=== PATIENT | female | born 1930 | race Caucasian/White ===

== ENCOUNTER 2020-01-30 17:13 | Inpatient (IN) | payer MEDICARE, OTHER ==
[~2020-01-30] VITALS: Ht 157.5 cm; Wt 72.1 kg
[~2020-01-30 17:13] MED LIST: ACTEMRA80 MG/4 ML IV; ASPIRIN81 MG PO; FIORICET1 EA PO; FOLIC ACID1 MG PO; HYDROCODON-ACE1 EA12 PO; LIPITOR10 MG PO; LYRICA100 MG PO; METHOTREXATE2.5 MG PO; NEXIUM40 MG PO; PREDNISONE5 MG PO; PROPRANOLOL HCL80 MG PO; RESTASIS1 EACH PO; ULTRAM50 MG PO
[2020-01-30] MEDS ORDERED: ONDANSETRON HCL INJ 2MG/ML 2ML 2 MG/ML VIAL IV STA (17:23)
[2020-01-30] MEDS ORDERED: MORPHINE SULFATE 2 MG/ML SYR 1ML IV STA ×2 (17:23→17:51)
--- OUTSIDE RECORDS SUMMARY | 2020-01-30 17:31 | XMS REPORT | Continuity of Care Document ---
Author Author [email or web address] Address Unknown Phone Unavailable Care Team Providers Care Underwriting Clerk Name Role Phone [employer] Unavailable Un available Problems Problem Status Onset Date Classification Date Reported Comments Source M79.641 Active 01/07/2020 [facility] DX: K21.9=GASTRO-ESOPHAGEAL REFLUX DISEA Active 03/27/2019 [facility] Unspecified open wound, unspecified lowe r leg, initial encounter 03/14/2019 03/17/2019 [facility] LEFT LEG SWOLLEN Active 03/14/2019 [facility] RT ANKLE Active 02/20/2019 [facility] RT ANKLE. Active 02/20/2019 [facility] R09.82/J31.0 LANDMARK PROTOCOL Active 01/22/2019 [facility] Other fracture of upper and lower end of unspecified fibula, initial encounter for closed fracture 12/29/2018 12/31/2018 [facility] Unspecified fall, initial encounter 12/29/2018 12/31/2018 [facility] LEG PAIN Active 12/28/2018 [facility] Lumbago with sciatica, right side 04/23/2018 11/04/2018 [facility] RT SIDE LBP W/RT SIDE SCIATICA Active 01/01/2018 [facility] Unspecified abdominal pain 12/27/2017 07/08/2018 [facility] RIGHT SIDE LOWER BACK PAIN AND SCIATICA Active 12/25/2017 [facility] RIGHT SIDE LOWER BACK PAIN Act krishan 12/25/2017 [facility] ABD PAIN Active 12/15/2017 [facility] ABDOMINAL PAIN, PNEUMONIA Acti ve 12/15/2017 [facility] CHEST PAIN Active 12/04/2017 [facility] ACUTE CHEST PAIN Active 12/04/2017 [facility] M05.741, M05.742 Active 06/14/2016 [facility] DX: PAD /CLAUDICATION/ABNORMAL DOPPLER I Active 03/30/2016 [facility] INSECT BITE Active 01/21/2016 [facility] LUE CELLULITIS W/IMMUNE SYSTEM SUPPRESSI Active 01/21/2016 [facility] DX; K21.9=GASTRO-ESOPHAGEAL REFLUX DISEA Active 01/19/2016 [facility] Discharge Diagnosis: Left foot pain 11/11/2015 11/14/2015 [facility] Discharge Diagnosis: Musculoskeletal limb pain 11/11/2015 11/14/2015 [facility] Discharge Diagnosis: Contusion of left leg 10/20/2015 10/23/2015 [facility] LEG PAIN OR INJURY Active 10/19/2015 [facility] Discharge Diagnosis: Contusion of left k nee, initial encounter 07/28/2015 07/31/2015 [facility] HIP PAIN Active 07/28/2015 [facility] Other lack of coordination 11/04/2018 [facility] [place] Difficulty in walking, not elsewhere classified 11/04/2018 [facility] [place] Muscle weakness (generalized) 11/04/2018 [facility] [place] Unsteadiness on feet 11/04/2018 [facility] [place] Fibromyositis (disorder) Resol dami Problem [facility] [place] [place] Hyperlipidemia (disorder) Reso lved Problem [facility] [place] [place] Hypertensive disorder, systemic arterial (disorder) Resolved Problem 01/09/2020 [facility] [place] [place] Rheumatoid arthritis (disorder) Resolved Problem [facility] [place] [place] Pneumonia, unspecified organism 07/08/2018 [facility] Dehydration 07/08/2018 [facility] Fibromyalgia 07/08/2018 [facility] Unspecified osteoarthritis, unspecified site 07/08/2018 [facility] Rheumatoid arthritis, unspecified 07/08/2018 [facility] Restless legs syndrome 07/08/2018 [facility] Essential (primary) hypertension 07/08/2018 [facility] Polyp of stomach and duodenum 07/08/2018 [facility] Cholesterolosis of gallbladder 07/08/2018 [facility] Pure hypercholesterolemia, unspecified 07/08/2018 [facility] Hyperlipidemia, unspecified 07/08/2018 [facility] Chronic pain syndrome 07/08/2018 [facility] Atherosclerosis of aorta 07/08/2018 [facility] Gastro-esophageal reflux disease without esophagitis 07/08/2018 [facility] Diaphragmatic hernia without obstruction or gangrene 07/08/2018 [facility] Other constipation 07/08/2018 [facility] terminal makeup operator (current) use of opiate analgesic 07/08/2018 [facility] Diarrhea, unspecified 07/08/2018 [facility] Adverse effect of unspecified narcotics, initial encounter 07/08/2018 [facility] Restlessness and agitation 07/08/2018 [facility] Personal history of colonic polyps 07/08/2018 [facility] Migraine, unspecified, not intractable, without status migrainosus 07/08/2018 [facility] Hypokalemia 07/08/2018 [facility] Pain in right knee 01/09/2020 [facility] NECK/BACK Active [facility] [place] TRAUMATIC ECCHYMOSIS OF LT LOWER LEG Active [facility] [place] BACK PAIN Active [facility] LOW BACK PAIN Active [facility] GASTRO-ESOPHAGEAL REFLUX DISEASE WITHOUT Active [facility] DYSPHAGIA, UNSPECIFIED Active [facility] PERSONAL HISTORY OF COLONIC POLYPS Active [facility] CELLULITIS AND ABSCESS OF MOUTH Active [facility] PERIPHERAL VASCULAR DISEASE, UNSPECIFIED Active [facility] RHEU ARTHRITIS W RHEU FACTOR OF R HAND W Active [facility] RHEU ARTHRITIS W RHEU FACTOR OF LEFT SPANGLER Active [facility] UNSPECIFIED ABDOMINAL PAIN Act krishan [facility] PNEUMONIA, UNSPECIFIED ORGANISM Active [facility] LUMBAGO WITH SCIATICA, RIGHT SIDE Active [facility] [place] DIFFICULTY IN WALKING, NOT ELSEWHERE CLA Active [facility] [place] UNSTEADINESS ON FEET Active [facility] [place] OTHER LACK OF COORDINATION Act krishan [facility] [place] MUSCLE WEAKNESS (GENERALIZED) Active [facility] [place] POSTNASAL DRIP Active [facility] CHRONIC RHINITIS Active [facility] PAIN IN RIGHT HAND Active [place] PAIN IN LEFT HAND Active [place] PAIN IN LEFT KNEE Active [place] PAIN IN RIGHT KNEE Active [facility] Medications Medication Details Route Status Patient Instructions Ordering Provider Order Date Source Sulfamethoxazole 800 MG / Trimethoprim 1 60 MG Oral Tablet [Bactrim] 1 tab, PO, BID, X 10 day, # 20 tab, 0 Re fill(s) Active 03/15/2019 [facility] Sulfamethoxazole 800 MG / Trimethoprim 1 60 MG Oral Tablet [Bactrim] Notes: One DS tablet = trimethoprim 160m g + sulfamethoxazole 800 mg Dose based on trimethoprim component On empty stomach with a glass of water. (Same As: Bactrim DS, Septra DS) Inactive 03/15/2019 [facility] WheelChair 1 ea, MISC, ONCALL, # 1 ea, 0 Refill(s) Active 12/29/2018 [facility] Albuterol 0.833 MG/ML / Ipratropium Brom zhang 0.167 MG/ML Inhalant Solution [DuoNeb] Notes: (Same as: Duoneb) No Longer Active 12/29/2018 [facility] rOPINIRole 0.25 mg oral tablet 0.25 mg = 1 tab, PO, TID- Before Meals, # 90 tab, 0 Refill(s), Pharmacy: [facility] [id number] Active 12/19/2017 [facility] Lidocaine 0.05 MG/MG Topical Ointment 1 appl, TOP, TID, # 50 gm, 0 Refill(s), Pharmacy: [facility] [id number] Active 12/19/2017 [facility] DULoxetine 30 mg oral delayed release capsule 30 mg = 1 cap, PO, Daily, # 30 cap, 0 Refill(s), Pharmacy: [facility] [employer] [place] [id number] Active 12/19/2017 [facility] predniSONE 10 mg oral tablet 1 0 mg = 1 tab, PO, Daily, 0 Refill(s) Active 12/19/2017 [facility] Sodium Chloride 0.9% IV 1000 mL 1,000 mL, Rate: 25 ml/hr, Infuse over: 40 hr, Route: IV, Dosing Weight 56.903 kg, Total Volume: 1,000, Start date: 12/18/17 12:07:00 CDT, Duration: 30 day, Stop date: 01/17/18 12:06:00 CDT, 1.59, m2 Inactiv e 12/18/2017 [facility] Methotrexate Notes: (Same as:M ethotrexate Sodium) Chemotherapy agent/Handle with caution WASTE: F/P - Black; E - Yellow No Longer Active 12/18/2017 [facility] Cymbalta Notes: (Same as: Cymb adam) (Do Not Crush) No Longer Active 12/18/2017 [facility] Lyrica Notes: Same as Lyrica No Longer Active 12/18/2017 [facility] Potassium Chloride Notes: ([facility] e as: K-Dur 20) "Do Not Crush" For patients unable to swallow tablet, dissolve in one half glass of water. Allow about 2 minutes for the tablets to disintegrate. Stir before giving to prepare slurry and administer. Please exclude Patients with feeding tube less than 14 Romanian (Dobhoff, J-tube etc) and pediatric and patients. With food and full glass of water Inactive 12/17/2017 [facility] Requip Notes: (Same as: Requip) No Longer Active 12/17/2017 [facility] Lidocaine 0.05 MG/MG Topical Ointment Notes: (Same as: Xylocaine) No Longer Active 12/17/2017 [facility] Prednisone Notes: (Same as: Pr edniSONE) Take with food. No Longer Active 12/17/2017 [facility] morphine 15 mg oral tablet, extended release Notes: Do not crush (Same as:Oramorph SR, MS Contin) No Longer Active 12/17/2017 [facility] Potassium Chloride Notes: (Jeronimo e as: K-Dur 20) "Do Not Crush" For patients unable to swallow tablet, dissolve in one half glass of water. Allow about 2 minutes for the tablets to disintegrate. Stir before giving to prepare slurry and administer. Please exclude Patients with feeding tube less than 14 Romanian (Dobhoff, J-tube etc) and pediatric and patients. With food and full glass of water Inactive 12/17/2017 [facility] Morphine 30 mg, PO, Q8H, 0 Ref ill(s) Active 12/17/2017 [facility] Potassium Chloride Notes: MUST be Diluted before use (Same as: KCl) MEDICATION WASTE Product Size: 40 mEq Product Wasted: ___ mEq Inactive 12/16/2017 [facility] atorvastatin Notes: (Same As: Lipitor) No Longer Active 12/16/2017 [facility] Actemra 20 mg/mL intravenous solution 4 mg/kg, IV, q4wk, 0 Refill(s) No Longer Active 12/16/2017 [facility] Ativan Notes: (Same as: Ativan) Inactive 12/15/2017 [facility] Lyrica Notes: (Same as: Lyrica) No Longer Active 12/15/2017 [facility] RN please bring patient's own Metanx to pharmacy to label RN please bring patient's own Metanx to pharmacy to label, Reminder, Drug form: MISC, Route: BRENDACEMELYN, 12/15/17 16:00:00 CDT, Duration: 30 day, Stop date: 01/14/18 8:00:00 CDT No Longer Active 12/15/2017 [facility] Morphine Notes: (Same as:MORPh ine Sulfate) No Longer Active 12/15/2017 [facility] Rocephin + sterile water 10 mL Notes: (Same As: Rocephin). Use with 100 mL NS and infuse over 30 min MEDICATION WASTE Product Size: 1000 mg Product Wasted: ___ mg Inactive 12/15/2017 [facility] D5W 1/2NS 1,000 mL 1,000 mL, R ate: 100 ml/hr, Infuse over: 10 hr, Route: IV, Dosing Weight 56.903 kg, Total Volume: 1,000, Start date: 12/15/17 10:00:00 CDT, Duration: 30 day, Stop date: 01/14/18 9:59:00 CDT, 1.59, m2 No Longer Active 12/15/2017 [facility] Flagyl Notes: (Same as: Flagyl ) Avoid alcohol. No Longer Active 12/15/2017 [facility] Restasis Notes: (Same as: Rest asis) No Longer Active 12/15/2017 [facility] mometasone furoate 0.05 MG/ACTUAT Metere d Dose Nasal [place] 100 microgram, 2 spray, Route: NASAL, Da barbara, Drug form: SPRY, Start date: 12/15/17 9:00:00 CDT, Duration: 30 day, Stop date: 01/13/18 9:00:00 CDT No Longer Active 12/15/2017 [facility] 24 HR Metoprolol Tartrate 50 MG Extended Release Tablet [Toprol] Notes: (Same as: Toprol XL) May split t ab, but do not crush. No Longer Active 12/15/2017 [facility] Fluticasone propionate 0.05 MG/ACTUAT Me tered Dose Nasal [place] [Flonase] Notes: (Same as: Flonase) No Longer Active 12/15/2017 [facility] Hydralazine Hydrochloride 25 MG Oral Tablet Notes: (Same as: Apresoline) May interfere w/enteral feedings Take With Food. No Longer Active 12/15/2017 [facility] Restasis 0.05% ophthalmic emulsion Restasis 0.05% ophthalmic emulsion, 1 drp, Route: BOTH EYES, BID, 12/15/17 9:00:00 CDT, Duration: 30 day, Stop date: 01/13/18 17:00:00 CDT Inactive 12/15/2017 [facility] Azelastine hydrochloride 0.137 MG/ACTUAT Metered Dose Nasal [place] [Astelin] 274 microgram, 2 spray, Route: NASAL, Dr ug Form: SPRY, Dosing Weight 59.091, kg, BID, Start date: 12/15/17 9:00:00 CDT, Duration: 30 day, Stop date: 01/13/18 17:00:00 CDT No Longer Active 12/15/2017 [facility] Aspirin Notes: Do not crush or chew. (Same As: Ecotrin) Inactive 12/15/2017 [facility] naloxegol 25 MG Oral Tablet [Movantik] Notes: (Same as: Movantik) Swallow tablets whole, do not crush or chew. Avoid consumption of grapefruit or grapefruit juice during treatment. Administer naloxegol on an empty stomach at least 1 hour prior to or 2 hours after the first meal of the day. Inactive 12/15/2017 [facility] Lyrica 100 mg oral capsule Lyr ica 100 mg oral capsule, 150 mg, Drug form: CAP, Route: PO, TID, 12/15/17 9:00:00 CDT, Duration: 30 day, Stop date: 01/13/18 17:00:00 CDT Inactive 12/15/2017 [facility] Metanx oral capsule Metanx ora l capsule, 1 cap, Route: PO, Daily, 12/15/17 9:00:00 CDT, Duration: 30 day, Stop date: 01/13/18 9:00:00 CDT No Longer Active 12/15/2017 [facility] Pls update height,weight,allergies Pls update height,weight,allergies, Attn RN, Drug form: MISC, Route: MISC, Continuous, 12/15/17 8:00:00 CDT, Duration: 1 day, Stop date: 12/16/17 7:59:00 CDT Inactive 12/15/2017 [facility] Azithromycin 500 mg, Route: IV , Q24H, Dosing Weight 59.091, kg, Start date: 12/15/17 8:00:00 CDT, Duration: 30 day, Stop date: 01/13/18 8:00:00 CDT, ABX Indication: Pneumonia Inactive 12/15/2017 [facility] morphine 15 mg oral tablet, extended release Notes: Do not crush (Same as:Oramorph SR, MS Contin) No Longer Active 12/15/2017 [facility] Symbicort 80/4.5 inhalation aerosol with adapter Notes: (Same as: Symbicort) WASTE: Aerosol - Return to Pharmacy No Longer Active 12/15/2017 [facility] Ceftriaxone Notes: (Same As: Brendan mobley). MEDICATION WASTE Product Size: 1000 mg Product Wasted: ___ mg Inactive 12/15/2017 [facility] Albuterol 0.83 MG/ML Inhalant Solution Notes: SEE RT DOCUMENTATION (Same as: Proventil) No Longer Active 12/15/2017 [facility] Dextromethorphan Hydrobromide 2 MG/ML / Guaifenesin 20 MG/ML Oral Solution Notes: (dextromethorphan-guaifenesin 10- 100/5 ml LIQ) (Same as: Robitussin-DM) No Longer Active 12/15/2017 [facility] Acetaminophen Notes: Do not ex ceed 4 gm/day. (Same as: Tylenol) No Longer Active 12/15/2017 [facility] Ondansetron Notes: (Same as: Ledy collins) MEDICATION WASTE Product Size: 4 mg Product Wasted: ___ mg No Longer Active 12/15/2017 [facility] Azithromycin Notes: (Same As: Zithromax IV) Inactive 12/15/2017 [facility] Ceftriaxone Notes: (Same As: Brendan mobley). Use with 100 mL NS and infuse over 30 min MEDICATION WASTE Product Size: 1000 mg Product Wasted: ___ mg Inactive 12/15/2017 [facility] GI cocktail Notes: [place] = antacid with simethicone 22.5 mL - lidocaine viscous 7.5 mL Inactive 12/15/2017 [facility] Morphine 2 mg, Route: IVP, ONC E, Dosing Weight 59.091, kg, Priority: STAT, Start date: 12/15/17 5:14:00 CDT, Stop date: 12/15/17 5:14:00 CDT Inactive 12/15/2017 [facility] Morphine 2 mg, Route: IVP, ONC E, Dosing Weight 59.091, kg, Priority: STAT, Start date: 12/15/17 2:49:00 CDT, Stop date: 12/15/17 2:49:00 CDT Inactive 12/15/2017 [facility] Metoclopramide 10 mg, Route: I NATURAL [employer] TRADER, Drug form: INJ, ONCE, Dosing Weight 59.091, kg, Priority: STAT, Start date: 12/15/17 2:49:00 CDT, Stop date: 12/15/17 2:49:00 CDT Inactive 12/15/2017 [facility] Sodium Chloride 0.9% (Bolus) IV 1,000 mL, Infuse Over: 1 hr, Route: IV, ONCE, Priority: STAT, Dosing Weight 59.091 kg, Start date: 12/15/17 2:49:00 CDT, Stop date: 12/15/17 2:49:00 CDT Inactive 12/15/2017 [facility] Miralax Notes: Dissolve in 8 o z of water or juice. (Same as: Miralax) Inactive 12/05/2017 [facility] naloxegol 25 MG Oral Tablet [Movantik] Notes: (Same as: Movantik) Swallow tablets whole, do not crush or chew. Avoid consumption of grapefruit or grapefruit juice during treatment. Administer naloxegol on an empty stomach at least 1 hour prior to or 2 hours after the first meal of the day. Inactive 12/05/2017 [facility] multivitamin Notes: (Same as:O ne Tab Daily, Tab-A-Guerrero + Beta Carotene) Give with food. Inactive 12/05/2017 [facility] mometasone furoate 0.05 MG/ACTUAT Metere d Dose Nasal [place] 100 microgram, 2 spray, Route: NASAL, Da barbara, Drug form: SPRY, Start date: 12/05/17 9:00:00 CDT, Duration: 30 day, Stop date: 01/03/18 9:00:00 CDT Inactive 12/05/2017 [facility] 24 HR Metoprolol Tartrate 50 MG Extended Release Tablet [Toprol] Notes: (Same as: Toprol XL) May split t ab, but do not crush. Inactive 12/05/2017 [facility] Hydralazine Hydrochloride 25 MG Oral Tablet Notes: (Same as: Apresoline) May interfere w/enteral feedings Take With Food. Inactive 12/05/2017 [facility] Nexium 40 mg, Route: PO, Drug form: ECCAP, Daily, Dosing Weight 60.909, kg, Start date: 12/05/17 9:00:00 CDT, Duration: 30 day, Stop date: 01/03/18 9:00:00 CDT No Longer Active 12/05/2017 [facility] Cyclosporine 0.5 MG/ML Ophthalmic Suspension [Restasis ] Notes: (Same as: Restasis) Inactive 12/05/2017 [facility] Aspirin Notes: Do not crush or chew. (Same As: Ecotrin) Inactive 12/05/2017 [facility] Prednisone Notes: Take with fo od. Inactive 12/05/2017 [facility] Fluticasone propionate 0.05 MG/ACTUAT Me tered Dose Nasal [place] [Flonase] Notes: (Same as: Flonase) Inactive 12/05/2017 [facility] Nexium 40 mg, Route: PO, Befor e Breakfast, Dosing Weight 60.909, kg, Start date: 12/05/17 7:30:00 CDT, Duration: 30 day, Stop date: 01/03/18 7:30:00 CDT Inactive 12/05/2017 [facility] *ATTN RN please bring pt home med to [facility] to be labeled* *ATTN RN please bring pt home med to [facility] to be labeled*, ATTN RN, Drug form: MISC, Route: MISC, QSHIFT, 12/05/17 0:00:00 CDT, Duration: 30 day, Stop date: 01/03/18 16:00:00 CDT Inactive 12/05/2017 [facility] Azelastine hydrochloride 0.137 MG/ACTUAT Metered Dose Nasal [place] [Astelin] Notes: (azelastine 137 microgram/inh 30 ml nasal SPR) Non- formulary drug. Same As: Astelin) No Longer Active 12/05/2017 [facility] pregabalin Notes: (Same as: Ly jamarcus) No Longer Active 12/05/2017 [facility] cefdinir Notes: (Same As: Omni cef) No Longer Active 12/05/2017 [facility] atorvastatin Notes: (Same as: Lipitor) No Longer Active 12/05/2017 [facility] Protonix Notes: Tablet should not be chewed or crushed. (Same as: Protonix) Inactive 12/05/2017 [facility] Vantin 200 mg, Route: PO, Drug form: TAB, [id number], Dosing Weight 60.909, kg, Start date: 12/04/17 19:00:00 CDT, Duration: 10 day, Stop date: 12/14/17 7:00:00 CDT, ABX Indication: Other (specify in Comments) Inactive 12/05/2017 [facility] predniSONE 20 mg oral tablet 2 0 mg = 1 tab, PO, Daily, 0 Refill(s) Active 12/04/2017 [facility] morphine 15 mg oral tablet, extended release Notes: Do not crush (Same as:Oramorph SR, MS Contin) No Longer Active 12/04/2017 [facility] Estrogens, Conjugated ([facility]) 0.625 MG/ML Vaginal Cream [Premarin] Notes: (Same As: Premarin Vaginal) No Longer Active 12/04/2017 [facility] Symbicort 80/4.5 inhalation aerosol with adapter Notes: (Same as: Symbicort) WASTE: Aerosol - Return to Pharmacy No Longer Active 12/04/2017 [facility] Acetaminophen 325 MG / butalbital 50 MG / Caffeine 40 MG Oral Tablet Notes: (bfkcwrzireccc-xqrcxxmjzi-ywdwjmt e 325-50-40mg) Do not exceed 4 gm/day of acetaminophen. (Same as: Esgic, Fioricet) No Longer Active 12/04/2017 [facility] 200 ACTUAT Albuterol 0.09 MG/ACTUAT Mete red Dose Inhaler [ProAir HFA] Notes: Albuterol 90 microgram/inh 8gm HF A WASTE: Aerosol - Return to Pharmacy Same as: Ventolin, Proventil No Longer Active 12/04/2017 [facility] Aspirin 81 mg, PO, Daily, 0 Re fill(s) Active 12/04/2017 [facility] Fluticasone propionate 0.05 MG/ACTUAT Me tered Dose Nasal [place] [Flonase] 50 microgram =, NASAL, Daily, 0 Refill(s ) Active 12/04/2017 [facility] Azelastine hydrochloride 0.137 MG/ACTUAT Metered Dose Nasal [place] [Astelin] 2 spray, NASAL, BID, 0 Refill(s) Active 12/04/2017 [facility] metoprolol tartrate 50 mg oral tablet 50 mg = 1 tab, PO, Daily, 0 Refill(s) Active 12/04/2017 [facility] Prednisone 2 mg, PO, Daily, Qu antity sufficient, 0 Refill(s) No Longer Active 12/04/2017 [facility] Cyclosporine 0.5 MG/ML Ophthalmic Suspension [Restasis ] 1 drp, BOTH EYES, BID, # 30 mL, 0 Refill(s) Active 12/04/2017 [facility] mometasone furoate 0.05 MG/ACTUAT Metere d Dose Nasal [place] 2 spray, NASAL, Daily, 0 Refill(s) Active 12/04/2017 [facility] Metanx oral capsule 1 cap, PO, Daily, 0 Refill(s) Active 12/04/2017 [facility] Aspirin Notes: Take with food. Inactive 12/04/2017 [facility] Saline Flush 0.9% Notes: (Same as: BD Posiflush) No Longer Active 12/04/2017 [facility] calamine topical lotion 1 appl , Route: TOP, QID, Drug form: LOT, PRN Itching, Start date: 01/26/16 8:22:00 CDT, Duration: 30 day, Stop date: 02/25/16 8:21:00 CDT Inactive 01/26/2016 [facility] RN-Do NOT give Vanc until trough drawn 01/26/16 @ 08:00 RN-Do NOT give Vanc until trough drawn 01/26/16 @ 08:00, Attn:RN, Drug form: MISC, Route: MISC, ONCE, 01/26/16 7:30:00 CDT, Stop date: 01/26/16 7:30:00 CDT Inactive 01/26/2016 [facility] Milk of Magnmirtha Notes: (Same as: Milk of Fidencio, MOM) Inactive 01/25/2016 [facility] vancomycin + sodium chloride 0.9% INJ 250 mL 2001 mg: infuse over 2.5 hours MEDICATION WASTE Product Size: 1000 mg Product Wasted: ___ mg No Longer Active 01/25/2016 [facility] Methotrexate Notes: (Same as:M ethotrexate Sodium) Chemotherapy agent/Handle with caution WASTE: F/P - Black; E - Yellow No Longer Active 01/25/2016 [facility] Movantik 25mg Movantik 25mg, 1 tab, Drug form: MISC, Route: PO, QAM, 01/23/16 9:00:00 CDT, Duration: 30 day, Stop date: 02/21/16 6:00:00 CDT No Longer Active 01/23/2016 [facility] Nexium 40 mg, Route: PO, Befor e Breakfast, Dosing Weight 59.001, kg, Start date: 01/23/16 7:30:00 CDT, Duration: 30 day, Stop date: 02/21/16 7:30:00 CDT No Longer Active 01/23/2016 [facility] esomeprazole (Nexium) 40mg cap esomeprazole (Nexium) 40mg cap, 40 mg, 1 cap, Drug form: MISC, Route: PO, Daily, 01/23/16 7:00:00 CDT, Duration: 30 day, Stop date: 02/21/16 7:00:00 CDT No Longer Active 01/23/2016 [facility] cefepime Notes: (Same As: Roberth moody) MEDICATION WASTE Product Size: 1000 mg Product Wasted: ___ mg No Longer Active 01/22/2016 [facility] Metanx Metanx, 1 tab, Drug for m: MISC, Route: PO, BID, 01/22/16 17:00:00 CDT, Duration: 30 day, Stop date: 02/21/16 9:00:00 CDT No Longer Active 01/22/2016 [facility] Protonix Notes: Tablet should not be chewed or crushed. (Same as: Protonix) Inactive 01/22/2016 [facility] Hydrocortisone butyrate 0.001 MG/MG Topical Ointment Notes: (Same as: Hytone) No Longer Active 01/22/2016 [facility] Aspirin 81 MG Chewable Tablet Notes: Take with food. No Longer Active 01/22/2016 [facility] Vitamin E 400 IntlUnit, 2 cap, Route: PO, Drug form: CAP, Daily, Dosing Weight 59.091, kg, Start date: 01/22/16 9:00:00 CDT, Stop date: 02/20/16 9:00:00 CDT No Longer Active 01/22/2016 [facility] Lyrica Notes: Same as Lyrica No Longer Active 01/22/2016 [facility] Prednisone Notes: (Same as: Pr edniSONE) Take with food. No Longer Active 01/22/2016 [facility] Miralax Notes: Dissolve in 8 o z of water or juice. (Same as: Miralax) No Longer Active 01/22/2016 [facility] MS Contin Notes: Do not crush (Same as:Oramorph SR, MS Contin) No Longer Active 01/22/2016 [facility] metoprolol tartrate Notes: (Sa me as: Lopressor) No Longer Active 01/22/2016 [facility] Hydralazine Hydrochloride 25 MG Oral Tablet Notes: (Same as: Apresoline) May interfere w/enteral feedings Take With Food. No Longer Active 01/22/2016 [facility] Nexium 40 mg, Route: PO, Drug form: ECCAP, Daily, Dosing Weight 59.091, kg, Start date: 01/22/16 9:00:00 CDT, Duration: 30 day, Stop date: 02/20/16 9:00:00 CDT No Longer Active 01/22/2016 [facility] Calcium Carbonate 1250 MG / Cholecalcife rol 400 UNT Chewable Tablet Notes: (Same As: Maria Dolores-D, OsCal-D, Oyste r Calcium) No Longer Active 01/22/2016 [facility] Vancomycin 2001 mg: infuse ov er 2.5 hours MEDICATION WASTE Product Size: 1000 mg Product Wasted: ___ mg No Longer Active 01/22/2016 [facility] atorvastatin Notes: (Same as: Lipitor) No Longer Active 01/22/2016 [facility] Restasis Notes: (Same as: Rest asis) No Longer Active 01/22/2016 [facility] Benadryl 25 mg, 1 tab, Route: PO, Drug form: TAB, [id number], Dosing Weight 59.091, kg, PRN Allergic reaction, Start date: 01/21/16 20:56:00 CDT, Duration: 30 day, Stop date: 02/20/16 20:55:00 CDT No Longer Active 01/22/2016 [facility] morphine 15 mg oral tablet, extended release Notes: Do not crush (Same as:Oramorph SR, MS Contin) No Longer Active 01/22/2016 [facility] Estrogens, Conjugated (CARE HOME) 0.625 MG/ML Vaginal Cream [Premarin] Notes: (Same As: Premarin Vaginal) No Longer Active 01/22/2016 [facility] Symbicort 80/4.5 inhalation aerosol with adapter Notes: (Same as: Symbicort) WASTE: Aerosol - Return to Pharmacy No Longer Active 01/22/2016 [facility] Acetaminophen 325 MG / butalbital 50 MG / Caffeine 40 MG Oral Tablet Notes: (zcfkzslhxolyb-cbsgidkjns-jnbctne e 325-50-40mg) Do not exceed 4 gm/day of acetaminophen. (Same as: Esjackson, Fioricet) No Longer Active 01/22/2016 [facility] 200 ACTUAT Albuterol 0.09 MG/ACTUAT Mete red Dose Inhaler [ProAir HFA] Notes: Albuterol 90 microgram/inh 8gm HF A WASTE: Aerosol - Return to Pharmacy Same as: Ventolin, Proventil No Longer Active 01/22/2016 [facility] Estrogens, Conjugated (CARE HOME) 0.625 MG/ML Vaginal Cream [Premarin] 1 appl, VAG, Bedtime, PRN dryness Active 01/21/2016 [facility] POLYETHYLENE GLYCOL 3350 142 MG/ML Oral Solution [Miralax] 17 gm, PO, BID Active 01/21/2016 [facility] Calcium Citrate 1190 MG / Vitamin D 200 UNT Oral Tablet [Citracal Regular + D] 1 tab, PO, BID Active 01/21/2016 [facility] Vitamin D3 5000 intl units oral tablet 5,000 IntlUnit = 1 tab, PO, Daily Active 01/21/2016 [facility] vitamin E 400 intl units oral capsule 400 IntlUnit = 1 cap, PO, Daily Active 01/21/2016 [facility] morphine 15 mg oral tablet, extended release 15 mg = 1 tab, PO, TID, PRN Pain Score 1-5 Active 01/21/2016 [facility] Morphine Sulfate 30 MG Extended Release Tablet [MS Contin] 30 mg = 1 tab, PO, TID, at 0600, 1400, 2200 Active 01/21/2016 [facility] Hydralazine Hydrochloride 25 MG Oral Tablet 25 mg = 1 tab, PO, BID Active 01/21/2016 [facility] predniSONE 5 mg oral tablet 10 mg = 2 tab, PO, Every Other Day, with food Active 01/21/2016 [facility] Acetaminophen 325 MG / butalbital 50 MG / Caffeine 40 MG Oral Tablet 2 tab, PO, Q4H, PRN Headache, Not to exc eed more than 6 tablets in 24 hours Active 01/21/2016 [facility] atorvastatin 20 mg oral tablet 20 mg = 1 tab, PO, Bedtime Active 01/21/2016 [facility] metoprolol 50 mg oral tablet, extended release 25 mg = 0.5 tab, PO, Daily Active 01/21/2016 [facility] naloxegol 25 MG Oral Tablet [Movantik] 25 mg = 1 tab, PO, QAM Active 01/21/2016 [facility] Zofran Notes: (Same as: Zofran ) MEDICATION WASTE Product Size: 4 mg Product Wasted: ___ mg No Longer Active 01/21/2016 [facility] Morphine Notes: (Same as:MORPh ine Sulfate) No Longer Active 01/21/2016 [facility] Acetaminophen Notes: Do not ex ceed 4 gm/day. (Same as: Tylenol) No Longer Active 01/21/2016 [facility] Diphenhydramine 25 mg, Route: IVP, ONCE, Dosing Weight 59.091, kg, Priority: STAT, Start date: 01/21/16 17:32:00 CDT, Stop date: 01/21/16 17:32:00 CDT Inactive 01/21/2016 [facility] cefepime Notes: (Same As: Roberth moody) MEDICATION WASTE Product Size: 1000 mg Product Wasted: ___ mg Inactive 01/21/2016 [facility] Vancomycin 2001 mg: infuse ov er 2.5 hours Inactive 01/21/2016 [facility] Saline Flush 0.9% Notes: (Same as: BD Posiflush) No Longer Active 01/21/2016 [facility] Benadryl Notes: (Same as: Olga dryl) Inactive 01/21/2016 [facility] Dexamethasone Notes: Concentra tion: 4mg/ml Inactive 01/21/2016 [facility] Acetaminophen 325 MG / Hydrocodone Alyssa trate 10 MG Oral Tablet [[place] 10/325] 1 tab, Route: PO, Drug Form: TAB, Dosing Weight 60, kg, ONCE, STAT, Start date: 11/11/15 17:42:00 CDT, Stop date: 11/11/15 17:42:00 CDT Inactive 11/11/2015 [facility] Dilaudid-5 1 mg, Route: PO, ON CE, Dosing Weight 60, kg, Priority: STAT, Start date: 11/11/15 15:39:00 CDT, Stop date: 11/11/15 15:39:00 CDT Inactive 11/11/2015 [facility] Morphine 0 Refill(s) Active 10/21/2015 [facility] ProAir HFA 1 - 2 puffs, PO, Q4 H, PRN Wheezing / cough / shortness of breath, # 1 ea, 0 Refill(s) Active 10/21/2015 [facility] Symbicort 80/4.5 inhalation aerosol with adapter 2 puff, INHALATION, BID, # 6.9 gm, 0 Refill(s) Active 10/21/2015 [facility] Aspirin 81 MG Chewable Tablet 81 mg = 1 tab, PO, Daily, tab, 0 Refill(s) Active 10/21/2015 [facility] atorvastatin 20 MG Oral Tablet [Lipitor] 20 mg = 1 tab, PO, Bedtime, # 30 tab, 0 Refill(s) Active 10/21/2015 [facility] Restasis 1 drp, BOTH EYES, Q12 H, 0 Refill(s) Active 10/21/2015 [facility] Fioricet PO, Q4H, 0 Refill(s) Active 10/21/2015 [facility] metoprolol 25 mg oral tablet, extended release 25 mg = 1 tab, PO, Daily, # 30 tab, 0 Refill(s) Active 10/21/2015 [facility] Esomeprazole 40 MG Enteric Coated Capsule [Nexium] 40 mg = 1 cap, PO, Daily, # 30 cap, 0 Refill(s) Active 10/21/2015 [facility] pregabalin 100 MG Oral Capsule [Lyrica] 100 mg = 1 cap, PO, TID, # 90 cap, 0 Refill(s) Active 10/21/2015 [facility] methotrexate 2.5 mg oral tablet PO, 0 Refill(s) Active 10/21/2015 [facility] Tylenol Notes: Do not exceed 4 gm/day. (Same as: Tylenol) Inactive 07/28/2015 [facility] Allergies, Adverse Reactions, Alerts Substance Category Reaction Severity Reaction type Status Date Reported Comments Source Arthrotec Assertion Drug allergy Active [facility] codeine Assertion Drug allergy Active [facility] iodine Assertion Drug allergy Active [facility] niacin Assertion Drug allergy Active [facility] penicillins Assertion Drug allergy Active [facility] Protonix Assertion Drug allergy Active [facility] Talwin NX Assertion Drug allergy Active [facility] Valium Assertion Drug allergy Active [facility] contrast media (iodine-based) Assertion Drug aller gy Active [facility] Food Iodine Assertion Propensity to adverse reacti ons to substance Active [facility] [place] Immunizations Immunization Date Given Site Status Last Updated Comments Source diphtheria/pertussis, acel/tetanus adult 01/21/2016 Right deltoid completed [facility], [facility], [facility] [place] Results Order Name Results Value Reference Range Date Interpretation Comments Source CARDIAC ENZYMES Troponin-I <0.02 0.00 - 0.40 12/29/2018 [facility] CARDIAC ENZYMES BNP 221 <=100 pg/mL 12/29/2018 [facility] CHEM PANEL eGFR 67 12/29/2018 Result Comment: The eGFR is calculated using the CKD-EPI formula. In most young, healthy individuals the eGFR will be >90 mL/min/1.73m2. The eGFR declines with age. An eGFR of 60-89 may be normal in some populations, particularly the elderly, for whom the CKD-EPI formula has not been extensively validated. Use of the eGFR is not recommended in the following populations:

Individuals with unstable creatinine concentrations, including patients and those with serious co-morbid conditions.

Patients with extremes in muscle mass or diet.

The data above are obtained from the National Kidney Disease Education Program (NKDEP) which additionally recommends that when the eGFR is used in patients with extremes of body mass index for purposes of drug dosing, the eGFR should be multiplied by the estimated BMI. [facility] CHEM PANEL Glucose Lvl 135 70 - 99 12/29/2018 [facility] CHEM PANEL Calcium Lvl 9.4 8.5 - 10.5 12/29/2018 [facility] CHEM PANEL CO2 31 24 - 32 12/29/2018 [facility] CHEM PANEL Alk Phos 33 39 - 136 12/29/2018 [facility] CHEM PANEL Bili Total 0.6 0.2 - 1.3 12/29/2018 [facility] CHEM PANEL AST 23 0 - 37 12/29/2018 [facility] CHEM PANEL ALT 25 0 - 65 12/29/2018 [facility] CHEM PANEL Chloride Lvl 102 95 - 109 12/29/2018 [facility] CHEM PANEL Potassium Lvl 3.9 3.5 - 5.1 12/29/2018 [facility] CHEM PANEL Sodium Lvl 137 135 - 145 12/29/2018 [facility] CHEM PANEL BUN 10 7 - 22 12/29/2018 [facility] CHEM PANEL Creatinine Lvl 0.80 0.50 - 1.40 12/29/2018 [facility] CHEM PANEL Total Protein 8.1 6.4 - 8.4 12/29/2018 [facility] CHEM PANEL Albumin Lvl 4.0 3.5 - 5.0 12/29/2018 [facility] CHEM PANEL B/C Ratio 12 6 - 25 12/29/2018 [facility] CHEM PANEL AGAP 7.9 10.0 - 20.0 12/29/2018 [facility] CHEM PANEL A/G Ratio 1.0 0.7 - 1.6 12/29/2018 [facility] CHEM PANEL Globulin 4.1 2.7 - 4.2 12/29/2018 [facility] HEMATOLOGY Monocytes 9.4 2.0 - 12.0 12/29/2018 [facility] HEMATOLOGY Eosinophils 0.1 0.0 - 4.0 12/29/2018 [facility] HEMATOLOGY Lymphocytes 20.6 20.0 - 40.0 12/29/2018 [facility] HEMATOLOGY Basophils 0.3 0.0 - 1.0 12/29/2018 [facility] HEMATOLOGY Neutrophils # 6.1 1.5 - 8.1 12/29/2018 [facility] HEMATOLOGY Segs 69.6 45.0 - 75.0 12/29/2018 [facility] HEMATOLOGY Lymphocytes # 1.8 1.0 - 5.5 12/29/2018 [facility] HEMATOLOGY Monocytes # 0.8 0.0 - 0.8 12/29/2018 [facility] HEMATOLOGY RBC 4.30 4.20 - 5.40 12/29/2018 [facility] HEMATOLOGY MCV 87.6 80.0 - 98.0 12/29/2018 [facility] MCH 28.9 27.0 - 31.0 12/29/2018 [facility] HEMATOLOGY Platelet 222 133 - 450 12/29/2018 [facility] HEMATOLOGY MPV 8.3 7.4 - 10.4 12/29/2018 [facility] HEMATOLOGY WBC 8.8 3.7 - 10.4 12/29/2018 [facility] HEMATOLOGY Hgb 12.4 12.0 - 16.0 12/29/2018 [facility] HEMATOLOGY Hct 37.7 36.0 - 48.0 12/29/2018 [facility] HEMATOLOGY RDW 17.5 11.5 - 14.5 12/29/2018 [facility] HEMATOLOGY MCHC 33.0 32.0 - 36.0 12/29/2018 [facility] CHEM PANEL Amylase Lvl 53 25 - 115 12/17/2017 [facility] CHEM PANEL Lipase Lvl 156 73 - 393 12/17/2017 [facility] ELECTROLYTES Potassium Lvl 3.8 3.5 - 5.1 12/17/2017 [facility] CHEM PANEL Magnesium Lvl 2.2 1.8 - 2.4 12/17/2017 [facility] CHEM PANEL eGFR 84 12/17/2017 Result Comment: The eGFR is calculated using the CKD-EPI formula. In most young, healthy individuals the eGFR will be >90 mL/min/1.73m2. The eGFR declines with age. An eGFR of 60-89 may be normal in some populations, particularly the elderly, for whom the CKD-EPI formula has not been extensively validated. Use of the eGFR is not recommended in the following populations:

Individuals with unstable creatinine concentrations, including patients and those with serious co-morbid conditions.

Patients with extremes in muscle mass or diet.

The data above are obtained from the National Kidney Disease Education Program (NKDEP) which additionally recommends that when the eGFR is used in patients with extremes of body mass index for purposes of drug dosing, the eGFR should be multiplied by the estimated BMI. [facility] CHEM PANEL A/G Ratio 1.2 0.7 - 1.6 12/17/2017 [facility] CHEM PANEL ALT 23 0 - 65 12/17/2017 [facility] CHEM PANEL Alk Phos 20 39 - 136 12/17/2017 [facility] CHEM PANEL AST 27 0 - 37 12/17/2017 [facility] CHEM PANEL Bili Total 0.5 0.2 - 1.3 12/17/2017 [facility] CHEM PANEL B/C Ratio 9 6 - 25 12/17/2017 [facility] CHEM PANEL Total Protein 6.3 6.4 - 8.4 12/17/2017 [facility] CHEM PANEL Globulin 2.9 2.7 - 4.2 12/17/2017 [facility] CHEM PANEL Albumin Lvl 3.4 3.5 - 5.0 12/17/2017 [facility] CHEM PANEL AGAP 11.0 10.0 - 20.0 12/17/2017 [facility] CHEM PANEL Calcium Lvl 7.5 8.5 - 10.5 12/17/2017 [facility] CHEM PANEL Potassium Lvl 3.0 3.5 - 5.1 12/17/2017 Result Comment: Critical Result(s) ivette roberts at 12/17/2017 06:13 by hp. Read back OK. [facility] CHEM PANEL CO2 27 24 - 32 12/17/2017 [facility] CHEM PANEL Chloride Lvl 106 95 - 109 12/17/2017 [facility] CHEM PANEL Creatinine Lvl 0.57 0.50 - 1.40 12/17/2017 [facility] CHEM PANEL Sodium Lvl 141 135 - 145 12/17/2017 [facility] CHEM PANEL Glucose Lvl 131 70 - 99 12/17/2017 [facility] CHEM PANEL BUN 5 7 - 22 12/17/2017 [facility] CHEM PANEL Lipase Lvl 516 73 - 393 12/15/2017 [facility] CHEM PANEL Amylase Lvl 83 25 - 115 12/15/2017 [facility] CHEM PANEL Lactic Acid Lvl 1.5 0.5 - 2.2 12/15/2017 [facility] CHEM PANEL Lipase Lvl 511 73 - 393 12/15/2017 [facility] CHEM PANEL Amylase Lvl 81 25 - 115 12/15/2017 [facility] CHEM PANEL eGFR 81 12/15/2017 Result Comment: The eGFR is calculated using the CKD-EPI formula. In most young, healthy individuals the eGFR will be >90 mL/min/1.73m2. The eGFR declines with age. An eGFR of 60-89 may be normal in some populations, particularly the elderly, for whom the CKD-EPI formula has not been extensively validated. Use of the eGFR is not recommended in the following populations:

Individuals with unstable creatinine concentrations, including patients and those with serious co-morbid conditions.

Patients with extremes in muscle mass or diet.

The data above are obtained from the National Kidney Disease Education Program (NKDEP) which additionally recommends that when the eGFR is used in patients with extremes of body mass index for purposes of drug dosing, the eGFR should be multiplied by the estimated BMI. [facility] CHEM PANEL Bili Total 0.3 0.2 - 1.3 12/15/2017 [facility] CHEM PANEL AST 23 0 - 37 12/15/2017 [facility] CHEM PANEL Alk Phos 24 39 - 136 12/15/2017 [facility] CHEM PANEL Sodium Lvl 133 135 - 145 12/15/2017 [facility] CHEM PANEL Creatinine Lvl 0.65 0.50 - 1.40 12/15/2017 [facility] CHEM PANEL Chloride Lvl 99 95 - 109 12/15/2017 [facility] CHEM PANEL Potassium Lvl 3.1 3.5 - 5.1 12/15/2017 [facility] CHEM PANEL BUN 6 7 - 22 12/15/2017 [facility] CHEM PANEL Glucose Lvl 148 70 - 99 12/15/2017 [facility] CHEM PANEL ALT 24 0 - 65 12/15/2017 [facility] CHEM PANEL A/G Ratio 1.0 0.7 - 1.6 12/15/2017 [facility] CHEM PANEL Globulin 4.1 2.7 - 4.2 12/15/2017 [facility] CHEM PANEL Total Protein 8.0 6.4 - 8.4 12/15/2017 [facility] CHEM PANEL AGAP 13.1 10.0 - 20.0 12/15/2017 [facility] CHEM PANEL Calcium Lvl 8.2 8.5 - 10.5 12/15/2017 [facility] CHEM PANEL Albumin Lvl 3.9 3.5 - 5.0 12/15/2017 [facility] CHEM PANEL CO2 24 24 - 32 12/15/2017 [facility] CHEM PANEL B/C Ratio 9 6 - 25 12/15/2017 [facility] HEMATOLOGY RDW 16.9 11.5 - 14.5 12/15/2017 [facility] HEMATOLOGY MCV 84.7 80.0 - 98.0 12/15/2017 [facility] HEMATOLOGY MCHC 33.7 32.0 - 36.0 12/15/2017 [facility] HEMATOLOGY Hct 40.1 36.0 - 48.0 12/15/2017 [facility] HEMATOLOGY MCH 28.5 27.0 - 31.0 12/15/2017 [facility] HEMATOLOGY MPV 7.8 7.4 - 10.4 12/15/2017 [facility] HEMATOLOGY Platelet 242 133 - 450 12/15/2017 [facility] HEMATOLOGY Hgb 13.5 12.0 - 16.0 12/15/2017 [facility] HEMATOLOGY RBC 4.74 4.20 - 5.40 12/15/2017 [facility] HEMATOLOGY WBC 9.7 3.7 - 10.4 12/15/2017 [facility] HEMATOLOGY Monocytes 8.6 2.0 - 12.0 12/15/2017 [facility] HEMATOLOGY Basophils 0.4 0.0 - 1.0 12/15/2017 [facility] HEMATOLOGY Lymphocytes 12.9 20.0 - 40.0 12/15/2017 [facility] HEMATOLOGY Segs 78.1 45.0 - 75.0 12/15/2017 [facility] HEMATOLOGY Neutrophils # 7.6 1.5 - 8.1 12/15/2017 [facility] HEMATOLOGY Lymphocytes # 1.3 1.0 - 5.5 12/15/2017 [facility] HEMATOLOGY Monocytes # 0.8 0.0 - 0.8 12/15/2017 [facility] MOLECULAR DIAGNOSTIC C difficile DNA Negative (12/15/17 12:13 PM) Negative 12/15/2017 [facility] BACTERIAL - SEROLOGY Source Strep Urine *NA* (12/15/17 11:05 AM) 12/15/2017 [facility] BACTERIAL - SEROLOGY Strep pneumonia e Ag Negative (12/15/17 11:05 AM) Negative 12/15/2017 [facility] CHEM PANEL Lactic Acid Lvl 1.2 0.5 - 2.2 12/15/2017 [facility] Culture: Urine <10,000 CFU/mL Skin Izabel 12/15/2017 [facility] URINE AND STOOL UA Blood Negative (12/15/17 4:13 AM) Negative 12/15/2017 [facility] URINE AND STOOL UA Ketones 20 mg/dL Negative mg/dL 12/15/2017 [facility] URINE AND STOOL UA Leuk Est Large *ABN* (12/15/17 4:13 AM) Negative 12/15/2017 [facility] URINE AND STOOL UA Glucose Negative mg/dL Negative mg/dL 12/15/2017 [facility] URINE AND STOOL UA Bili Negative *NA* (12/15/17 4:13 AM) Negative 12/15/2017 [facility] URINE AND STOOL UA Trans Epi 1 <=0 /LPF 12/15/2017 [facility] URINE AND STOOL UA Bacteria Occasional /HPF None Seen /HPF 12/15/2017 [facility] URINE AND STOOL UA RBC 2 0 - 2 12/15/2017 [facility] URINE AND STOOL UA WBC 3 0 - 5 12/15/2017 [facility] URINE AND STOOL UA Sq Epi Occasional /LPF Few /LPF 12/15/2017 [facility] URINE AND STOOL UA Urobilinogen <=1.0 mg/dL 0.1 - 1.0 12/15/2017 [facility] URINE AND STOOL UA Color Ltyellow 12/15/2017 [facility] URINE AND STOOL UA Nitrite Negative (12/15/17 4:13 AM) Negative 12/15/2017 [facility] URINE AND STOOL UA Protein Negative mg/dL Negative mg/dL 12/15/2017 [facility] URINE AND STOOL UA pH 8.0 5.0 - 8.0 12/15/2017 [facility] URINE AND STOOL UA Spec Grav 1.010 <=1.030 12/15/2017 [facility] URINE AND STOOL UA Turbidity Clear (12/15/17 4:13 AM) Clear 12/15/2017 [facility] CARDIAC ENZYMES CK MB Index 1.8 0.0 - 2.5 12/15/2017 [facility] CARDIAC ENZYMES Total CK 73 12 - 191 12/15/2017 [facility] CARDIAC ENZYMES CK MB 1.3 0.5 - 3.6 12/15/2017 [facility] CARDIAC ENZYMES Troponin-I <0.02 0.00 - 0.40 12/15/2017 [facility] CHEM PANEL Phosphorus 2.7 2.5 - 4.5 12/15/2017 [facility] CHEM PANEL Magnesium Lvl 2.4 1.8 - 2.4 12/15/2017 [facility] CHEM PANEL eGFR 75 12/15/2017 Result Comment: The eGFR is calculated using the CKD-EPI formula. In most young, healthy individuals the eGFR will be >90 mL/min/1.73m2. The eGFR declines with age. An eGFR of 60-89 may be normal in some populations, particularly the elderly, for whom the CKD-EPI formula has not been extensively validated. Use of the eGFR is not recommended in the following populations:

Individuals with unstable creatinine concentrations, including patients and those with serious co-morbid conditions.

Patients with extremes in muscle mass or diet.

The data above are obtained from the National Kidney Disease Education Program (NKDEP) which additionally recommends that when the eGFR is used in patients with extremes of body mass index for purposes of drug dosing, the eGFR should be multiplied by the estimated BMI. [facility] CHEM PANEL B/C Ratio 10 6 - 25 12/15/2017 [facility] CHEM PANEL Globulin 3.7 2.7 - 4.2 12/15/2017 [facility] CHEM PANEL BUN 7 7 - 22 12/15/2017 [facility] CHEM PANEL Glucose Lvl 101 70 - 99 12/15/2017 [facility] CHEM PANEL Creatinine Lvl 0.72 0.50 - 1.40 12/15/2017 [facility] CHEM PANEL Sodium Lvl 135 135 - 145 12/15/2017 [facility] CHEM PANEL ALT 25 0 - 65 12/15/2017 [facility] CHEM PANEL AST 30 0 - 37 12/15/2017 [facility] CHEM PANEL Albumin Lvl 4.1 3.5 - 5.0 12/15/2017 [facility] CHEM PANEL Calcium Lvl 8.6 8.5 - 10.5 12/15/2017 [facility] CHEM PANEL Total Protein 7.8 6.4 - 8.4 12/15/2017 [facility] CHEM PANEL Bili Total 0.4 0.2 - 1.3 12/15/2017 [facility] CHEM PANEL AGAP 10.5 10.0 - 20.0 12/15/2017 [facility] CHEM PANEL Alk Phos 25 39 - 136 12/15/2017 [facility] CHEM PANEL A/G Ratio 1.1 0.7 - 1.6 12/15/2017 [facility] CHEM PANEL Chloride Lvl 96 95 - 109 12/15/2017 [facility] CHEM PANEL CO2 32 24 - 32 12/15/2017 [facility] HEMATOLOGY Segs 64.9 45.0 - 75.0 12/15/2017 [facility] HEMATOLOGY Lymphocytes 23.0 20.0 - 40.0 12/15/2017 [facility] HEMATOLOGY Monocytes # 0.7 0.0 - 0.8 12/15/2017 [facility] HEMATOLOGY Basophils 0.7 0.0 - 1.0 12/15/2017 [facility] HEMATOLOGY Eosinophils 0.4 0.0 - 4.0 12/15/2017 [facility] HEMATOLOGY Lymphocytes # 1.5 1.0 - 5.5 12/15/2017 [facility] HEMATOLOGY Neutrophils # 4.3 1.5 - 8.1 12/15/2017 [facility] [facility] Monocytes 11.0 2.0 - 12.0 12/15/2017 [facility] HEMATOLOGY MPV 7.8 7.4 - 10.4 12/15/2017 [facility] HEMATOLOGY MCHC 33.3 32.0 - 36.0 12/15/2017 [facility] HEMATOLOGY MCH 28.4 27.0 - 31.0 12/15/2017 [facility] HEMATOLOGY RDW 16.5 11.5 - 14.5 12/15/2017 [facility] HEMATOLOGY Platelet 230 133 - 450 12/15/2017 [facility] HEMATOLOGY MCV 85.4 80.0 - 98.0 12/15/2017 [facility] HEMATOLOGY WBC 6.6 3.7 - 10.4 12/15/2017 [facility] HEMATOLOGY RBC 4.68 4.20 - 5.40 12/15/2017 [facility] HEMATOLOGY Hgb 13.3 12.0 - 16.0 12/15/2017 [facility] HEMATOLOGY Hct 40.0 36.0 - 48.0 12/15/2017 [facility] HEMATOLOGY INR 1.19 0.85 - 1.17 12/15/2017 [facility] HEMATOLOGY PT 15.2 12.0 - 14.7 12/15/2017 [facility] HEMATOLOGY PTT 30.1 22.9 - 35.8 12/15/2017 [facility] CARDIAC ENZYMES CK-BB 0 0 % 12/05/2017 Result Comment: Performed At: [facility]
[address] [place], [place] [id number]
Christopher GARCIA MD Ph:[phone]
Performed At: [facility]
[address] [place], [place] [id number]
Jose Gary MD Ph:[phone] [facility] CARDIAC ENZYMES CK Macro Type 2 0 Not Observed % 12/05/2017 [facility] CARDIAC ENZYMES CK-MM 100 97 - 100 12/05/2017 [facility] CARDIAC ENZYMES CK Macro Type 1 0 Not Observed % 12/05/2017 [facility] CARDIAC ENZYMES CK-MB 0 0 - 3 12/05/2017 [facility] CARDIAC ENZYMES CK Total 45 24 - 173 12/05/2017 [facility] CARDIAC ENZYMES Troponin-I <0.02 0.00 - 0.40 12/04/2017 [facility] CARDIAC ENZYMES BNP 146 <=100 pg/mL 12/04/2017 [facility] CARDIAC ENZYMES CK MB 1.1 0.5 - 3.6 12/04/2017 [facility] CARDIAC ENZYMES Total CK 51 12 - 191 12/04/2017 [facility] CARDIAC ENZYMES CK MB Index 2.2 0.0 - 2.5 12/04/2017 [facility] CHEM PANEL eGFR 76 12/04/2017 Result Comment: The eGFR is calculated using the CKD-EPI formula. In most young, healthy individuals the eGFR will be >90 mL/min/1.73m2. The eGFR declines with age. An eGFR of 60-89 may be normal in some populations, particularly the elderly, for whom the CKD-EPI formula has not been extensively validated. Use of the eGFR is not recommended in the following populations:

Individuals with unstable creatinine concentrations, including patients and those with serious co-morbid conditions.

Patients with extremes in muscle mass or diet.

The data above are obtained from the National Kidney Disease Education Program (NKDEP) which additionally recommends that when the eGFR is used in patients with extremes of body mass index for purposes of drug dosing, the eGFR should be multiplied by the estimated BMI. [facility] CHEM PANEL B/C Ratio 18 6 - 25 12/04/2017 [facility] CHEM PANEL Globulin 3.4 2.7 - 4.2 12/04/2017 [facility] CHEM PANEL Alk Phos 34 39 - 136 12/04/2017 [facility] CHEM PANEL Bili Total 0.4 0.2 - 1.3 12/04/2017 [facility] CHEM PANEL AGAP 7.6 10.0 - 20.0 12/04/2017 [facility] CHEM PANEL Albumin Lvl 4.0 3.5 - 5.0 12/04/2017 [facility] CHEM PANEL ALT 23 0 - 65 12/04/2017 [facility] CHEM PANEL AST 22 0 - 37 12/04/2017 [facility] CHEM PANEL Chloride Lvl 101 95 - 109 12/04/2017 [facility] CHEM PANEL CO2 34 24 - 32 12/04/2017 [facility] CHEM PANEL Calcium Lvl 9.0 8.5 - 10.5 12/04/2017 [facility] CHEM PANEL Total Protein 7.4 6.4 - 8.4 12/04/2017 [facility] CHEM PANEL A/G Ratio 1.2 0.7 - 1.6 12/04/2017 [facility] CHEM PANEL Potassium Lvl 4.6 3.5 - 5.1 12/04/2017 [facility] CHEM PANEL Sodium Lvl 138 135 - 145 12/04/2017 [facility] CHEM PANEL Creatinine Lvl 0.72 0.50 - 1.40 12/04/2017 [facility] CHEM PANEL BUN 13 7 - 22 12/04/2017 [facility] CHEM PANEL Glucose Lvl 90 70 - 99 12/04/2017 [facility] HEMATOLOGY RBC 4.16 4.20 - 5.40 12/04/2017 [facility] HEMATOLOGY WBC 10.4 3.7 - 10.4 12/04/2017 [facility] HEMATOLOGY Hct 35.9 36.0 - 48.0 12/04/2017 [facility] HEMATOLOGY Hgb 12.0 12.0 - 16.0 12/04/2017 [facility] HEMATOLOGY MCH 28.7 27.0 - 31.0 12/04/2017 [facility] HEMATOLOGY RDW 17.7 11.5 - 14.5 12/04/2017 [facility] MCV 86.3 80.0 - 98.0 12/04/2017 [facility] MCHC 33.3 32.0 - 36.0 12/04/2017 [facility] MPV 8.1 7.4 - 10.4 12/04/2017 [facility] Platelet 193 133 - 450 12/04/2017 [facility] PT 14.0 12.0 - 14.7 12/04/2017 [facility] INR 1.08 0.85 - 1.17 12/04/2017 [facility] PTT 32.1 22.9 - 35.8 12/04/2017 [facility] Eosinophils 3.6 0.0 - 4.0 12/04/2017 [facility] Monocytes 10.2 2.0 - 12.0 12/04/2017 [facility] Lymphocytes 23.3 20.0 - 40.0 12/04/2017 [facility] Lymphocytes # 2.4 1.0 - 5.5 12/04/2017 [facility] Segs 62.3 45.0 - 75.0 12/04/2017 [facility] Segs-Bands # 6.5 1.5 - 8.1 12/04/2017 [facility] Basophils 0.6 0.0 - 1.0 12/04/2017 [facility] Basophils # 0.1 0.0 - 0.2 12/04/2017 [facility] HEMATOLOGY Eosinophils # 0.4 0.0 - 0.5 12/04/2017 [facility] Monocytes # 1.1 0.0 - 0.8 12/04/2017 [facility] CHEM PANEL eGFR 68 04/09/2016 Result Comment: The eGFR is calculated using the CKD-EPI formula. In most young, healthy individuals the eGFR will be >90 mL/min/1.73m2. The eGFR declines with age. An eGFR of 60-89 may be normal in some populations, particularly the elderly, for whom the CKD-EPI formula has not been extensively validated. Use of the eGFR is not recommended in the following populations:

Individuals with unstable creatinine concentrations, including patients and those with serious co-morbid conditions.

Patients with extremes in muscle mass or diet.

The data above are obtained from the National Kidney Disease Education Program (NKDEP) which additionally recommends that when the eGFR is used in patients with extremes of body mass index for purposes of drug dosing, the eGFR should be multiplied by the estimated BMI. [facility] CHEM PANEL POC Creatinine 0.8 0.5 - 1.4 04/09/2016 [facility] TOXICOLOGY Vanco Tr TND 0 01/26/2016 [facility] TOXICOLOGY Vanco Tr 11.2 01/26/2016 [facility] ELECTROLYTES AGAP 13.0 10.0 - 20.0 01/24/2016 [facility] ELECTROLYTES BUN 15 7 - 22 01/24/2016 [facility] ELECTROLYTES CO2 31 24 - 32 01/24/2016 [facility] ELECTROLYTES Chloride Lvl 107 95 - 109 01/24/2016 [facility] ELECTROLYTES Calcium Lvl 8.8 8.5 - 10.5 01/24/2016 [facility] ELECTROLYTES Potassium Lvl 5.0 3.5 - 5.1 01/24/2016 [facility] ELECTROLYTES Sodium Lvl 146 135 - 145 01/24/2016 [facility] ELECTROLYTES Glucose Lvl 88 70 - 99 01/24/2016 [facility] ELECTROLYTES Creatinine Lvl 0.9 2 0.50 - 1.40 01/24/2016 [facility] ELECTROLYTES eGFR 57 01/24/2016 Result Comment: The eGFR is calculated using the CKD-EPI formula. In most young, healthy individuals the eGFR will be >90 mL/min/1.73m2. The eGFR declines with age. An eGFR of 60-89 may be normal in some populations, particularly the elderly, for whom the CKD-EPI formula has not been extensively validated. Use of the eGFR is not recommended in the following populations:

Individuals with unstable creatinine concentrations, including patients and those with serious co-morbid conditions.

Patients with extremes in muscle mass or diet.

The data above are obtained from the National Kidney Disease Education Program (NKDEP) which additionally recommends that when the eGFR is used in patients with extremes of body mass index for purposes of drug dosing, the eGFR should be multiplied by the estimated BMI. [facility] HEMATOLOGY MCHC 32.4 32.0 - 36.0 01/24/2016 [facility] HEMATOLOGY RDW 15.9 11.5 - 14.5 01/24/2016 [facility] HEMATOLOGY MCH 26.7 27.0 - 31.0 01/24/2016 [facility] HEMATOLOGY WBC 6.5 3.7 - 10.4 01/24/2016 [facility] HEMATOLOGY MPV 8.2 7.4 - 10.4 01/24/2016 [facility] HEMATOLOGY Platelet 216 133 - 450 01/24/2016 [facility] HEMATOLOGY Hct 37.8 36.0 - 48.0 01/24/2016 [facility] HEMATOLOGY MCV 82.3 80.0 - 98.0 01/24/2016 [facility] HEMATOLOGY Hgb 12.2 12.0 - 16.0 01/24/2016 [facility] HEMATOLOGY RBC 4.59 4.20 - 5.40 01/24/2016 [facility] HEMATOLOGY Monocytes # 0.8 0.0 - 0.8 01/24/2016 [facility] HEMATOLOGY Basophils 0.7 0.0 - 1.0 01/24/2016 [facility] HEMATOLOGY Eosinophils 6.8 0.0 - 4.0 01/24/2016 [facility] HEMATOLOGY Eosinophils # 0.4 0.0 - 0.5 01/24/2016 [facility] HEMATOLOGY Lymphocytes # 2.6 1.0 - 5.5 01/24/2016 [facility] HEMATOLOGY Lymphocytes 39.4 20.0 - 40.0 01/24/2016 [facility] HEMATOLOGY Segs 40.9 45.0 - 75.0 01/24/2016 [facility] HEMATOLOGY Segs-Bands # 2.7 1.5 - 8.1 01/24/2016 [facility] HEMATOLOGY Monocytes 12.2 2.0 - 12.0 01/24/2016 [facility] CHEM PANEL Globulin 3.6 2.7 - 4.2 01/22/2016 [facility] CHEM PANEL A/G Ratio 1.1 0.7 - 1.6 01/22/2016 [facility] CHEM PANEL Albumin Lvl 3.8 3.5 - 5.0 01/22/2016 [facility] CHEM PANEL Total Protein 7.4 6.4 - 8.4 01/22/2016 [facility] CHEM PANEL Calcium Lvl 7.9 8.5 - 10.5 01/22/2016 [facility] CHEM PANEL AGAP 10.2 10.0 - 20.0 01/22/2016 [facility] CHEM PANEL B/C Ratio 14 6 - 25 01/22/2016 [facility] CHEM PANEL Chloride Lvl 106 95 - 109 01/22/2016 [facility] CHEM PANEL CO2 27 24 - 32 01/22/2016 [facility] CHEM PANEL Potassium Lvl 4.2 3.5 - 5.1 01/22/2016 [facility] CHEM PANEL Sodium Lvl 139 135 - 145 01/22/2016 [facility] CHEM PANEL Glucose Lvl 167 70 - 99 01/22/2016 [facility] CHEM PANEL Creatinine Lvl 1.23 0.50 - 1.40 01/22/2016 [facility] CHEM PANEL BUN 17 7 - 22 01/22/2016 [facility] CHEM PANEL eGFR 40 01/22/2016 Result Comment: The eGFR is calculated using the CKD-EPI formula. In most young, healthy individuals the eGFR will be >90 mL/min/1.73m2. The eGFR declines with age. An eGFR of 60-89 may be normal in some populations, particularly the elderly, for whom the CKD-EPI formula has not been extensively validated. Use of the eGFR is not recommended in the following populations:

Individuals with unstable creatinine concentrations, including patients and those with serious co-morbid conditions.

Patients with extremes in muscle mass or diet.

The data above are obtained from the National Kidney Disease Education Program (NKDEP) which additionally recommends that when the eGFR is used in patients with extremes of body mass index for purposes of drug dosing, the eGFR should be multiplied by the estimated BMI. [facility] CHEM PANEL Bili Total 0.4 0.2 - 1.3 01/22/2016 [facility] CHEM PANEL Alk Phos 31 39 - 136 01/22/2016 [facility] CHEM PANEL AST 23 0 - 37 01/22/2016 [facility] CHEM PANEL ALT 28 0 - 65 01/22/2016 [facility] HEMATOLOGY Monocytes # 0.1 0.0 - 0.8 01/22/2016 [facility] Lymphocytes # 0.6 1.0 - 5.5 01/22/2016 [facility] HEMATOLOGY Monocytes 1.0 2.0 - 12.0 01/22/2016 [facility] HEMATOLOGY Basophils 0.3 0.0 - 1.0 01/22/2016 [facility] HEMATOLOGY Segs-Bands # 7.6 1.5 - 8.1 01/22/2016 [facility] HEMATOLOGY Eosinophils 0.2 0.0 - 4.0 01/22/2016 [facility] HEMATOLOGY Segs 91.3 45.0 - 75.0 01/22/2016 [facility] HEMATOLOGY Lymphocytes 7.2 20.0 - 40.0 01/22/2016 [facility] HEMATOLOGY RBC 4.77 4.20 - 5.40 01/22/2016 [facility] HEMATOLOGY Hgb 12.7 12.0 - 16.0 01/22/2016 [facility] HEMATOLOGY Hct 39.2 36.0 - 48.0 01/22/2016 [facility] HEMATOLOGY MCV 82.1 80.0 - 98.0 01/22/2016 [facility] MPV 8.0 7.4 - 10.4 01/22/2016 [facility] MCH 26.6 27.0 - 31.0 01/22/2016 [facility] MCHC 32.5 32.0 - 36.0 01/22/2016 [facility] HEMATOLOGY RDW 15.4 11.5 - 14.5 01/22/2016 [facility] Platelet 218 133 - 450 01/22/2016 [facility] WBC 8.3 3.7 - 10.4 01/22/2016 [facility] CHEM PANEL eGFR 36 01/21/2016 Result Comment: The eGFR is calculated using the CKD-EPI formula. In most young, healthy individuals the eGFR will be >90 mL/min/1.73m2. The eGFR declines with age. An eGFR of 60-89 may be normal in some populations, particularly the elderly, for whom the CKD-EPI formula has not been extensively validated. Use of the eGFR is not recommended in the following populations:

Individuals with unstable creatinine concentrations, including patients and those with serious co-morbid conditions.

Patients with extremes in muscle mass or diet.

The data above are obtained from the National Kidney Disease Education Program (NKDEP) which additionally recommends that when the eGFR is used in patients with extremes of body mass index for purposes of drug dosing, the eGFR should be multiplied by the estimated BMI. [facility] CHEM PANEL A/G Ratio 1.1 0.7 - 1.6 01/21/2016 [facility] CHEM PANEL Alk Phos 26 39 - 136 01/21/2016 [facility] CHEM PANEL AGAP 9.9 10.0 - 20.0 01/21/2016 [facility] CHEM PANEL Bili Total 0.2 0.2 - 1.3 01/21/2016 [facility] CHEM PANEL Globulin 3.5 2.7 - 4.2 01/21/2016 [facility] CHEM PANEL B/C Ratio 11 6 - 25 01/21/2016 [facility] CHEM PANEL Calcium Lvl 7.8 8.5 - 10.5 01/21/2016 [facility] CHEM PANEL Albumin Lvl 3.8 3.5 - 5.0 01/21/2016 [facility] CHEM PANEL Total Protein 7.3 6.4 - 8.4 01/21/2016 [facility] CHEM PANEL AST 30 0 - 37 01/21/2016 [facility] CHEM PANEL ALT 28 0 - 65 01/21/2016 [facility] CHEM PANEL Sodium Lvl 139 135 - 145 01/21/2016 [facility] CHEM PANEL Chloride Lvl 104 95 - 109 01/21/2016 [facility] CHEM PANEL Potassium Lvl 3.9 3.5 - 5.1 01/21/2016 [facility] CHEM PANEL CO2 29 24 - 32 01/21/2016 [facility] CHEM PANEL Glucose Lvl 105 70 - 99 01/21/2016 [facility] CHEM PANEL Creatinine Lvl 1.34 0.50 - 1.40 01/21/2016 [facility] CHEM PANEL BUN 15 7 - 22 01/21/2016 [facility] CHEM PANEL Procalcitonin Lvl <0.05 0.00 - 0.10 01/21/2016 [facility] CHEM PANEL Lactic Acid Lvl 1.3 0.5 - 2.2 01/21/2016 [facility] HEMATOLOGY MPV 8.2 7.4 - 10.4 01/21/2016 [facility] HEMATOLOGY WBC 5.7 3.7 - 10.4 01/21/2016 [facility] HEMATOLOGY Hct 38.8 36.0 - 48.0 01/21/2016 [facility] HEMATOLOGY Hgb 12.7 12.0 - 16.0 01/21/2016 [facility] HEMATOLOGY RBC 4.75 4.20 - 5.40 01/21/2016 [facility] HEMATOLOGY MCHC 32.7 32.0 - 36.0 01/21/2016 [facility] HEMATOLOGY Platelet 227 133 - 450 01/21/2016 [facility] HEMATOLOGY RDW 15.4 11.5 - 14.5 01/21/2016 [facility] HEMATOLOGY MCV 81.7 80.0 - 98.0 01/21/2016 [facility] HEMATOLOGY MCH 26.7 27.0 - 31.0 01/21/2016 [facility] HEMATOLOGY Basophils 0.7 0.0 - 1.0 01/21/2016 [facility] HEMATOLOGY Lymphocytes 37.4 20.0 - 40.0 01/21/2016 [facility] HEMATOLOGY Eosinophils 7.5 0.0 - 4.0 01/21/2016 [facility] HEMATOLOGY Segs 40.9 45.0 - 75.0 01/21/2016 [facility] HEMATOLOGY Monocytes 13.5 2.0 - 12.0 01/21/2016 [facility] HEMATOLOGY Lymphocytes # 2.1 1.0 - 5.5 01/21/2016 [facility] HEMATOLOGY Segs-Bands # 2.3 1.5 - 8.1 01/21/2016 [facility] HEMATOLOGY Eosinophils # 0.4 0.0 - 0.5 01/21/2016 [facility] HEMATOLOGY Monocytes # 0.8 0.0 - 0.8 01/21/2016 [facility] IMMUNOLOGY C-REACTIVE PROTEIN <2.9 <=2.9 mg/L 01/21/2016 [facility] Pathology Reports No Data Provided for This Section Diagnostic Reports Report Value Date Source Hand 2 views Bilateral DX PROC EDURE INFORMATION: Exam: XR Right Hand Exam date and time: 01/07/2020 4:11 PM Age: 89 years old Clinical indication: Pain in right hand; Pain in left hand; Additional info: /m79.641 / m79.642 TECHNIQUE: Imaging protocol: XR Right hand. Views: 1 or 2 views. Frontal Lateral COMPARISON: CR HAND 2 VIEWS BILATERAL DX 06/14/2016 4:15 PM FINDINGS: PA and lateral images, two views. Anatomic alignment of total joint arthroplasty components index and long finger metacarpophalangeal joints. Lucency about the index finger metacarpal component suggesting loosening. Cerclage wire fuses the thumb metacarpophalangeal joint. Moderate hyper trophic and erosive degenerative changes thumb interphalangeal joint. Moderate degenerative changes thumb carpal metacarpal. Extensive erosive and hypertrophic degenerative changes all distal interphalangeal joints. Degenerative changes triscaphe articulation. Chronic deformity distal ulna, likely old healed fracture. Osteopenia. IMPRESSION: Postoperative and extensive degenerative changes as described. PROCEDURE INFORMATION: Exam: XR Left Hand Exam date and time: 01/07/2020 4:11 PM Age: 89 years old Clinical indication: Pain in right hand; Pain in left hand; Additional info: /m79.641 / m79.642 TECHNIQUE: Imaging protocol: XR Left hand. Views: 1 or 2 views. Frontal Lateral COMPARISON: CR HAND 2 VIEWS BILATERAL DX 06/14/2016 4:15 PM FINDINGS: PA and lateral images. Severe erosive degenerative changes radiocarpal intercarpal articulations. Severe degenerative changes thumb carpal metacarpal articulation with large soft tissue calcification, unchanged. Moderate hypertrophic degenerative changes thumb and index finger metacarpophalangeal joints with possible subluxation at the index finger metacarpophalangeal joint. Severe erosive degenerative changes distal interphalangeal joints of the index, long, ring and little fingers and narrowing of proximal interphalangeal joints. Hypertrophic degenerative changes thumb interphalangeal joint. No acute osseous abnormality. IMPRESSION: Severe degenerative changes as described. Elliot Bauman MD On 01/08/2020 12:51:06; [id number] 01/07/2020 [facility] Knee 3 Views Bilateral DX PROC EDURE INFORMATION: Exam: XR Right Knee Exam date and time: 01/07/2020 3:59 PM Age: 89 years old Clinical indication: Pain in right knee; Pain in left knee; Additional info: /m25.562 / m25.561 TECHNIQUE: Imaging protocol: XR Right knee. Views: 3 views. AP Obilque Lateral COMPARISON: CR KNEE 3 VIEWS DX, LEFT 10/20/2015 7:03 PM FINDINGS: Bones/joints: There is normal alignment without fractures or dislocations. Mild to moderate tricompartmental degenerative changes are noted including joint space narrowing and marginal osteophytes. Mild meniscal calcification noted in the lateral compartment. Few tiny loose bodies in the joint space. No joint effusion. Soft tissues: There are no radiopaque foreign bodies. Vascular calcifications. Notes: If there is further concern, recommend follow-up radiographs or MRI for complete assessment. PROCEDURE INFORMATION: Exam: XR Left Knee Exam date and time: 01/07/2020 3:59 PM Age: 89 years old Clinical indication: Pain in right knee; Pain in left knee; Additional info: /m25.562 / m25.561 TECHNIQUE: Imaging protocol: XR Left knee. Views: 3 views. AP Obilque Lateral COMPARISON: CR KNEE 3 VIEWS DX, LEFT 10/20/2015 7:03 PM FINDINGS: Bones/joints: There is normal alignment without fractures or dislocations. Subtle cortical defect again noted along the articular surface of the medial femoral condyle as seen on prior exam. Moderate to severe tricompartmental degenerative changes are noted including joint space narrowing, subchondral cysts, and marginal osteophytes. Meniscal calcification noted in the lateral compartment. Loose bodies in the posterior joint space. Trace effusion. Soft tissues: There are no radiopaque foreign bodies. Vascular calcifications. Notes: If there is further concern, recommend follow-up radiographs or MRI for complete assessment. IMPRESSION: XR Right Knee 1. No acute fracture or dislocation iden tified in the right knee. 2. 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 3. Chondrocalcinosis. XR Left Knee 1. No acute fracture or dislocation iden tified in the left knee. 2. Moderate to severe osteoarthritic izabella nges. 3. Chondrocalcinosis. 4. Subtle osteochondral defect in the me dial femoral condyle, similar to prior exams. Farrah Chaidez MD On 01/08/2020 09:27:19; [id number] 01/07/2020 [facility] Barium Swallow w Esophagus Function DX PROCEDURE INFORMATION: Exam: FL Swallowing Function with Cine or Video Exam date and time: 04/09/2019 1:27 PM Clinical history: 88 years old, female; Gastro-esophageal reflux disease without esophagitis; Dysphagia, unspecified; Additional info: /dysphagia (r13.10) gerd (k21.9) TECHNIQUE: Imaging protocol: Swallowing function, with cineradiography/ videoradiograph. Guided with fluoroscopy. Exam supervised by facility personnel. Contrast material: BARIUM; Contrast volume: 100 ml; Contrast route: PO; Other technique: limits= rafi; seconds= 200; images= [id number]; COMPARISON: CR ESOPHAGUS BA SWALLOW FUNCTION VIDEO DX 01/26/2016 1:19 PM FINDINGS: Procedure summary: Thin barium was utilized for recumbent prone oblique and LPO images. Thick barium was utilized for upright imaging of the esophagus and pharynx. Granola mixed with barium was given to evaluate motility with solids. Oropharynx: There is no delay in passage of the barium bolus from the pharynx into the esophagus. The cricopharyngeus relaxes normally. There is no evidence for cricopharyngeal bar or Zenker's diverticulum. Esophagus: Prone and LPO sequences demonstrate normal esophageal calliber. There is no hiatal hernia. There is reflux of contrast to the lower esophagus. Narrowing at the GE with contrast passage seen with increased pressure. Upright image reveal passage of contrast with increased pressure. No mass lesions or stictures are visualized. Single episode of aspiration. Other findings: Subsequently 2 separate swallows of a small piece of granola and barium were fluoroscopically followed through the length of the esophagus. There is delay in contrast passage only noted with pressurization. IMPRESSION: 1. Passage of contrast requiring pressur ization at the GE junction. This could be seen with early achalasia. Correlation with manometry is recommended. 2. Single episode of aspiration. Edwardo Gottlieb MD On 04/10/2019 09:38:17; [id number] 04/09/2019 [facility]us [place] wo contr CT Clinical Indication: post nasal drip, chronic rhinitis - post nasal drip, chronic linitis Comparison: Comparison is made to the CT study 12/15/2017 Technique: CT of the paranasal sinuses is performed with a multi-detector CT. Coronal and sagittal reconstructions were obtained. CT Radiation Dose DLP 476 mGy-cm FINDINGS: GLOBES AND ORBITAL STRUCTURES: The globes and extraocular muscles are intact. The orbital lenses have been resected, anterior and posterior chambers of the globes are grossly unremarkable. The optic nerve is unremarkable. The retrobulbar region is unremarkable. There are no intraconal or extraconal masses. The orbital apices are unremarkable. The lacrimal glands are normal. OSSEOUS STRUCTURES: There are no orbital roof, floor, medial, lateral, superior or inferior wall fractures noted. The zygomatic arches are intact. There are no fractures of the visualized facial bones. There are no osseous erosive changes. The nasal bones and anterior maxillary nasal spine are intact. MASTOIDS, PARANASAL SINUSES AND AIRWAY: There is pansinusitis with mucosal inflammatory changes opacifying the maxillary sinuses, sphenoid sinus, ethmoid air cells and frontal sinuses. There is minimal thickening of the wall of the maxillary sinuses denoting the chronicity. There is widening of the bilateral maxillary ostium and likely underlying nasal polyposis. The nasal septum is minimally inclined. The inferior turbinates are normal there is mucosal thickening of the middle turbinates with shilpa bullosa of the right. There is opacification nasal cavity at the level the superior and middle turbinates and likely polyposis at the ostium. These findings are progressive in comparison to the CT study of 12/15/2017 SOFT TISSUES: There is no soft tissue swelling seen and no preseptal or postseptal cellulitis. There is no significant lymphadenopathy noted. There are no fluid collections. IMPRESSION: Progressive pansinusitis widening of the ostium of the maxillary sinuses raises the possibility of polyposis. There is significant attenuation nasal cavity at the level superior and middle turbinates. SL: BBERKOWITZ-EUSEBIA 01/24/2019 [facility] Chest 1view DX Chest radiograp h 1 view INDICATION: Dyspnea COMPARISON: 12/15/2017 FINDINGS: Heart size is normal. Pulmonary vasculature is not congested. Lungs are clear with no pneumonic consolidation. No large pleural effusion or pneumothorax. IMPRESSION: No acute abnormality. 12/28/2018 [facility] Ankle 3 views DX Right Ankle Clinical Indication: Trauma. Comparison: None FINDINGS: The AP, oblique, and lateral views of the right ankle show an acute, obliquely oriented fracture through the distal fibula. The mortise is intact. The tibiotalar joint and talar dome are intact. There is lateral ankle soft tissue swelling. If there is further concern, recommend follow-up radiographs or MRI for complete assessment. IMPRESSION: Acute, obliquely oriented fracture through the right distal fibula. SL: KPATEL-M 12/28/2018 [facility] Foot series DX Right Foot Clinical Indication: Right foot trauma. Comparison: None FINDINGS: AP, oblique, and lateral views of the right foot show normal alignment without acute fracture or dislocation. There are extensive degenerative changes with joint space narrowing, sclerosis and hypertrophic changes along the 1st metatarsophalangeal joint and 2nd through 5th tarsometatarsal joints. There is an old fracture of the distal portion of the 5th metatarsal. Mild diffuse osteopenia is identified. No significant soft tissue swelling is seen. If there is further concern, recommend follow-up radiographs or bone scan for complete assessment. IMPRESSION: Degenerative changes of the right foot without evidence of acute fracture or dislocation. SL: KPATEL-M 12/28/2018 [facility] Tibia fibula series DX Right T ibia/Fibula Clinical Indication: Trauma. Comparison: None FINDINGS: AP and lateral views of the right tibia/fibula demonstrate oblique oriented fracture of the distal fibula. There are mild degenerative changes within the visualized right knee. Mild diffuse osteopenia is identified. Lateral ankle soft tissue swelling is noted. There are no radiopaque foreign bodies. If there is further concern, recommend follow-up radiographs or bone scan for complete assessment. IMPRESSION: Obliquely oriented fracture through the right distal fibula. SL: KPATEL-M 12/28/2018 [facility] Abdomen RUQ US EXAM: Ultrasoun d right upper quadrant HISTORY: Acute abdominal pain COMPARISON: CT 12/15/2017 TECHNIQUE: Grayscale and limited color sonographic evaluation of the right upper quadrant of the abdomen FINDINGS: LIVER: Appears unremarkable. BILE DUCTS: Visualized common duct measures 3 mm diameter. GALLBLADDER: 3 mm polyp. No gallstone is seen. PANCREAS: Not visualized. RIGHT KIDNEY: No hydronephrosis. IMPRESSION: Small gallbladder polyp. SL: HMUSPARE-PC 12/18/2017 [facility] Abdomen w/wo contrast MRA EXAM : MRA abdomen HISTORY: Ischemic colitis COMPARISON: CT abdomen and pelvis 12/15/2017 TECHNIQUE: Multiplanar images obtained of the aorta and mesenteric arteries without and with contrast including maximal intensity projection and post process 3-D volume rendered images. 12 mL MultiHance IV contrast. FINDINGS: Diffuse moderate-marked atherosclerosis of the aorta. The celiac axis is patent without significant stenosis. The superior mesenteric artery and its branches are patent without significant stenosis. The inferior mesenteric artery is patent without significant stenosis. IMPRESSION: Patent celiac axis, SMA, and JEANCARLOS. Atherosclerosis aorta. SL: [id number] 12/15/2017 [facility] Chest wo contrast CT Exam: Ro st wo contrast CT Clinical Indication: Evaluation of pneumonia vs mass; severe abdominal pain and nausea. Comparison: CT chest 10/13/2009 and chest radiograph 12/15/2017 TECHNIQUE: Sequential trans-axial images were obtained thru the chest and upper abdomen without the administration of intravenous contrast. Coronal and sagittal reconstructions were obtained. CT imaging performed at this location utilizes radiation dose optimization techniques which include one or more of the following: -Automated exposure control -Adjustment of the mA and/or kV accordin g to patient size -Use of iterative reconstruction techniq ue Dose: DLP = 318.23 mGy-cm FINDINGS: LUNG PARENCHYMA AND PLEURA: Minimal peripheral reticular densities are present bilaterally most prominent in the lower lobes consistent with minimal fibrotic change. Small calcified granuloma is present in the right upper lobe. Lungs are otherwise clear without focal consolidation or infiltrate. No suspicious lung nodule or mass identified. No pleural effusion or pneumothorax. AIRWAY: The central airway is patent. MEDIASTINUM: No significant mediastinal lymphadenopathy. CARDIOVASCULAR STRUCTURES: Limited evaluation of the cardiovascular structures due to noncontrast technique. Heart size is within normal limits. Coronary artery atherosclerotic calcifications noted. No significant pericardial effusion. The pulmonary arteries are unremarkable. Atherosclerotic calcifications are present in the thoracic aorta without aneurysmal dilatation. OSSEOUS STRUCTURES: No acute osseous abnormality identified. Moderate to severe multilevel degenerative disc disease present in the lower thoracic spine. SOFT TISSUES: Unremarkable. VISUALIZED UPPER ABDOMEN: Exophytic cyst is present in the upper pole of the left kidney measuring 5.1 x 4.9 cm. Small hiatal hernia is present. IMPRESSION: 1. No acute abnormality in the chest. N o evidence of pneumonia or mass. 2. Minimal peripheral pulmonary fibroti c changes and evidence of old granulomatous disease. 3. See above for additional findings. SL: [id number] 12/15/2017 [facility] Abdomen/Pelvis wo IV contrast CT Clinical Indication: Lower abdominal pain. Diarrhea. Comparison: CT of the abdomen and pelvis performed 01/24/2016. TECHNIQUE: Helical imaging was performed without injection of IV contrast, from the diaphragm through the symphysis with multiplanar reformations obtained. IV CONTRAST: No IV contrast was administered. GI CONTRAST: No oral contrast was administered. CT imaging performed at this location utilizes radiation dose optimization techniques which include one or more of the following: -Automated exposure control -Adjustment of the mA and/or kV accordin g to patient size -Use of iterative reconstruction Ion Torrent ue CT Radiation Dose DLP 913.44 mGy-cm FINDINGS: LOWER CHEST: Scarring versus atelectasis is seen at the lung bases. There are coronary artery calcifications. LIVER: There are no gross masses or intrahepatic biliary ductal dilatation noted. BILIARY TREE: There is no significant biliary ductal dilatation. GALLBLADDER: The gallbladder is present. PANCREAS: The pancreas is unremarkable. The pancreatic duct is normal in caliber. SPLEEN: The spleen is normal in size and there are no parenchymal abnormalities. ADRENALS: The right adrenal gland is unremarkable. The left adrenal gland is unremarkable. KIDNEYS: A lobulated exophytic cyst is seen within the upper pole left kidney measuring 4.6 x 5.5 x 4.6 cm. It is not significantly changed in size since the prior study. There is no hydronephrosis or hydroureter. No radiopaque renal or ureteral stone is seen. BOWEL: A small hiatal hernia is noted. Fluid levels are seen throughout the colon. A moderate amount of fecal material is noted within the colon. There is no evidence of bowel obstruction. APPENDIX: The appendix is not visualized, however there are no right lower quadrant inflammatory changes. PELVIS: The urinary bladder is unremarkable. There are chronic postsurgical changes from prior hysterectomy. PERITONEUM: There is no evidence for free intraperitoneal fluid or air. SOFT TISSUES: The soft tissues are unremarkable. There is no evidence of masses or hernias. LYMPH NODES: There is no evidence of mesenteric, retroperitoneal, or inguinal lymphadenopathy. VASCULATURE: Atherosclerotic calcifications are seen of the nonaneurysmal abdominal aorta and branching vessels. MUSCULOSKELETAL: There are degenerative changes of the visualized spine. There is an 8mm anterolisthesis of L5 on S1. Again seen levoscoliosis of the lumbar spine. A deformity of the sacrum is seen with callus formation which may be due to chronic fracture. IMPRESSION: 1. Fluid level throughout the colon, wh ich may be secondary to diarrheal process. No evidence of bowel obstruction. 2. Small hiatal hernia. 3. Again seen exophytic lobulated cyst in the upper pole left kidney. SL: TORSTEN 12/15/2017 [facility] Brain wo contrast CT STUDY: [facility] wo contrast CT 12/15/2017 2:48 AM CDT Ordering Physician: Sanjana Cobb DO Patient Name: KATHE CUMMINGS MR: [id number] : 1930; Age: 87 years y/o Female Clinical Indication: Headache. Comparison: None TECHNIQUE: Multiple contiguous transaxial noncontrast CT images were obtained through the head. Coronal and sagittal reformatted images were prepared. DLP: 859.11 mGy-cm FINDINGS: BRAIN PARENCHYMA: 1. Mild motion artifact and streak stephanie fact inferiorly. 2. Mild to moderate diffuse atrophy is present associated with mild nonspecific periventricular low attenuation most consistent with old microangiopathic ischemic change. 3. No evidence of acute intracranial he morrhage, mass lesion, mass effect, midline shift, or extra-axial fluid collection. 4. Mild calcification within the ad operations intern al carotid artery siphons. 5. Partially empty sella. VENTRICLES: The lateral ventricles, third ventricle, fourth ventricle, and basilar cisterns are appropriate for degree of atrophy present. PARANASAL SINUSES: Mild to moderate mucoperiosteal thickening and mucous retention cysts within the White sinus and sphenoid sinus. Mild mucoperiosteal thickening in the maxillary sinuses. The visualized portions of the remaining paranasal sinuses are clear. MASTOIDS: Clear. ORBITS: The visualized portions of the orbits are normal. SOFT TISSUES: No significant abnormality. SKULL: No acute fracture or suspicious osseous lesion. IMPRESSION: 1. Mild motion artifact. 2. Mild to moderate diffuse atrophy is present associated with mild nonspecific periventricular low attenuation most consistent with old microangiopathic ischemic change. 3. No acute intracranial abnormality. 4. Mild chronic sinusitis. SL: ERICA-PC 12/15/2017 [facility] 1view DX Study: Chest 1v iew DX 12/15/2017 2:23 AM CDT Patient Name: KATHE CUMMINGS MR: [id number] : 1930; Age: 87 years y/o Female Ordering Physician: Sanjana Cobb DO Clinical Indication: Chest pain and nausea. Comparison: 12/04/2017 FINDINGS LUNGS: Mildly hypoinflated lungs associated with an elevated right hemidiaphragm. Hazy left parahilar opacity is suspicious for pneumonia or neoplasm. No pneumothorax or pleural effusion. HEART AND MEDIASTINUM: Stable heart size at the upper limits of normal. LINES: None. OSSEOUS STRUCTURES: No fracture, dislocation, or suspicious focal osseous lesion. OTHER: None. IMPRESSION: 1. Hypoinflation associated with hazy l eft parahilar opacity suggesting pneumonia or neoplasm. 2. Heart size at the upper limits of no rmal. SL: PHIL 12/15/2017 [facility] Cardiac SPECT multi studies [place] LOCATION: [facility] This is a dobutamine myocardial perfusion study. Dobutamine was infused per protocol. The patient reached target heart rate. Cardiolite was injected during peak stress as well as during rest. The myocardial perfusion was obtained using standard procedure. The myocardial perfusion was normal during both phases. No evidence of ischemia. Ejection fraction was 75 % with normal wall motion. IMPRESSION: Normal myocardial perfusion study. 12/05/2017 [facility] 1view DX Clinical Indica tion: - chest pain; Comparison: 01/26/2016 FINDINGS: The portable AP single view radiograph provided for review. The exam demonstrates decreased lung volumes without new significant airspace opacities, pleural effusions or pneumothorax. The heart size and pulmonary vasculature are normal. The trachea is midline. There are no clinically significant osseous abnormalities noted. IMPRESSION: No chest radiographic evidence of acute cardiopulmonary disease. SL: [id number] 12/04/2017 [facility] Brain wo contrast MRI Brain wo contrast MRI 12/21/2016 3:33 PM CDT Clinical Indication: - HEADACHES AND RHEUMATOID ARTHRITIS; Comparison: None TECHNIQUE: Multiplanar noncontrast MRI of the brain is performed. No intravenous gadolinium was given. FINDINGS: Significant multiple level cervical spine degenerative changes are present. BRAIN PARENCHYMA: No restricted diffusion is identified. Mild white matter FLAIR and T2-weighted signal abnormalities are seen, likely due to microvascular ischemia. The brainstem is unremarkable. Mild generalized cerebral atrophy is seen. Chronic lacunar infarcts are seen in the left frontal periventricular white matter and right cerebellum. There is no extra-axial fluid collection or intraparenchymal hemorrhage. CEREBELLOPONTINE REGIONS, SELLA, AND SKULL: The cerebellopontine angles appear unremarkable.. No skull abnormality is seen. The pituitary gland appears unremarkable. VENTRICLES/EXTRA-AXIAL: The ventricles and sulci are normal in size and configuration for age. VISUALIZED VESSELS: Major intracranial flow voids are preserved. ORBITS, VISUALIZED PARANASAL SINUSES/MASTOIDS/CERVICAL SPINE: Severe paranasal sinusitis is present, most prominent in the bilateral maxillary, sphenoid, and right ethmoid sinuses. Minimal right mastoid effusion is present. No orbital pathology is seen. IMPRESSION: 1. No intracranial hemorrhage, mass, or acute infarct. 2. Mild chronic microvascular ischemia. Several chronic lacunar infarct is present. 3. Severe paranasal sinusitis. 4. Significant cervical spine degenerati ve changes. 12/21/2016 [facility] Hand 2 views Bilateral DX Bila teral hands 3 views: There is generalized osteoporosis. There is no evidence of fractures or other acute osseous abnormalities. 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 Lucency around the stems are noted suggesting loosening. Arthrodesis of the MP joint of the right thumb with a wire suture is noted. Erosive changes are seen involving all the DIP joints of both hands with hypertrophic spurring. The findings are worse on the left side. Subluxation of the proximal phalanges in the left hand are noted with relative sparing of the 5th MP joint, without significant erosions. There is erosive change of the carpometacarpal joints of the thumbs, worse on the left with subluxation of the base of the metacarpal. There is a periarticular calcification in this area. Erosive changes in the proximal and mid carpal joints of the left wrist are noted with relative sparing of the distal carpal row. There is narrowing of the right scaphomultangular joint without erosive change, with relative sparing of the remainder of the right wrist joints. IMPRESSION: Findings consistent with advanced rheumatoid arthritis. 06/14/2016 [facility] lower bilat [facility] Clin ical Indication: Coronary artery disease, patient fell a few weeks ago and is having pain in the lower legs; Comparison: CT abdomen and pelvis 01/24/2016 TECHNIQUE: CT angiography of the pelvis and lower extremities was performed from the level of the upper abdomen to the feet after administration of iodinated contrast. Coronal and sagittal reconstructions were obtained. 75 mL Visipaque was used for the exam. 3-D reconstruction imaging with postprocessing was also performed of the arterial vessels. Patient was premedicated prior to the examination. Contrast was administered without incident. CT Radiation Dose DLP 376 mGy-cm FINDINGS: CTA ABDOMEN: CTA PELVIS: ARTERIAL EVALUATION: The visualized lower abdominal aorta, iliac and visualized femoral arteries appear unremarkable. BOWEL: The noncontrast opacified loops of small bowel and colon in the pelvis appear unremarkable. PERITONEUM AND EXTRAPERITONEAL REGIONS: There is no pelvic lymphadenopathy or ascites. The inguinal regions are unremarkable. BLADDER: The bladder is unremarkable. OSSEOUS STRUCTURES: There are no definite significant osseous abnormalities seen. Minimal anterolisthesis of L5 on S1. Scattered degenerative changes. CTA EXTREMITY: LOWER EXTREMITY ARTERIAL EVALUATION: RIGHT: The [<right>] common femoral artery and profunda femoris arteries are widely patent. The [<right>] superficial femoral artery is widely patent. The [<right>] popliteal artery, anterior tibial, tibioperoneal trunk, peroneal and posterior tibial arteries are patent. The [<right>] dorsalis pedis artery is also patent. LEFT: The [<left>] common femoral artery and profunda femoris arteries are widely patent. The [<left>] superficial femoral artery is widely patent. The [<left>] popliteal artery, anterior tibial, tibioperoneal trunk, peroneal and posterior tibial arteries are patent. The [<left>] dorsalis pedis artery is also patent. NON-VASCULAR LOWER EXTREMITY STRUCTURES: There are no fractures or dislocations noted. The lower extremity musculature appears unremarkable. IMPRESSION: 1. No significant CTA abnormalities of t he pelvis or lower extremities. SL: [id number] 04/09/2016 [facility] Chest 1view DX Clinical Indica tion:85 years Female with PICC Line Placement Comparison: Chest x-ray 11/25/2012 FINDINGS: Lines: Left PICC with catheter tip overlying the low SVC The single frontal chest radiograph shows normal lung volumes. No interstitial or airspace opacities. No pleural effusion. No pneumothorax. Cardiac silhouette is normal. Pulmonary vasculature is normal. The trachea is midline. There are no clinically significant osseous abnormalities noted. Contrast material noted in the colon. IMPRESSION: No chest radiographic evidence of acute cardiopulmonary disease. Left PICC with catheter tip overlying the low SVC 01/26/2016 [facility] Esophagus BA swallow function video DX Patient Name: KATHE CUMMINGS : 1930; Age: 85 years y/o Female MR: [id number] Study: Esophagus BA swallow function video DX 01/26/2016 1:00 PM CDT Ordering Physician: Jackson Victor MD Clinical Indication: Dyphagia; aspiration noted on prior esophagram. Cellulitis of bowel. Oral disease. Comparison: None FINDINGS: The study was performed in the presence of speech pathology. There is mild residual contrast in the hypopharynx. The patient was given the following consistency contrast material with noted findings: Thin: Flash penetration without aspiration. [place]: No penetration and aspiration. Pudding: No penetration and aspiration. Cracker: No penetration and aspiration. No significant residual contrast is seen in the vallecula or piriform sinuses. Visualized upper esophageal motility and emptying was normal. Fluoroscopy time: 0.8 IMPRESSION: Flash penetration with thin. No aspiration identified. For complete details please refer to speech pathologist report. SL: [id number] 01/26/2016 [facility] Barium Swallow w Esophagus Function DX Barium Swallow w Esophagus Function DX CLINICAL HISTORY: Dysphagia. Feeding difficulties COMPARISON: None TECHNIQUE: Thin barium was utilized for recumbent prone oblique and LPO images. Thick barium was utilized for upright imaging of the esophagus and pharynx. Granola bar mixed with barium was given to evaluate motility with solids. FINDINGS: There is no delay in passage of the barium bolus from the pharynx into the esophagus. The cricopharyngeus relaxes normally. There is no evidence for cricopharyngeal bar or Zenker's diverticulum. On one of the swallows in the upright position, there is variant noted in the patient's trachea. Prone and LPO images of the esophagus reveal no significant delay in clearance of barium from the esophagus to the stomach. No hiatal hernia is visualized. Upright images with thick barium reveals no significant dysmotility. No mass lesions or strictures are visualized. Mild gastroesophageal reflux. Subsequently 2 separate swallows of a small piece of granola bar and barium were fluoroscopically followed through the length of the esophagus. There is no significant delay in passage of both solid boluses from the pharynx to the esophagus and subsequently into the stomach. Overhead image performed at the conclusion of the procedure reveals prompt passage of the barium from the stomach into the small bowel. IMPRESSION: No significant esophageal dysmotility, stricture or hiatal hernia is visualized. Mild gastroesophageal reflux. Silent tracheal aspiration is noted with one of the swallows in the upright position. A complete modified barium swallow with speech pathologist is recommended for a thorough assessment of swallowing mechanism. Fluoroscopy Time: 2.6 minutes SL: [id number] 01/25/2016 [facility] Abdomen/Pelvis wo IV contrast CT Clinical Indication: Abdominal discomfort; Comparison: CT abdomen and pelvis 11/13/2013 TECHNIQUE: Noncontrasted helical imaging was performed from the lung bases through the symphysis. Axial and coronal reformations are available. IV contrast was not administered. Oral Omnipaque was administered. CT Radiation Dose DLP: 323 mGy-cm FINDINGS: This examination is limited for the evaluation of solid organs and vascular structures due to lack of intravenous contrast. LOWER CHEST: 3 mm right middle lobe nodule, stable since 11/13/2013. Coronary artery calcifications. SOLID ORGANS: The visualized liver, spleen, pancreas, and adrenal glands are normal. KIDNEYS: No urinary calculi, hydronephrosis or perinephric stranding. The renal contours are normal. Unchanged cysts in the upper pole of the left kidney, which has a rim of calcification. BOWEL: No acute bowel pathology. No evidence of bowel obstruction. PERITONEUM: No free intraperitoneal fluid or air. RETROPERITONEUM: No adenopathy. Scattered atherosclerotic vascular calcifications. PELVIS: No pelvic mass. The urinary bladder is normal. MUSCULOSKELETAL: No acute abnormalities. Advanced degenerative changes throughout the thoracolumbar spine. Grade 1 anterolisthesis of L5 on S1. Convex left curvature centered at the upper lumbar spine. IMPRESSION: No acute abdominal or pelvic abnormalities. No significant change since the abdomen and pelvis CT from 11/13/2013. SL: [id number] 01/24/2016 [facility] Spine lumbar 2 or 3 views DX S tudy: Spine lumbar 2 or 3 views DX Clinical Indication: M54.5 Low back pain << No Exact Match >>; Comparison: 07/28/2015. FINDINGS: Diffuse osteopenia. The AP, lateral and oblique views of the lumbar spine demonstrate no definite acute compression fracture. Severe lumbar spondylosis and marked facet arthrosis. Grade 1-2 about 10.2 mm anterolisthesis of L5 on S1 with severe foraminal encroachment. Atherosclerotic calcification of the abdominal aorta. Abundance of stool within the colon. If there is further concern or neurological abnormalities on clinical exam, MRI or CT of the lumbar spine may be performed for complete assessment. IMPRESSION: 1. No definite acute fracture detected. 2. Severe lumbar spondylosis and marked facet arthrosis. Grade 1-2 about 10.2 mm anterolisthesis of L5 on S1 with severe foraminal encroachment. SL: [id number] 12/06/2015 [facility] Ext Lower Venous Doppler Unilat US Ext Lower Venous Doppler Unilat US CLINICAL HX: Pain, Limb; TECHNIQUE: Amador scale imaging, compression techniques and spectral analysis were utilized to evaluate the deep venous system of both the left lower extremity from the inguinal ligament to the popliteal fossa. FINDINGS: There is adequate compression, respiratory variability, and appropriate response to augmentation in the CFV, FV and popliteal veins in the left thigh.. Posterior tibial trunk and the saphenous vein demonstrates normal compressibility. The junction of the profunda vein to the SFV is patent. Mildly complex cystic focus is visualized left popliteal fossa which measures approximately 5 x 1.4 x 1.7 cm. IMPRESSION: No evidence for deep vein thrombosis in the examined veins of left lower extremity. Probable Garg's cyst, left popliteal fossa. SL: [id number] 11/11/2015 [facility] Ankle 3 views DX Ankle 3 views DX CLINICAL HISTORY: Pain and swelling FINDINGS/IMPRESSION: 3 views of the left ankle are submitted for review. There is no evidence for fracture or subluxation. The visualized bones demonstrate normal radiodensity. No radiopaque foreign body or other significant soft tissue abnormality is noted. SL: [id number] 11/11/2015 [facility] Foot series DX Foot series DX CLINICAL HISTORY: Pain and swelling FINDINGS/IMPRESSION: 3 views of the left foot are submitted f or review. There is no evidence for acute fracture or subluxation. Old fracture deformity of the 3rd and 5th metatarsal bones. Advanced degenerative changes within the 2nd and 3rd tarsometatarsal joints. No acute fracture subluxation or lesion is otherwise evident. 11/11/2015 [facility] Knee 3 views DX Patient Name: KATHE CUMMINGS : 1930; Age: 85 years y/o Female MR: [id number] Study: Knee 3 views DX 10/20/2015 6:23 PM CDT Ordering Physician: Ebony Naranjo Comparison: 07/28/2015 Clinical Indication: Left knee pain; There is no acute fracture or dislocation. Juxta articular calcific loose bodies are noted adjacent to the medial joint compartment. Subchondral cyst formation is noted at the medial tibial plateau. Narrowing of the medial joint compartment space. Cortical defect at the articular surface of the medial femoral condyle is noted which could represent evidence of spontaneous osteonecrosis similar to the previous exam. Chondrocalcinosis is noted at the lateral joint compartment space which is well-maintained. Small calcific loose bodies are noted at the posterior joint compartment. Marginal spurring is present at the medial and patellofemoral joint compartment spaces. Tiny joint fluid collection. SL: [id number] 10/20/2015 [facility] Tibia fibula series DX Patient Name: KATHE CUMMINGS : 1930; Age: 85 years y/o Female MR: [id number] Study: Tibia fibula series DX 10/20/2015 6:23 PM CDT Ordering Physician: Ebony Naranjo Comparison: None Clinical Indication: Left lower leg pain; Degenerative changes are noted at the left knee as described separately. There is no acute fracture or dislocation noted at the left tibia and fibula. Plantar calcaneal spurring. Degenerative changes are noted at the intertarsal articulations of the hindfoot. SL: [id number] 10/20/2015 [facility] Knee series 3 views DX Left kn ee 3 views: There is no fracture or dislocation. There is narrowing of the medial tibiofemoral compartment of the left knee with irregularity of the articular surface of the femoral condyle. There is periarticular calcification spurring involving the medial compartment. Calcification of the lateral meniscus is noted. There are no other significant osseous or articular abnormalities. The soft tissues are unremarkable. IMPRESSION: Degenerative changes without acute radiographic abnormalities of the left knee. 13 07/28/2015 [facility] Pelvis AP DX Pelvis one view: There is no fracture or dislocation. There is facet arthropathy at L5-S1.There are no other significant osseous or soft tissue abnormalities. IMPRESSION: No acute radiographic abnormalities of the pelvis. 13 07/28/2015 [facility] Femur series DX Left femur 2 v iews: There is no fracture or dislocation. Degenerative changes in the knee are noted which are further discussed in the left knee report on the same day. There are no other significant osseous, articular or soft tissue abnormalities. IMPRESSION: No acute radiographic abnormalities of the left femur. [id number] 07/28/2015 [facility] Consultation Notes No Data Provided for This Section Discharge Summaries No Data Provided for This Section History and Physicals No Data Provided for This Section Vital Signs Vital Sign Value Date Comments Source Systolic (mm Hg) 160 03/15/2019 [facility] Diastolic (mm Hg) 78 03/15/2019 [facility] Respitory Rate 16 03/15/2019 [facility] Heart Rate 80 03/15/2019 [facility] Systolic (mm Hg) 160 03/15/2019 [facility] Diastolic (mm Hg) 100 03/15/2019 [facility] Heart Rate 78 03/15/2019 [facility] Respitory Rate 18 03/15/2019 [facility] Systolic (mm Hg) 180 03/15/2019 [facility] Diastolic (mm Hg) 76 03/15/2019 [facility] Heart Rate 85 03/15/2019 [facility] Respitory Rate 15 03/15/2019 [facility] Temperature Oral (F) 98.1 F 03/15/2019 [facility] Height 157.48 cm 03/15/2019 [facility] BMI Calculated 24.74 03/15/2019 [facility] Weight 61.364 03/15/2019 [facility] Respitory Rate 20 12/29/2018 [facility] Weight 61.364 12/29/2018 [facility] Height 157.48 cm 12/29/2018 [facility] BMI Calculated 24.74 12/29/2018 [facility] Temperature Oral (F) 98.1 F 12/29/2018 [facility] Systolic (mm Hg) 170 12/29/2018 [facility] Diastolic (mm Hg) 103 12/29/2018 [facility] Respitory Rate 24 12/29/2018 [facility] Heart Rate 74 12/29/2018 [facility] Temperature Oral (F) 98.8 F 12/19/2017 [facility] Systolic (mm Hg) 170 12/19/2017 [facility] Diastolic (mm Hg) 67 12/19/2017 [facility] Respitory Rate 18 12/19/2017 [facility] Heart Rate 80 12/19/2017 [facility] Heart Rate 76 12/19/2017 [facility] Systolic (mm Hg) 160 12/19/2017 [facility] Diastolic (mm Hg) 70 12/19/2017 [facility] Respitory Rate 18 12/19/2017 [facility] Temperature Oral (F) 98 F 12/19/2017 [facility] Respitory Rate 18 12/19/2017 [facility] Heart Rate 77 12/19/2017 [facility] Systolic (mm Hg) 151 12/19/2017 [facility] Diastolic (mm Hg) 67 12/19/2017 [facility] Temperature Oral (F) 98.7 F 12/19/2017 [facility] Height 157.48 cm 12/15/2017 [facility] Weight 56.903 12/15/2017 [facility] BMI Calculated 22.94 12/15/2017 [facility] Weight 59.091 12/15/2017 [facility] Systolic (mm Hg) 151 12/05/2017 [facility] Diastolic (mm Hg) 76 12/05/2017 [facility] Temperature Oral (F) 97.8 F 12/05/2017 [facility] Heart Rate 112 12/05/2017 [facility] Respitory Rate 17 12/05/2017 [facility] Systolic (mm Hg) 129 12/05/2017 [facility] Diastolic (mm Hg) 61 12/05/2017 [facility] Respitory Rate 17 12/05/2017 [facility] Temperature Oral (F) 98.0 F 12/05/2017 [facility] Heart Rate 82 12/05/2017 [facility] Weight 60.909 12/05/2017 [facility] Respitory Rate 17 12/05/2017 [facility] Systolic (mm Hg) 174 12/05/2017 [facility] Diastolic (mm Hg) 72 12/05/2017 [facility] Heart Rate 77 12/05/2017 [facility] Temperature Oral (F) 98.3 F 12/05/2017 [facility] Weight 60.909 12/04/2017 [facility] Height 157.48 cm 12/04/2017 [facility] BMI Calculated 24.56 12/04/2017 [facility] Height 157.48 cm 12/04/2017 [facility] BMI Calculated 25.66 12/04/2017 [facility] Weight 63.636 12/04/2017 [facility] Respitory Rate 18 01/26/2016 [facility] Temperature Oral (F) 97.4 F 01/26/2016 [facility] Heart Rate 85 01/26/2016 [facility] Systolic (mm Hg) 150 01/26/2016 [facility] Diastolic (mm Hg) 76 01/26/2016 [facility] Respitory Rate 18 01/26/2016 [facility] Systolic (mm Hg) 125 01/26/2016 [facility] Diastolic (mm Hg) 70 01/26/2016 [facility] Temperature Oral (F) 98.2 F 01/26/2016 [facility] Heart Rate 71 01/26/2016 [facility] Systolic (mm Hg) 164 01/26/2016 [facility] Diastolic (mm Hg) 74 01/26/2016 [facility] Heart Rate 81 01/26/2016 [facility] Respitory Rate 18 01/26/2016 [facility] Temperature Oral (F) 97.6 F 01/26/2016 [facility] Weight 59.001 01/22/2016 [facility] BMI Calculated 23.79 01/22/2016 [facility] Height 157.48 cm 01/22/2016 [facility] Height 157.48 cm 01/21/2016 [facility] Weight 59.091 01/21/2016 [facility] BMI Calculated 23.83 01/21/2016 [facility] Temperature Oral (F) 98.9 F 11/11/2015 [facility] Systolic (mm Hg) 112 11/11/2015 [facility] Diastolic (mm Hg) 66 11/11/2015 [facility] Respitory Rate 18 11/11/2015 [facility] Heart Rate 72 11/11/2015 [facility] Respitory Rate 20 11/11/2015 [facility] Temperature Oral (F) 99.0 F 11/11/2015 [facility] Systolic (mm Hg) 144 11/11/2015 [facility] Heart Rate 78 11/11/2015 [facility] Diastolic (mm Hg) 50 11/11/2015 [facility] Heart Rate 76 11/11/2015 [facility] Respitory Rate 18 11/11/2015 [facility] Systolic (mm Hg) 110 11/11/2015 [facility] Diastolic (mm Hg) 68 11/11/2015 [facility] Weight 60 0 11/11/2015 [facility] Temperature Oral (F) 99.0 F 11/11/2015 [facility] BMI Calculated 24.19 11/11/2015 [facility] Height 157.48 cm 11/11/2015 [facility] Respitory Rate 18 10/21/2015 [facility] Systolic (mm Hg) 159 10/21/2015 [facility] Diastolic (mm Hg) 73 10/21/2015 [facility] Heart Rate 69 10/21/2015 [facility] Temperature Oral (F) 97.6 F 10/20/2015 [facility] Height 157.48 cm 10/20/2015 [facility] Systolic (mm Hg) 163 10/20/2015 [facility] Diastolic (mm Hg) 70 10/20/2015 [facility] Heart Rate 74 10/20/2015 [facility] Respitory Rate 18 10/20/2015 [facility] BMI Calculated 24.19 10/20/2015 [facility] Weight 60 0 10/20/2015 [facility] Weight 59.091 07/28/2015 [facility] BMI Calculated 23.83 07/28/2015 [facility] Height 157.48 cm 07/28/2015 [facility] Temperature Oral (F) 98.2 F 07/28/2015 [facility] Heart Rate 84 07/28/2015 [facility] Respitory Rate 20 07/28/2015 [facility] Systolic (mm Hg) 160 07/28/2015 [facility] Diastolic (mm Hg) 84 07/28/2015 [facility] Encounters Location Location Details Encounter Type Encounter Number Reason For Visit Attending Provider ADM Date DC Date Status Source [facility] [id number] Subhadra Bandhakavi 4 01/21/2014 [facility] [id number] Subhadra Bandhakavi 4 02/20/2014 [facility] [place] [id number] Subhadra Bandhakavi 02/09/2014 02/10/2014 [facility] [id number] Grecia Quaker 07/28/2015 07/28/2015 [facility] [id number] Sanjana Cobb 10/20/2015 10/21/2015 [facility] [id number] Subhadra Bandhakavi 6 12/11/2015 [facility] Emergency [facility] [id number] Kannan Price 11/11/2015 11/11/2015 [facility] Outpatient [id number] Abigailgonzalo Soriaan 12/06/2015 12/07/2015 [facility] Inpatient [id number] Subhadra Bandhakavi 6 01/26/2016 [facility] Outpatient [id number] Sloane Herzog 201504/10/2016 [facility] Outpatient [id number] Abigail Theresa 06/14/2016 06/15/2016 [facility] [place] [id number] Subhadra Bandhakavi 12/21/2016 12/22/2016 [facility] Observation [id number] Subhadra Bandhakavi 8 12/06/2017 [facility] Inpatient [id number] Subhadra Bandhakavi 8 12/19/2017 [facility] Outpatient [id number] KILO KNOTT 12/15/2017 [facility] General Surgery [facility] Outpatient [id number] Kilo Stovall 12/15/2017 12/16/2017 [facility] [id number] Subhadra Bandhakavi 8 02/05/2018 [facility] [id number] Subhadra Bandhakavi 8 03/09/2018 [facility] [id number] Subhadra [facility]akavi 8 04[facility]17/2018 [facility] [id number] Baldo Nolasco 12/29/2018 12/29/2018 [facility] Outpatient [id number] Rosemary Jung 01/24/2019 01/25/2019 [facility] [id number] Feng David 02/24/2019 03/26/2019 [facility] Emergency [id number] Lenny Modi 03/15/2019 03/15/2019 [facility] OP Therapy Patients [id number] Feng David 04/02/2019 05/02/2019 [facility] Outpatient [id number] Jackson Victor 04/09/2019 04/10/2019 [facility] Outpatient [id number] Abigail Cardenas 01/07/2020 01/08/2020 [facility] Procedures Procedure Code Date Perfomer Comments Source Ankle closure [id number] [facility] Extraction of cataracts from both eyes [id number] [facility] Hand implantation [id number] [facility] ID - Incision and drainage of abscess [id number] [facility] Operation on meniscus of the knee [id number] [facility] Total hysterectomy [id number] [facility] Assessment and Plan Assessment and Plan Date Source Extracted from:Title: Clinical Document Author: Fallon Gramajo MD Date: 12/19/17 [id number] Extracted from:Title: Clinical Document Author: January Gabriel Date: 12/19/17 PAIN MANAGEMENT PROGRESS NOTE SUBJECTIVE: Patient notes that current pain is fluctuating. Continued diffuse body pain. Current pain: 6/10 No acute events overnight. Tolerating PO intake well. No side effects to current pain medications Patient was unable to sleep well overnight. at bedside. REVIEW OF SYSTEMS: negative unless otherwise stated in HPI. PHYSICAL EXAMINATION: GENERAL: Well-nourished, well-developed, elderly female in no apparent distress, lying in exam bed. HEENT: Normocephalic, atraumatic, EOMI. CARDIOVASCULAR: Regular rate. RESPIRATORY: Unlabored breathing, no accessory muscle use. ABDOMEN: Soft, nontender, nondistended. MUSCULOSKELETAL: No edema or cyanosis. Diffuse myalgias. Diffuse joint pain. TTP to bilateral sacroiliac joints. NEUROLOGIC: Spontaneous movement of all extremities. DIAGNOSTIC DATA: Chest x-ray 12/15/2017: Hypo-inflation associated with hazy left perihilar opacity suggesting pneumonia or neoplasm. Heart size at upper limits of normal. CT of the abdomen and pelvis without contrast-- fluid levels throughout the colon, which may be secondary to diarrheal process. No evidence of bowel obstruction. Very small hiatal hernia. Again seen exophytic lobulated cyst in the upper pole of the kidney. CT of the chest without contrast-- no acute abnormality in the chest. There is no evidence of pneumonia or mass. Minimal peripheral pulmonary fibrotic changes and evidence of old granulomatosis disease. CT of the head-- mild motion artifact. Mild to moderate diffuse atrophy is present, associated with mild nonspecific periventricular low attenuation, most consistent with old microangiopathic ischemic change. No acute intracranial abnormality. Mild chronic sinusitis. Abdominal MRA with and without contrast, patent celiac axis, SMA, and JEANCARLOS. Atherosclerosis aorta. Abdominal US 12/18/17: Small gallbladder polyp. ASSESSMENT AND PLAN: Ms. Cummings is an 87-year-old female with past medical history of RA, fibromyalgia, hyperlipidemia, hypertension. She is currently admitted for pneumonia and fibromylagia. We have been consulted to assist with the patient's pain management during her hospital stay. She is on chronic opioid therapy on an outpatient basis prescribed by Dr. Jaime Madrid. From a pain management perspective, we do not recommend any opioid escalation. Patient may continue her home regimen of MS Contin 30 mg t.i.d. She may also continue for breakthrough pain, morphine sulfate solution 9 mg orally q. 4 hours p.r.n. pain. She may also to continue Lyrica 150 mg B.I.D. for neuropathic component of pain. She may continue Cymbalta 30 mg daily for neuropathic component of pain. Upon discharge, patient plans to follow up with her primary pain management provider, Dr. Jaime Madrid. She will not require any discharge prescription that she recently filled her monthly supply of medication on 11/29/2017. Please call with any questions or concerns. Case was discussed the pain management attending, Dr. Wali Colon. Attending: Fallon Gramajo MD Service: Internal Medicine Code status: Full Code [Ordered] Reason for Admission: ABDOMINAL PAIN, PNEUMONIA Working DRG: Isolation: No Isolation/Standard Precautions Consulting Physicians: Wali Colon MD Office: Service: Medicine, Neurology Jackson Victor MD Office: Service: Gastroenterology, Medicine Marcos Nixon MD Office: Service: General Surgery Full Code [Ordered] Allergies: contrast media (iodine-based), Protonix, Talwin NX, iodine, Arthrotec, Valium, codeine, niacin, penicillins Vitals Tmp(F) Pulse BP RR SpO2 FIO2 12/19 08:00 98.8 80 170/67 1 8 95 --- 12/19 04:00 98 76 160/70 18 95 --- 12/19 00:00 98.7 77 151/67 1 8 95 --- 12/18 20:00 98.4 78 176/65 1 6 95 --- 12/18 15:11 97.4 74 138/69 1 8 94 --- 24 Hr Tmax: 98.8F (37.11c) at 12/19 08:0 0 Vital Signs are the last 5 in the past 48 hours. Medications (21) Active Scheduled Meds (14): 12/18/17 DULoxetine (Cymbalta) 30 mg PO Daily 12/15/17 atorvastatin 20 mg PO Bedtime 12/15/17 azelastine nasal (Astelin 137 m cg/inh nasal spray) 274 microgram NASAL BID 12/15/17 cycloSPORINE ophthalmic (Restas is) 1 drp BOTH EYES BID 12/15/17 fluticasone nasal (Flonase 0.05 mg/inh nasal spray) 1 spray NASAL Daily 12/15/17 hydrALAZINE (hydrALAZINE 25 mg oral tablet) 25 mg PO BID 12/17/17 lidocaine topical (lidocaine to pical 5% ointment) 1 appl TOP TID 12/15/17 metoprolol (Toprol-XL 50 mg ora l tablet, extended release) 50 mg PO Daily 12/15/17 mometasone nasal (mometasone na jerald 50 mcg/inh spray) 100 microgram NASAL Daily 12/15/17 non-formulary (Metanx oral caps ule) 1 cap PO Daily 12/15/17 non-formulary (RN please bring patient's own Metanx to pharmacy to label) MISC QSHIFT 12/17/17 predniSONE 10 mg PO Daily 12/17/17 pregabalin (Lyrica) 150 mg PO B ID 12/17/17 rOPINIRole (Requip) 0.25 mg PO TID-Before Meals Unscheduled Meds: None PRN Meds (7): 12/15/17 acetaminophen 650 mg PO Q4H 12/15/17 albuterol (albuterol 0.083% inh alation solution) 2.49 mg NEB PRN 12/15/17 budesonide-formoterol (Symbicor t 80/4.5 inhalation aerosol with adapter) 2 puff INHALATION BID 12/15/17 dextromethorphan-guaiFENesin (d extromethorphan-guaiFENesin 10 mg-100 mg/5 mL oral liquid) 10 mL PO Q4H 12/15/17 morphine Sulfate 9 mg PO Q4H 12/17/17 morphine Sulfate (morphine 15 m g oral tablet, extended release) 30 mg PO TID 12/15/17 ondansetron 4 mg IVP Q6H One Time Meds: None Continuous Infusions: None I&O Record In Out Bal 12/18 24hr Tot 14 0 14 12/17 24hr Tot [phone] Lines, Tubes, and Drains: 12/19/2017 03:52 Peripheral Lines: Forea rm Left 22 gauge Over the needle catheter Labs (Last four charted values) WBC 9.7 (DEC 15) 6.6 (DEC 15) Hgb 13.5 (DEC 15) 13.3 (DEC 15) Hct 40.1 (DEC 15) 40.0 (DEC 15) Plt 242 (DEC 15) 230 (DEC 15) Na 141 (DEC 17) L 133 (DEC 15) 135 (DEC 15) K 3.8 (DEC 17) C 3.0 (DEC 17) L 3.1 (DEC 15) 3.5 (DEC 15) CO2 27 (DEC 17) 24 (DEC 15) 32 (DEC 15) Cl 106 (DEC 17) 99 (DEC 15) 96 (DEC 15) Cr 0.57 (DEC 17) 0.65 (DEC 15) 0.72 (DEC 15) BUN L 5 (DEC 17) L 6 (DEC 15) 7 (DEC 15) Glucose Random H 131 (DEC 17) H 148 (DEC 15) H 101 (DEC 15) Mg 2.2 (DEC 17) 2.4 (DEC 15) Phos 2.7 (DEC 15) Ca L 7.5 (DEC 17) L 8.2 (DEC 15) 8.6 (DEC 15) PT H 15.2 (DEC 15) INR H 1.19 (DEC 15) PTT 30.1 (DEC 15) Troponin <0.02 (DEC 15) CK MB 1.3 (DEC 15) Total CK 73 (DEC 15) Addendum by Wali Colon MD on 12/20/2017 11:55 The patient was seen and examined with the physician graduate assistant athletic trainer. I agree and concur woth her findings and recommendations. 12/19/2017 [facility] Extracted from:Title: Clinical Document Author: Fallon Gramajo MD Date: 12/06/17 [id number] Extracted from:Title: Clinical Document Author: Sloane Herzog MD Date: 12/05/17 Progress Note [facility] Sloane Herzog M.D. [facility] SUBJECTIVE Had no more chest pain had some wheezing last night OBJECTIVE Vitals and Temp: Vitals Tmp(F) Pulse BP RR SpO2 FIO2 12/05 07:50 98.3 77 174/72 1 7 97 --- 12/05 03:39 98.0 71 136/55 1 8 92 --- 12/04 23:20 98.5 73 148/52 1 7 94 --- 12/04 19:17 98.2 76 138/51 1 8 94 --- 12/04 17:55 98.2 72 140/47 1 9 94 --- 24 Hr Tmax: 98.5F (36.94c) at 12/04 23:2 0 Vital Signs are the last 5 in the past 48 hours. Labs (Last four charted values) WBC 10.4 (DEC 04) Hgb 12.0 (DEC 04) Hct L 35.9 (DEC 04) Plt 193 (DEC 04) Na 138 (DEC 04) K 4.6 (DEC 04) CO2 H 34 (DEC 04) Cl 101 (DEC 04) Cr 0.72 (DEC 04) BUN 13 (DEC 04) Glucose Random 90 (DEC 04) Ca 9.0 (DEC 04) PT 14.0 (DEC 04) INR 1.08 (DEC 04) PTT 32.1 (DEC 04) Troponin <0.02 (DEC 04) CK MB 1.1 (DEC 04) Total CK 51 (DEC 04) Medications Scheduled Meds (17):aspirin, atorvastatin, azelastine nasal (Astelin 137 mcg/inh nasal spray), cefdinir, cycloSPORINE ophthalmic (Restasis 0.05% ophthalmic emulsion), esomeprazole (NexIUM), fluticasone nasal (Flonase 0.05 mg/inh nasal spray), hydrALAZINE (hydrALAZINE 25 mg oral tablet), methotrexate, metoprolol (Toprol-XL 50 mg oral tablet, extended release), mometasone nasal (mometasone nasal 50 mcg/inh spray), multivitamin, naloxegol (Movantik 25 mg oral tablet), non-formulary (*ATTN RN please bring pt home med to pharmacy to be labeled*), polyethylene glycol 3350 (MiraLax), predniSONE, pregabalin Unscheduled Meds: None PRN Meds (6):APAP/butalbital/caffeine (acetaminophen/butalbital/caffeine 325 mg- 50 mg-40 mg oral tablet), albuterol (ProAir HFA 90 mcg/inh inhalation aerosol with adapter), budesonide-formoterol (Symbicort 80/4.5 inhalation aerosol with adapter), conjugated estrogens topical (Premarin Vaginal 0.625 mg/g cream with applicator), morphine Sulfate (morphine 15 mg oral tablet, extended release), sodium chloride (Saline Flush 0.9%) One Time Meds (1):(Completed) aspirin Continuous Infusions: None EXAM: Head: normocephalic and atraumatic Neck: no carotid bruit; no JVD CV: Irregular; -S3; no significant murmurs Lungs: few crackles Abd: soft; + bowel sounds Ext: No edema Neuro: No focal neuro deficit EKG SR, LBBB CK MB, Troponin negative ASSESSMENT: Acute bronchitis Angina HTN PLAN: Dobutamine nuclear stress test done Addendum by Sloane Herzog MD on 12/05/2017 17:57 Nuclear stress OK OK to DC f/u 3 wk Extracted from:Title: Clinical Document Author: Fallon Gramajo MD Date: 12/04/17 [id number] 12/06/2017 [facility] Extracted from:Title: Clinical Document Author: Jackson Victor MD Date: 01/26/16 Progress Note Gastroenterology and Hepatology IMPRESSION: Dysphagia - negative esophageal dysphagia ? arielle-pharyngeal dysphagia : MBS pending Abdominal pain- negative CT for acute issues; likely functional Chronic constipation- opiate -induced - better GERD Cellulitis on rx- improved RECOMMENDATIONS AND PLAN: await MBS and recommended diet may be d/c from GI v/pt when cleared by attending; f/u 1-2 weeks in clinic ID plan noted d/w pt/ spouse/ nurse SUBJECTIVE: Patient seen. Good BM, less AP. esophagram noted- pt did not/ does not experience aspiration sx with deglutition. Cellulitis RUE still troublesome, sl better. Events reviewed with patient/nurse. No nausea, emesis, odynophagia, heartburn, chills, diarrhea, overt GI bleeding. No fever. No acute cardio- pulmonary events Review of Systems: as per CN note, same OBJECTIVE: Vital signs as below. NAD mild dysphonia as before HEENT: normal, EOMI, atraumatic, no asymmetry; neck supple, no LN/ thyromegaly/ mass/ bruits, JVD neg Chest: CTA, resonant to percussion, no accessory muscle use Cardiac: regular rhythm, normal S1 and S2; apex not displaced, no edema Abdo: Soft, not distended, non tender, no mass, no ascites, no hernia, normal BS, no bruits Ext: No cyanosis, clubbing; peripheral pulses palpable, RA changes Neuro: A and O x3, grossly intact cranial nerves; non-focal exam. MS: ERYTHEMA/ SKIN EDEMA RUW FOREARM, SL BETTER; DJD changes of extremities, restricted spine mvt Recent Labs/Radiology reviewed Vitals Tmp(F) Pulse BP RR SpO2 FIO2 01/25 08:00 97.6 81 164/74 1 8 97 --- 01/25 04:15 97.6 75 126/65 1 8 97 --- 01/25 00:25 98.3 77 149/69 1 8 96 --- 01/24 20:15 98.1 83 162/73 1 8 96 --- 01/24 11:23 97.8 75 163/80 1 6 98 --- 24 Hr Tmax: 98.3F (36.83c) at 01/25 00:2 5 Vital Signs are the last 5 in the past 48 hours. Input/Output Record In Out Bal 01/25 24hr Tot 570 0 570 01/24 24hr Tot 510 0 510 Scheduled Meds (19):aspirin (aspirin 81 mg tablet, chewable), atorvastatin, calcium-vitamin D (calcium-vitamin D 500 mg-400 intl units oral tablet, chewable), cefepime + sodium chloride 0.9% INJ 100 mL, cycloSPORINE ophthalmic (Restasis), hydrALAZINE (hydrALAZINE 25 mg oral tablet), hydrocortisone topical (hydrocortisone butyrate topical 0.1% ointment), methotrexate, metoprolol (metoprolol tartrate), morphine Sulfate (MS Contin), non-formulary (Movantik 25mg), non-formulary (Metanx), non-formulary (esomeprazole (Nexium) 40mg cap), polyethylene glycol 3350 (MiraLax), predniSONE, predniSONE, pregabalin (Lyrica), vancomycin + sodium chloride 0.9% INJ 250 mL, vitamin E Unscheduled Meds: None PRN Meds (11):APAP/butalbital/caffeine (acetaminophen/butalbital/caffeine 325 mg-50 mg-40 mg oral tablet), acetaminophen, albuterol (ProAir HFA 90 mcg/inh inhalation aerosol with adapter), budesonide-formoterol (Symbicort 80/4.5 inhalation aerosol with adapter), calamine topical (calamine topical lotion), conjugated estrogens topical (Premarin Vaginal 0.625 mg/g cream with applicator), diphenhydrAMINE (Benadryl), morphine Sulfate, morphine Sulfate (morphine 15 mg oral tablet, extended release), ondansetron (Zofran), sodium chloride (Saline Flush 0.9%) One Time Meds (2):(Completed) magnesium hydroxide (Milk of Magnesia), (Ordered) non-formulary (RN-Do NOT give Vanc until trough drawn 01/26/16 @ 08:00) Continuous Infusions: None 24hr Labs 01/25 0807 Vanco Tr TND 0 Vanco Tr 11.2 Result type: Barium Swallow w Esophagus Function DX Result date: 01/25/2016 15:45 CDT Final Report Reason For Exam Dysphagia Radiology Report Barium Swallow w Esophagus Function DX CLINICAL HISTORY: Dysphagia. Feeding difficulties COMPARISON: None TECHNIQUE: Thin barium was utilized for recumbent prone oblique and LPO images. Thick barium was utilized for upright imaging of the esophagus and pharynx. Granola bar mixed with barium was given to evaluate motility with solids. FINDINGS: There is no delay in passage of the barium bolus from the pharynx into the esophagus. The cricopharyngeus relaxes normally. There is no evidence for cricopharyngeal bar or Zenker's diverticulum. On one of the swallows in the upright position, there is variant noted in the patient's trachea. Prone and LPO images of the esophagus reveal no significant delay in clearance of barium from the esophagus to the stomach. No hiatal hernia is visualized. Upright images with thick barium reveals no significant dysmotility. No mass lesions or strictures are visualized. Mild gastroesophageal reflux. Subsequently 2 separate swallows of a small piece of granola bar and barium were fluoroscopically followed through the length of the esophagus. There is no significant delay in passage of both solid boluses from the pharynx to the esophagus and subsequently into the stomach. Overhead image performed at the conclusion of the procedure reveals prompt passage of the barium from the stomach into the small bowel. IMPRESSION: No significant esophageal dysmotility, stricture or hiatal hernia is visualized. Mild gastroesophageal reflux. Silent tracheal aspiration is noted with one of the swallows in the upright position. A complete modified barium swallow with speech pathologist is recommended for a thorough assessment of swallowing mechanism Extracted from:Title: Clinical Document Author: Fallon Gramajo MD Date: 01/21/16 [id number] 01/26/2016 [facility] Plan of Care No Data Provided for This Section Social History Social History Date Source Social History TypeResponse Alcohol Never, Previous treatment: None. Alcohol use interferes with work or home: No. Drinks more than intended: No. Others hurt by drinking: No. Ready to change: No. Household alcohol concerns: No. Smoking Status Never smoker; Type: Cigarettes; Previous treatment: None; Ready to change: No; Concerns about tobacco use in household: No; Exposure to Tobacco Smoke None; Cigarette Smoking Last 365 Days No; Reg Smoking Cessation Counseling No entered on: 03/14/19 12/15/2017 [facility] [place] Social History TypeResponse Alcohol Never, Previous treatment: None. Alcohol use interferes with work or home: No. Drinks more than intended: No. Others hurt by drinking: No. Ready to change: No. Household alcohol concerns: No. Smoking Status Never smoker; Type: Cigarettes; Previous treatment: None; Ready to change: No; Concerns about tobacco use in household: No; Exposure to Tobacco Smoke None; Cigarette Smoking Last 365 Days No; Reg Smoking Cessation Counseling No entered on: 03/14/19 12/15/2017 [facility] Social History TypeResponse Alcohol Never, Previous treatment: None. Alcohol use interferes with work or home: No. Drinks more than intended: No. Others hurt by drinking: No. Ready to change: No. Household alcohol concerns: No. Smoking Status Never smoker; Type: Cigarettes; Previous treatment: None; Ready to change: No; Concerns about tobacco use in household: No; Exposure to Tobacco Smoke None; Cigarette Smoking Last 365 Days No; Reg Smoking Cessation Counseling No entered on: 12/15/17 12/15/2017 [facility] Social History TypeResponse Smoking Status Never smoker; Exposure to Tobacco Smoke None; Cigarette Smoking Last 365 Days No; Reg Smoking Cessation Counseling No 01/21/2016 [facility] Family History No Data Provided for This Section Advance Directives No Data Provided for This Section Functional Status No Data Provided for This Section
--- OUTSIDE RECORDS SUMMARY | 2020-01-30 17:32 | XMS REPORT | Continuity of Care Document ---
Author Author [facility] t Organization [facility] Address [address] [place] [address] Phone Unavailable Care Team Providers Care Line Prep Cook Name Role Phone David Cardenas Attphys Jose C David Attphys Unavailable Liza Victor Attphys Brendan Modi Attphys Noemi Jung Attphys Kavon Nolasco Attphys Bandwilbertkamitul, Subhadra Attphys Aiden Sims Attphys Sloane Herzog Attphys Francis Price Attphys Jessica Cobb Attphys Cortez Rogel Attphys David Cardenas Admphys Bandbella, Subhadra Admphys Payers Payer Name Policy Type Policy Number Effective Date Expiration Date S ource Problems Condition Name Condition Details Condition Category Status Onset Date Resolution Date Last Treatment Date Treating Clinician Comments Source M79.641 M79. 641 Active 01/07/2020 [facility] Diagnosis Active 2020-01-07 15:44:00 2020-01-07 15:47:00 [facility] DX: K21.9=GASTRO-ESOPHAGEAL REFLUX DISEA DX: K21.9=GASTRO-ESOPHAGEAL REFLUX DISEA Active 03/27/2019 [facility] Active 2019-03-27 00:00:00 2019-04-09 13:03:00 [facility] LEFT LEG SWOLLEN LEFT LEG SWOLLEN Active 03/14/2019 [facility] Active 2019-03-14 00:00:00 2019-03-14 21:13:00 [facility] RT ANKLE RT A NKLE Active 02/20/2019 [facility] Diagnosis Active 2019-02-20 11:29:00 2019-05-21 07:46:00 [facility] R09.82/J31.0 LANDMARK PROTOCOL R09.82/J31.0 LANDMARK PROTOCOL Active 01/22/2019 [facility] Diagnosis Ac tive 2019-01-22 00:00:00 2019-01-24 13:05:00 [facility] LEG PAIN LEG PAIN Active 12/28/2018 [facility] Active 2018-12-28 00:00:00 2019-01-22 12:15:00 [facility] RT SIDE LBP W/RT SIDE SCIATICA RT SIDE LBP W/RT SIDE SCIATICA Active 01/01/2018 [facility] [place] Diagnosis Active 01-01 14:58:00 2018-01-08 15:55:00 [facility] morales RIGHT SIDE LOWER BACK PAIN AND SCIATICA RIGHT SIDE LOWER BACK PAIN AND SCIATICA Active 12/25/2017 [facility] [place] Diagnosis Active 2017-12-25 08:00:00 2018-03-13 15:43:00 [facility] [place] RIGHT SIDE LOWER BACK PAIN RIG HT SIDE LOWER BACK PAIN Active 12/25/2017 [facility] [place] [facility] Active 2017-12-25 08:00:00 2018-04-05 20:24:00 [facility] ABD PAIN ABD PAIN Active 12/15/2017 [facility] Active 2017-12-15 00:00:00 2017-12-15 02:57:00 [facility] ABDOMINAL PAIN, PNEUMONIA ABDO BISI PAIN, PNEUMONIA Active 12/15/2017 [facility] Active 2017-12-15 00:00:00 2017-12-17 02:58:00 [facility] CHEST PAIN CHES T PAIN Active 12/04/2017 [facility] Diagnosis Active 2017-12-04 00:00:00 2017-12-04 16:54:00 [facility] Gary ACUTE CHEST PAIN ACUT E CHEST PAIN Active 12/04/2017 [facility] Diagnosis Active 2017-12-04 00:00:00 2017-12-05 10:41:00 [facility] Gary M05.741, M05.742 M05. 741, M05.742 Active 06/14/2016 [facility] Diagnosis Active 2016-06-14 00:00:00 2016-06-14 16:01:00 [facility] Gary DX: PAD /CLAUDICATION/ABNORMAL DOPPLER I DX: PAD /CLAUDICATION/ABNORMAL DOPPLER I Active 03/30/2016 [facility] Diagnosis Active 2016-03-30 00:00:00 2016-04-09 13:23:00 M mumtaz Vega INSECT BITE INSE CT BITE Active 01/21/2016 [facility] Diagnosis Active 2016-01-21 00:00:00 2016-01-21 17:17:00 [facility] LUE CELLULITIS W/IMMUNE SYSTEM SUPPRESSI LUE CELLULITIS W/IMMUNE SYSTEM SUPPRESSI Active 01/21/2016 [facility] Diagnosis Ac tive 2016-01-21 00:00:00 2016-01-24 14:48:00 M mumtaz Vega DX; K21.9=GASTRO-ESOPHAGEAL REFLUX DISEA DX; K21.9=GASTRO-ESOPHAGEAL REFLUX DISEA Active 01/19/2016 [facility] Diagnosis Active 2016-01-19 00:00:00 2016-02-25 15:48:00 [facility] Gary LEG PAIN OR INJURY LEG PAIN OR INJURY Active 10/19/2015 [facility] Diagnosis Active 2015-10-19 08:00:00 2015-10-20 18:52:00 [facility] Gary HIP PAIN HIP PAIN Active 07/28/2015 [facility] Diagnosis Active 2015-07-28 00:00:00 2015-07-28 13:24:00 [facility] Gary Other lack of coordination Oth er lack of coordination 11/04/2018 [facility] Cha Problem 2018-11-04 11:33:16 [facility] Gary Difficulty in walking, not elsewhere classified Difficulty in walking, not elsewhere classified 11/04/2018 [facility] Cha Problem 2018-11-04 11:33:16 [facility] Gary Muscle weakness (generalized) Muscle weakness (generalized) 11/04/2018 [facility] [place] Problem 2018-10 11:33:16 Vinh Vega Unsteadiness on feet Unst eadiness on feet 11/04/2018 [facility] [place] Problem 2018-11-04 11:33:16 Vinh Vega Pneumonia, unspecified organism Pneumonia, unspecified organism 07/08/2018 [facility] 2018-07-08 13:5 7:28 [facility] Gary Dehydration Dehy dration 07/08/2018 [facility] 2018-07-08 13:57:28 Kalyanior wan Vega Fibromyalgia Fibr omyalgia 07/08/2018 [facility] 2018-07-08 13:57:28 [facility] [place] Unspecified osteoarthritis, unspecified site Unspecified osteoarthritis, unspecified site 07/08/2018 [facility] 2018-07-08 13:57:28 [facility] [place] Rheumatoid arthritis, unspecified Rheumatoid arthritis, unspecified 07/08/2018 [facility] 2018-07-08 1 3:57:28 [facility] Restless legs syndrome Rest less legs syndrome 07/08/2018 [facility] 2018-07-08 13:57:28 [facility] Essential (primary) hypertension Essential (primary) hypertension 07/08/2018 [facility] 2018-07-08 13:57:28 [facility] [place] Polyp of stomach and duodenum Polyp of stomach and duodenum 07/08/2018 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 2018-07-08 1 3:57:28 [facility] Pure hypercholesterolemia, unspecified Pure hypercholesterolemia, unspecified 07/08/2018 [facility] 2018-07-08 13:57:28 [facility] Hyperlipidemia, unspecified Hy perlipidemia, unspecified 07/08/2018 [facility] 2018-07-08 13:57:2 8 [facility] Chronic pain syndrome Countersinker Balance Screw Hole nandini pain syndrome 07/08/2018 [facility] 2018-07-08 13:57:28 [facility] Atherosclerosis of aorta Athe rosclerosis of aorta 07/08/2018 [facility] 2018-07-08 13:57:28 [facility] Gastro-esophageal reflux disease without esophagitis Gastro-esophageal reflux disease without esophagitis 07/08/2018 [facility] 2018-07-08 13:57:28 Vinh Vega Diaphragmatic hernia without obstruction or gangrene Diaphragmatic hernia without obstruction or gangrene 07/08/2018 [facility] Problem 2018-07-08 13:57:28 Vinh Vega Other constipation Othe r constipation 07/08/2018 [facility] Problem 2018-07-08 13:57:28 Sd nancy [facility] jail (current) use of opiate analgesic jail (current) use of opiate analgesic 07/08/2018 [facility] Problem 2018-07-08 13:57:28 Vinh Vega Diarrhea, unspecified Diar alison, unspecified 07/08/2018 [facility] Problem 2018-07-08 13:57:28 M deyvixu [place] Adverse effect of unspecified narcotics, initial encou nter Adverse effect of unspecified narcotics, initial encounter 07/08/2018 [facility] Problem 2018-07-08 13:57:28 Sd nancy Vega Restlessness and agitation Res tlessness and agitation 07/08/2018 [facility] Problem 2018-07-08 13:57:2 8 Vinh Vega Personal history of colonic polyps Personal history of colonic polyps 07/08/2018 [facility] Problem 2018-06-27 2 13:57:28 Vinh Vega Migraine, unspecified, not intractable, without status migrainosus Migraine, unspecified, not intractable, without status migrainosus 07/08/2018 [facility] Problem 2018-07-08 13:57:28 Vinh Vega Hypokalemia Hypo kalemia 07/08/2018 [facility] Problem 2018-07-08 13:57:28 Jorge Vega Pain in right knee Pain in right knee 01/09/2020 [facility] Problem 2020-01-09 22:45:35 Sd bettyxu [place] Fibromyositis (disorder) Fibr omyositis (disorder) Resolved Problem 01/09/2020 [facility] OPIRasheed [place],[facility], [facility] [place] Problem Resolved 2020-01-09 22:45:35 [facility] orixu Vega Hyperlipidemia (disorder) Hype rlipidemia (disorder) Resolved Problem 01/09/2020 [facility], GLEN [place],[facility], [facility] [place] Problem Resolved 2020-01-09 22:45:35 martharixu Vega Hypertensive disorder, systemic arterial (disorder) Hypertensive disorder, systemic arterial (disorder) Resolved Problem 01/09/2020 [facility] OPID [place], [facility], [facility] [place] Problem Resolved 2020-01-09 22:45:35 [facility] Rheumatoid arthritis (disorder) Rheumatoid arthritis (disorder) Resolved Problem 01/09/2020 [facility] [place], [facility] [place] Problem Resolved 2020-01-09 22:45:35 [facility] NECK/BACK NECK /BACK Active [facility] [place] [facility] Active 2014-01-28 16:25:00 [facility] [place] TRAUMATIC ECCHYMOSIS OF LT LOWER LEG TRAUMATIC ECCHYMOSIS OF LT LOWER LEG Active [facility] [place] [facility] Active 2015-11-11 14:20:00 [facility] BACK PAIN BACK PAIN Active [facility] Active 2015-12-06 17:20:00 [facility] [place] LOW BACK PAIN LOW BACK PAIN Active [facility] Active 2015-12-06 17:20:00 [facility] GASTRO-ESOPHAGEAL REFLUX DISEASE WITHOUT GASTRO- ESOPHAGEAL REFLUX DISEASE WITHOUT Active [facility] Active 2019-04-09 13:03:00 [facility] DYSPHAGIA, UNSPECIFIED DYSP HAGIA, UNSPECIFIED Active [facility] Active 2016-02-25 15:48:00 mumtaz [facility] PERSONAL HISTORY OF COLONIC POLYPS PERSONAL HISTORY OF COLONIC POLYPS Active [facility] Active 2016-02-25 15:48:00 [facility] CELLULITIS AND ABSCESS OF MOUTH CELLULITIS AND ABSCESS OF MOUTH Active [facility] Active 2016-01-24 14:48 :00 [facility] PERIPHERAL VASCULAR DISEASE, UNSPECIFIED PERIPHERAL VASCULAR DISEASE, UNSPECIFIED Active [facility] Active 2016-04-09 13:23:00 [facility] RHEU ARTHRITIS W RHEU FACTOR OF R HAND W RHEU ARTHRITIS W RHEU FACTOR OF R HAND W Active [facility] Active 2016-06-14 16:01:00 [facility] RHEU ARTHRITIS W RHEU FACTOR OF LEFT SPANGLER RHEU ARTHRITIS W RHEU FACTOR OF LEFT SPANGLER Active [facility] Active 2016-06-14 16:01:00 [facility] UNSPECIFIED ABDOMINAL PAIN UNS PECIFIED ABDOMINAL PAIN Active [facility] Active 2017-12-17 02:58:00 [facility] PNEUMONIA, UNSPECIFIED ORGANISM PNEUMONIA, UNSPECIFIED ORGANISM Active [facility] Active 2017-12-17 02:58 :00 [facility] LUMBAGO WITH SCIATICA, RIGHT SIDE LUMBAGO WITH SCIATICA, RIGHT SIDE Active [facility] [place] [facility] Active 2017 20:24:00 Vinh Vega DIFFICULTY IN WALKING, NOT ELSEWHERE CLA DIFFICULTY IN WALKING, NOT ELSEWHERE CLA Active [facility] [place] [facility] Active 2018-04-05 20:24:00 [facility] UNSTEADINESS ON FEET UNST EADINESS ON FEET Active [facility] [place] [facility] Active 2018-04-05 20:24:00 Me nancy Vega OTHER LACK OF COORDINATION OTH ER LACK OF COORDINATION Active [facility] [place] [facility] Active 2018-04-05 20:24:00 [facility] MUSCLE WEAKNESS (GENERALIZED) MUSCLE WEAKNESS (GENERALIZED) Active [facility] [place] [facility] Active 201 01-04-10 20:24:00 Vinh Vega POSTNASAL DRIP POST NASAL DRIP Active [facility] Active 2019-01-24 13:05:00 Vinh Vega CHRONIC RHINITIS [employer]PING [employer]CEIVING [employer]PER[employer]OR NANDINI RHINITIS Active [facility] Active 2019-01-24 13:05:00 [facility] PAIN IN RIGHT HAND PAIN IN RIGHT HAND Active [facility] Active 2020-01-07 15:47:00 Me morial [facility] PAIN IN LEFT HAND PAIN IN LEFT HAND Active [facility] Active 2020-01-07 15:47:00 [facility] [place] PAIN IN LEFT KNEE PAIN IN LEFT KNEE Active [facility] Active 2020-01-07 15:47:00 [facility] [place] PAIN IN RIGHT KNEE PAIN IN RIGHT KNEE Active [facility] Active 2020-01-07 15:47:00 Me nancy [facility] Unspecified open wound, unspecified lower leg, initial encounter Unspecified open wound, unspecified lower leg, initial encounter 03/14/2019 03/17/2019 [facility] Problem 2019-03-14 17:00:00 2018 21:02:24 2019-03-17 21:02:24 Vinh Vega Other fracture of upper and lower end of unspecified fibula, initial encounter for closed fracture Other fracture o f upper and lower end of unspecified fibula, initial encounter for closed fracture 12/29/2018 12/31/2018 [facility] Problem 2018-12-29 17:00:00 2018-12-31 21:09 :18 2018-12-31 21:09:18 Vinh Vega Unspecified fall, initial encounter Unspecified fall, initial encounter 12/29/2018 12/31/2018 [facility] Problem 2018-12-29 17:00:00 2018-12-31 21:09:18 2018-12-31 21:09:18 [facility] [place] Lumbago with sciatica, right side Lumbago with sciatica, right side 04/23/2018 11/04/2018 [facility] Problem 2018-04-23 05:38:45 2018-11-04 11:33:16 2018-11-04 11:33:16 [facility] Unspecified abdominal pain Uns pecified abdominal pain 12/27/2017 07/08/2018 [facility] Problem 2017-12-27 03:1 8:12 2018-07-08 13:57:28 2018-07-08 13:57:28 [facility] Discharge Diagnosis: Left foot pain Discharge Diagnosis: Left foot pain 11/11/2015 11/14/2015 [facility] Problem 2015-11-11 05:00:00 2015-11-14 04:34:43 2015-11-14 04:34:43 [facility] Discharge Diagnosis: Musculoskeletal limb pain Discharge Diagnosis: Musculoskeletal limb pain 11/11/2015 11/14/2015 [facility] Problem 2015-11-11 05:00:00 2015-11-14 04:34:43 2015-11-14 04:34:43 [facility] Discharge Diagnosis: Contusion of left leg Discharge Diagnosis: Contusion of left leg 10/20/2015 10/23/2015 [facility] Problem 2015-10-20 05:00:00 2015-10-23 03:40:39 2015-10-23 03:40:39 [facility] Discharge Diagnosis: Contusion of left knee, initial e ncounter Discharge Diagnosis: Contusion of left knee, initial encounter 07/28/2015 07/31/2015 [facility] Problem 2015-07-28 06:00:00 2015 06:30:39 2015-07-31 06:30:39 [facility] Allergies, Adverse Reactions, Alerts Allergy Name Allergy Type Status Severity Reaction(s) Onset Date Inacti ve Date Treating Clinician Comments Source misoprostol DA Active U 2019-02-05 00:00:00 [facility] diclofenac DA Active U 2019-02-05 00:00:00 [facility] pantoprazole DA Active U 2019-02-05 00:00:00 [facility] Pentazocine Lactate DA Active U 2019-02-04 00:00:00 [facility] Penicillins DA Active [place] 2019-02-04 00:00:00 [facility] iodine DA Active SV 2019-02-04 00:00:00 [facility] niacin DA Active U 2019-02-04 00:00:00 [facility] diazepam DA Active U 2019-02-04 00:00:00 [facility] codeine DA Active U 2019-02-04 00:00:00 [facility] diphenhydramine DA Active [place] 2019-02-04 00:00:00 [facility] Pentazocine Lactate DA Active U 2018-12-08 00:00:00 [facility] Penicillins DA Active [place] 2018-12-08 00:00:00 [facility] iodine DA Active SV 2018-12-08 00:00:00 [facility] niacin DA Active U 2018-12-08 00:00:00 [facility] diazepam DA Active U 2018-12-08 00:00:00 [facility] codeine DA Active U 2018-12-08 00:00:00 [facility] Pentazocine Lactate DA Active U 2016-12-25 00:00:00 [facility] Penicillins DA Active [place] 2016-12-25 00:00:00 [facility] iodine DA Active SV 2016-12-25 00:00:00 [facility] niacin DA Active U 2016-12-25 00:00:00 [facility] diazepam DA Active U 2016-12-25 00:00:00 [facility] codeine DA Active U 2016-12-25 00:00:00 [facility] Arthrotec Arthrotec Active Nigel [facility] codeine codeine Active [facility] penicillins penicillins Active [facility] Protonix Protonix Active Memori xu Vega Talwin NX Talwin NX Active Nigel [facility] Valium Valium Active [facility] contrast media (iodine-based) contrast media (iodine-based) Active [facility] Food Iodine Food Iodine Active [facility] Social History Social Habit Start Date Stop Date Quantity Comments Source Social History 2017-12-15 13:16:13 2017-12-15 13:16:13 [facility] Smoking Status Start Date Stop Date Source Social History [facility] Medications Ordered Medication Name Filled Medication Name Start Date Stop Da te Current Medication? Ordering Clinician Indication Dosage Frequency Signature (SIG) Comments Components Source Sulfamethoxazole 800 MG / Trimethoprim 160 MG Oral Tablet [B actrim] 2019-03-15 04:53:00 Yes 1 tab, PO, BID, X 10 day, # 20 tab, 0 Refill(s) [facility] [place] Sulfamethoxazole 800 MG / Trimethoprim 160 MG Oral Tablet [B actrim] 2019-03-15 03:20:00 No Notes: One DS tablet = trimethoprim 160mg + sulfamethoxazole 800 mg Dose based on trimethoprim component On empty stomach with a glass of water. (Same As: Bactrim DS, Septra DS) [facility] [employer] 2018-12-29 10:55:00 Yes 1 ea, MISC, ONCALL, # 1 ea, 0 Refill(s) [facility] Albuterol 0.833 MG/ML / Ipratropium Brom zhang 0.167 MG/ML Inhalant Solution [DuoNeb] 2018-12-29 03:52:00 No Notes: (S jovanna as: Duoneb) [facility] rOPINIRole 0.25 mg oral tablet 2017-12-19 16:07:00 Yes 0.25 mg = 1 tab, PO, TID-Before Meals, # 90 tab, 0 Refill(s), [facility] [place] [id number] [facility] Lidocaine 0.05 MG/MG Topical Ointment 2017-12-19 16:07:00 Y es 1 appl, TOP, TID, # 50 gm, 0 Refill(s), Pharmacy: [facility] [place] [id number] [facility] DULoxetine 30 mg oral delayed release capsule 2017-12-19 16:07:0 0 Yes 30 mg = 1 cap, PO, Daily, # 30 cap, 0 Re fill(s), Pharmacy: [facility] [place] [id number] [facility] predniSONE 10 mg oral tablet 2017-12-19 16:07:00 Yes 10 mg = 1 tab, PO, Daily, 0 Refill(s) Vinh Vega Sodium Chloride 0.9% IV 1000 mL 2017-12-18 17:07:00 No 1,000 mL, Rate: 25 ml/hr, Infuse over: 40 hr, Route: IV, Dosing Weight 56.903 kg, Total Volume: 1,000, Start date: 12/18/17 12:07:00 CDT, Duration: 30 day, Stop date: 01/17/18 12:06:00 CDT, 1.59, m2 Vinh Vega Methotrexate 2017-12-18 17:00:00 No Notes: (Same as:Methotrexate Sodium) Chemotherapy agent/Handle with caution WASTE: F/P - Black; E - Yellow Vinh Vega Cymbalta 2017-12-18 14:00:00 No Notes: (Same as: Cymbalta) (Do Not Crush) Vinh Vega Lyrica 2017-12-18 02:00:00 No Notes: Same a s Lyrica [facility] [place] Potassium Chloride 2017-12-17 17:00:00 No Notes: (Same as: K-Dur 20) "Do Not Crush" For patients unable to swallow tablet, dissolve in one half glass of water. Allow about 2 minutes for the tablets to disintegrate. Stir before giving to prepare slurry and administer. Please exclude Patient s with feeding tube less than 14 Pakistani (Dobhoff, J-tube etc) and pediatric and patients. With food and full glass of water Vinh [place] Requip 2017-12-17 16:30:00 No Notes: (Same as: Requip) [facility] [place] Lidocaine 0.05 MG/MG Topical Ointment 2017-12-17 14:00:00 N o Notes: (Same as: Xylocaine) [facility] Prednisone 2017-12-17 14:00:00 No Notes: (Same as: PredniSONE) Take with food. Vinh Odonnellann morphine 15 mg oral tablet, extended release 2017-12-17 12:59:00 No Notes: Do not crush (Same as:Oramorph SR, MS Contin) [facility] Potassium Chloride 2017-12-17 11:27:00 No Notes: (Same as: K-Dur 20) "Do Not Crush" For patients unable to swallow tablet, dissolve in one half glass of water. Allow about 2 minutes for the tablets to disintegrate. Stir before giving to prepare slurry and administer. Please exclude Patient s with feeding tube less than 14 Pakistani (Dobhoff, J-tube etc) and pediatric and patients. With food and full glass of water Vinh Vega Morphine 2017-12-17 02:37:00 Yes 30 mg, PO, Q8H, 0 Refill(s) Vinh Vega Potassium Chloride 2017-12-16 08:00:00 No Notes: MUST be Diluted before use (Same as: KCl) MEDICATION WASTE Product Size: 40 mEq Product Wasted: ___ mEq Vinh Bhandari n atorvastatin 2017-12-16 02:00:00 No Notes: (Same As: Lipitor) Vinh Vega Actemra 20 mg/mL intravenous solution 2017-12-16 00:22:00 N o 4 mg/kg, IV, q4wk, 0 Refill(s) Vinh soto Ativan 2017-12-15 22:46:00 No Notes: (Same as: Ativan) Vinh Vega Lyrica 2017-12-15 22:00:00 No Notes: (Same as: Lyrica) Vinh Vega RN please bring patient's own Metanx to pharmacy to label 2017-12-15 21:00:00 No RN please brin g patient's own Metanx to pharmacy to label, Reminder, Drug form: MISC, Route: MISC, QSHIFT, 12/15/17 16:00:00 CDT, Duration: 30 day, Stop date: 01/14/18 8:00:00 CDT Vinh Vega Morphine 2017-12-15 20:16:00 No Not es: (Same as:MORPhine Sulfate) Vinh Vega Rocephin + sterile water 10 mL 2017-12-15 17:00:00 No Notes: (Same As: Rocephin). Use with 100 mL NS and infuse over 30 min MEDICATION WASTE Product Size: 1000 mg Product Wasted: ___ mg Vinh Vega D5W 1/2NS 1,000 mL 2017-12-15 15:00:00 No 1,000 mL, Rate: 100 ml/hr, Infuse over: 10 hr, Route: IV, Dosing Weight 56.903 kg, Total Volume: 1,000, Start date: 12/15/17 10:00:00 CDT, Duration: 30 day, Stop date: 01/14/18 9:59:00 CDT, 1.59, m2 Vinh Odonnellann Flagyl 2017-12-15 15:00:00 No Notes: (Same as: Mayte) Avoid alcohol. Vinh Vega Restasis 2017-12-15 14:30:00 No Notes: (Jeronimo e as: Restasis) Vinh Vega mometasone furoate 0.05 MG/ACTUAT Metered Dose Nasal [place] 2017-12-15 14:00:00 No 100 microg yanet, 2 spray, Route: NASAL, Daily, Drug form: SPRY, Start date: 12/15/17 9:00:00 CDT, Duration: 30 day, Stop date: 01/13/18 9:00:00 CDT Vinh Vega 24 HR Metoprolol Tartrate 50 MG Extended Release Tablet [Top rol] 2017-12-15 14:00:00 No Notes: (Sa me as: Toprol XL) May split tab, but do not crush. Vinh Vega Fluticasone propionate 0.05 MG/ACTUAT Metered Dose Nasal Spr ay [Flonase] 2017-12-15 14:00:00 No Notes: (Same as: Anuradha gray) iVnh Vega Hydralazine Hydrochloride 25 MG Oral Tablet 2017-12-15 14:00:00 No Notes: (Same as: Apresoline) May interfere w/enteral feedings Take With Food. [facility] Restasis 0.05% ophthalmic emulsion 2017-12-15 14:00:00 No Restasis 0.05% ophthalmic emulsion, 1 drp, Route: BOTH EYES, BID, 12/15/17 9:00:00 CDT, Duration: 30 day, Stop date: 01/13/18 17:00:00 CDT Vinh Vega Azelastine hydrochloride 0.137 MG/ACTUAT Metered Dose Nasal [place] [Astelin] 2017-12-15 14:00:00 No 274 microgram, 2 spray, Route: NASAL, Drug Form: SPRY, Dosing Weight 59.091, kg, BID, Start date: 12/15/17 9:00:00 CDT, Duration: 30 day, Stop date: 01/13/18 17:00:00 CDT Vinh Vega Aspirin 2017-12-15 14:00:00 No Notes: Do not crush or chew. (Same As: Ecotrin) [facility] naloxegol 25 MG Oral Tablet [Movantik] 2017-12-15 14:00:00 No Notes: (Same as: Movantik) Swallow tablets whole, do not crush or chew. Avoid consumption of grapefruit or grapefruit juice during treatment. Administer naloxegol on an empty stomach at least 1 hour prior to or 2 hours after the first meal of the day. [facility] Lyrica 100 mg oral capsule 2017-12-15 14:00:00 No Lyrica 100 mg oral capsule, 150 mg, Drug form: CAP, Route: PO, TID, 12/15/17 9:00:00 CDT, Duration: 30 day, Stop date: 01/13/18 17:00:00 CDT [facility] Metanx oral capsule 2017-12-15 14:00:00 No Metanx oral capsule, 1 cap, Route: PO, Daily, 12/15/17 9:00:00 CDT, Duration: 30 day, Stop date: 01/13/18 9:00:00 CDT [facility] Pls update height,weight,allergies 2017-12-15 13:00:00 No Pls update height,weight,allergies, Attn RN, Drug form: MISC, Route: MISC, Continuous, 12/15/17 8:00:00 CDT, Duration: 1 day, Stop date: 12/16/17 7:59:00 CDT [facility] Azithromycin 2017-12-15 13:00:00 No 500 mg, Route: IV, Q24H, Dosing Weight 59.091, kg, Start date: 12/15/17 8:00:00 CDT, Duration: 30 day, Stop date: 01/13/18 8:00:00 CDT, ABX Indication: Pneumonia [facility] morphine 15 mg oral tablet, extended release 2017-12-15 12:21:00 No Notes: Do not crush (Same as:Oramorph SR, MS Contin) [facility] Symbicort 80/4.5 inhalation aerosol with adapter 2017-12-15 12:2 1:00 No Notes: (Same as: Symbicort) WASTE: Aerosol - Return t o Pharmacy [facility] Ceftriaxone 2017-12-15 12:10:00 No Notes: (Same As: Rocephin). MEDICATION WASTE Product Size: 1000 mg Product Wasted: ___ mg Vinh Vega Albuterol 0.83 MG/ML Inhalant Solution 2017-12-15 12:09:00 No Notes: SEE RT DOCUMENTATION (Same as: Proventil) Vinh Vega Dextromethorphan Hydrobromide 2 MG/ML / Guaifenesin 20 MG/ML Oral Solution 2017-12-15 12:09:00 No Notes: (dextromethorphan-guaifenesin 10-100/5 ml LIQ) (Same as: Robitussin-DM) Adina anni Gary Acetaminophen 2017-12-15 12:09:00 No Notes: Do not exceed 4 gm/day. (Same as: Tylenol) [facility] Ondansetron 2017-12-15 12:09:00 No Notes: (Same as: Zofran) MEDICATION WASTE Product Size: 4 mg Product Wasted: ___ mg [facility] Gary Azithromycin 2017-12-15 10:31:00 No Notes: (Same As: Zithromax IV) [facility] Ceftriaxone 2017-12-15 10:31:00 No Notes: (Same As: Rocephin). Use with 100 mL NS and infuse over 30 min MEDICATION WASTE Product Size: 1000 mg Product Wasted: ___ mg [facility] GI cocktail 2017-12-15 10:14:00 No Notes: G.I. Cocktail = antacid with simethicone 22.5 mL - lidocaine viscous 7.5 mL [facility] Morphine 2017-12-15 10:14:00 No 2 mg, Route: IVP, ONCE, Dosing Weight 59.091, kg, Priority: STAT, Start date: 12/15/17 5:14:00 CDT, Stop date: 12/15/17 5:14:00 CDT [facility] Morphine 2017-12-15 07:49:00 No 2 mg, Route: IVP, ONCE, Dosing Weight 59.091, kg, Priority: STAT, Start date: 12/15/17 2:49:00 CDT, Stop date: 12/15/17 2:49:00 CDT [facility] Metoclopramide 2017-12-15 07:49:00 No 10 mg, Route: IVP, Drug form: INJ, ONCE, Dosing Weight 59.091, kg, Priority: STAT, Start date: 12/15/17 2:49:00 CDT, Stop date: 12/15/17 2:49:00 CDT Vinh Vega Sodium Chloride 0.9% (Bolus) IV 2017-12-15 07:49:00 No 1,000 mL, Infuse Over: 1 hr, Route: IV, ONCE, Priority: STAT, Dosing Weight 59.091 kg, Start date: 12/15/17 2:49:00 CDT, Stop date: 12/15/17 2:49:00 CDT Vinh Vega Miralax 2017-12-05 14:00:00 No Notes: Dissolve in 8 oz of water or juice. (Same as: Miralax) Vinh [place]banks nn naloxegol 25 MG Oral Tablet [Movantik] 2017-12-05 14:00:00 No Notes: (Same as: Movantik) Swallow tablets whole, do not crush or chew. Avoid consumption of grapefruit or grapefruit juice during treatment. Administer naloxegol on an empty stomach at least 1 hour prior to or 2 hours after the first meal of the day. Vinh Vega multivitamin 2017-12-05 14:00:00 No Notes: (Same as:One Tab Daily, Tab-A-Guerrero + Beta Carotene) Give with food. Vinh Vega mometasone furoate 0.05 MG/ACTUAT Metered Dose Nasal [place] 2017-12-05 14:00:00 No 100 microg yanet, 2 spray, Route: NASAL, Daily, Drug form: SPRY, Start date: 12/05/17 9:00:00 CDT, Duration: 30 day, Stop date: 01/03/18 9:00:00 CDT Vinh Vega 24 HR Metoprolol Tartrate 50 MG Extended Release Tablet [Top rol] 2017-12-05 14:00:00 No Notes: (Sa me as: Toprol XL) May split tab, but do not crush. Vinh Vega Hydralazine Hydrochloride 25 MG Oral Tablet 2017-12-05 14:00:00 No Notes: (Same as: Apresoline) May interfere w/enteral feedings Take With Food. Linda Vega Nexium 2017-12-05 14:00:00 No 40 mg, Route: PO, Drug form: ECCAP, Daily, Dosing Weight 60.909, kg, Start date: 12/05/17 9:00:00 CDT, Duration: 30 day, Stop date: 01/03/18 9:00:00 CDT Kalyani orixu Vega Cyclosporine 0.5 MG/ML Ophthalmic Suspension [Restasis] 2017-12-05 14:00:00 No Notes: (Same as: Restasis) [facility] Aspirin 2017-12-05 14:00:00 No Notes: Do not crush or chew. (Same As: Ecotrin) [facility] Prednisone 2017-12-05 14:00:00 No Notes: Ta ke with food. [facility] [place] Fluticasone propionate 0.05 MG/ACTUAT Metered Dose Nasal Spr ay [Flonase] 2017-12-05 13:00:00 No Notes: (Same as: F lonase) [facility] Nexium 2017-12-05 12:30:00 No 40 mg, Route: PO, Before Breakfast, Dosing Weight 60.909, kg, Start date: 12/05/17 7:30:00 CDT, Duration: 30 day, Stop date: 01/03/18 7:30:00 CDT [facility] *ATTN RN please bring pt home med to pharmacy to be labeled* 2017-12-05 05:00:00 No *ATTN RN jose harrell bring pt home med to pharmacy to be labeled*, ATTN RN, Drug form: MISC, Route: MISC, QSHIFT, 12/05/17 0:00:00 CDT, Duration: 30 day, Stop date: 01/03/18 16:00:00 CDT [facility] Azelastine hydrochloride 0.137 MG/ACTUAT Metered Dose Nasal [place] [Astelin] 2017-12-05 03:30:00 No Notes: (azelastine 137 microgram/inh 30 ml nasal SPR) Non-formulary drug. Same As: Astelin) [facility] [place] pregabalin 2017-12-05 03:00:00 No Notes: (S jovanna as: Lyrica) [facility] cefdinir 2017-12-05 02:00:00 No Notes: (Jeronimo e As: Omnicef) Vinh Vega atorvastatin 2017-12-05 02:00:00 No Notes: (Same as: Lipitor) Vinh Vega Protonix 2017-12-05 01:00:00 No Notes: Tablet should not be chewed or crushed. (Same as: Protonix) Vinh Vega Vantin 2017-12-05 00:00:00 No 200 mg, Route: PO, Drug form: TAB, [id number], Dosing Weight 60.909, kg, Start date: 12/04/17 19:00:00 CDT, Duration: 10 day, Stop date: 12/14/17 7:00:00 CDT, ABX Indication: Other (specify in Comments) Vinh Vega predniSONE 20 mg oral tablet 2017-12-04 23:49:00 Yes 20 mg = 1 tab, PO, Daily, 0 Refill(s) Vinh Vega morphine 15 mg oral tablet, extended release 2017-12-04 23:46:00 No Notes: Do not crush (Same as:Oramorph SR, MS Contin) [facility] [place] Estrogens, Conjugated (CARE HOME) 0.625 MG/ML Vaginal Cream [Pham rin] 2017-12-04 23:46:00 No Notes: (Same As: Premarin Vag inal) [facility] [place] Symbicort 80/4.5 inhalation aerosol with adapter 2017-12-04 23:4 6:00 No Notes: (Same as: Symbicort) WASTE: Aerosol - Return t o Pharmacy [facility] Acetaminophen 325 MG / butalbital 50 MG / Caffeine 40 MG Ora l Tablet 2017-12-04 23:46:00 No Notes: (hamefgmeogxbx-racbuvhgty-qcsxpqnu 325-50-40mg) Do not exceed 4 gm/day of acetaminophen. (Same as: Esgic, Fioricet) [facility] 200 ACTUAT Albuterol 0.09 MG/ACTUAT Metered Dose Inhaler [Pr oAir HFA] 2017-12-04 23:46:00 No Notes: Albuterol 90 microgram/inh 8gm HFA WASTE: Aerosol - Return to Pharmacy Same as: Ventolin, Proventil [facility] [place] Aspirin 2017-12-04 23:13:00 Yes 81 mg, PO, D aily, 0 Refill(s) [facility] Fluticasone propionate 0.05 MG/ACTUAT Metered Dose Nasal Spr ay [Flonase] 2017-12-04 23:13:00 Yes 50 microgram =, NA GIA, Daily, 0 Refill(s) Vinh Vega Azelastine hydrochloride 0.137 MG/ACTUAT Metered Dose Nasal [place] [Astelin] 2017-12-04 23:13:00 Yes 2 spray, NASAL, BI D, 0 Refill(s) Vinh Vega metoprolol tartrate 50 mg oral tablet 2017-12-04 23:13:00 Y es 50 mg = 1 tab, PO, Daily, 0 Refill(s) Vinh Vega Prednisone 2017-12-04 23:13:00 No 2 mg, PO, Daily, Quantity sufficient, 0 Refill(s) Vinh Vega Cyclosporine 0.5 MG/ML Ophthalmic Suspension [Restasis] 2017-12-04 23:13:00 Yes 1 drp, BOTH EYES, BID, # 30 mL, 0 Refill (s) Vinh Vega mometasone furoate 0.05 MG/ACTUAT Metered Dose Nasal [place] 2017-12-04 23:13:00 Yes 2 spray, NASAL, Daily, 0 Refill (s) Vinh Vega Metanx oral capsule 2017-12-04 23:13:00 Yes 1 cap, PO, Daily, 0 Refill(s) Vinh Vega Aspirin 2017-12-04 19:54:00 No Notes: Take with food. Vinh Vega Saline Flush 0.9% 2017-12-04 19:42:00 No Notes: (Same as: BD Posiflush) Vinh Vega calamine topical lotion 2016-01-26 13:22:00 No 1 appl, Route: TOP, QID, Drug form: LOT, PRN Itching, Start date: 01/26/16 8:22:00 CDT, Duration: 30 day, Stop date: 02/25/16 8:21:00 CDT Me nancy Vega RN-Do NOT give Vanc until trough drawn 01/26/16 @ 08:00 2016-01-26 12:30:00 No RN-Do NO T give Vanc until trough drawn 01/26/16 @ 08:00, Attn:RN, Drug form: MISC, Route: MISC, ONCE, 01/26/16 7:30:00 CDT, Stop date: 01/26/16 7:30:00 CDT [facility] Milk of Magnmirtha 2016-01-25 16:36:00 No Notes: (Same as: Milk of Fidencio, MOM) [facility] vancomycin + sodium chloride 0.9% INJ 250 mL 2016-01-25 14:00:00 No 2001 mg: infuse over 2.5 hours MEDICATION WASTE Product Size: 1000 mg Product Wasted: ___ mg [facility] Methotrexate 2016-01-25 14:00:00 No Notes: (Same as:Methotrexate Sodium) Chemotherapy agent/Handle with caution WASTE: F/P - Black; E - Yellow [facility] Movantik 25mg 2016-01-23 14:00:00 No Movantik 25mg, 1 tab, Drug form: MISC, Route: PO, QAM, 01/23/16 9:00:00 CDT, Duration: 30 day, Stop date: 02/21/16 6:00:00 CDT [facility] Nexium 2016-01-23 12:30:00 No 40 mg, Route: PO, Before Breakfast, Dosing Weight 59.001, kg, Start date: 01/23/16 7:30:00 CDT, Duration: 30 day, Stop date: 02/21/16 7:30:00 CDT [facility] esomeprazole (Nexium) 40mg cap 2016-01-23 12:00:00 No esomeprazole (Nexium) 40mg cap, 40 mg, 1 cap, Drug form: MISC, Route: PO, Daily, 01/23/16 7:00:00 CDT, Duration: 30 day, Stop date: 02/21/16 7:00:00 CDT [facility] cefepime 2016-01-22 23:00:00 No Notes: (Same As: Maxipime) MEDICATION WASTE Product Size: 1000 mg Product Wasted: ___ mg [facility] Metanx 2016-01-22 22:00:00 No Metanx, 1 tab, Drug form: MISC, Route: PO, BID, 01/22/16 17:00:00 CDT, Duration: 30 day, Stop date: 02/21/16 9:00:00 CDT [facility] Protonix 2016-01-22 21:30:00 No Notes: Tablet should not be chewed or crushed. (Same as: Protonix) Vinh Veag Hydrocortisone butyrate 0.001 MG/MG Topical Ointment 01-21 14:00:00 No Notes: (Same as: Hytone) Vinh Vega Aspirin 81 MG Chewable Tablet 2016-01-22 14:00:00 No Notes: Take with food. Vinh Vega Vitamin E 2016-01-22 14:00:00 No 400 IntlUnit, 2 cap, Route: PO, Drug form: CAP, Daily, Dosing Weight 59.091, kg, Start date: 01/22/16 9:00:00 CDT, Stop date: 02/20/16 9:00:00 CDT Kalyani Vega Lyrica 2016-01-22 14:00:00 No Notes: Same a s Lyrica [facility] Prednisone 2016-01-22 14:00:00 No Notes: (Same as: PredniSONE) Take with food. [facility] Miralax 2016-01-22 14:00:00 No Notes: Dissolve in 8 oz of water or juice. (Same as: Miralax) Vinh Fairbanks nn MS Contin 2016-01-22 14:00:00 No Notes: Do not crush (Same as:Oramorph SR, MS Contin) [facility] Blas blas metoprolol tartrate 2016-01-22 14:00:00 No Notes: (Same as: Lopressor) Vinh Vega Hydralazine Hydrochloride 25 MG Oral Tablet 2016-01-22 14:00:00 No Notes: (Same as: Apresoline) May interfere w/enteral feedings Take With Food. Linda emorixu Gary Nexium 2016-01-22 14:00:00 No 40 mg, Route: PO, Drug form: ECCAP, Daily, Dosing Weight 59.091, kg, Start date: 01/22/16 9:00:00 CDT, Duration: 30 day, Stop date: 02/20/16 9:00:00 CDT Kalyani Vega Calcium Carbonate 1250 MG / Cholecalciferol 400 UNT Chewable Tablet 2016-01-22 14:00:00 No Notes: (Same As: Maria Dolores-D, Os Reg-D, Oyster Calcium) [facility] [place] Vancomycin 2016-01-22 13:00:00 No 2001 mg: infuse over 2.5 hours MEDICATION WASTE Product Size: 1000 mg Product Wasted: ___ mg [facility] atorvastatin 2016-01-22 02:00:00 No Notes: (Same as: Lipitor) Vinh Gary Restasis 2016-01-22 02:00:00 No Notes: (Jeronimo e as: Restasis) Vinh Gary Benadryl 2016-01-22 01:56:00 No 25 mg, 1 tab, Route: PO, Drug form: TAB, ABXQ8H, Dosing Weight 59.091, kg, PRN Allergic reaction, Start date: 01/21/16 20:56:00 CDT, Duration: 30 day, Stop date: 02/20/16 20:55:00 CDT [facility] morphine 15 mg oral tablet, extended release 2016-01-22 01:38:00 No Notes: Do not crush (Same as:Oramorph SR, MS Contin) [facility] Estrogens, Conjugated (CARE HOME) 0.625 MG/ML Vaginal Cream [Pham rin] 2016-01-22 01:38:00 No Notes: (Same As: Premarin Vag inal) [facility] Symbicort 80/4.5 inhalation aerosol with adapter 2016-01-22 01:3 5:00 No Notes: (Same as: Symbicort) WASTE: Aerosol - Return t o Pharmacy [facility] Acetaminophen 325 MG / butalbital 50 MG / Caffeine 40 MG Ora l Tablet 2016-01-22 01:34:00 No Notes: (qobwfzybhwgjk-megcdpurdi-xhqxozdy 325-50-40mg) Do not exceed 4 gm/day of acetaminophen. (Same as: Esgic, Fioricet) [facility] 200 ACTUAT Albuterol 0.09 MG/ACTUAT Metered Dose Inhaler [Pr oAir HFA] 2016-01-22 01:34:00 No Notes: Albuterol 90 microgram/inh 8gm HFA WASTE: Aerosol - Return to Pharmacy Same as: Ventnelsy Proventil [facility] Estrogens, Conjugated (CARE HOME) 0.625 MG/ML Vaginal Cream [Pham rin] 2016-01-21 23:16:00 Yes 1 appl, VAG, Bedtime, PRN dry ness [facility] POLYETHYLENE GLYCOL 3350 142 MG/ML Oral Solution [Miralax] 2016-01-21 23:15:00 Yes 17 gm, PO, [facility] Calcium Citrate 1190 MG / Vitamin D 200 UNT Oral Table t [Citracal Regular + D] 2016-01-21 23:15:00 Yes 1 tab, PO, BID [facility] Vitamin D3 5000 intl units oral tablet 2016-01-21 23:15:00 Yes 5,000 IntlUnit = 1 tab, PO, Daily Vinh morales vitamin E 400 intl units oral capsule 2016-01-21 23:15:00 Y es 400 IntlUnit = 1 cap, PO, Daily Vinh morales morphine 15 mg oral tablet, extended release 2016-01-21 23:14:00 Yes 15 mg = 1 tab, PO, TID, PRN Pain Score 1-5 [facility] Morphine Sulfate 30 MG Extended Release Tablet [MS Contin] 2016-01-21 23:14:00 Yes 30 mg = 1 tab, PO, TID, at 0600 , 1400, 2200 [facility] Hydralazine Hydrochloride 25 MG Oral Tablet 2016-01-21 23:11:00 Yes 25 mg = 1 tab, PO, BID [facility] predniSONE 5 mg oral tablet 2016-01-21 23:11:00 Yes 10 mg = 2 tab, PO, Every Other Day, with food [facility] Acetaminophen 325 MG / butalbital 50 MG / Caffeine 40 MG Ora l Tablet 2016-01-21 23:10:00 Yes 2 tab, PO, Q4H, PRN Headache, Not to exceed more than 6 tablets in 24 hours [facility] atorvastatin 20 mg oral tablet 2016-01-21 23:09:00 Yes 20 mg = 1 tab, PO, Bedtime [facility] metoprolol 50 mg oral tablet, extended release 2016-01-21 23:09: 00 Yes 25 mg = 0.5 tab, PO, Daily emonilda Vega naloxegol 25 MG Oral Tablet [Movantik] 2016-01-21 23:06:00 Yes 25 mg = 1 tab, PO, QAM [facility] Zofran 2016-01-21 22:52:00 No Notes: (Same as: Danilo) MEDICATION WASTE Product Size: 4 mg Product Wasted: ___ mg [facility] Morphine 2016-01-21 22:51:00 No Not es: (Same as:MORPhine Sulfate) [facility] Acetaminophen 2016-01-21 22:51:00 No Notes: Do not exceed 4 gm/day. (Same as: Tylenol) [facility] Diphenhydramine 2016-01-21 22:32:00 No 25 mg, Route: IVP, ONCE, Dosing Weight 59.091, kg, Priority: STAT, Start date: 01/21/16 17:32:00 CDT, Stop date: 01/21/16 17:32:00 CDT Mem[facility] anni Vega cefepime 2016-01-21 22:32:00 No Notes: (Same As: Maxipime) MEDICATION WASTE Product Size: 1000 mg Product Wasted: ___ mg [facility] Vancomycin 2016-01-21 22:32:00 No 2001 mg: infuse over 2.5 hours [facility] Saline Flush 0.9% 2016-01-21 22:32:00 No Notes: (Same as: BD Posiflush) [facility] Benadryl 2016-01-21 21:53:00 No Notes: (Jeronimo e as: Benadryl) [facility] Dexamethasone 2016-01-21 21:53:00 No Notes: Concentration: 4mg/ml [facility] Acetaminophen 325 MG / Hydrocodone Bitartrate 10 MG Or al Tablet [[place] 10/325] 2015-11-11 22:42:00 No 1 ta b, Route: PO, Drug Form: TAB, Dosing Weight 60, kg, ONCE, STAT, Start date: 11/11/15 17:42:00 CDT, Stop date: 11/11/15 17:42:00 CDT [facility] Dilaudid-5 2015-11-11 20:39:00 No 1 mg, Route: PO, ONCE, Dosing Weight 60, kg, Priority: STAT, Start date: 11/11/15 15:39:00 CDT, Stop date: 11/11/15 15:39:00 CDT [facility] Morphine 2015-10-21 00:48:00 Yes 0 Refill(s) [facility] ProAir HFA 2015-10-21 00:47:00 Yes 1 - 2 puffs, PO, Q4H, PRN Wheezing / cough / shortness of breath, # 1 ea, 0 Refill(s) Vinh Gary Symbicort 80/4.5 inhalation aerosol with adapter 2015-10-21 00:47:00 Yes 2 puff, INHALATION, BID, # 6.9 gm, 0 Refill(s) Vinh Odonnellann Aspirin 81 MG Chewable Tablet 2015-10-21 00:47:00 Yes 81 mg = 1 tab, PO, Daily, tab, 0 Refill(s) Vinh morales atorvastatin 20 MG Oral Tablet [Lipitor] 2015-10-21 00:46:00 Yes 20 mg = 1 tab, PO, Bedtime, # 30 tab, 0 Refill(s) Vinh Gary Restasis 2015-10-21 00:46:00 Yes 1 drp, BOTH EYES, Q12H, 0 Refill(s) Vinh Vega Fioricet 2015-10-21 00:46:00 Yes PO, Q4H, 0 Refill(s) Vinh Vega metoprolol 25 mg oral tablet, extended release 2015-10-21 00:45: 00 Yes 25 mg = 1 tab, PO, Daily, # 30 tab, 0 Refill(s) Vinh Vega Esomeprazole 40 MG Enteric Coated Capsule [Nexium] 2015-09 00:45:00 Yes 40 mg = 1 cap, PO, Daily, # 30 cap, 0 Re fill(s) Vinh Vega pregabalin 100 MG Oral Capsule [Lyrica] 2015-10-21 00:45:00 Yes 100 mg = 1 cap, PO, TID, # 90 cap, 0 Refill(s) Vinh Vega methotrexate 2.5 mg oral tablet 2015-10-21 00:45:00 Yes PO, 0 Refill(s) Vinh Vega Tylenol 2015-07-28 18:48:00 Yes Notes: Do not exceed 4 gm/day. (Same as: Tylenol) Vinh Vega Vital Signs Vital Name Observation Time Observation Value Comments Source Systolic (mm Hg) 2019-03-15 06:04:00 Nigel Vega Diastolic (mm Hg) 2019-03-15 06:04:00 Kalyani Vega Respitory Rate 2019-03-15 06:04:00 Lori Booker Heart Rate 2019-03-15 06:04:00 [facility] Systolic (mm Hg) 2019-03-15 03:35:00 Nigel rial [place] Diastolic (mm Hg) 2019-03-15 03:35:00 Mem [facility] [place] Heart Rate 2019-03-15 03:35:00 [facility] Respitory Rate 2019-03-15 03:35:00 [facility] Systolic (mm Hg) 2019-03-15 00:42:00 Nigel rial [place] Diastolic (mm Hg) 2019-03-15 00:42:00 Mem [facility] Heart Rate 2019-03-15 00:42:00 [facility] [place] Respitory Rate 2019-03-15 00:42:00 [facility] Temperature Oral (F) 2019-03-15 00:42:00 98.1 F [facility] Height 2019-03-15 00:42:00 157.48 cm [facility] BMI Calculated 2019-03-15 00:42:00 [facility] [place] Weight 2019-03-15 00:42:00 [facility] Respitory Rate 2018-12-29 09:50:00 [facility] [place] Weight 2018-12-29 03:53:00 [facility] Height 2018-12-29 03:53:00 157.48 cm [facility] BMI Calculated 2018-12-29 03:53:00 [facility] [place] Temperature Oral (F) 2018-12-29 03:53:00 98.1 F [facility] [place] Systolic (mm Hg) 2018-12-29 03:53:00 Nigel rial [facility] Diastolic (mm Hg) 2018-12-29 03:53:00 Mem [facility] Respitory Rate 2018-12-29 03:53:00 [facility] [place] Heart Rate 2018-12-29 03:53:00 [facility] [place] Temperature Oral (F) 2017-12-19 13:00:00 98.8 F [facility] Systolic (mm Hg) 2017-12-19 13:00:00 Nigel rial [place] Diastolic (mm Hg) 2017-12-19 13:00:00 Mem [facility] [place] Respitory Rate 2017-12-19 13:00:00 [facility] [place] Heart Rate 2017-12-19 13:00:00 [facility] [place] Heart Rate 2017-12-19 09:00:00 [facility] [place] Systolic (mm Hg) 2017-12-19 09:00:00 Nigel rial [facility] Diastolic (mm Hg) 2017-12-19 09:00:00 [facility] [place] Respitory Rate 2017-12-19 09:00:00 [facility] Temperature Oral (F) 2017-12-19 09:00:00 98 F [facility] Respitory Rate 2017-12-19 05:00:00 [facility] [place] Heart Rate 2017-12-19 05:00:00 [facility] [place] Systolic (mm Hg) 2017-12-19 05:00:00 Nigel rial [facility] Diastolic (mm Hg) 2017-12-19 05:00:00 [facility] [place] Temperature Oral (F) 2017-12-19 05:00:00 98.7 F [facility] Height 2017-12-15 13:23:00 157.48 cm [facility] Weight 2017-12-15 13:23:00 [facility] [place] BMI Calculated 2017-12-15 13:23:00 [facility] Weight 2017-12-15 07:16:00 [facility] [place] Systolic (mm Hg) 2017-12-05 20:29:00 Nigel rial [place] Diastolic (mm Hg) 2017-12-05 20:29:00 [facility] Temperature Oral (F) 2017-12-05 20:29:00 97.8 F [facility] Heart Rate 2017-12-05 20:29:00 [facility] Respitory Rate 2017-12-05 20:29:00 [facility] Systolic (mm Hg) 2017-12-05 16:21:00 Nigel rial [place] Diastolic (mm Hg) 2017-12-05 16:21:00 [facility] [place] Respitory Rate 2017-12-05 16:21:00 [facility] Temperature Oral (F) 2017-12-05 16:21:00 98.0 F [facility] [place] Heart Rate 2017-12-05 16:21:00 [facility] [place] Weight 2017-12-05 14:00:00 [facility] [place] Respitory Rate 2017-12-05 12:50:00 [facility] Systolic (mm Hg) 2017-12-05 12:50:00 Nigel rial [place] Diastolic (mm Hg) 2017-12-05 12:50:00 Mem o[facility] Heart Rate 2017-12-05 12:50:00 [facility] Temperature Oral (F) 2017-12-05 12:50:00 98.3 F [facility] [place] Weight 2017-12-04 22:55:00 [facility] Height 2017-12-04 22:55:00 157.48 cm [facility] BMI Calculated 2017-12-04 22:55:00 [facility] Height 2017-12-04 19:35:00 157.48 cm [facility] BMI Calculated 2017-12-04 19:35:00 [facility] Weight 2017-12-04 19:35:00 [facility] Respitory Rate 2016-01-26 21:00:00 [facility] Temperature Oral (F) 2016-01-26 21:00:00 97.4 F [facility] Heart Rate 2016-01-26 21:00:00 [facility] Systolic (mm Hg) 2016-01-26 21:00:00 [facility] Diastolic (mm Hg) 2016-01-26 21:00:00 [facility] Respitory Rate 2016-01-26 17:00:00 [facility] Systolic (mm Hg) 2016-01-26 17:00:00 [facility] Diastolic (mm Hg) 2016-01-26 17:00:00 [facility] Temperature Oral (F) 2016-01-26 17:00:00 98.2 F [facility] Heart Rate 2016-01-26 17:00:00 [facility] Systolic (mm Hg) 2016-01-26 13:00:00 [facility] Diastolic (mm Hg) 2016-01-26 13:00:00 [facility] Heart Rate 2016-01-26 13:00:00 [facility] Respitory Rate 2016-01-26 13:00:00 [facility] Temperature Oral (F) 2016-01-26 13:00:00 97.6 F [facility] Weight 2016-01-22 04:03:00 [facility] BMI Calculated 2016-01-22 04:03:00 [facility] Height 2016-01-22 04:03:00 157.48 cm [facility] Height 2016-01-21 21:51:00 157.48 cm [facility] Weight 2016-01-21 21:51:00 [facility] BMI Calculated 2016-01-21 21:51:00 [facility] Temperature Oral (F) 2015-11-11 23:04:00 98.9 F [facility] Systolic (mm Hg) 2015-11-11 23:04:00 Nigel [facility] Diastolic (mm Hg) 2015-11-11 23:04:00 [facility] Respitory Rate 2015-11-11 23:04:00 [facility] Heart Rate 2015-11-11 23:04:00 [facility] Respitory Rate 2015-11-11 21:49:00 [facility] Temperature Oral (F) 2015-11-11 21:49:00 99.0 F [facility] Systolic (mm Hg) 2015-11-11 21:49:00 [facility]el [facility] Heart Rate 2015-11-11 21:49:00 [facility] Diastolic (mm Hg) 2015-11-11 21:49:00 [facility] Heart Rate 2015-11-11 20:54:00 [facility] Respitory Rate 2015-11-11 20:54:00 [facility] Systolic (mm Hg) 2015-11-11 20:54:00 Nigel [facility] Diastolic (mm Hg) 2015-11-11 20:54:00 [facility] Weight 2015-11-11 19:55:00 [facility] Temperature Oral (F) 2015-11-11 19:55:00 99.0 F [facility] BMI Calculated 2015-11-11 19:55:00 [facility] Height 2015-11-11 19:55:00 157.48 cm [facility] Respitory Rate 2015-10-21 01:22:00 [facility] Systolic (mm Hg) 2015-10-21 01:22:00 [facility] Diastolic (mm Hg) 2015-10-21 01:22:00 [facility] Heart Rate 2015-10-21 01:22:00 [facility] Temperature Oral (F) 2015-10-20 23:20:00 97.6 F [facility] Height 2015-10-20 23:20:00 157.48 cm [facility] Systolic (mm Hg) 2015-10-20 23:20:00 [facility]el [facility] Diastolic (mm Hg) 2015-10-20 23:20:00 [facility] Heart Rate 2015-10-20 23:20:00 [facility] Respitory Rate 2015-10-20 23:20:00 [facility] BMI Calculated 2015-10-20 23:20:00 [facility] Weight 2015-10-20 23:20:00 [facility] Weight 2015-07-28 18:47:00 [facility] BMI Calculated 2015-07-28 18:47:00 [facility] Height 2015-07-28 18:47:00 157.48 cm [facility] Temperature Oral (F) 2015-07-28 18:47:00 98.2 F [facility] Heart Rate 2015-07-28 18:47:00 [facility] Respitory Rate 2015-07-28 18:47:00 [facility] Systolic (mm Hg) 2015-07-28 18:47:00 [facility]el [facility] Diastolic (mm Hg) 2015-07-28 18:47:00 [facility] Procedures Procedure Date / Time Performed Performing Clinician [facility] e Ankle closure [facility] Extraction of cataracts from both eyes [facility] Hand implantation [facility] nn ID - Incision and drainage of abscess [facility] Operation on meniscus of the knee [facility] Total hysterectomy [facility] Encounters Start Date/Time End Date/Time En[facility] Encounter ID Source 2020-01-07 15:43:00 2020-01-07 23:59:00 Outpatient Abigail Cardenas MHSE MHSE [id number] 2020-01-07 15:43:00 2020-01-07 15:43:[address] [facility]SE [facility] [id number] [facility] 2019-04-02 14:00:00 2019-05-01 23:59:00 Outpatient Feng David [id number] 2019-04-09 12:53:00 2019-04-09 23:59:00 Outpatient Jackson Victor MHSE MHSE [id number] 2019-04-09 12:53:00 2019-04-09 12:53:00 Outpatient MHSE MHSE [id number] [facility] 2019-02-24 17:00:00 2019-03-25 23:59:00 Outpatient Feng Davido [id number] 2019-03-14 19:32:59 2019-03-15 01:14:00 Outpatient Parth Modi MHSE MHSE [id number] 2019-03-14 19:32:00 2019-03-14 19:32:00 Emergency E MHSE MHSE [id number] [facility] 2019-01-24 13:02:00 2019-01-24 23:59:00 Outpatient Rosemary Saenz MHSE MHSE [id number] 2019-01-24 13:02:00 2019-01-24 13:02:00 Outpatient MHSE MHSE [id number] [facility] 2018-12-28 22:11:37 2018-12-29 06:30:00 Outpatient Jai abbottBaldo MHSE MHSE [id number] 2018-12-28 22:11:00 2018-12-28 22:11:00 Emergency E MHSE MHSE [id number] [facility] 2018-03-18 15:06:00 2018-04-16 23:59:00 Outpatient Bandhak carlyn, Subhadra [id number] 2018-02-07 14:00:00 2018-03-08 23:59:00 Outpatient Bandhak carlyn, Subhadra [id number] 2018-01-06 14:45:00 2018-02-04 23:59:00 Outpatient Bandhak carlyn, Subhadra [id number] 2018-01-06 14:45:00 2018-02-04 23:59:00 Outpatient Bindu Burnettdra [id number] 2017-12-15 02:03:00 2017-12-19 13:05:00 Outpatient Aurelio hobbs Subwilbertdra MHSE MHSE [id number] 2017-12-15 08:00:00 2017-12-15 23:59:59 Outpatient Pastor irene Kilosuman Wolfe MG [facility] [id number] 2017-12-04 14:32:00 2017-12-05 19:14:00 Outpatient Aurelio hobbs Subwilbertdrdavid MHSE MHSE [id number] 2016-12-21 14:44:00 2016-12-21 23:59:00 Outpatient Bindu Burnettdra HOIP HOIP [id number] 2016-06-14 16:01:00 2016-06-14 23:59:00 Outpatient Abigail Cardenas MHSE MHSE [id number] 2016-04-09 12:40:00 2016-04-09 23:59:00 Outpatient Sloane Gonzalez MHSE MHSE [id number] 2016-01-21 16:50:00 2016-01-26 17:30:00 Outpatient Aurelio hobbs Subwilbertdra MHSE MHSE [id number] 2015-11-11 13:20:00 2015-12-10 23:59:00 Outpatient Bindu Burnettdra [id number] 2015-12-06 17:17:00 2015-12-06 23:59:00 Outpatient Abigail Cardenas MHSE MHSE [id number] 2015-11-11 14:54:00 2015-11-11 18:08:00 Outpatient Kannan Price MHSE MHSE [id number] 2015-10-20 18:11:00 2015-10-20 20:23:00 Outpatient Sanjana CobbSE SE [id number] 2015-07-28 12:46:00 2015-07-28 14:18:00 Outpatient Grecia Rogel MHSE [place] [id number] 2014-01-21 08:00:00 2014-02-19 23:59:00 Outpatient BandFallon pastrana i IE [id number] 2014-02-09 08:02:00 2014-02-09 23:59:00 Outpatient BandBindu pastrana idrdavid CÁRDENAS IE [id number] 2013-12-22 15:37:00 2014-01-20 23:59:00 Outpatient BandFallon pastrana i IE [id number] Results Test Description Test Time Test Comments Results Result Comments Source - CT HEART W CN ART/GRAFTS 2019-02-06 16:30:00 Name: KATHE RUTHERFORD [facility] : 1930 Age/S: 88 / F [address] [facility] Unit #: [id number] Loc: [place] [address] Phys: Mina Gilliland MD Acct: [id number] Dis Date: Status: ADM IN PHONE #: [phone] Exam Date: 02/06/2019 1416 FAX #: [phone] Reason: to know coronary antomy EXAMS: CPT CODE: [id number] CT HEART W CN ART/GRAFTS 34874 REASON FOR EXAM: to know coronary antomy EXAM ORDER DATE: 02/06/2019 9:41 AM Ordering M.D.: Mina Gilliland MD PROCEDURE: - CT HEART W CN ART/GRAFTS COMPARISON: FINDINGS: Cardiac gated axial images of the heart were obtained with IV contrast. Dose reduction techniques were applied. Reconstructed 3-D angiogram of the coronary vessels as well as intraluminal vessel analysis were also provided for interpretation The examination is very limited due to moderate motion artifacts. Diffuse calcification noted within the left main coronary artery and within the proximal LAD. Mild calcification of the left circumflex noted. Moderate calcification of the right coronary artery. Assessment for small luminal defect is very limited. IMPRESSION: Limited exams secondary to moderate motion artifact shows diffuse calcification of the left main, LAD, circumflex, and right coronary arteries with probable mild stenosis of the LAD and proximal right coronary artery. at 1630 Reported and signed by: Jose De Jesus Nixon M.D. CC: Fallon Gramajo MD; Mushtaq Gilliland M.D. Technologist:Kg Child RT(R),(MR),(CT); CTDI: DLP: Trnscb Date/Time: 02/06/2019 (1630) t.SDR.VTL Orig Print D/T: S: 02/06/2019 (7650) PAGE 1 Signed Report - CTA CHEST FOR PE 2019-02-06 16:09:00 Name: KATHE ROSS [facility] : 1930 Age/S: 88 / F [address] [facility] Unit #: [id number] Loc: [place] [address] Phys: Mina Gilliland MD Acct: [id number] Dis Date: Status: ADM IN PHONE #: [phone] Exam Date: 02/06/2019 1416 FAX #: [phone] Reason: to detect pulmonary embolism EXAMS: CPT CODE: [id number] [place] [address] REASON FOR EXAM: to detect pulmonary embolism EXAM ORDER DATE: 02/06/2019 9:41 AM Ordering Carlotn: Mina Gilliland MD PROCEDURE: - CTA CHEST FOR PE FINDINGS: CT images of the chest were obtained with IV contrast. Reconstructed sagittal and coronal images of the chest were provided for interpretation. Dose modulation, iterative reconstruction, and/or weight based adjustment of the MA/KV was utilized to reduce the radiation dose to as low as reasonably achievable. Intravenous contrast: 100cc of Omnipaque 370. The heart size is minimally enlarged. No evidence of pericardial effusion The thoracic aorta is unremarkable. No evidence of dissection or aneurysmal dilatation. No filling defect seen within the main or lobar pulmonary arteries to suggest pulmonary embolus. No evidence of mediastinal or hilar adenopathy. The lungs are clear. No evidence of pleural effusion IMPRESSION: No evidence of pulmonary embolus. 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 CC: Fallon Gramajo MD; Mushtaq Gilliland M.D. Technologist:Kg Child RT(R),(MR),(CT); CTDI: DLP: Trnscb Date/Time: 02/06/2019 (1609) t.ARLINR.VTL Orig Print D/T: S: 02/06/2019 (3199) PAGE 1 Signed Report TROPONIN-I 2019-02-05 05:22:00 Test Item TROPONIN-I (test code = TROPI) <0.015 ng/mL 0-0.045 N COMMENTS TO PEER FINANCIAL COUNSELOR: COLLECT 3 HOURS AFTER PREVIOUS [id number] 01:43:00* Test Item Value Reference Range Interpretation Comments TROPONIN-I (test code = TROPI) <0.015 ng/mL 0-0.045 N COMMENTS TO PEER FINANCIAL COUNSELOR: COLLECT 3 HOURS AFTER PREVIOUS SAMPLEURINALYSIS [id number] 18:03:00* Test Item Value Reference Range Interpretation Comments UA COLOR (test code = COLU) YELLOW YELLOW UA APPEARANCE (test code = APPU) CLEAR CLEAR UA GLUCOSE DIPSTICK (test code = DGLUU) NEGATIVE mg/dL NEGATIVE UA BILIRUBIN DIPSTICK (test code = BILU) NEGATIVE mg/dL NEGATIVE UA KETONE DIPSTICK (test code = KETU) 10 (1+) mg/dL NEGATIVE A UA SPECIFIC GRAVITY (test code = SGU) 1.019 1.001-1.035 UA BLOOD DIPSTICK (test code = BELLE) Negative mg/dL NEGATIVE UA PH DIPSTICK (test code = JAMIR) 6.5 5.0-8.0 UA PROTEIN DIPSTICK (test code = PROU) 10 (Trace) mg/dL NEGATIVE A UA UROBILINIOGEN DIPSTICK (test code = URO) Normal mg/dL NEGATIVE UA NITRITE DIPSTICK (test code = CARLOS) NEGATIVE NEGATIVE UA LEUKOCYTE ESTERASE W REFLEX (test code = LEUUR) 25 Alverto/uL (Trace) Alverto/uL NEGATIVE A UA WBC (test code = WBCU) 0-5 per HPF 0-5 UA RBC (test code = RBCU) 0-2 #/HPF 0-5 UA EPITHELIAL CELLS (test code = EPIU) FEW per HPF FEW UA BACTERIA (test code = BACU) MANY #/HPF NONE A UA MUCUS (test code = MUCU) FEW #/LPF FEW Urine Source? Clean Catch- XR CHEST 1 [id number] 17:34:00 FAX: Minerva Jaramillo [phone] [place]: St: REG Name: KATHE ROSS [facility] : [birth year] Age/S: 88/F [address] [facility] Unit #: [id number] Loc: [place] [address] Phys: Minerva Young Acct: [id number] Dis Date: Status: REG ER PHONE #: [phone] Exam Date: 02/04/2019 1650 FAX #: [phone] Reason: Shortness of Breath EXAMS: CPT CODE: [id number] XR CHEST 1 V 58868 REASON FOR EXAM: Shortness of Breath Exam Order Date: 02/04/2019 2:47 PM Vishali louis Vincent: Minerva Young MD PROCEDURE: - XR CHEST 1 V COMPARISON: Frontal chest x-ray December 08, 2018 FINDINGS: The lungs are clear. There is no pleural effusion or pneumothorax. Pu lmonary vascularity is within normal limits. Cardiomediastinal jeanne houette is normal in size for technique. The mediastinal contours are with in normal limits. Scoliosis of the thoracolumbar spine is unchange d from the prior exam. The visualized upper abdomen is within norm al limits. IMPRESSION: No acute cardiopulmonary process. at 17 34 Reported and signed by: Eris Nance MD CC: Minerva Young MD Technologist: CELINA MURPHY, RT(R) Trnscrd Date/Time/By: 9 (8164) : By: [email or web address] Orig Print D/T: S: 02/04/2019 (5934) PAGE 1 Signed Report BASIC METABOLIC [id number] 16:05:00* Test Item Value Reference Range Interpretation Comments SODIUM (test code = NA) 135 mmol/L 136-145 L POTASSIUM (test code = K) 3.8 mmol/L 3.5-5.1 N CHLORIDE (test code = CL) 100.0 mmol/L 98-107 N CARBON DIOXIDE (test code = CO2) 28.0 mmol/L 21-32 N ANION GAP (test code = GAP) 10.8 10-20 N GLUCOSE (test code = GLU) 130 mg/dL 74-106 H BLOOD UREA NITROGEN (test code = BUN) 12 mg/dL 7-18 N GLOMERULAR FILTRATION RATE (test code = GFR) > 60 mL/min >=60 Estimated GFR by using Modified MDRD formula.Chronic kidney disease is defined as either kidney damageor GFR <60 mL/min/1.73 m2 for >3 months. CREATININE (test code = CREAT) 0.70 mg/dL 0.55-1.02 N Note change in reference range due to change in reagent. BUN/CREATININE RATIO (test code = BUN/CREA) 17.1 10-20 N CALCIUM (test code = CA) 9.1 mg/dL 8.5-10.1 N HEPATIC FUNCTION [id number] 16:05:00* Test Item Value Reference Range Interpretation Comments TOTAL PROTEIN (test code = PROT) 7.9 gram/dL 6.4-8.2 N ALBUMIN (test code = ALB) 3.9 g/dL 3.4-5.0 N GLOBULIN (test code = GLOB) 4.0 gram/dL 2.7-4.2 N ALBUMIN/GLOBULIN RATIO (test code = A/G) 1.0 0.75-1.50 N BILIRUBIN TOTAL (test code = BILT) 0.80 mg/dL 0.0-1.0 N BILIRUBIN DIRECT (test code = BILD) 0.19 mg/dL 0.0-0.20 N SGOT/AST (test code = AST) 24 IUnit/L 15-37 N SGPT/ALT (test code = ALT) 34 IUnit/L 12-78 N ALKALINE PHOSPHATASE TOTAL (test code = ALKP) 30 IUnit/L 45-117 L Note change in reference range due to change in reagent. [id number] 16:05:00* Test Item Value Reference Range Interpretation Comments LIPASE (test code = LIP) 953 U/L 73.0-393.0 H [id number] 16:05:00* Test Item Value Reference Range Interpretation Comments MAGNESIUM (test code = MAG) 2.1 mg/dL 1.8-2.4 N [id number] 16:05:00* Test Item Value Reference Range Interpretation Comments TROPONIN-I (test code = TROPI) <0.015 ng/mL 0-0.045 N [id number] 15:59:00* Test Item Value Reference Range Interpretation Comments D-DIMER (test code = DDIMER) 373.00 ng/mLFEU 0-500 N Clinical Cut-off value for D-Dimer is 500 ng/mL FEU. Comment: The [employer] D-Dimer assay is intended for use asan aid in the diagnosis of venous thromboembolism (VTE)[deep vein thrombosis (DVT) or pulmonary embolism (PE)].The measurement of D-Dimer should not be used as an aid inthe diagnosis of VTE, in patient with: -Therapeutic dose anticoagulant therapy for >24 hours -Fibrinolytic therapy within previous 7 days -Trauma or surgery within previous 4 weeks -Disseminated malignancies -Aortic aneurysm -Sepsis, severe infections, pneumonia, severe skin infections -Liver cirrhosis - B-TYPE NATRIURETIC [id number] 15:59:00* Test Item Value Reference Range Interpretation Comments B-TYPE NATRIURETIC PEPTIDE (test code = BNP) 203.07 pgram/mL 0-100 H PROTHROMBIN [id number] 15:52:00* Test Item Value Reference Range Interpretation Comments PROTHROMBIN TIME PATIENT (test code = PTP) 16.6 seconds 9.0-14.0 H INTERNATIONAL NORMAL RATIO (test code = INR) 1.4 0.8-1.2 H The therapeutic range for oral anticoagulant therapy formost indications is an international normalized ratio (INR)of between 2.0 and 3.0. The recommended therapeutic INRrange for various clinical situations is listed below: Clinical Situation INR range Pulmonary e mbolism treatment (2.0-3.0)Venous thrombosis treatmentVenous thrombosis prophylaxis (high risk surgery)Prevention of systemic embolism from: Acute myocardial infarction Valvular heart disease Atrial fibrillation Mechanical prosthetic heart valves (2.5-3.5) IS PATIENT ON ANTICOAGULANTS? NTHROMBOPLASTIN TIME [id number] 15:52:00* Test Item Value Reference Range Interpretation Comments THROMBOPLASTIN TIME PARTIAL (test code = PTT) 37.9 seconds 25.0-36. 5 H IS PATIENT ON ANTICOAGULANTS? NBASIC METABOLIC [id number] 15:47:00* Test Item Value Reference Range Interpretation Comments SODIUM (test code = NA) 135 mmol/L 136-145 L POTASSIUM (test code = K) 3.8 mmol/L 3.5-5.1 N CHLORIDE (test code = CL) 100.0 mmol/L 98-107 N CARBON DIOXIDE (test code = CO2) mmol/L 21-32 ANION GAP (test code = GAP) 10-20 GLUCOSE (test code = GLU) mg/dL 74-106 BLOOD UREA NITROGEN (test code = BUN) mg/dL 7-18 GLOMERULAR FILTRATION RATE (test code = GFR) mL/min >=60 CREATININE (test code = CREAT) mg/dL 0.55-1.02 BUN/CREATININE RATIO (test code = BUN/CREA) 10-20 CALCIUM (test code = CA) mg/dL 8.5-10.1 HEPATIC FUNCTION [id number] 15:47:00* Test Item Value Reference Range Interpretation Comments TOTAL PROTEIN (test code = PROT) gram/dL 6.4-8.2 ALBUMIN (test code = ALB) g/dL 3.4-5.0 GLOBULIN (test code = GLOB) gram/dL 2.7-4.2 ALBUMIN/GLOBULIN RATIO (test code = A/G) 0.75-1.50 BILIRUBIN TOTAL (test code = BILT) mg/dL 0.0-1.0 BILIRUBIN DIRECT (test code = BILD) mg/dL 0.0-0.20 SGOT/AST (test code = AST) IUnit/L 15-37 SGPT/ALT (test code = ALT) IUnit/L 12-78 ALKALINE PHOSPHATASE TOTAL (test code = ALKP) IUnit/L 45-117 [id number] 15:47:00* Test Item Value Reference Range Interpretation Comments LIPASE (test code = LIP) U/L 73.0-393.0 [id number] 15:47:00* Test Item Value Reference Range Interpretation Comments MAGNESIUM (test code = MAG) mg/dL 1.8-2.4 [id number] 15:47:00* Test Item Value Reference Range Interpretation Comments TROPONIN-I (test code = TROPI) ng/mL 0-0.045 CBC W/O [id number] 15:43:00* Test Item Value Reference Range Interpretation Comments WHITE BLOOD CELL (test code = WBC) 12.0 K/mm3 4.5-12.5 N RED BLOOD CELL (test code = RBC) 4.45 mill/mm3 3.7-5.2 N HEMOGLOBIN (test code = HGB) 12.2 gram/dL 11.5-15.5 N HEMATOCRIT (test code = HCT) 38.1 % 36.0-46.0 N MEAN CELL VOLUME (test code = MCV) 85.6 fL 80-98 N MEAN CELL HGB (test code = MCH) 27.4 picogram 27.0-33.0 N MEAN CELL HGB CONCETRATION (test code = MCHC) 32.0 gram/dL 33.0-36. 0 L RED CELL DISTRIBUTION WIDTH (test code = RDW) 17.1 % 11.6-16. 2 H PLATELET COUNT (test code = PLT) 250 K/mm3 150-450 N MEAN PLATELET VOLUME (test code = MPV) 9.6 fL 6.7-11.0 N CBC W/O [id number] 15:40:00* Test Item Value Reference Range Interpretation Comments WHITE BLOOD CELL (test code = WBC) K/mm3 4.5-12.5 RED BLOOD CELL (test code = RBC) mill/mm3 3.7-5.2 HEMOGLOBIN (test code = HGB) 12.2 gram/dL 11.5-15.5 N HEMATOCRIT (test code = HCT) 38.1 % 36.0-46.0 N MEAN CELL VOLUME (test code = MCV) fL 80-98 MEAN CELL HGB (test code = MCH) picogram 27.0-33.0 MEAN CELL HGB CONCETRATION (test code = MCHC) gram/dL 33.0-36. 0 RED CELL DISTRIBUTION WIDTH (test code = RDW) % 11.6-16. 2 PLATELET COUNT (test code = PLT) K/mm3 150-450 MEAN PLATELET VOLUME (test code = MPV) fL 6.7-11.0 CARDIAC [id number] 05:42:00<0.02[facility] HermannCARDIAC [id number] 05:42:09292Ydmyshik HermannCHEM [id number] 05:42:0067[facility] HermannCHEM [id number] 05:42:22395Kbuyeopk HermannCHEM [id number] 05:42:009.4 [facility] HermannCHEM [id number] 05:42:0031[facility] HermannCHEM PANEL 2018-12-29 05:42:0033[facility] HermannCHEM [id number] 05:42:000.6[facility] HermannCHEM [id number] 05:42:0023[facility] HermannCHEM [id number] 05:42:0025[facility] HermannCHEM [id number] 05:42:60817Wvkwdpis HermannCHEM [id number] 05:42:003.9[facility] HermannCHEM [id number] 05:42:27424 [facility] HermannCHEM [id number] 05:42:0010[facility] HermannCHEM PANEL 2018-12-29 05:42:000.80[facility] HermannCHEM [id number] 05:42:008.1[facility] HermannCHEM [id number] 05:42:004.0[facility] HermannCHEM [id number] 05:42:00* Test Item Value Reference Range Interpretation Comments B/C Ratio (test code = B/C Ratio) 12 1 6-25 [facility] HermannCHEM [id number] 05:42:007.9[facility] HermannCHEM PANEL 2018-12-29 05:42:00* Test Item Value Reference Range Interpretation Comments A/G Ratio (test code = A/G Ratio) 1.0 1 0.7-1.6 [facility] HermannCHEM [id number] 05:42:004.1[facility] HermannHEMATOLOGY 2018-12-29 05:42:009.4[facility] [id number] 05:42:000.1[facility] [id number] 05:42:0020.6[facility] JlwkbqbYSGADAAEMC0483-53-20 05:42:000.3[facility] [id number] 05:42:006.1[facility] [id number] 05:42:0069.6[facility] SvumoylQJIBNSZHPQ8349-36-16 05:42:00 1.8[facility] [id number] 05:42:000.8[facility] HermannHEMATOLOGY 2018-12-29 05:42:004.30[facility] CevncnuFYNJRBDQEE9616-27-03 05:42:0087.6[facility] [id number] 05:42:00* Test Item Value Reference Range Interpretation Comments MCH (test code = MCH) 28.9 pg 27.0-31.0 [facility] [id number] 05:42:10595Ekcibofj HermannHEMATOLOGY 2018-12-29 05:42:008.3[facility] JlzcamaWMJJBSPZEC9265-14-41 05:42:008.8[facility] GqbsreoSATRKDPWJO8504-34-09 05:42:0012.4[facility] [id number] 05:42:0037.7[facility] ZjwqzcrAGHLCHFFTO6284-25-46 05:42:0017.5[facility] [id number] 05:42:0033.0[facility] HermannPROTHROMBIN [id number] 04:48:00* Test Item Value Reference Range Interpretation Comments PROTHROMBIN TIME PATIENT (test code = PTP) 39.3 seconds 9.0-14.0 H INTERNATIONAL NORMAL RATIO (test code = INR) 3.4 0.8-1.2 H The therapeutic range for oral anticoagulant therapy formost indications is an international normalized ratio (INR)of between 2.0 and 3.0. The recommended therapeutic INRrange for various clinical situations is listed below: Clinical Situation INR range Pulmonary e mbolism treatment (2.0-3.0)Venous thrombosis treatmentVenous thrombosis prophylaxis (high risk surgery)Prevention of systemic embolism from: Acute myocardial infarction Valvular heart disease Atrial fibrillation Mechanical prosthetic heart valves (2.5-3.5) IS PATIENT ON ANTICOAGULANTS? YLIST ANTICOAGULANTS COUMADINPROTHROMBIN TIME 2018-12-10 09:16:00* Test Item Value Reference Range Interpretation Comments PROTHROMBIN TIME PATIENT (test code = PTP) 13.8 seconds 9.0-14.0 N INTERNATIONAL NORMAL RATIO (test code = INR) 1.2 0.8-1.2 N The therapeutic range for oral anticoagulant therapy formost indications is an international normalized ratio (INR)of between 2.0 and 3.0. The recommended therapeutic INRrange for various clinical situations is listed below: Clinical Situation INR range Pulmonary e mbolism treatment (2.0-3.0)Venous thrombosis treatmentVenous thrombosis prophylaxis (high risk surgery)Prevention of systemic embolism from: Acute myocardial infarction Valvular heart disease Atrial fibrillation Mechanical prosthetic heart valves (2.5-3.5) IS PATIENT ON ANTICOAGULANTS? YLIST ANTICOAGULANTS LOVENOX COUMADINSPECI MEN COMMENTS: DRAW BEFOER 0900 AM MEDICINE TIMESPECIMEN COMMENTS: DRAW BEFORE 09 00 AM MDICINE TIMETHROMBOPLASTIN TIME [id number] 09:16:00* Test Item Value Reference Range Interpretation Comments THROMBOPLASTIN TIME PARTIAL (test code = PTT) 31.7 seconds 25.0-36. 5 N IS PATIENT ON ANTICOAGULANTS? YLIST ANTICOAGULANTS LOVENOX COUMADINSPECI MEN COMMENTS: DRAW BEFOER 0900 AM MEDICINE TIMESPECIMEN COMMENTS: DRAW BEFORE 09 00 AM MDICINE TIMETHROMBOPLASTIN TIME [id number] 02:58:00* Test Item Value Reference Range Interpretation Comments THROMBOPLASTIN TIME PARTIAL (test code = PTT) > 400.0 seconds 25.0- 36.5 HH Results called to [id number] by [email or web address] 12/10/18 [id number] results verified and read back by Nurse? Y IS PATIENT ON ANTICOAGULANTS? YLIST ANTICOAGULANTS HEPARINPROTHROMBIN TIME 2018-12-09 22:31:00* Test Item Value Reference Range Interpretation Comments PROTHROMBIN TIME PATIENT (test code = PTP) 13.9 seconds 9.0-14.0 N INTERNATIONAL NORMAL RATIO (test code = INR) 1.2 0.8-1.2 N The therapeutic range for oral anticoagulant therapy [employer] indications is an international normalized ratio (INR)of between 2.0 and 3.0. The recommended therapeutic INRrange for various clinical situations is listed below: Clinical Situation INR range Pulmonary e mbolism treatment (2.0-3.0)Venous thrombosis treatmentVenous thrombosis prophylaxis (high risk surgery)Prevention of systemic embolism from: Acute myocardial infarction Valvular heart disease Atrial fibrillation Mechanical prosthetic heart valves (2.5-3.5) IS PATIENT ON ANTICOAGULANTS? YLIST ANTICOAGULANTS LOVENOX HEPARIN THROMBOPLASTIN TIME [id number] 18:20:00* Test Item Value Reference Range Interpretation Comments THROMBOPLASTIN TIME PARTIAL (test code = PTT) 36.8 seconds 25.0-36. 5 H IS PATIENT ON ANTICOAGULANTS? YLIST ANTICOAGULANTS HEPARINTHROMBOPLASTIN TIME [id number] 09:55:00* Test Item Value Reference Range Interpretation Comments THROMBOPLASTIN TIME PARTIAL (test code = PTT) 89.8 seconds 25.0-36. 5 HH Results called to by [email or web address] 12/09/18 0955Critical results verified and read back by Nurse? Y IS PATIENT ON ANTICOAGULANTS? YLIST ANTICOAGULANTS HEPARINTROPONIN-I 2018-12-09 05:52:00* Test Item Value Reference Range Interpretation Comments TROPONIN-I (test code = TROPI) 0.047 ng/mL 0-0.045 HH Results called to [id number] by [email or web address] 12/09/18 0551Critical results verified and read back by Nurse? Y COMMENTS TO PEER FINANCIAL COUNSELOR: COLLECT 3 HOURS AFTER PREVIOUS SAMPLETHROMBOPLASTIN TIME [id number] 02:36:00* Test Item Value Reference Range Interpretation Comments THROMBOPLASTIN TIME PARTIAL (test code = PTT) > 400.0 seconds 25.0- 36.5 HH Results called to [id number] by [email or web address] 12/09/18 0233Critical results verified and read back by Nurse? Y IS PATIENT ON ANTICOAGULANTS? YLIST ANTICOAGULANTS HEPARINTROPONIN-I 2018-12-08 22:16:00* Test Item Value Reference Range Interpretation Comments TROPONIN-I (test code = TROPI) 0.045 ng/mL 0-0.045 N COMMENTS TO PEER FINANCIAL COUNSELOR: COLLECT 3 HOURS AFTER PREVIOUS SAMPLETSH REFLEX TO [id number] 14:14:00* Test Item Value Reference Range Interpretation Comments TSH REFLEX TO FT4 (test code = TSHREFLEX) 0.5 0.4-5.5 N BASIC METABOLIC [id number] 14:14:00* Test Item Value Reference Range Interpretation Comments SODIUM (test code = NA) 138 mmol/L 136-145 N POTASSIUM (test code = K) 3.6 mmol/L 3.5-5.1 N CHLORIDE (test code = CL) 100.0 mmol/L 98-107 N CARBON DIOXIDE (test code = CO2) 29.0 mmol/L 21-32 N ANION GAP (test code = GAP) 12.6 10-20 N GLUCOSE (test code = GLU) 187 mg/dL 74-106 H BLOOD UREA NITROGEN (test code = BUN) 17 mg/dL 7-18 N GLOMERULAR FILTRATION RATE (test code = GFR) 52 mL/min >=60 Estimated GFR by using Modified MDRD formula.Chronic kidney disease is defined as either kidney damageor GFR <60 mL/min/1.73 m2 for >3 months. CREATININE (test code = CREAT) 1.00 mg/dL 0.55-1.02 N Note change in reference range due to change in reagent. BUN/CREATININE RATIO (test code = BUN/CREA) 17.0 10-20 N CALCIUM (test code = CA) 9.6 mg/dL 8.5-10.1 N [id number] 14:14:00* Test Item Value Reference Range Interpretation Comments MAGNESIUM (test code = MAG) 1.8 mg/dL 1.8-2.4 N [id number] 14:14:00* Test Item Value Reference Range Interpretation Comments TROPONIN-I (test code = TROPI) <0.015 ng/mL 0-0.045 N - XR CHEST 1 [id number] 14:12:00 FAX: Boston Oneal MD [place]: B St: REG Name: KATHE ROSS [facility] : [birth year] Age/S: 88/F [place] Unit #: [id number] Loc: [place] [address] Phys: Boston Oneal MD Acct: [id number] Dis Date: Status: REG ER PHONE #: [phone] Exam Date: 12/08/2018 1400 FAX #: [phone] Reason: CHEST PAIN EXAMS: CPT CODE: [id number] XR CHEST 1 V [id number] REASON FOR EXAM: CHEST PAIN Exam Order Date: 12/08/2018 1:08 PM Ordering M.D.: Boston Oneal MD PROCEDURE: - XR CHEST 1 V COMPARISON: AP chest x-ray December 26, 2016 FINDINGS: The lungs are clear. There is no pleural effusion or pneumothorax. Pulmonary vascularity is within normal limits. Cardiomediastinal silhouette is normal in size for technique. The mediastinal contours are within normal limits. Dextroscoliosis and degenerative changes of the thoracolumbar spine are stable from the previous exam. The visualized upper abdomen is within normal limits. IMPRESSION: No acute cardi opulmonary process. Electronically Signed by Eris Nance MD on 12/08 at 1412 Reported and signed by: Eris Nance MD CC: Boston Oneal MD Technolog ist: CINTHIA JAMESON, RT(R) Trnscrd Date/Time/By : 12/08/2018 (1412) : By: [email or web address] Orig Print D/T: S: 12/08/2018 (141 5) PAGE 1 Signed Report BASIC METABOLIC [id number] 14:02:00* Test Item Value Reference Range Interpretation Comments SODIUM (test code = NA) 138 mmol/L 136-145 N POTASSIUM (test code = K) 3.6 mmol/L 3.5-5.1 N CHLORIDE (test code = CL) 100.0 mmol/L 98-107 N CARBON DIOXIDE (test code = CO2) mmol/L 21-32 ANION GAP (test code = GAP) 10-20 GLUCOSE (test code = GLU) mg/dL 74-106 BLOOD UREA NITROGEN (test code = BUN) mg/dL 7-18 GLOMERULAR FILTRATION RATE (test code = GFR) mL/min >=60 CREATININE (test code = CREAT) mg/dL 0.55-1.02 BUN/CREATININE RATIO (test code = BUN/CREA) 10-20 CALCIUM (test code = CA) mg/dL 8.5-10.1 [id number] 14:02:00* Test Item Value Reference Range Interpretation Comments MAGNESIUM (test code = MAG) mg/dL 1.8-2.4 [id number] 14:02:00* Test Item Value Reference Range Interpretation Comments TROPONIN-I (test code = TROPI) ng/mL 0-0.045 PROTHROMBIN [id number] 13:55:00* Test Item Value Reference Range Interpretation Comments PROTHROMBIN TIME PATIENT (test code = PTP) 12.3 seconds 9.0-14.0 N INTERNATIONAL NORMAL RATIO (test code = INR) 1.0 0.8-1.2 N The therapeutic range for oral anticoagulant therapy formost indications is an international normalized ratio (INR)of between 2.0 and 3.0. The recommended therapeutic INRrange for various clinical situations is listed below: Clinical Situation INR range Pulmonary e mbolism treatment (2.0-3.0)Venous thrombosis treatmentVenous thrombosis prophylaxis (high risk surgery)Prevention of systemic embolism from: Acute myocardial infarction Valvular heart disease Atrial fibrillation Mechanical prosthetic heart valves (2.5-3.5) IS PATIENT ON ANTICOAGULANTS? NTHROMBOPLASTIN TIME [id number] 13:55:00* Test Item Value Reference Range Interpretation Comments THROMBOPLASTIN TIME PARTIAL (test code = PTT) 31.8 seconds 25.0-36. 5 N IS PATIENT ON ANTICOAGULANTS? NCBC W/O [id number] 13:46:00* Test Item Value Reference Range Interpretation Comments WHITE BLOOD CELL (test code = WBC) 12.1 K/mm3 4.5-12.5 N RED BLOOD CELL (test code = RBC) 4.75 mill/mm3 3.7-5.2 N HEMOGLOBIN (test code = HGB) 13.3 gram/dL 11.5-15.5 N HEMATOCRIT (test code = HCT) 42.9 % 36.0-46.0 N MEAN CELL VOLUME (test code = MCV) 90.3 fL 80-98 N MEAN CELL HGB (test code = MCH) 28.0 picogram 27.0-33.0 N MEAN CELL HGB CONCETRATION (test code = MCHC) 31.0 gram/dL 33.0-36. 0 L RED CELL DISTRIBUTION WIDTH (test code = RDW) 15.4 % 11.6-16. 2 N PLATELET COUNT (test code = PLT) 239 K/mm3 150-450 N MEAN PLATELET VOLUME (test code = MPV) 9.6 fL 6.7-11.0 N CBC W/O [id number] 13:43:00* Test Item Value Reference Range Interpretation Comments WHITE BLOOD CELL (test code = WBC) K/mm3 4.5-12.5 RED BLOOD CELL (test code = RBC) mill/mm3 3.7-5.2 HEMOGLOBIN (test code = HGB) 13.3 gram/dL 11.5-15.5 N HEMATOCRIT (test code = HCT) 42.9 % 36.0-46.0 N MEAN CELL VOLUME (test code = MCV) fL 80-98 MEAN CELL HGB (test code = MCH) picogram 27.0-33.0 MEAN CELL HGB CONCETRATION (test code = MCHC) gram/dL 33.0-36. 0 RED CELL DISTRIBUTION WIDTH (test code = RDW) % 11.6-16. 2 PLATELET COUNT (test code = PLT) K/mm3 150-450 MEAN PLATELET VOLUME (test code = MPV) fL 6.7-11.0 TROPONIN I [id number] 13:42:00* Test Item Value Reference Range Interpretation Comments TROPONIN I RAPID (test code = TROPIRAP) 0.02 ng/mL <0.08 Please Note New Reference Range 0.00-0.079 ng/mL - Negative>or= 0.08 ng/mL - Positive The use of serial sampling and testing protocol is arecommended practice.An elevated troponin level alone is often not sufficient fordiagnosis of myocardial infarction. Troponin results obtained by different assays may vary.Evaluation of the extent of myocardial damage based onincrease of troponin would be valid only if similarmethodology is used. BREAST ULTRASOUND [id number] 10:05:20 - DIAG MAMM BILATERAL JUAQUIN CAD DIGITALBILATERAL DIGITAL DIAGNOSTIC MAMMOGRAM 3D/2D WITH CAD: 08/05/2018CLINICAL: Dense breasts. Digital breast tomosynthesis was performed in addition to routine CC and MLO views. Current mammographic images were evaluated by either a [employer] M-Vu or a [employer] ImageChecker CAD (computer aided detection system). Comparison is made to exams dated 03/19/2017 mammogram, 11/18/2015 mammogram, and 07/31/2013 mammogram - [facility]. The tissue of both breasts is heterogeneously dense. This may lower the sensitivity of mammography. No suspicious mass, architectural distortion, malignant type calcification, or lymph node abnormality detected. INCOMPLETE ASSESSMENT: ADDITIONAL IMAGING EVALUATION RECOMMENDEDUltrasound pending for additional evaluation. Resume annual screening mammography in one year. - BREAST ULTRASOUND BILATE RALULTRASOUND OF BOTH BREASTS AND BOTH AXILLA: 08/05/2018Comparison is made to ex ams dated 03/19/2017 mammogram, 11/18/2015 mammogram, and 07/31/2013 mammogram - [facility]. Real-time ultrasound of both breasts and both axilla was performed. No abnormalities were seen sonographically in either axilla. B enign solid and cystic masses were seen. No evidence of malignancy was seen. Un changed from previous studies. Clinical breast exam was unremarkable. IMPRESSIO N: BENIGN There is no sonographic evidence of malignancy. Patient has been info rmed that she has areas of dense breast tissue that could make it difficult to f ind a small cancer. A screening mammogram and supplemental ultrasound for dense breast tissue is recommended in 1 year.Nubia Romano M.D. dm/:08/06/2018 10:05:20 copy to: Fallon Gramajo MD, [facility], ph: , fax: [phone] Technologist: Monalisa DAUGHERTY, [facility]-letter sent: BIRADS 1-2 Combo FU Letter Mammogram BI-RADS: 0 Indeterminate Ultrasound BI-RADS: 2 BenignDIAG MAMM BILATERAL JUAQUIN CAD DIGITAL 2018-08-06 10:05:20 - DIAG MAMM BILATERAL JUAQUIN CAD DIGITALBILATERAL DIGITAL DIAGNOSTIC MAMMOGRAM 3D/2D WITH CAD: 08/05/2018CLINICAL: Dense breasts. Digital breast tomosynthesis was performed in addition to routine CC and MLO views. Current mammographic images were evaluated by either a [employer] M-Vu or a [employer]izer ImageChecker CAD (computer aided detection system). Comparison is made to exams dated 03/19/2017 mammogram, 11/18/2015 mammogram, and 07/31/2013 mammogram - [facility]-. The tissue of both breasts is heterogeneously dense. This may lower the sensitivity of mammography. No suspicious mass, architectural distortion, malignant type calcification, or lymph node abnormality detected. INCOMPLETE ASSESSMENT: ADDITIONAL IMAGING EVALUATION RECOMMENDEDUltrasound pending for additional evaluation. Resume annual screening mammography in one year. - BREAST ULTRASOUND BILATERALULTRASOUND OF BOTH BREASTS AND BOTH AXILLA: 08/05/2018Comparison is made to exams dated 03/19/2017 mammogram, 11/18/2015 mammogram, and [facility] Real-time ultrasound of both breasts and both axilla was performed. No abnormalities were seen sonographically in either axilla. Benign solid and cystic masses were seen. No evidence of malignancy was seen. Un changed from previous studies. Clinical breast exam was unremarkable. IMPRESSIO N: BENIGN There is no sonographic evidence of malignancy. Patient has been info rmed that she has areas of dense breast tissue that could make it difficult to f ind a small cancer. A screening mammogram and supplemental ultrasound for dense breast tissue is recommended in 1 year.Nubia Romano M.D. dm/:08/06/2018 10:05:20 copy to: Fallon Gramajo MD, [facility], ph: , fax: [phone] Technologist: Monalisa DAUGHERTY, [facility] sent: BIRADS 1-2 Combo FU Letter Mammogram BI-RADS: 0 Indeterminate Ultrasound BI-RADS: 2 BenignCHEM [id number] 20:39:2553 [facility]CHE[facility] ZKZJZ1788-36-17 20:39:82315Dvowizel HermannELECTROLYTES 2017-12-17 19:44:003.8[facility]annCHEM [id number] 10:33:002.2[facility]annCHEM [id number] 10:33:0084[facility]annCHEM [id number] 10:33:00* Test Item Value Reference Range Interpretation Comments A/G Ratio (test code = A/G Ratio) 1.2 1 0.7-1.6 [facility]annCHE[facility] [id number] 10:33:0023[facility] HermannCHEM PANEL 2017-12-17 10:33:0020[facility]annCHEM [id number] 10:33:0027[facility]annCHEM JWLYK4600-98-73 10:33:000.5[facility]annCHEM [id number] 10:33:00* Test Item Value Reference Range Interpretation Comments B/C Ratio (test code = B/C Ratio) 9 1 6-25 [facility]annCHEM [id number] 10:33:006.3[facility]annCHEM PANEL 2017-12-17 10:33:002.9[facility]annCHEM [id number] 10:33:003.4[facility]annCHEM NQRYS5529-18-71 10:33:0011.0[facility]annCHEM CAINX9288-82-58 10:33:007.5[facility]annCHEM YOFCE3691-76-09 10:33:003.0[facility]annCHEM WYMOM6519-54-41 10:33:0027[facility]annCHEM EEMUK9242-12-96 10:33:01868 [facility]CHE[facility] [id number] 10:33:000.57[facility]annCHEM PANEL 2017-12-17 10:33:55788Pedczoen HermannCHEM QSOBR3285-34-69 10:33:91446Vsyuxsht HermannCHEM DXZCU5152-34-20 10:33:005[facility]annCHEM JKHML7973-81-29 22:47:46356Rhlnbftl HermannCHEM QCWUU7222-10-95 22:47:3083[facility]annCHEM QZLJA4152-12-24 22:31:001.5[facility]annCHEM SVQJY7225-66-17 22:31:70404 [facility]CHE[facility] MWPQM0869-72-27 22:31:0081[facility]annCHEM PANEL 2017-12-15 22:31:0081[facility]annCHEM [id number] 22:31:000.3[facility]annCHEM VPVCO9304-98-66 22:31:0023[facility]annCHEM QODXV7394-90-04 22:31:0024[facility]annCHEM CMHRD9363-95-38 22:31:94199Eoyjckpp HermannCHEM GVKGQ4721-97-12 22:31:000.65[facility]annCHEM UTYJJ3840-69-30 22:31:0099 [facility]annCHE[facility] JOFTT6554-39-39 22:31:003.1[facility]annCHEM PANEL 2017-12-15 22:31:006[facility]annCHEM THAEF8465-53-54 22:31:15535Xdkldgmu HermannCHEM KIAMG6795-45-81 22:31:0024[facility]annCHEM CCYVL2596-79-24 22:31:00* Test Item Value Reference Range Interpretation Comments A/G Ratio (test code = A/G Ratio) 1.0 1 0.7-1.6 [facility]CHE[facility] [id number] 22:31:004.1[facility]annCHEM PANEL 2017-12-15 22:31:008.0[facility]annCHEM VARJW5788-05-69 22:31:0013.1[facility]annCHEM LGVTK8771-52-84 22:31:008.2[facility]annCHEM VOSFB7495-22-62 22:31:003.9[facility]annCHEM ZZEMK7636-17-05 22:31:0024[facility]annCHEM IMEUB3060-28-71 22:31:00* Test Item Value Reference Range Interpretation Comments B/C Ratio (test code = B/C Ratio) 9 1 6-25 [facility] EmctzhnGCSTOJYWYO2986-97-46 22:31:0016.9[facility]annHEMATOLOGY 2017-12-15 22:31:0084.7[facility] NpcphjgMRWLBWLYIL2905-87-34 22:31:0033.7[facility] NevblxvIIIHITSPVN1994-01-44 22:31:0040.1[facility] BnwthzlRWGHYDDRTJ2526-70-59 22:31:00* Test Item Value Reference Range Interpretation Comments MCH (test code = MCH) 28.5 pg 27.0-31.0 [facility] BrxyowiCAOQDNJQCK5183-71-14 22:31:007.8[facility] HermannHEMATOLOGY 2017-12-15 22:31:58768Cdyvlfmk YmynatiLFWEFICGQZ9076-29-35 22:31:0013.5[facility] FhytqdsYSOGQXJKQR0665-65-27 22:31:004.74[facility] TainifvXLOGUGNVMH2660-87-00 22:31:009.7[facility] OpsunysOZXPSBDHDF2876-22-83 22:31:008.6[facility] OXOFWPLEDT6347-59-69 22:31:000.4[facility] WhuyjfpMICIRICJXF0958-45-58 22:31:00 12.9[facility] BqefyngKWEQJBNISX0999-72-79 22:31:0078.1[facility] HermannHEMATOLOGY 2017-12-15 22:31:007.6[facility] EbfvpqtBZPMCRCYQE1014-23-35 22:31:001.3[facility] EklmbvaFZHMKHQOUS4311-69-60 22:31:000.8[facility] HermannMOLECULAR DIAGNOSTIC 2017-12-15 17:13:00Negative (12/15/17 12:13 PM)[facility] HermannBACTERIAL - SCZPTCRY6483-41-88 16:05:00Urine *NA*(12/15/17 11:05 AM)[facility] HermannBACTERIAL - TYDUSDTZ8200-78-90 16:05:00Negative (12/15/17 11:05 AM)[facility]annCHEM NUECU3222-67-45 10:17:001.2[facility]annURINE AND OANST5571-70-38 09:13:53 Negative (12/15/17 4:13 AM)[facility] AND QDKHC2727-93-41 09:13:53 Large *ABN*(12/15/17 4:13 AM)[facility] AND UTCEW5470-95-43 09:13:53 Negative *NA*(12/15/17 4:13 AM)[facility] AND ADVYE3588-48-32 09:13:53 1[facility]annURINE AND BVHBL1550-83-68 09:13:532[facility]annUR[facility] AND ZQAHG7205-12-45 09:13:533[facility]annUR[facility] AND SZWYR3252-30-03 09:13:53 Negative (12/15/17 4:13 AM)[facility]ann[facility] AND LEFJB0059-68-41 09:13:53* Test Item Value Reference Range Interpretation Comments UA pH (test code = UA pH) 8.0 1 5.0-8.0 [facility] AND FSFJI1572-42-95 09:13:53* Test Item Value Reference Range Interpretation Comments UA Spec Grav (test code = UA Spec Grav) 1.010 1 [facility]UR[facility] AND NYKVC9057-17-48 09:13:53Clear (12/15/17 4:13 AM) [facility]annCARDIAC QIRLODV6922-03-71 08:25:00* Test Item Value Reference Range Interpretation Comments CK MB Index (test code = CK MB Index) 1.8 1 <=2.5 [facility]annCARDIAC VZFCHEM1140-36-93 08:25:0073[facility]annCARDIAC LMLSRPX3504-50-88 08:25:001.3[facility]annCARDIAC URRMUBS3591-48-44 08:25:00< 0.02[facility]annCHEM ZTWNP2903-24-75 08:25:002.7[facility]annCHEM PANEL 2017-12-15 08:25:002.4[facility] HermannCHEM MTOGZ7160-13-48 08:25:0075[facility] HermannCHEM RLIEU3086-55-59 08:25:00* Test Item Value Reference Range Interpretation Comments B/C Ratio (test code = B/C Ratio) 10 1 6-25 [facility]annCHE[facility] TYOFB0007-36-80 08:25:003.7[facility] HermannCHEM PANEL 2017-12-15 08:25:007[facility] HermannCHEM KCKQE1261-33-27 08:25:90038Sbxgzmaw HermannCHEM NNTIB6643-10-15 08:25:000.72[facility] HermannCHEM PMCTS6892-73-06 08:25:16680Zlcrzyyz HermannCHEM RDDTK6396-85-50 08:25:0025[facility] HermannCHEM SBWVA4731-56-10 08:25:0030[facility]annCHEM JODPC6354-62-99 08:25:004.1 [facility]annCHEM FKFKS6348-12-48 08:25:008.6[facility]annCHEM PANEL 2017-12-15 08:25:007.8[facility] HermannCHEM JLNHN4782-85-71 08:25:000.4[facility]annCHEM TUIIS0459-71-58 08:25:0010.5[facility]annCHEM HZVJK5193-97-59 08:25:0025[facility]annCHEM PTTDO1651-43-11 08:25:00* Test Item Value Reference Range Interpretation Comments A/G Ratio (test code = A/G Ratio) 1.1 1 0.7-1.6 [facility]annCHE[facility] VSIJM9157-33-26 08:25:0096[facility] HermannCHEM PANEL 2017-12-15 08:25:0032[facility] ZaxgpbvSWXUQAWYPJ7511-91-24 08:25:0064.9[facility] AdhgqpzRWXVAAUBZX6271-45-68 08:25:0023.0[facility] KqninktAJYSWDDQOU6033-16-29 08:25:000.7[facility] OoysmdyPMWHPGDUEY3090-78-22 08:25:000.7[facility] FESITGCWOW4342-27-89 08:25:000.4[facility] AmgcczsPRUPRKCQHM3252-63-36 08:25:001.5 [facility] UeezbqcSDRHQEITXP8333-13-59 08:25:004.3[facility] HermannHEMATOLOGY 2017-12-15 08:25:0011.0[facility] KulhmsfGDBTQELKQL9610-39-47 08:25:007.8[facility] GwjrjwyOORTCNQWUE4136-03-41 08:25:0033.3[facility] LgkcibsCVDGAFOFBG0369-39-08 08:25:00* Test Item Value Reference Range Interpretation Comments MCH (test code = MCH) 28.4 pg 27.0-31.0 [facility] YmgwplfKVNXMTHPLY3889-30-92 08:25:0016.5[facility] HermannHEMATOLOGY 2017-12-15 08:25:44464Xhpocyho SzrvgfkJGIKEBPXYR2268-78-69 08:25:0085.4[facility] GizdyppHQIFCMSAAR6675-07-02 08:25:006.6[facility] DmxadoxJIAFSIRAPE2653-35-92 08:25:004.68[facility] ZsakodgGMKIOMRETN8094-70-62 08:25:0013.3[facility] [place] XPBZXWBBJD5713-22-77 08:25:0040.0[facility] MsfmdzbWZYKMGNGUN8917-58-98 08:25:00* Test Item Value Reference Range Interpretation Comments INR (test code = INR) 1.19 1 0.85-1.17 [facility] SxrktlqIPBPARFSXU1601-29-92 08:25:00* Test Item Value Reference Range Interpretation Comments PT (test code = PT) 15.2 s 12.0-14.7 [facility] PifycuxZTXJZROKWQ2607-49-95 08:25:00* Test Item Value Reference Range Interpretation Comments PTT (test code = PTT) 30.1 s 22.9-35.8 [facility]annCARDIAC NDASSOM9831-08-64 16:20:000[facility]annCARDIAC FCVMFUB5720-36-22 16:20:000[facility]annCARDIAC HQQNAVG3055-35-59 16:20:56585 [facility]annCARDIAC YBLBPHY7514-96-43 16:20:000[facility]annCARDIAC YYXLHSI9862-53-40 16:20:000[facility]annCARDIAC SBHRJKY0703-29-95 16:20:0045 [facility]annCARDIAC JHESBXC4481-84-73 20:44:00<0.02[facility]annCARDIAC WNSGZHU2202-75-29 20:44:54498Mjmqbcwv HermannCARDIAC LGWWTDG9968-23-05 20:44:00 1.1[facility]annCARDIAC XMVQLTV4904-96-68 20:44:0051[facility]annCARDIAC FAWVHBN1366-46-72 20:44:00* Test Item Value Reference Range Interpretation Comments CK MB Index (test code = CK MB Index) 2.2 1 <=2.5 [facility]annCHEM UBQWG2685-55-07 20:44:0076[facility] HermannCHEM PANEL 2017-12-04 20:44:00* Test Item Value Reference Range Interpretation Comments B/C Ratio (test code = B/C Ratio) 18 1 6-25 [facility]annCHE[facility] CFXKE9211-11-39 20:44:003.4[facility]annCHEM PANEL 2017-12-04 20:44:0034[facility] HermannCHEM OQYHB4278-35-50 20:44:000.4[facility]annCHEM TBETR3210-33-84 20:44:007.6[facility]annCHEM CKHAL7380-87-55 20:44:004.0[facility]annCHEM HRJGL8331-86-52 20:44:0023[facility]annCHEM HORSX5241-75-65 20:44:0022[facility]annCHEM LVCRN3683-26-65 20:44:88800 [facility]annCHEM KYZZZ3216-06-54 20:44:0034[facility]annCHEM PANEL 2017-12-04 20:44:009.0[facility] HermannCHEM VZDDG9158-52-94 20:44:007.4[facility] HermannCHEM DVOVD4116-56-58 20:44:00* Test Item Value Reference Range Interpretation Comments A/G Ratio (test code = A/G Ratio) 1.2 1 0.7-1.6 [facility]annCHE[facility] SIWQO9805-19-54 20:44:004.6[facility]annCHEM PANEL 2017-12-04 20:44:66610Icrvrryn HermannCHEM YHHHB5375-98-14 20:44:000.72[facility]annCHEM YVVKS3238-07-12 20:44:0013[facility] HermannCHEM YHSIN2732-38-05 20:44:0090[facility] EdjltkgYGXERAUEVD7608-45-63 20:44:004.16[facility] VTJGSTIQZF1444-75-25 20:44:0010.4[facility] WtqljmyOYBLZPUSWK8247-58-31 20:44:00 35.9[facility] LcodyxvKJWSLIOTWT2866-79-30 20:44:0012.0[facility] HermannHEMATOLOGY 2017-12-04 20:44:00* Test Item Value Reference Range Interpretation Comments MCH (test code = MCH) 28.7 pg 27.0-31.0 [facility] YimbkcyVNAYNMKTAG7641-70-54 20:44:0017.7[facility] HermannHEMATOLOGY 2017-12-04 20:44:0086.3[facility] CbblawsHNOFJGWHOU8775-33-43 20:44:0033.3[facility] NjeurfvMFDGMENVPX4373-96-27 20:44:008.1[facility] NbcmeanBJVRABWCDQ4999-70-15 20:44:97546Kefapfgt FtrdojoYBJBVFFRQY4650-03-70 20:44:00* Test Item Value Reference Range Interpretation Comments PT (test code = PT) 14.0 s 12.0-14.7 [facility] UdhbhxuNWJIQCJFQZ6909-92-65 20:44:00* Test Item Value Reference Range Interpretation Comments INR (test code = INR) 1.08 1 0.85-1.17 [facility] UnvdurzKRXGBAXWMD1751-87-06 20:44:00* Test Item Value Reference Range Interpretation Comments PTT (test code = PTT) 32.1 s 22.9-35.8 [facility] TstcvdrTETKFTNBKQ1561-61-88 20:44:003.6[facility] 2017-12-04 20:44:0010.2[facility] OcoonoqMFYLRBCVHU7203-94-17 20:44:0023.3[facility] MlodkeoZDMCOMDONL2343-45-89 20:44:002.4[facility] VzkixdiQPFLEIAANM6885-47-06 20:44:0062.3[facility] DpkzcqeNXKJSSNFHM7582-70-67 20:44:006.5[facility] TCSANFOAFJ7446-02-04 20:44:000.6[facility] NcvcerrYLSJLJTCXS7833-35-60 20:44:000.1 [facility] XpngalxQOZQFJSHUO5942-80-05 20:44:000.4[facility] 2017-12-04 20:44:001.1[facility]annCHEM JVESZ5023-08-22 20:24:0068[facility]annCHEM XYXUZ4509-38-63 20:24:000.8[facility] NriycbzNLRKJMTUBM4984-89-17 13:07:000[facility] KnjtyiuDDYYLBMNUN1312-81-62 13:07:0011.2[facility] AYOWGQKPTFVH2489-39-25 08:58:0013.0[facility] FlyguhlAGPXQFFYDINO0122-21-60 08:58:0015[facility] IlrawbeXUCGEBZTWYPW2327-22-36 08:58:0031[facility] HWGHDYXDDOCW6818-95-94 08:58:01601Gfphazcl TthrqlsVNQQTCGKMVFN3908-07-97 08:58:008.8[facility] UmtmwpcOLIJEMXYCUTT3125-75-57 08:58:005.0[facility] ZTQPUHZFWTTH3707-91-40 08:58:02893Fuargbel EermlriJWEPHVZTDVPI8745-62-68 08:58:0088[facility] HwxmnziJSPGCENYFRQB8998-12-26 08:58:000.92[facility] XPAPEQTMOUVZ7096-77-87 08:58:0057[facility] RomgnomMMFTYHHDIZ1881-35-57 08:58:00 32.4[facility] WlkuqqvQBRMOXHWSX0320-94-88 08:58:0015.9[facility] 2016-01-24 08:58:00* Test Item Value Reference Range Interpretation Comments MCH (test code = MCH) 26.7 pg 27.0-31.0 [facility] RglqxsjZSQCRXKIJK5936-53-75 08:58:006.5[facility] 2016-01-24 08:58:008.2[facility] WkbrhhcZRBBYEACXI8351-89-18 08:58:76860Pgzvvzyl ZtqzdqiYBHPVGHBLK1765-43-76 08:58:0037.8[facility] RsybujyPZJXMFOSOZ4555-74-90 08:58:0082.3[facility] PevdfyyQXTFDZCLXE8220-26-37 08:58:0012.2[facility] NUFABYBWQC7696-58-19 08:58:004.59[facility] QrztqvtAOHXDKMEPM7439-03-91 08:58:00 0.8[facility] LkmpjigILORHYWKLS6188-72-30 08:58:000.7[facility]annHEMATOLOGY 2016-01-24 08:58:006.8[facility] DrfonfoSMCGLKTYME5290-50-81 08:58:000.4[facility] NiriefdTAVJWPXZEK9749-47-85 08:58:002.6[facility] WmwoaslHMKUMSFKIC2933-41-10 08:58:0039.4[facility] WyrfncyEFSEYRPOXT1987-60-32 08:58:0040.9[facility] [place] VYAQKKYPGN9305-46-29 08:58:002.7[facility] QnqkntiONJAJVOBOY0723-13-31 08:58:00 12.2[facility] HermannCHEM VNURD3205-58-63 02:26:483.6[facility]annCHEM PANEL 2016-01-22 02:26:481.1[facility]annCHE[facility] MSRTP1669-12-60 02:26:483.8[facility]annCHEM NKLKW0589-17-12 02:26:487.4[facility]annCHEM UGZRM7208-75-22 02:26:487.9[facility]annCHEM JTESI8271-50-59 02:26:4810.2[facility]annCHEM BXLIG5899-74-71 02:26:4814[facility]annCHEM ZVOEC4368-68-79 02:26:78111 [facility]CHE[facility] AAMAO3078-64-02 02:26:4827[facility]annCHEM PANEL 2016-01-22 02:26:484.2[facility]annCHEM VUNPK6806-94-40 02:26:31991Ieaqkqrg HermannCHEM DEMNW4768-02-25 02:26:52715Lcytzkbo HermannCHEM BNXDI1234-76-77 02:26:481.23[facility]annCHEM KWBUT6745-10-24 02:26:4817[facility]annCHE[facility] KPDQI9934-10-03 02:26:4840[facility]annCHE[facility] CJQZE4135-88-47 02:26:480.4 [facility] HYKBO4513-08-93 02:26:4831[facility]annCHEM PANEL 2016-01-22 02:26:4823[facility]annCHEM PCLOT8082-75-73 02:26:4828[facility] HrtvkeqQRDQPKUTVW7629-41-37 02:26:480.1[facility] WbsywbcXURFDULBYC1197-44-95 02:26:480.6[facility] TfzdwtqGAXXORYYRJ2602-51-24 02:26:481.0[facility] XOXXRIPOMF5655-16-38 02:26:480.3[facility] ChrmonyDKPDLMNYAP6447-32-88 02:26:487.6 [facility] IdigvsiIWZZMQXVSB8550-96-99 02:26:480.2[facility]annHEMATOLOGY 2016-01-22 02:26:4891.3[facility] KsrgavyYCCLJKGFLJ5443-42-16 02:26:487.2[facility] YkmvvuyMDNZCWTNVY1385-20-50 02:26:484.77[facility] OmeitijSAFHILNSYX0540-11-20 02:26:4812.7[facility] UdwvlkpEPSKXAMWRY9535-48-70 02:26:4839.2[facility] [place] NBNJTNZAHK9161-80-92 02:26:4882.1[facility] BvpqiuvLHESNYEIMQ3049-39-42 02:26:48 8.0[facility] HoosmnhFNVBSTOHNN3361-98-39 02:26:48* Test Item Value Reference Range Interpretation Comments MCH (test code = MCH) 26.6 pg 27.0-31.0 [facility] WgajeteRNNEDOKTUM4484-92-96 02:26:4832.5[facility]annHEMATOLOGY 2016-01-22 02:26:4815.4[facility] AdbafxdVPLMZAJOYX3288-28-46 02:26:95837Nbnglnrj XvtkjmsTKRSOONUEE8436-18-03 02:26:488.3[facility]annCHEM QXHPA4546-54-75 22:55:0036[facility]annCHEM LAJGE0831-62-39 22:55:001.1[facility]annCHEM MNVAK4341-26-23 22:55:0026[facility]annCHE[facility] AQNBV5015-87-74 22:55:009.9 [facility]annCHE[facility] SLBQF2661-28-60 22:55:000.2[facility]annCHEM PANEL 2016-01-21 22:55:003.5[facility]annCHEM PUYWX2055-60-82 22:55:0011[facility]annCHEM BGYAB4314-28-01 22:55:007.8[facility]annCHEM AKQCU8177-26-66 22:55:003.8[facility]annCHEM GJILA1055-22-45 22:55:007.3[facility]annCHEM KULVT0792-57-89 22:55:0030[facility]annCHEM SLSIM7703-86-04 22:55:0028 [facility]annCHE[facility] IHPAL1660-81-92 22:55:76201Jubkcgge HermannCHEM PANEL 2016-01-21 22:55:04469Mkknjrce HermannCHEM DXLIN2575-20-34 22:55:003.9[facility]annCHEM DRBFM2532-51-96 22:55:0029[facility]annCHEM KFUJG9403-15-03 22:55:80366Wacadxwa HermannCHEM WCPHM8047-12-21 22:55:001.34[facility]annCHEM DJFIZ6276-57-38 22:55:0015[facility]annCHEM XFNKV8682-56-89 22:55:00<0.05 [facility]annCHE[facility] DFLLJ7441-61-71 22:55:001.3[facility]annHEMATOLOGY 2016-01-21 22:55:008.2[facility] WybuysaKIEFYLNPIS6431-69-44 22:55:005.7[facility] DhdxrhbLLESBZGLQF3776-82-54 22:55:0038.8[facility] TuecyvwJORGBPUFBC0527-36-69 22:55:0012.7[facility] BnushxzDAAINJGFXF7655-46-14 22:55:004.75[facility] ZXHRKKACMZ8694-29-73 22:55:0032.7[facility] KfhzvniRQVQRLHDSM4682-23-71 22:55:00 227[facility] RueosuuDZGWEVANBF1322-77-84 22:55:0015.4[facility]annHEMATOLOGY 2016-01-21 22:55:0081.7[facility] ZbsadiaZOUYDPGYXG3252-87-73 22:55:00* Test Item Value Reference Range Interpretation Comments MCH (test code = MCH) 26.7 pg 27.0-31.0 [facility] DrwxojuJKOYIZGHAG0837-35-38 22:55:000.7[facility]annHEMATOLOGY 2016-01-21 22:55:0037.4[facility] DnzptfqHDNIREIMJG8371-35-39 22:55:007.5[facility] XbmuwdgMWMEVCCCEK7693-58-11 22:55:0040.9[facility] ZfobcfnDNSDQEDRTF1472-34-05 22:55:0013.5[facility] RurmmczHIACLUIFMC5754-94-06 22:55:002.1[facility] UBIKAQFLKC6933-14-57 22:55:002.3[facility] WyrhfctIWWOGBNMCU6146-54-24 22:55:000.4 [facility] JxczozuNFHDPIEPKW3317-53-21 22:55:000.8[facility] HermannIMMUNOLOGY 2016-01-21 22:55:00<2.9[facility]
[2020-01-30] MEDS ORDERED: CEFTRIAXONE SOD 1 GM/NS 50 ML 50 ML IV SCH (17:45)
[2020-01-30 18:14] LABS: BASOPHILS # (AUTO) 0.1 (0.0-0.1); BASOPHILS % 0.5 % (0.0-1.0); EOSINOPHILS # (AUTO) 0.4 (0.0-0.4); EOSINOPHILS % 2.1 % (0.0-6.0); HEMATOCRIT 45.1 % (34.2-44.1); HEMOGLOBIN 14.5 g/dL (12.0-16.0); LYMPHOCYTES # (AUTO) 2.5 (1.0-3.2); LYMPHOCYTES % 11.5 % (18.0-39.1); MEAN CORPUSCULAR HEMOGLOBIN 28.6 pg (28-32); MEAN CORPUSCULAR HGB CONC 32.2 g/dL (31-35); MONOCYTES # (AUTO) 1.4 (0.2-0.8); MONOCYTES % 6.4 % (4.4-11.3); NEUTROPHILS # (AUTO) 16.9 (2.1-6.9); NEUTROPHILS % 78.8 % (38.7-80.0); PLATELET COUNT 250 x10e3/uL (140-360); RED BLOOD COUNT 5.07 x10e6/uL (3.6-5.1); RED CELL DISTRIBUTION WIDTH 23.8 % (11.7-14.4)
[2020-01-30] MEDS ORDERED: PIPER-TAZ 3.375 GM 50 ML IV SCH (18:15)
[2020-01-30 18:18] LABS: INR 1.34; PROTHROMBIN TIME 17.3 seconds (11.9-14.5)
[2020-01-30 18:19] LABS: PARTIAL THROMBOPLASTIN TIME 37.2 seconds (23.8-35.5)
[2020-01-30] MEDS: AZITHROMYCIN 500MG/NS 250 ML 250 ML IV SCH (18:22)
[2020-01-30 18:25] LABS: ALBUMIN 4.1 g/dL (3.5-5.0); ALBUMIN/GLOBULIN RATIO 1.4 (0.8-2.0); ANION GAP 17.2 mmol/L (8-16); CALCIUM 8.9 mg/dL (8.4-10.2); CREATININE, SERUM 0.96 mg/dL (0.57-1.11); MAGNESIUM 1.8 MG/DL (1.3-2.1); POTASSIUM 4.2 mmol/L (3.5-5.1)
[2020-01-30 18:31] LABS: CREATINE KINASE MB 1.6 ng/mL (0-5.0)
--- NOTE | 2020-01-30 18:36 | NUR ---
SEPTIC SHEET ON CHART PER POLICY
--- NOTE | 2020-01-30 19:04 | Diagnostic Imaging Report ---
EXAMINATION: CHEST SINGLE (PORTABLE) INDICATION: sob, right sided cp COMPARISON: None FINDINGS: AP view TUBES and LINES: None. . LUNGS/PLEURA: There is a large right-sided pleural effusion with associated atelectasis. There is also mild hazy opacities in both lung which could be due to edema. Underlying infection could be considered in appropriate clinical setting. HEART AND MEDIASTINUM: The cardiomediastinal silhouette is unremarkable. BONES AND SOFT TISSUES: No acute osseous lesion. Soft tissues are unremarkable. UPPER ABDOMEN: No free air under the diaphragm. IMPRESSION: 1. Large right-sided pleural effusion with associated atelectasis. 2. Mild hazy opacities in both lung could be due to edema. Underlying infection could be considered in appropriate clinical setting. Signed by: Stephen Galeana MD on 01/30/2020 7:00 PM
--- NOTE | 2020-01-30 19:17 | Emergency Department Note ---
History of Present Illnes History of Present Illness Chief Complaint: Abdominal Complaints History of Present Illness This is a 89 year old female arrived to the ED with RUQ pain and cough for several days. Pt describes the pain as bandlike going across her breast. Chief Complaint Comment pt states she has epigastric pain wraps under rt breast and ribs. pt sob. pain with breathing. denies covid testing. non smoker. denies any pulmonary hx. pt aaox4. ambulatory w/c assisted. stat ekg and md in [facility]. Historian: Patient, Family Member Arrival Mode: Car Onset (how long ago): day(s) Radiation: Reports non-radiation Severity: moderate Onset quality: gradual Duration (how long): day(s) Progression: worsening Chronicity: new Relieving factors: none Exacerbating factors: none Past Medical/Family History Physician Review I have reviewed the patient's past medical and family history. Any updates have been documented here. Past Medical History Recent Fever: No Clinical Suspicion of Infectio: No New/Unexplained Change in Ment: No Past Medical History: Osteoarthritis Other Medical History: FIBROMYALGIA RA Other Surgery: R HAND REPAIR, BOTH FEET Social History Smoking Cessation: Never Smoker Counseling Performed: No Alcohol Use: None Any Illegal Drug Use: No Other Any Pre-Existing Lines (PICC,: No Review of Systems Review of Systems Constitutional: Reports no symptoms EENTM: Reports no symptoms Cardiovascular: Reports no symptoms Respiratory: Reports as per HPI, Reports cough Gastrointestinal: Reports as per HPI, Reports abdominal pain Genitourinary: Reports no symptoms Musculoskeletal: Reports no symptoms Integumentary: Reports no symptoms Neurological: Reports no symptoms Psychological: Reports no symptoms Endocrine: Reports no symptoms Hematological/Lymphatic: Reports no symptoms Physical Exam Related Data Allergies: Coded Allergies: Penicillins (Verified Allergy, Unknown, 01/30/20) Pentazocine Lactate (Verified Allergy, Unknown, 01/30/20) codeine (Verified Allergy, Unknown, 01/30/20) diazepam (Verified Allergy, Unknown, 01/30/20) diclofenac sodium (Verified Allergy, Unknown, 01/30/20) iodine (Verified Allergy, Unknown, IV CONTRAST, 01/30/20) misoprostol (Verified Allergy, Unknown, 01/30/20) niacin (Verified Allergy, Unknown, 01/30/20) Triage Vital Signs Vital Signs Date Time Temp Pulse Resp B/P (MAP) Pulse Ox O2 Delivery O2 Flow Rate FiO2 01/30/20 17:15 97.7 83 16 102/88 91 Room Air 01/30/20 17:47 2.0 Vital signs reviewed: Yes Physical Exam CONSTITUTIONAL Constitutional: Present well-developed, Present well-nourished HENT HENT: Present normocephalic, Present atraumatic, Present oropharynx clear/moist, Present nose normal HENT L/R: Present left ext ear normal, Present right ext ear normal EYES Eyes: Reports PERRL, Reports conjunctivae normal NECK Neck: Present ROM normal PULMONARY Pulmonary: Present effort normal, Present respiratory distress CARDIOVASCULAR Cardiovascular: Present regular rhythm, Present heart sounds normal, Present capillary refill normal, Present normal rate GASTROINTESTINAL Abdominal: Present soft, Present nontender, Present bowel sounds normal GENITOURINARY Genitourinary: Present exam deferred SKIN Skin: Present warm, Present dry MUSCULOSKELETAL Musculoskeletal: Present ROM normal NEUROLOGICAL Neurological: Present alert, Present oriented x 3, Present no gross motor or sensory deficits PSYCHOLOGICAL Psychological: Present mood/affect normal, Present judgement normal Results Laboratory Result Diagram: 01/30/20 1730 01/30/20 1730 Laboratory Laboratory Tests Test 01/30/20 17:40 01/30/20 17:30 Lactic Acid Level 1.9 mmol/L (0.5-2.0) White Blood Count 21.38 x10e3/uL (4.8-10.8) Red Blood Count 5.07 x10e6/uL (3.6-5.1) Hemoglobin 14.5 g/dL (12.0-16.0) Hematocrit 45.1 % (34.2-44.1) Mean Corpuscular Volume 89.0 fL (81-99) Mean Corpuscular Hemoglobin 28.6 pg (28-32) Mean Corpuscular Hemoglobin Concent 32.2 g/dL (31-35) Red Cell Distribution Width 23.8 % (11.7-14.4) Platelet Count 250 x10e3/uL (140-360) Neutrophils (%) (Auto) 78.8 % (38.7-80.0) Lymphocytes (%) (Auto) 11.5 % (18.0-39.1) Monocytes (%) (Auto) 6.4 % (4.4-11.3) Eosinophils (%) (Auto) 2.1 % (0.0-6.0) Basophils (%) (Auto) 0.5 % (0.0-1.0) Neutrophils # (Auto) 16.9 (2.1-6.9) Lymphocytes # (Auto) 2.5 (1.0-3.2) Monocytes # (Auto) 1.4 (0.2-0.8) Eosinophils # (Auto) 0.4 (0.0-0.4) Basophils # (Auto) 0.1 (0.0-0.1) Absolute Immature Granulocyte (auto 0.16 x10e3/uL (0-0.1) Prothrombin Time 17.3 seconds (11.9-14.5) Prothromb Time International Ratio 1.34 Activated Partial Thromboplast Time 37.2 seconds (23.8-35.5) Sodium Level 139 mmol/L (136-145) Potassium Level 4.2 mmol/L (3.5-5.1) Chloride Level 101 mmol/L (98-107) Carbon Dioxide Level 25 mmol/L (22-29) Anion Gap 17.2 mmol/L (8-16) Blood Urea Nitrogen 13 mg/dL (7-26) Creatinine 0.96 mg/dL (0.57-1.11) Estimat Glomerular Filtration Rate 55 ML/MIN (60-) BUN/Creatinine Ratio 14 (6-25) Glucose Level 143 mg/dL (74-118) Calcium Level 8.9 mg/dL (8.4-10.2) Magnesium Level 1.8 MG/DL (1.3-2.1) Total Bilirubin 0.6 mg/dL (0.2-1.2) Aspartate Amino Transf (AST/SGOT) 25 IU/L (5-34) Alanine Aminotransferase (ALT/SGPT) 24 IU/L (0-55) Alkaline Phosphatase 38 IU/L (40-150) Creatine Kinase 42 IU/L (29-168) Creatine Kinase MB 1.60 ng/mL (0-5.0) Troponin I 0.015 ng/mL (0-0.300) Total Protein 7.0 g/dL (6.5-8.1) Albumin 4.1 g/dL (3.5-5.0) Globulin 2.9 g/dL (2.3-3.5) Albumin/Globulin Ratio 1.4 (0.8-2.0) Amylase Level 52 U/L (25-125) Lipase 9 U/L (8-78) Lab results reviewed: Yes Critical Care Time Total Critical Care Time (min): 45 Critical care time exclusive o: separately billable procedures Critcal care necessary due to: cardiac failure Assessment & Plan Medical Decision Making MDM 89-year-old female arrived to the ED right upper quadrant abdominal pain. Chest x-ray concerning for pneumonia. Blood culture lactic acid obtained, broad-spectrum and hematocrit given. Lactic acid 1.9 with no indications for repeat. Patient admitted for further workup and management. Symptoms as severe sepsis noted at 1930. Assessment & Plan Final Impression: (1) Pneumonia Depart Disposition: ADMITTED Last Vital Signs Date Time Temp Pulse Resp B/P (MAP) Pulse Ox O2 Delivery O2 Flow Rate FiO2 01/30/20 17:56 2.0 01/30/20 17:47 98.4 77 22 149/78 98 Nasal Cannula Home Meds Reported Medications Azelastine Hcl (AZELASTINE HCL) 137 Mcg/0.137 Ml Ewing.pump 02/02/20 [Prednisolone] No Conflict Check 02/02/20 Hydralazine Hcl (HYDRALAZINE HCL) 25 Mg Tab, DAILY 02/02/20 Budesonide/Formoterol Fumarate (SYMBICORT 160-4.5 MCG INHALER) 10.2 Gm Hfa.aer.ad, daily as needed 02/02/20 Naloxegol Oxalate (Movantik) 25 Mg Tablet, DAILY 02/02/20 Amiodarone Hcl (AMIODARONE HCL) 200 Mg Tablet, DAILY 02/02/20 Atenolol (ATENOLOL) 25 Mg Tablet, BID 02/02/20 Amlodipine Besylate (AMLODIPINE BESYLATE) 10 Mg Tablet hold for SBP <120 02/02/20 Duloxetine HCl (Duloxetine HCl) 30 Mg Capsule. 02/02/20 Pregabalin (LYRICA) 150 Mg Capsule 02/02/20 Lidocaine (Lidocaine) 1 Each Adh..patch 02/02/20 Morphine Sulfate (MORPHINE SULFATE ER) 30 Mg Tablet.er 02/02/20 Famotidine (FAMOTIDINE) 20 Mg Tab 02/02/20 Rivaroxaban (XARELTO) 20 Mg Tablet, 20 MG PO BID 01/31/20 Aspirin (ASPIRIN) 81 Mg Tab.chew, 81 MG PO DAILY 10/16/12 Prednisone (PREDNISONE) 5 Mg Tablet, 5 MG PO UD 10/16/12 Cyclosporine (RESTASIS) 1 Each Droperette, 1 TAB PO BID 10/16/12 Atorvastatin Calcium* (LIPITOR*) 10 Mg Tablet, 10 MG PO DAILY 10/16/12 Propranolol Hcl (PROPRANOLOL HCL) 80 Mg Cap.sa.24h, 80 MG PO BID 10/16/12 Folic Acid (FOLIC ACID) 1 Mg Tablet, 1 MG PO DAILY 10/16/12 Esomeprazole Magnesium (NEXIUM) 40 Mg Capsule.dr, 40 MG PO DAILY 10/16/12 Methotrexate Sodium (METHOTREXATE) 2.5 Mg Tablet, 17.5 MG PO WEEKLY TAKES 7 PILLS WEEKLY EVERY Saturday10/16/12 Tocilizumab (ACTEMRA) 80 Mg/4 Ml Vial, 80 MG IV Q 4 WEEKS 10/16/12 Discontinued Reported Medications Acetamin/Butalbital/Caffeine (FIORICET) 1 Ea Tab, 1 TAB PO PRN 10/16/12 Pregabalin (LYRICA) 100 Mg Capsule, 100 MG PO BID 10/16/12 Hydrocodone Bit/Acetaminophen (HYDROCODON-ACETAMINOPH 7.5-325) 1 Each Tablet, 1 TAB PO Q4 HRS 10/16/12 Medications in the ED Morphine Sulfate 2 mg ONCE STAT IV Last administered on 01/30/20at 17:51; Admin Dose 2 MG; Start 01/30/20 at 17:23; Stop 01/30/20 at 17:37; Status DC Ondansetron HCl 4 mg ONCE STAT IV Last administered on 01/30/20at 17:52; Admin Dose 4 MG; Start 01/30/20 at 17:23; Stop 01/30/20 at 17:37; Status DC Ceftriaxone Sodium 50 ml @ 100 mls/hr Q24H IV Last administered on 01/30/20at 18:05; Admin Dose 100 MLS/HR; Start 01/30/20 at 17:45; Stop 02/06/20 at 17:44 Azithromycin 250 ml @ 200 mls/hr Q24H IV Last administered on 01/30/20at 18:22; Admin Dose 200 MLS/HR; Start 01/30/20 at 18:00; Stop 02/06/20 at 17:59 Morphine Sulfate 2 mg NOW STAT IV Last administered on 01/30/20at 18:22; Admin Dose 2 MG; Start 01/30/20 at 17:51; Stop 01/30/20 at 17:54; Status DC Piperacillin Sod/ Tazobactam Sod 50 ml @ 50 mls/hr NOW IV ; Start 01/30/20 at 18:15; Stop 02/06/20 at 18:14 CRISTELA ZAVALA, Jan 30, 2020 19:17
--- NOTE | 2020-01-30 19:25 | Diagnostic Imaging Report ---
EXAM: CT Abdomen and Pelvis WITHOUT contrast INDICATION: ^Y ^ruq pain ^[id number] ^185 COMPARISON: None. TECHNIQUE: Abdomen and pelvis were scanned utilizing a multidetector helical scanner from the lung base to the pubic symphysis without administration of IV contrast. Absence of intravenous contrast decreases sensitivity for detection of focal lesions and vascular pathology. Coronal and sagittal reformations were obtained. Routine protocol was performed. IV CONTRAST: None ORAL CONTRAST: Water COMPLICATIONS: None RADIATION DOSE: Total DLP: 688.83 mGy*cm Estimated effective dose: (DLP x 0.015 x size factor) mSv CTDIvol has been reviewed. It is below the limits set by the Radiation Protocol Committee (RPC). FINDINGS: LINES and TUBES: None. LOWER THORAX: Small right pleural effusion. Right lower and medial lobe airspace opacities. Partially seen atherosclerotic calcification of aorta and coronary arteries. HEPATOBILIARY: Unenhanced liver is unremarkable. No biliary ductal dilation. GALLBLADDER: Distended No radio-opaque stones. Layering sludge. No wall thickening. SPLEEN: No splenomegaly. PANCREAS: No focal masses or ductal dilatation. ADRENALS: No adrenal nodules KIDNEYS/URETERS: No hydronephrosis. Limited for evaluation of renal parenchyma without intravenous contrast. 5.4 cm left renal superior pole complex partially exophytic cyst with septation. No stones. GI TRACT: No abnormal distention, wall thickening, or evidence of bowel obstruction. Appendix is not visualized. Small hiatal hernia. PELVIC ORGANS/BLADDER: Hysterectomy. Bladder is collapsed. LYMPH NODES: No lymphadenopathy. VESSELS: There is moderate atherosclerotic disease in the aorta and major arterial branches. PERITONEUM / RETROPERITONEUM: No free air or fluid. BONES: Generalized demineralization. Old fracture deformity of posterior right 10th rib. Mild levoscoliosis of lumbar spine. Multilevel advanced degenerative changes. Grade 1 anterolisthesis of L5 in relation to S1. SOFT TISSUES: Unremarkable. IMPRESSION: 1. No definite evidence of acute inflammatory process in the abdomen/pelvis, considering limitations of unenhanced study. 2. Distended gallbladder, containing layering sludge. No wall thickening or surrounding inflammation. 3. Small right pleural effusion. There is also right lower and middle lobe airspace opacities, representing atelectasis and/or pneumonia in the appropriate clinical context. Signed by: Dr. Ok Teresa MD on 01/30/2020 7:21 PM
[2020-01-30] MEDS ORDERED: MORPHINE SULFATE INJ 4 MG/ML INJ 1ML IV NR (19:52)
[2020-01-30] MEDS ORDERED: ONDANSETRON HCL INJ 2MG/ML 2ML 2 MG/ML VIAL IV NR (19:52)
[2020-01-30 20:37] LABS: CLARITY,URINE CLEAR (CLEAR); COLOR,URINE YELLOW (YELLOW); KETONES,URINE NEGATIVE (NEGATIVE); LEUKOCYTE ESTERASE ,URINE TRACE (NEGATIVE); NITRITE,URINE POSITIVE (NEGATIVE); PROTEIN,URINE DIPSTICK 1+ (NEGATIVE); URINE UROBILINOGEN 0.2 mg/dL (0.2 - 1)
[2020-01-30 20:38] LABS: BILIRUBIN,URINE NEGATIVE (NEGATIVE)
[2020-01-30 20:43] LABS: WBC,URINE (MAN) >50 /HPF (0-5)
[2020-01-30 20:44] LABS: BACTERIA,URINE MANY /HPF; EPITHELIAL CELLS,URINE MANY /LPF
--- OUTSIDE RECORDS SUMMARY | 2020-01-30 21:19 | XMS REPORT | Continuity of Care Document ---
Author Author [employer] Address Unknown Phone Unavailable Care Team Providers Care Software Developer Manager Name Role Phone [employer] Unavailable Un available Problems Problem Status Onset Date Classification Date Reported Comments Source M79.641 Active 01/07/2020 [facility] DX: K21.9=GASTRO-ESOPHAGEAL REFLUX DISEA Active 03/27/2019 [facility] Unspecified open wound, unspecified lowe r leg, initial encounter 03/14/2019 03/17/2019 [facility] LEFT LEG SWOLLEN Active 03/14/2019 [facility] RT ANKLE Active 02/20/2019 [facility] RT ANKLE. Active 02/20/2019 [facility] R09.82/J31.0 LANDMARK PROTOCOL Active 01/22/2019 [facility] Other fracture of upper and lower end of unspecified fibula, initial encounter for closed fracture 12/29/2018 12/31/2018 [facility] Unspecified fall, initial encounter 12/29/2018 12/31/2018 [facility] LEG PAIN Active 12/28/2018 [facility] Lumbago with sciatica, right side 04/23/2018 11/04/2018 [facility] RT SIDE LBP W/RT SIDE SCIATICA Active 01/01/[address] [facility] Unspecified abdominal pain 12/27/2017 07/08/2018 [facility] RIGHT SIDE LOWER BACK PAIN AND SCIATICA Active 12/25/2017 [facility] RIGHT SIDE LOWER BACK PAIN Act krishan 12/25/[address] [facility] ABD PAIN Active 12/15/2017 [facility] ABDOMINAL PAIN, PNEUMONIA Acti ve 12/15/2017 [facility] CHEST PAIN Active 12/04/2017 [facility] ACUTE CHEST PAIN Active 12/04/2017 [facility] M05.741, M05.742 Active 06/14/2016 [facility] DX: PAD /CLAUDICATION/ABNORMAL DOPPLER I Active 03/30/2016 [facility] INSECT BITE Active 01/21/2016 [facility] LUE CELLULITIS W/IMMUNE SYSTEM SUPPRESSI Active 01/21/2016 [facility] DX; K21.9=GASTRO-ESOPHAGEAL REFLUX DISEA Active 01/19/2016 [facility] Discharge Diagnosis: Left foot pain 11/11/2015 11/14/2015 [facility] Discharge Diagnosis: Musculoskeletal limb pain 11/11/2015 11/14/2015 [facility] Discharge Diagnosis: Contusion of left leg 10/20/2015 10/23/2015 [facility] LEG PAIN OR INJURY Active 10/19/2015 [facility] Discharge Diagnosis: Contusion of left k nee, initial encounter 07/28/2015 07/31/2015 [facility] HIP PAIN Active 07/28/2015 [facility] Other lack of coordination 11/04/2018 [facility] [place] Difficulty in walking, not elsewhere classified 11/04/2018 [facility] [place] Muscle weakness (generalized) 11/04/2018 [facility] [place] Unsteadiness on feet 11/04/2018 [facility] [place] Fibromyositis (disorder) Resol dami Problem [facility] [place] [place],[facility] [place] Hyperlipidemia (disorder) Reso lved Problem [facility] [place] [place] Hypertensive disorder, systemic arterial (disorder) Resolved Problem 01/09/2020 [facility] [place],[facility] [place] Rheumatoid arthritis (disorder) Resolved Problem [facility] [place] [place] Pneumonia, unspecified organism 07/08/2018 [facility] Dehydration 07/08/2018 [facility] Fibromyalgia 07/08/2018 [facility] Unspecified osteoarthritis, unspecified site 07/08/2018 [facility] Rheumatoid arthritis, unspecified 07/08/2018 [facility] Restless legs syndrome 07/08/2018 [facility] Essential (primary) hypertension 07/08/2018 [facility] Polyp of stomach and duodenum 07/08/2018 [facility] Cholesterolosis of gallbladder 07/08/2018 [facility] Pure hypercholesterolemia, unspecified 07/08/2018 [facility] Hyperlipidemia, unspecified 07/08/2018 [facility] Chronic pain syndrome 07/08/2018 [facility] Atherosclerosis of aorta 07/08/2018 [facility] Gastro-esophageal reflux disease without esophagitis 07/08/2018 [facility] Diaphragmatic hernia without obstruction or gangrene 07/08/2018 [facility] Other constipation 07/08/2018 [facility] 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 07/08/2018 [facility] Diarrhea, unspecified 07/08/2018 [facility] Adverse effect of unspecified narcotics, initial encounter 07/08/2018 [facility] Restlessness and agitation 07/08/2018 [facility] Personal history of colonic polyps 07/08/2018 [facility] Migraine, unspecified, not intractable, without status migrainosus 07/08/2018 [facility] Hypokalemia 07/08/2018 [facility] Pain in right knee 01/09/2020 [facility] NECK/BACK Active [facility] [place] TRAUMATIC ECCHYMOSIS OF LT LOWER LEG Active [facility] BACK PAIN Active [facility] LOW BACK PAIN Active [facility] GASTRO-ESOPHAGEAL REFLUX DISEASE WITHOUT Active [facility] DYSPHAGIA, UNSPECIFIED Active [facility] PERSONAL HISTORY OF COLONIC POLYPS Active [facility] CELLULITIS AND ABSCESS OF MOUTH Active [facility] PERIPHERAL VASCULAR DISEASE, UNSPECIFIED Active [facility] RHEU ARTHRITIS W RHEU FACTOR OF R HAND W Active [facility] RHEU ARTHRITIS W RHEU FACTOR OF LEFT SPANGLER Active [facility] UNSPECIFIED ABDOMINAL PAIN Act krishan [facility] PNEUMONIA, UNSPECIFIED ORGANISM Active [facility] LUMBAGO WITH SCIATICA, RIGHT SIDE Active [facility] [place] DIFFICULTY IN WALKING, NOT ELSEWHERE CLA Active [facility] [place] UNSTEADINESS ON FEET Active [facility] [place] OTHER LACK OF COORDINATION Act krishan [facility] [place] MUSCLE WEAKNESS (GENERALIZED) Active [facility] [place] POSTNASAL DRIP Active [facility] CHRONIC RHINITIS Active [facility] PAIN IN RIGHT HAND Active [place] PAIN IN LEFT HAND Active [facility] PAIN IN LEFT KNEE Active [facility] PAIN IN RIGHT KNEE Active [facility] Medications Medication Details Route Status Patient Instructions Ordering Provider Order Date Source Sulfamethoxazole 800 MG / Trimethoprim 1 60 MG Oral Tablet [Bactrim] 1 tab, PO, BID, X 10 day, # 20 tab, 0 Re fill(s) Active 03/15/2019 [facility] Sulfamethoxazole 800 MG / Trimethoprim 1 60 MG Oral Tablet [Bactrim] Notes: One DS tablet = trimethoprim 160m g + sulfamethoxazole 800 mg Dose based on trimethoprim component On empty stomach with a glass of water. (Same As: Bactrim DS, Septra DS) Inactive 03/15/2019 [facility] WheelChair 1 ea, MISC, ONCALL, # 1 ea, 0 Refill(s) Active 12/29/2018 [facility] Albuterol 0.833 MG/ML / Ipratropium Brom zhang 0.167 MG/ML Inhalant Solution [DuoNeb] Notes: (Same as: Duoneb) No Longer Active 12/29/2018 [facility] rOPINIRole 0.25 mg oral tablet 0.25 mg = 1 tab, PO, TID- Before Meals, # 90 tab, 0 Refill(s), Pharmacy: [facility] [id number] Active 12/19/2017 [facility] Lidocaine 0.05 MG/MG Topical Ointment 1 appl, TOP, TID, # 50 gm, 0 Refill(s), Pharmacy: [facility] [id number] Active 12/19/2017 [facility] DULoxetine 30 mg oral delayed release capsule 30 mg = 1 cap, PO, Daily, # 30 cap, 0 Refill(s), Pharmacy: [facility] [place] [id number] Active 12/19/2017 [facility] predniSONE 10 mg oral tablet 1 0 mg = 1 tab, PO, Daily, 0 Refill(s) Active 12/19/2017 [facility] Sodium Chloride 0.9% IV 1000 mL 1,000 mL, Rate: 25 ml/hr, Infuse over: 40 hr, Route: IV, Dosing Weight 56.903 kg, Total Volume: 1,000, Start date: 12/18/17 12:07:00 CDT, Duration: 30 day, Stop date: 01/17/18 12:06:00 CDT, 1.59, m2 Inactiv e 12/18/2017 [facility] Methotrexate Notes: (Same as:M ethotrexate Sodium) Chemotherapy agent/Handle with caution WASTE: F/P - Black; E - Yellow No Longer Active 12/18/2017 [facility] Cymbalta Notes: (Same as: Cymb adam) (Do Not Crush) No Longer Active 12/18/2017 [facility] Lyrica Notes: Same as Lyrica No Longer Active 12/18/2017 [facility] Potassium Chloride Notes: ([facility] e as: K-Dur 20) "Do Not Crush" For patients unable to swallow tablet, dissolve in one half glass of water. Allow about 2 minutes for the tablets to disintegrate. Stir before giving to prepare slurry and administer. Please exclude Patients with feeding tube less than 14 Taiwanese (Dobhoff, J-tube etc) and pediatric and patients. With food and full glass of water Inactive 12/17/2017 [facility] Requip Notes: (Same as: Requip) No Longer Active 12/17/2017 [facility] Lidocaine 0.05 MG/MG Topical Ointment Notes: (Same as: Xylocaine) No Longer Active 12/17/2017 [facility] Prednisone Notes: (Same as: Pr edniSONE) Take with food. No Longer Active 12/17/2017 [facility] morphine 15 mg oral tablet, extended release Notes: Do not crush (Same as:Oramorph SR, MS Contin) No Longer Active 12/17/2017 [facility] Potassium Chloride Notes: (Jeronimo e as: K-Dur 20) "Do Not Crush" For patients unable to swallow tablet, dissolve in one half glass of water. Allow about 2 minutes for the tablets to disintegrate. Stir before giving to prepare slurry and administer. Please exclude Patients with feeding tube less than 14 Taiwanese (Dobhoff, J-tube etc) and pediatric and patients. With food and full glass of water Inactive 12/17/2017 [facility] Morphine 30 mg, PO, Q8H, 0 Ref ill(s) Active 12/17/2017 [facility] Potassium Chloride Notes: MUST be Diluted before use (Same as: KCl) MEDICATION WASTE Product Size: 40 mEq Product Wasted: ___ mEq Inactive 12/16/2017 [facility] atorvastatin Notes: (Same As: Lipitor) No Longer Active 12/16/2017 [facility] Actemra 20 mg/mL intravenous solution 4 mg/kg, IV, q4wk, 0 Refill(s) No Longer Active 12/16/2017 [facility] Ativan Notes: (Same as: Ativan) Inactive 12/15/2017 [facility] Lyrica Notes: (Same as: Lyrica) No Longer Active 12/15/2017 [facility] RN please bring patient's own Metanx to pharmacy to label RN please bring patient's own Metanx to pharmacy to label, Reminder, Drug form: MISC, Route: BRENDACEMELYN, 12/15/17 16:00:00 CDT, Duration: 30 day, Stop date: 01/14/18 8:00:00 CDT No Longer Active 12/15/2017 [facility] Morphine Notes: (Same as:MORPh ine Sulfate) No Longer Active 12/15/2017 [facility] Rocephin + sterile water 10 mL Notes: (Same As: Rocephin). Use with 100 mL NS and infuse over 30 min MEDICATION WASTE Product Size: 1000 mg Product Wasted: ___ mg Inactive 12/15/2017 [facility] D5W 1/2NS 1,000 mL 1,000 mL, R ate: 100 ml/hr, Infuse over: 10 hr, Route: IV, Dosing Weight 56.903 kg, Total Volume: 1,000, Start date: 12/15/17 10:00:00 CDT, Duration: 30 day, Stop date: 01/14/18 9:59:00 CDT, 1.59, m2 No Longer Active 12/15/2017 [facility] Flagyl Notes: (Same as: Flagyl ) Avoid alcohol. No Longer Active 12/15/2017 [facility] Restasis Notes: (Same as: Rest asis) No Longer Active 12/15/2017 [facility] mometasone furoate 0.05 MG/ACTUAT Metere d Dose Nasal [place] 100 microgram, 2 spray, Route: NASAL, Da barbara, Drug form: SPRY, Start date: 12/15/17 9:00:00 CDT, Duration: 30 day, Stop date: 01/13/18 9:00:00 CDT No Longer Active 12/15/2017 [facility] 24 HR Metoprolol Tartrate 50 MG Extended Release Tablet [Toprol] Notes: (Same as: Toprol XL) May split t ab, but do not crush. No Longer Active 12/15/2017 [facility] Fluticasone propionate 0.05 MG/ACTUAT Me tered Dose Nasal [place] [Flonase] Notes: (Same as: Flonase) No Longer Active 12/15/2017 [facility] Hydralazine Hydrochloride 25 MG Oral Tablet Notes: (Same as: Apresoline) May interfere w/enteral feedings Take With Food. No Longer Active 12/15/2017 [facility] Restasis 0.05% ophthalmic emulsion Restasis 0.05% ophthalmic emulsion, 1 drp, Route: BOTH EYES, BID, 12/15/17 9:00:00 CDT, Duration: 30 day, Stop date: 01/13/18 17:00:00 CDT Inactive 12/15/2017 [facility] Azelastine hydrochloride 0.137 MG/ACTUAT Metered Dose Nasal [place] [Astelin] 274 microgram, 2 spray, Route: NASAL, Dr ug Form: SPRY, Dosing Weight 59.091, kg, BID, Start date: 12/15/17 9:00:00 CDT, Duration: 30 day, Stop date: 01/13/18 17:00:00 CDT No Longer Active 12/15/2017 [facility] Aspirin Notes: Do not crush or chew. (Same As: Ecotrin) Inactive 12/15/2017 [facility] naloxegol 25 MG Oral Tablet [Movantik] Notes: (Same as: Movantik) Swallow tablets whole, do not crush or chew. Avoid consumption of grapefruit or grapefruit juice during treatment. Administer naloxegol on an empty stomach at least 1 hour prior to or 2 hours after the first meal of the day. Inactive 12/15/2017 [facility] Lyrica 100 mg oral capsule Lyr ica 100 mg oral capsule, 150 mg, Drug form: CAP, Route: PO, TID, 12/15/17 9:00:00 CDT, Duration: 30 day, Stop date: 01/13/18 17:00:00 CDT Inactive 12/15/2017 [facility] Metanx oral capsule Metanx ora l capsule, 1 cap, Route: PO, Daily, 12/15/17 9:00:00 CDT, Duration: 30 day, Stop date: 01/13/18 9:00:00 CDT No Longer Active 12/15/2017 [facility] Pls update height,weight,allergies Pls update height,weight,allergies, Attn RN, Drug form: MISC, Route: MISC, Continuous, 12/15/17 8:00:00 CDT, Duration: 1 day, Stop date: 12/16/17 7:59:00 CDT Inactive 12/15/2017 [facility] Azithromycin 500 mg, Route: IV , Q24H, Dosing Weight 59.091, kg, Start date: 12/15/17 8:00:00 CDT, Duration: 30 day, Stop date: 01/13/18 8:00:00 CDT, ABX Indication: Pneumonia Inactive 12/15/2017 [facility] morphine 15 mg oral tablet, extended release Notes: Do not crush (Same as:Oramorph SR, MS Contin) No Longer Active 12/15/2017 [facility] Symbicort 80/4.5 inhalation aerosol with adapter Notes: (Same as: Symbicort) WASTE: Aerosol - Return to Pharmacy No Longer Active 12/15/2017 [facility] Ceftriaxone Notes: (Same As: Brendan mobley). MEDICATION WASTE Product Size: 1000 mg Product Wasted: ___ mg Inactive 12/15/2017 [facility] Albuterol 0.83 MG/ML Inhalant Solution Notes: SEE RT DOCUMENTATION (Same as: Proventil) No Longer Active 12/15/2017 [facility] Dextromethorphan Hydrobromide 2 MG/ML / Guaifenesin 20 MG/ML Oral Solution Notes: (dextromethorphan-guaifenesin 10- 100/5 ml LIQ) (Same as: Robitussin-DM) No Longer Active 12/15/2017 [facility] Acetaminophen Notes: Do not ex ceed 4 gm/day. (Same as: Tylenol) No Longer Active 12/15/2017 [facility] Ondansetron Notes: (Same as: Ledy collins) MEDICATION WASTE Product Size: 4 mg Product Wasted: ___ mg No Longer Active 12/15/2017 [facility] Azithromycin Notes: (Same As: Zithromax IV) Inactive 12/15/2017 [facility] Ceftriaxone Notes: (Same As: Brendan mobley). Use with 100 mL NS and infuse over 30 min MEDICATION WASTE Product Size: 1000 mg Product Wasted: ___ mg Inactive 12/15/2017 [facility] GI cocktail Notes: [place] = antacid with simethicone 22.5 mL - lidocaine viscous 7.5 mL Inactive 12/15/2017 [facility] Morphine 2 mg, Route: IVP, ONC E, Dosing Weight 59.091, kg, Priority: STAT, Start date: 12/15/17 5:14:00 CDT, Stop date: 12/15/17 5:14:00 CDT Inactive 12/15/2017 [facility] Morphine 2 mg, Route: IVP, ONC E, Dosing Weight 59.091, kg, Priority: STAT, Start date: 12/15/17 2:49:00 CDT, Stop date: 12/15/17 2:49:00 CDT Inactive 12/15/2017 [facility] Metoclopramide 10 mg, Route: I DOCUMENT IMAGE TECHNICIAN, Drug form: INJ, ONCE, Dosing Weight 59.091, kg, Priority: STAT, Start date: 12/15/17 2:49:00 CDT, Stop date: 12/15/17 2:49:00 CDT Inactive 12/15/2017 [facility] Sodium Chloride 0.9% (Bolus) IV 1,000 mL, Infuse Over: 1 hr, Route: IV, ONCE, Priority: STAT, Dosing Weight 59.091 kg, Start date: 12/15/17 2:49:00 CDT, Stop date: 12/15/17 2:49:00 CDT Inactive 12/15/2017 [facility] Miralax Notes: Dissolve in 8 o z of water or juice. (Same as: Miralax) Inactive 12/05/2017 [facility] naloxegol 25 MG Oral Tablet [Movantik] Notes: (Same as: Movantik) Swallow tablets whole, do not crush or chew. Avoid consumption of grapefruit or grapefruit juice during treatment. Administer naloxegol on an empty stomach at least 1 hour prior to or 2 hours after the first meal of the day. Inactive 12/05/2017 [facility] multivitamin Notes: (Same as:O ne Tab Daily, Tab-A-Guerrero + Beta Carotene) Give with food. Inactive 12/05/2017 [facility] mometasone furoate 0.05 MG/ACTUAT Metere d Dose Nasal [place] 100 microgram, 2 spray, Route: NASAL, Da barbara, Drug form: SPRY, Start date: 12/05/17 9:00:00 CDT, Duration: 30 day, Stop date: 01/03/18 9:00:00 CDT Inactive 12/05/2017 [facility] 24 HR Metoprolol Tartrate 50 MG Extended Release Tablet [Toprol] Notes: (Same as: Toprol XL) May split t ab, but do not crush. Inactive 12/05/2017 [facility] Hydralazine Hydrochloride 25 MG Oral Tablet Notes: (Same as: Apresoline) May interfere w/enteral feedings Take With Food. Inactive 12/05/2017 [facility] Nexium 40 mg, Route: PO, Drug form: ECCAP, Daily, Dosing Weight 60.909, kg, Start date: 12/05/17 9:00:00 CDT, Duration: 30 day, Stop date: 01/03/18 9:00:00 CDT No Longer Active 12/05/2017 [facility] Cyclosporine 0.5 MG/ML Ophthalmic Suspension [Restasis ] Notes: (Same as: Restasis) Inactive 12/05/2017 [facility] Aspirin Notes: Do not crush or chew. (Same As: Ecotrin) Inactive 12/05/2017 [facility] Prednisone Notes: Take with fo od. Inactive 12/05/2017 [facility] Fluticasone propionate 0.05 MG/ACTUAT Me tered Dose Nasal [place] [Flonase] Notes: (Same as: Flonase) Inactive 12/05/2017 [facility] Nexium 40 mg, Route: PO, Befor e Breakfast, Dosing Weight 60.909, kg, Start date: 12/05/17 7:30:00 CDT, Duration: 30 day, Stop date: 01/03/18 7:30:00 CDT Inactive 12/05/2017 [facility] *ATTN RN please bring pt home med to [facility] to be labeled* *ATTN RN please bring pt home med to [facility] to be labeled*, ATTN RN, Drug form: MISC, Route: MISC, QSHIFT, 12/05/17 0:00:00 CDT, Duration: 30 day, Stop date: 01/03/18 16:00:00 CDT Inactive 12/05/2017 [facility] Azelastine hydrochloride 0.137 MG/ACTUAT Metered Dose Nasal [place] [Astelin] Notes: (azelastine 137 microgram/inh 30 ml nasal SPR) Non- formulary drug. Same As: Astelin) No Longer Active 12/05/2017 [facility] pregabalin Notes: (Same as: Ly jamarcus) No Longer Active 12/05/2017 [facility] cefdinir Notes: (Same As: Omni cef) No Longer Active 12/05/2017 [facility] atorvastatin Notes: (Same as: Lipitor) No Longer Active 12/05/2017 [facility] Protonix Notes: Tablet should not be chewed or crushed. (Same as: Protonix) Inactive 12/05/2017 [facility] Vantin 200 mg, Route: PO, Drug form: TAB, [id number], Dosing Weight 60.909, kg, Start date: 12/04/17 19:00:00 CDT, Duration: 10 day, Stop date: 12/14/17 7:00:00 CDT, ABX Indication: Other (specify in Comments) Inactive 12/05/2017 [facility] predniSONE 20 mg oral tablet 2 0 mg = 1 tab, PO, Daily, 0 Refill(s) Active 12/04/2017 [facility] morphine 15 mg oral tablet, extended release Notes: Do not crush (Same as:Oramorph SR, MS Contin) No Longer Active 12/04/2017 [facility] Estrogens, Conjugated (CORRECTION) 0.625 MG/ML Vaginal Cream [Premarin] Notes: (Same As: Premarin Vaginal) No Longer Active 12/04/2017 [facility] Symbicort 80/4.5 inhalation aerosol with adapter Notes: (Same as: Symbicort) WASTE: Aerosol - Return to Pharmacy No Longer Active 12/04/2017 [facility] Acetaminophen 325 MG / butalbital 50 MG / Caffeine 40 MG Oral Tablet Notes: (heumkcjlxxwvp-idqcxpnlcf-uqfpfml e 325-50-40mg) Do not exceed 4 gm/day of acetaminophen. (Same as: Esgic, Fioricet) No Longer Active 12/04/2017 [facility] 200 ACTUAT Albuterol 0.09 MG/ACTUAT Mete red Dose Inhaler [ProAir HFA] Notes: Albuterol 90 microgram/inh 8gm HF A WASTE: Aerosol - Return to Pharmacy Same as: Ventolin, Proventil No Longer Active 12/04/2017 [facility] Aspirin 81 mg, PO, Daily, 0 Re fill(s) Active 12/04/2017 [facility] Fluticasone propionate 0.05 MG/ACTUAT Me tered Dose Nasal [place] [Flonase] 50 microgram =, NASAL, Daily, 0 Refill(s ) Active 12/04/2017 [facility] Azelastine hydrochloride 0.137 MG/ACTUAT Metered Dose Nasal [place] [Astelin] 2 spray, NASAL, BID, 0 Refill(s) Active 12/04/2017 [facility] metoprolol tartrate 50 mg oral tablet 50 mg = 1 tab, PO, Daily, 0 Refill(s) Active 12/04/2017 [facility] Prednisone 2 mg, PO, Daily, Qu antity sufficient, 0 Refill(s) No Longer Active 12/04/2017 [facility] Cyclosporine 0.5 MG/ML Ophthalmic Suspension [Restasis ] 1 drp, BOTH EYES, BID, # 30 mL, 0 Refill(s) Active 12/04/2017 [facility] mometasone furoate 0.05 MG/ACTUAT Metere d Dose Nasal [place] 2 spray, NASAL, Daily, 0 Refill(s) Active 12/04/2017 [facility] Metanx oral capsule 1 cap, PO, Daily, 0 Refill(s) Active 12/04/2017 [facility] Aspirin Notes: Take with food. Inactive 12/04/2017 [facility] Saline Flush 0.9% Notes: (Same as: BD Posiflush) No Longer Active 12/04/2017 [facility] calamine topical lotion 1 appl , Route: TOP, QID, Drug form: LOT, PRN Itching, Start date: 01/26/16 8:22:00 CDT, Duration: 30 day, Stop date: 02/25/16 8:21:00 CDT Inactive 01/26/2016 [facility] RN-Do NOT give Vanc until trough drawn 01/26/16 @ 08:00 RN-Do NOT give Vanc until trough drawn 01/26/16 @ 08:00, Attn:RN, Drug form: MISC, Route: MISC, ONCE, 01/26/16 7:30:00 CDT, Stop date: 01/26/16 7:30:00 CDT Inactive 01/26/2016 [facility] Milk of Magnmirtha Notes: (Same as: Milk of Fidencio, MOM) Inactive 01/25/2016 [facility] vancomycin + sodium chloride 0.9% INJ 250 mL 2001 mg: infuse over 2.5 hours MEDICATION WASTE Product Size: 1000 mg Product Wasted: ___ mg No Longer Active 01/25/2016 [facility] Methotrexate Notes: (Same as:M ethotrexate Sodium) Chemotherapy agent/Handle with caution WASTE: F/P - Black; E - Yellow No Longer Active 01/25/2016 [facility] Movantik 25mg Movantik 25mg, 1 tab, Drug form: MISC, Route: PO, QAM, 01/23/16 9:00:00 CDT, Duration: 30 day, Stop date: 02/21/16 6:00:00 CDT No Longer Active 01/23/2016 [facility] Nexium 40 mg, Route: PO, Befor e Breakfast, Dosing Weight 59.001, kg, Start date: 01/23/16 7:30:00 CDT, Duration: 30 day, Stop date: 02/21/16 7:30:00 CDT No Longer Active 01/23/2016 [facility] esomeprazole (Nexium) 40mg cap esomeprazole (Nexium) 40mg cap, 40 mg, 1 cap, Drug form: MISC, Route: PO, Daily, 01/23/16 7:00:00 CDT, Duration: 30 day, Stop date: 02/21/16 7:00:00 CDT No Longer Active 01/23/2016 [facility] cefepime Notes: (Same As: Roberth moody) MEDICATION WASTE Product Size: 1000 mg Product Wasted: ___ mg No Longer Active 01/22/2016 [facility] Metanx Metanx, 1 tab, Drug for m: MISC, Route: PO, BID, 01/22/16 17:00:00 CDT, Duration: 30 day, Stop date: 02/21/16 9:00:00 CDT No Longer Active 01/22/2016 [facility] Protonix Notes: Tablet should not be chewed or crushed. (Same as: Protonix) Inactive 01/22/2016 [facility] Hydrocortisone butyrate 0.001 MG/MG Topical Ointment Notes: (Same as: Hytone) No Longer Active 01/22/2016 [facility] Aspirin 81 MG Chewable Tablet Notes: Take with food. No Longer Active 01/22/2016 [facility] Vitamin E 400 IntlUnit, 2 cap, Route: PO, Drug form: CAP, Daily, Dosing Weight 59.091, kg, Start date: 01/22/16 9:00:00 CDT, Stop date: 02/20/16 9:00:00 CDT No Longer Active 01/22/2016 [facility] Lyrica Notes: Same as Lyrica No Longer Active 01/22/2016 [facility] Prednisone Notes: (Same as: Pr edniSONE) Take with food. No Longer Active 01/22/2016 [facility] Miralax Notes: Dissolve in 8 o z of water or juice. (Same as: Miralax) No Longer Active 01/22/2016 [facility] MS Contin Notes: Do not crush (Same as:Oramorph SR, MS Contin) No Longer Active 01/22/2016 [facility] metoprolol tartrate Notes: (Sa me as: Lopressor) No Longer Active 01/22/2016 [facility] Hydralazine Hydrochloride 25 MG Oral Tablet Notes: (Same as: Apresoline) May interfere w/enteral feedings Take With Food. No Longer Active 01/22/2016 [facility] Nexium 40 mg, Route: PO, Drug form: ECCAP, Daily, Dosing Weight 59.091, kg, Start date: 01/22/16 9:00:00 CDT, Duration: 30 day, Stop date: 02/20/16 9:00:00 CDT No Longer Active 01/22/2016 [facility] Calcium Carbonate 1250 MG / Cholecalcife rol 400 UNT Chewable Tablet Notes: (Same As: Maria Dolores-D, OsCal-D, Oyste r Calcium) No Longer Active 01/22/2016 [facility] Vancomycin 2001 mg: infuse ov er 2.5 hours MEDICATION WASTE Product Size: 1000 mg Product Wasted: ___ mg No Longer Active 01/22/2016 [facility] atorvastatin Notes: (Same as: Lipitor) No Longer Active 01/22/2016 [facility] Restasis Notes: (Same as: Rest asis) No Longer Active 01/22/2016 [facility] Benadryl 25 mg, 1 tab, Route: PO, Drug form: TAB, [id number], Dosing Weight 59.091, kg, PRN Allergic reaction, Start date: 01/21/16 20:56:00 CDT, Duration: 30 day, Stop date: 02/20/16 20:55:00 CDT No Longer Active 01/22/2016 [facility] morphine 15 mg oral tablet, extended release Notes: Do not crush (Same as:Oramorph SR, MS Contin) No Longer Active 01/22/2016 [facility] Estrogens, Conjugated (CORRECTION) 0.625 MG/ML Vaginal Cream [Premarin] Notes: (Same As: Premarin Vaginal) No Longer Active 01/22/2016 [facility] Symbicort 80/4.5 inhalation aerosol with adapter Notes: (Same as: Symbicort) WASTE: Aerosol - Return to Pharmacy No Longer Active 01/22/2016 [facility] Acetaminophen 325 MG / butalbital 50 MG / Caffeine 40 MG Oral Tablet Notes: ([id number] e 325-50-40mg) Do not exceed 4 gm/day of acetaminophen. (Same as: Esjackson, Fioricet) No Longer Active 01/22/2016 [facility] 200 ACTUAT Albuterol 0.09 MG/ACTUAT Mete red Dose Inhaler [ProAir HFA] Notes: Albuterol 90 microgram/inh 8gm HF A WASTE: Aerosol - Return to Pharmacy Same as: Ventolin, Proventil No Longer Active 01/22/2016 [facility] Estrogens, Conjugated (CORRECTION) 0.625 MG/ML Vaginal Cream [Premarin] 1 appl, VAG, Bedtime, PRN dryness Active 01/21/2016 [facility] POLYETHYLENE GLYCOL 3350 142 MG/ML Oral Solution [Miralax] 17 gm, PO, BID Active 01/21/2016 [facility] Calcium Citrate 1190 MG / Vitamin D 200 UNT Oral Tablet [Citracal Regular + D] 1 tab, PO, BID Active 01/21/2016 [facility] Vitamin D3 5000 intl units oral tablet 5,000 IntlUnit = 1 tab, PO, Daily Active 01/21/2016 [facility] vitamin E 400 intl units oral capsule 400 IntlUnit = 1 cap, PO, Daily Active 01/21/2016 [facility] morphine 15 mg oral tablet, extended release 15 mg = 1 tab, PO, TID, PRN Pain Score 1-5 Active 01/21/2016 [facility] Morphine Sulfate 30 MG Extended Release Tablet [MS Contin] 30 mg = 1 tab, PO, TID, at 0600, 1400, 2200 Active 01/21/2016 [facility] Hydralazine Hydrochloride 25 MG Oral Tablet 25 mg = 1 tab, PO, BID Active 01/21/2016 [facility] predniSONE 5 mg oral tablet 10 mg = 2 tab, PO, Every Other Day, with food Active 01/21/2016 [facility] Acetaminophen 325 MG / butalbital 50 MG / Caffeine 40 MG Oral Tablet 2 tab, PO, Q4H, PRN Headache, Not to exc eed more than 6 tablets in 24 hours Active 01/21/2016 [facility] atorvastatin 20 mg oral tablet 20 mg = 1 tab, PO, Bedtime Active 01/21/2016 [facility] metoprolol 50 mg oral tablet, extended release 25 mg = 0.5 tab, PO, Daily Active 01/21/2016 [facility] naloxegol 25 MG Oral Tablet [Movantik] 25 mg = 1 tab, PO, QAM Active 01/21/2016 [facility] Zofran Notes: (Same as: Zofran ) MEDICATION WASTE Product Size: 4 mg Product Wasted: ___ mg No Longer Active 01/21/2016 [facility] Morphine Notes: (Same as:MORPh ine Sulfate) No Longer Active 01/21/2016 [facility] Acetaminophen Notes: Do not ex ceed 4 gm/day. (Same as: Tylenol) No Longer Active 01/21/2016 [facility] Diphenhydramine 25 mg, Route: IVP, ONCE, Dosing Weight 59.091, kg, Priority: STAT, Start date: 01/21/16 17:32:00 CDT, Stop date: 01/21/16 17:32:00 CDT Inactive 01/21/2016 [facility] cefepime Notes: (Same As: Roberth moody) MEDICATION WASTE Product Size: 1000 mg Product Wasted: ___ mg Inactive 01/21/2016 [facility] Vancomycin 2001 mg: infuse ov er 2.5 hours Inactive 01/21/2016 [facility] Saline Flush 0.9% Notes: (Same as: BD Posiflush) No Longer Active 01/21/2016 [facility] Benadryl Notes: (Same as: Olga dryl) Inactive 01/21/2016 [facility] Dexamethasone Notes: Concentra tion: 4mg/ml Inactive 01/21/2016 [facility] Acetaminophen 325 MG / Hydrocodone Alyssa trate 10 MG Oral Tablet [Phyllis 10/325] 1 tab, Route: PO, Drug Form: TAB, Dosing Weight 60, kg, ONCE, STAT, Start date: 11/11/15 17:42:00 CDT, Stop date: 11/11/15 17:42:00 CDT Inactive 11/11/2015 [facility] Dilaudid-5 1 mg, Route: PO, ON CE, Dosing Weight 60, kg, Priority: STAT, Start date: 11/11/15 15:39:00 CDT, Stop date: 11/11/15 15:39:00 CDT Inactive 11/11/2015 [facility] Morphine 0 Refill(s) Active 10/21/2015 [facility] ProAir HFA 1 - 2 puffs, PO, Q4 H, PRN Wheezing / cough / shortness of breath, # 1 ea, 0 Refill(s) Active 10/21/2015 [facility] Symbicort 80/4.5 inhalation aerosol with adapter 2 puff, INHALATION, BID, # 6.9 gm, 0 Refill(s) Active 10/21/2015 [facility] Aspirin 81 MG Chewable Tablet 81 mg = 1 tab, PO, Daily, tab, 0 Refill(s) Active 10/21/2015 [facility] atorvastatin 20 MG Oral Tablet [Lipitor] 20 mg = 1 tab, PO, Bedtime, # 30 tab, 0 Refill(s) Active 10/21/2015 [facility] Restasis 1 drp, BOTH EYES, Q12 H, 0 Refill(s) Active 10/21/2015 [facility] Fioricet PO, Q4H, 0 Refill(s) Active 10/21/2015 [facility] metoprolol 25 mg oral tablet, extended release 25 mg = 1 tab, PO, Daily, # 30 tab, 0 Refill(s) Active 10/21/2015 [facility] Esomeprazole 40 MG Enteric Coated Capsule [Nexium] 40 mg = 1 cap, PO, Daily, # 30 cap, 0 Refill(s) Active 10/21/2015 [facility] pregabalin 100 MG Oral Capsule [Lyrica] 100 mg = 1 cap, PO, TID, # 90 cap, 0 Refill(s) Active 10/21/2015 [facility] methotrexate 2.5 mg oral tablet PO, 0 Refill(s) Active 10/21/2015 [facility] Tylenol Notes: Do not exceed 4 gm/day. (Same as: Tylenol) Inactive 07/28/2015 [facility] Allergies, Adverse Reactions, Alerts Substance Category Reaction Severity Reaction type Status Date Reported Comments Source Arthrotec Assertion Drug allergy Active [facility] codeine Assertion Drug allergy Active [facility] iodine Assertion Drug allergy Active [facility] niacin Assertion Drug allergy Active [facility] penicillins Assertion Drug allergy Active [facility] Protonix Assertion Drug allergy Active [facility] Talwin NX Assertion Drug allergy Active [facility] Valium Assertion Drug allergy Active [facility] contrast media (iodine-based) Assertion Drug aller gy Active [facility] Food Iodine Assertion Propensity to adverse reacti ons to substance Active [facility] [place] Immunizations Immunization Date Given Site Status Last Updated Comments Source diphtheria/pertussis, acel/tetanus adult 01/21/2016 Right deltoid completed [facility], [facility], [facility] [place] Results Order Name Results Value Reference Range Date Interpretation Comments Source CARDIAC ENZYMES Troponin-I <0.02 0.00 - 0.40 12/29/2018 [facility] CARDIAC ENZYMES BNP 221 <=100 pg/mL 12/29/2018 [facility] CHEM PANEL eGFR 67 12/29/2018 Result [...] should be multiplied by the estimated BMI. [facility] CHEM PANEL Glucose Lvl 135 70 - 99 12/29/2018 [facility] CHEM PANEL Calcium Lvl 9.4 8.5 - 10.5 12/29/2018 [facility] CHEM PANEL CO2 31 24 - 32 12/29/2018 [facility] CHEM PANEL Alk Phos 33 39 - 136 12/29/2018 [facility] CHEM PANEL Bili Total 0.6 0.2 - 1.3 12/29/2018 [facility] CHEM PANEL AST 23 0 - 37 12/29/2018 [facility] CHEM PANEL ALT 25 0 - 65 12/29/2018 [facility] CHEM PANEL Chloride Lvl 102 95 - 109 12/29/2018 [facility] CHEM PANEL Potassium Lvl 3.9 3.5 - 5.1 12/29/2018 [facility] CHEM PANEL Sodium Lvl 137 135 - 145 12/29/2018 [facility] CHEM PANEL BUN 10 7 - 22 12/29/2018 [facility] CHEM PANEL Creatinine Lvl 0.80 0.50 - 1.40 12/29/2018 [facility] CHEM PANEL Total Protein 8.1 6.4 - 8.4 12/29/2018 [facility] CHEM PANEL Albumin Lvl 4.0 3.5 - 5.0 12/29/2018 [facility] CHEM PANEL B/C Ratio 12 6 - 25 12/29/2018 [facility] CHEM PANEL AGAP 7.9 10.0 - 20.0 12/29/2018 [facility] CHEM PANEL A/G Ratio 1.0 0.7 - 1.6 12/29/2018 [facility] CHEM PANEL Globulin 4.1 2.7 - 4.2 12/29/2018 [facility] HEMATOLOGY Monocytes 9.4 2.0 - 12.0 12/29/2018 [facility] HEMATOLOGY Eosinophils 0.1 0.0 - 4.0 12/29/2018 [facility] HEMATOLOGY Lymphocytes 20.6 20.0 - 40.0 12/29/2018 [facility] HEMATOLOGY Basophils 0.3 0.0 - 1.0 12/29/2018 [facility] HEMATOLOGY Neutrophils # 6.1 1.5 - 8.1 12/29/2018 [facility] HEMATOLOGY Segs 69.6 45.0 - 75.0 12/29/2018 [facility] HEMATOLOGY Lymphocytes # 1.8 1.0 - 5.5 12/29/2018 [facility] HEMATOLOGY Monocytes # 0.8 0.0 - 0.8 12/29/2018 [facility] HEMATOLOGY RBC 4.30 4.20 - 5.40 12/29/2018 [facility] HEMATOLOGY MCV 87.6 80.0 - 98.0 12/29/[address] [facility] MCH 28.9 27.0 - 31.0 12/29/2018 [facility] HEMATOLOGY Platelet 222 133 - 450 12/29/2018 [facility] HEMATOLOGY MPV 8.3 7.4 - 10.4 12/29/2018 [facility] HEMATOLOGY WBC 8.8 3.7 - 10.4 12/29/2018 [facility] HEMATOLOGY Hgb 12.4 12.0 - 16.0 12/29/2018 [facility] HEMATOLOGY Hct 37.7 36.0 - 48.0 12/29/2018 [facility] HEMATOLOGY RDW 17.5 11.5 - 14.5 12/29/2018 [facility] HEMATOLOGY MCHC 33.0 32.0 - 36.0 12/29/2018 [facility] CHEM PANEL Amylase Lvl 53 25 - 115 12/17/2017 [facility] CHEM PANEL Lipase Lvl 156 73 - 393 12/17/2017 [facility] ELECTROLYTES Potassium Lvl 3.8 3.5 - 5.1 12/17/2017 [facility] CHEM PANEL Magnesium Lvl 2.2 1.8 - 2.4 12/17/2017 [facility] CHEM PANEL eGFR 84 12/17/2017 Result [...] should be multiplied by the estimated BMI. [facility] CHEM PANEL A/G Ratio 1.2 0.7 - 1.6 12/17/2017 [facility] CHEM PANEL ALT 23 0 - 65 12/17/2017 [facility] CHEM PANEL Alk Phos 20 39 - 136 12/17/2017 [facility] CHEM PANEL AST 27 0 - 37 12/17/2017 [facility] CHEM PANEL Bili Total 0.5 0.2 - 1.3 12/17/2017 [facility] CHEM PANEL B/C Ratio 9 6 - 25 12/17/2017 [facility] CHEM PANEL Total Protein 6.3 6.4 - 8.4 12/17/2017 [facility] CHEM PANEL Globulin 2.9 2.7 - 4.2 12/17/2017 [facility] CHEM PANEL Albumin Lvl 3.4 3.5 - 5.0 12/17/2017 [facility] CHEM PANEL AGAP 11.0 10.0 - 20.0 12/17/2017 [facility] CHEM PANEL Calcium Lvl 7.5 8.5 - 10.5 12/17/2017 [facility] CHEM PANEL Potassium Lvl 3.0 3.5 - 5.1 12/17/2017 Result Comment: Critical Result(s) ivette roberts at 12/17/2017 06:13 by hp. Read back OK. [facility] CHEM PANEL CO2 27 24 - 32 12/17/2017 [facility] CHEM PANEL Chloride Lvl 106 95 - 109 12/17/2017 [facility] CHEM PANEL Creatinine Lvl 0.57 0.50 - 1.40 12/17/2017 [facility] CHEM PANEL Sodium Lvl 141 135 - 145 12/17/2017 [facility] CHEM PANEL Glucose Lvl 131 70 - 99 12/17/2017 [facility] CHEM PANEL BUN 5 7 - 22 12/17/2017 [facility] CHEM PANEL Lipase Lvl 516 73 - 393 12/15/2017 [facility] CHEM PANEL Amylase Lvl 83 25 - 115 12/15/2017 [facility] CHEM PANEL Lactic Acid Lvl 1.5 0.5 - 2.2 12/15/2017 [facility] CHEM PANEL Lipase Lvl 511 73 - 393 12/15/2017 [facility] CHEM PANEL Amylase Lvl 81 25 - 115 12/15/2017 [facility] CHEM PANEL eGFR 81 12/15/2017 Result [...] should be multiplied by the estimated BMI. [facility] CHEM PANEL Bili Total 0.3 0.2 - 1.3 12/15/2017 [facility] CHEM PANEL AST 23 0 - 37 12/15/2017 [facility] CHEM PANEL Alk Phos 24 39 - 136 12/15/2017 [facility] CHEM PANEL Sodium Lvl 133 135 - 145 12/15/2017 [facility] CHEM PANEL Creatinine Lvl 0.65 0.50 - 1.40 12/15/2017 [facility] CHEM PANEL Chloride Lvl 99 95 - 109 12/15/2017 [facility] CHEM PANEL Potassium Lvl 3.1 3.5 - 5.1 12/15/2017 [facility] CHEM PANEL BUN 6 7 - 22 12/15/2017 [facility] CHEM PANEL Glucose Lvl 148 70 - 99 12/15/2017 [facility] CHEM PANEL ALT 24 0 - 65 12/15/2017 [facility] CHEM PANEL A/G Ratio 1.0 0.7 - 1.6 12/15/2017 [facility] CHEM PANEL Globulin 4.1 2.7 - 4.2 12/15/2017 [facility] CHEM PANEL Total Protein 8.0 6.4 - 8.4 12/15/2017 [facility] CHEM PANEL AGAP 13.1 10.0 - 20.0 12/15/2017 [facility] CHEM PANEL Calcium Lvl 8.2 8.5 - 10.5 12/15/2017 [facility] CHEM PANEL Albumin Lvl 3.9 3.5 - 5.0 12/15/2017 [facility] CHEM PANEL CO2 24 24 - 32 12/15/2017 [facility] CHEM PANEL B/C Ratio 9 6 - 25 12/15/2017 [facility] HEMATOLOGY RDW 16.9 11.5 - 14.5 12/15/2017 [facility] HEMATOLOGY MCV 84.7 80.0 - 98.0 12/15/2017 [facility] HEMATOLOGY MCHC 33.7 32.0 - 36.0 12/15/2017 [facility] HEMATOLOGY Hct 40.1 36.0 - 48.0 12/15/2017 [facility] HEMATOLOGY MCH 28.5 27.0 - 31.0 12/15/2017 [facility] HEMATOLOGY MPV 7.8 7.4 - 10.4 12/15/2017 [facility] HEMATOLOGY Platelet 242 133 - 450 12/15/2017 [facility] HEMATOLOGY Hgb 13.5 12.0 - 16.0 12/15/2017 [facility] HEMATOLOGY RBC 4.74 4.20 - 5.40 12/15/2017 [facility] HEMATOLOGY WBC 9.7 3.7 - 10.4 12/15/2017 [facility] HEMATOLOGY Monocytes 8.6 2.0 - 12.0 12/15/2017 [facility] HEMATOLOGY Basophils 0.4 0.0 - 1.0 12/15/2017 [facility] HEMATOLOGY Lymphocytes 12.9 20.0 - 40.0 12/15/2017 [facility] HEMATOLOGY Segs 78.1 45.0 - 75.0 12/15/2017 [facility] HEMATOLOGY Neutrophils # 7.6 1.5 - 8.1 12/15/2017 [facility] HEMATOLOGY Lymphocytes # 1.3 1.0 - 5.5 12/15/2017 [facility] HEMATOLOGY Monocytes # 0.8 0.0 - 0.8 12/15/2017 [facility] MOLECULAR DIAGNOSTIC C difficile DNA Negative (12/15/17 12:13 PM) Negative 12/15/2017 [facility] BACTERIAL - SEROLOGY Source Strep Urine *NA* (12/15/17 11:05 AM) 12/15/2017 [facility] BACTERIAL - SEROLOGY Strep pneumonia e Ag Negative (12/15/17 11:05 AM) Negative 12/15/2017 [facility] CHEM PANEL Lactic Acid Lvl 1.2 0.5 - 2.2 12/15/2017 [facility] Culture: Urine <10,000 CFU/mL Skin Izabel 12/15/2017 [facility] URINE AND STOOL UA Blood Negative (12/15/17 4:13 AM) Negative 12/15/2017 [facility] URINE AND STOOL UA Ketones 20 mg/dL Negative mg/dL 12/15/2017 [facility] URINE AND STOOL UA Leuk Est Large *ABN* (12/15/17 4:13 AM) Negative 12/15/2017 [facility] URINE AND STOOL UA Glucose Negative mg/dL Negative mg/dL 12/15/2017 [facility] URINE AND STOOL UA Bili Negative *NA* (12/15/17 4:13 AM) Negative 12/15/2017 [facility] URINE AND STOOL UA Trans Epi 1 <=0 /LPF 12/15/2017 [facility] URINE AND STOOL UA Bacteria Occasional /HPF None Seen /HPF 12/15/2017 [facility] URINE AND STOOL UA RBC 2 0 - 2 12/15/2017 [facility] URINE AND STOOL UA WBC 3 0 - 5 12/15/2017 [facility] URINE AND STOOL UA Sq Epi Occasional /LPF Few /LPF 12/15/2017 [facility] URINE AND STOOL UA Urobilinogen <=1.0 mg/dL 0.1 - 1.0 12/15/2017 [facility] URINE AND STOOL UA Color Ltyellow 12/15/2017 [facility] URINE AND STOOL UA Nitrite Negative (12/15/17 4:13 AM) Negative 12/15/2017 [facility] URINE AND STOOL UA Protein Negative mg/dL Negative mg/dL 12/15/2017 [facility] URINE AND STOOL UA pH 8.0 5.0 - 8.0 12/15/2017 [facility] URINE AND STOOL UA Spec Grav 1.010 <=1.030 12/15/2017 [facility] URINE AND STOOL UA Turbidity Clear (12/15/17 4:13 AM) Clear 12/15/2017 [facility] CARDIAC ENZYMES CK MB Index 1.8 0.0 - 2.5 12/15/2017 [facility] CARDIAC ENZYMES Total CK 73 12 - 191 12/15/2017 [facility] CARDIAC ENZYMES CK MB 1.3 0.5 - 3.6 12/15/2017 [facility] CARDIAC ENZYMES Troponin-I <0.02 0.00 - 0.40 12/15/2017 [facility] CHEM PANEL Phosphorus 2.7 2.5 - 4.5 12/15/2017 [facility] CHEM PANEL Magnesium Lvl 2.4 1.8 - 2.4 12/15/2017 [facility] CHEM PANEL eGFR 75 12/15/2017 Result [...] should be multiplied by the estimated BMI. [facility] CHEM PANEL B/C Ratio 10 6 - 25 12/15/2017 [facility] CHEM PANEL Globulin 3.7 2.7 - 4.2 12/15/2017 [facility] CHEM PANEL BUN 7 7 - 22 12/15/2017 [facility] CHEM PANEL Glucose Lvl 101 70 - 99 12/15/2017 [facility] CHEM PANEL Creatinine Lvl 0.72 0.50 - 1.40 12/15/2017 [facility] CHEM PANEL Sodium Lvl 135 135 - 145 12/15/2017 [facility] CHEM PANEL ALT 25 0 - 65 12/15/2017 [facility] CHEM PANEL AST 30 0 - 37 12/15/2017 [facility] CHEM PANEL Albumin Lvl 4.1 3.5 - 5.0 12/15/2017 [facility] CHEM PANEL Calcium Lvl 8.6 8.5 - 10.5 12/15/2017 [facility] CHEM PANEL Total Protein 7.8 6.4 - 8.4 12/15/2017 [facility] CHEM PANEL Bili Total 0.4 0.2 - 1.3 12/15/2017 [facility] CHEM PANEL AGAP 10.5 10.0 - 20.0 12/15/2017 [facility] CHEM PANEL Alk Phos 25 39 - 136 12/15/2017 [facility] CHEM PANEL A/G Ratio 1.1 0.7 - 1.6 12/15/2017 [facility] CHEM PANEL Chloride Lvl 96 95 - 109 12/15/2017 [facility] CHEM PANEL CO2 32 24 - 32 12/15/2017 [facility] HEMATOLOGY Segs 64.9 45.0 - 75.0 12/15/2017 [facility] HEMATOLOGY Lymphocytes 23.0 20.0 - 40.0 12/15/2017 [facility] HEMATOLOGY Monocytes # 0.7 0.0 - 0.8 12/15/2017 [facility] HEMATOLOGY Basophils 0.7 0.0 - 1.0 12/15/2017 [facility] HEMATOLOGY Eosinophils 0.4 0.0 - 4.0 12/15/2017 [facility] HEMATOLOGY Lymphocytes # 1.5 1.0 - 5.5 12/15/2017 [facility] HEMATOLOGY Neutrophils # 4.3 1.5 - 8.1 12/15/2017 [facility] HEMATOLOGY Monocytes 11.0 2.0 - 12.0 12/15/2017 [facility] HEMATOLOGY MPV 7.8 7.4 - 10.4 12/15/2017 [facility] HEMATOLOGY MCHC 33.3 32.0 - 36.0 12/15/2017 [facility] HEMATOLOGY MCH 28.4 27.0 - 31.0 12/15/2017 [facility] HEMATOLOGY RDW 16.5 11.5 - 14.5 12/15/2017 [facility] HEMATOLOGY Platelet 230 133 - 450 12/15/2017 [facility] HEMATOLOGY MCV 85.4 80.0 - 98.0 12/15/2017 [facility] HEMATOLOGY WBC 6.6 3.7 - 10.4 12/15/2017 [facility] HEMATOLOGY RBC 4.68 4.20 - 5.40 12/15/2017 [facility] HEMATOLOGY Hgb 13.3 12.0 - 16.0 12/15/2017 [facility] HEMATOLOGY Hct 40.0 36.0 - 48.0 12/15/2017 [facility] HEMATOLOGY INR 1.19 0.85 - 1.17 12/15/2017 [facility] HEMATOLOGY PT 15.2 12.0 - 14.7 12/15/2017 [facility] HEMATOLOGY PTT 30.1 22.9 - 35.8 12/15/2017 [facility] CARDIAC ENZYMES CK-BB 0 0 % 12/05/2017 Result Comment: Performed At: [facility]
[address] [place], [place] [id number]
Christopher GARCIA MD Ph:[phone]
Performed At: [facility]
[address] [place], [place] [id number]
Jose Gary MD Ph:[phone] [facility] CARDIAC ENZYMES CK Macro Type 2 0 Not Observed % 12/05/2017 [facility] CARDIAC ENZYMES CK-MM 100 97 - 100 12/05/2017 [facility] CARDIAC ENZYMES CK Macro Type 1 0 Not Observed % 12/05/2017 [facility] CARDIAC ENZYMES CK-MB 0 0 - 3 12/05/2017 [facility] CARDIAC ENZYMES CK Total 45 24 - 173 12/05/2017 [facility] CARDIAC ENZYMES Troponin-I <0.02 0.00 - 0.40 12/04/2017 [facility] CARDIAC ENZYMES BNP 146 <=100 pg/mL 12/04/2017 [facility] CARDIAC ENZYMES CK MB 1.1 0.5 - 3.6 12/04/2017 [facility] CARDIAC ENZYMES Total CK 51 12 - 191 12/04/2017 [facility] CARDIAC ENZYMES CK MB Index 2.2 0.0 - 2.5 12/04/2017 [facility] CHEM PANEL eGFR 76 12/04/2017 Result [...] Bili Total 0.4 0.2 - 1.3 12/04/2017 [facility] CHEM PANEL AGAP 7.6 10.0 - 20.0 12/04/2017 [facility] CHEM PANEL Albumin Lvl 4.0 3.5 - 5.0 12/04/2017 [facility] CHEM PANEL ALT 23 0 - 65 12/04/2017 [facility] CHEM PANEL AST 22 0 - 37 12/04/2017 [facility] CHEM PANEL Chloride Lvl 101 95 - 109 12/04/2017 [facility] CHEM PANEL CO2 34 24 - 32 12/04/2017 [facility] CHEM PANEL Calcium Lvl 9.0 8.5 - 10.5 12/04/2017 [facility] CHEM PANEL Total Protein 7.4 6.4 - 8.4 12/04/2017 [facility] CHEM PANEL A/G Ratio 1.2 0.7 - 1.6 12/04/2017 [facility] CHEM PANEL Potassium Lvl 4.6 3.5 - 5.1 12/04/2017 [facility] CHEM PANEL Sodium Lvl 138 135 - 145 12/04/2017 [facility] CHEM PANEL Creatinine Lvl 0.72 0.50 - 1.40 12/04/2017 [facility] CHEM PANEL BUN 13 7 - 22 12/04/2017 [facility] CHEM PANEL Glucose Lvl 90 70 - 99 12/04/2017 [facility] HEMATOLOGY RBC 4.16 4.20 - 5.40 12/04/2017 [facility] HEMATOLOGY WBC 10.4 3.7 - 10.4 12/04/2017 [facility] HEMATOLOGY Hct 35.9 36.0 - 48.0 12/04/2017 [facility] HEMATOLOGY Hgb 12.0 12.0 - 16.0 12/04/2017 [facility] HEMATOLOGY MCH 28.7 27.0 - 31.0 12/04/2017 [facility] HEMATOLOGY RDW 17.7 11.5 - 14.5 12/04/[address] [facility] MCV 86.3 80.0 - 98.0 12/04/[address] [facility] MCHC 33.3 32.0 - 36.0 12/04/[address] [facility] MPV 8.1 7.4 - 10.4 12/04/[address] [facility] Platelet 193 133 - 450 12/04/[address] [facility] PT 14.0 12.0 - 14.7 12/04/[address] [facility] INR 1.08 0.85 - 1.17 12/04/[address] [facility] PTT 32.1 22.9 - 35.8 12/04/[address] [facility] Eosinophils 3.6 0.0 - 4.0 12/04/[address] [facility] Monocytes 10.2 2.0 - 12.0 12/04/[address] [facility] Lymphocytes 23.3 20.0 - 40.0 12/04/[address] [facility] Lymphocytes # 2.4 1.0 - 5.5 12/04/[address] [facility] Segs 62.3 45.0 - 75.0 12/04/[address] [facility] Segs-Bands # 6.5 1.5 - 8.1 12/04/[address] [facility] Basophils 0.6 0.0 - 1.0 12/04/[address] [facility] Basophils # 0.1 0.0 - 0.2 12/04/2017 [facility] HEMATOLOGY Eosinophils # 0.4 0.0 - 0.5 12/04/[address] [facility] Monocytes # 1.1 0.0 - 0.8 12/04/2017 [facility] CHEM PANEL eGFR 68 04/09/2016 Result [...] should be multiplied by the estimated BMI. [facility] CHEM PANEL POC Creatinine 0.8 0.5 - 1.4 04/09/2016 [facility] TOXICOLOGY Vanco Tr TND 0 01/26/2016 [facility] TOXICOLOGY Vanco Tr 11.2 01/26/2016 [facility] ELECTROLYTES AGAP 13.0 10.0 - 20.0 01/24/2016 [facility] ELECTROLYTES BUN 15 7 - 22 01/24/2016 [facility] ELECTROLYTES CO2 31 24 - 32 01/24/2016 [facility] ELECTROLYTES Chloride Lvl 107 95 - 109 01/24/2016 [facility] ELECTROLYTES Calcium Lvl 8.8 8.5 - 10.5 01/24/2016 [facility] ELECTROLYTES Potassium Lvl 5.0 3.5 - 5.1 01/24/2016 [facility] ELECTROLYTES Sodium Lvl 146 135 - 145 01/24/2016 [facility] ELECTROLYTES Glucose Lvl 88 70 - 99 01/24/2016 [facility] ELECTROLYTES Creatinine Lvl 0.9 2 0.50 - 1.40 01/24/2016 [facility] ELECTROLYTES eGFR 57 01/24/2016 Result Comment: [...] should be multiplied by the estimated BMI. [facility] HEMATOLOGY MCHC 32.4 32.0 - 36.0 01/24/2016 [facility] HEMATOLOGY RDW 15.9 11.5 - 14.5 01/24/2016 [facility] HEMATOLOGY MCH 26.7 27.0 - 31.0 01/24/2016 [facility] HEMATOLOGY WBC 6.5 3.7 - 10.4 01/24/2016 [facility] HEMATOLOGY MPV 8.2 7.4 - 10.4 01/24/2016 [facility] HEMATOLOGY Platelet 216 133 - 450 01/24/2016 [facility] HEMATOLOGY Hct 37.8 36.0 - 48.0 01/24/2016 [facility] HEMATOLOGY MCV 82.3 80.0 - 98.0 01/24/2016 [facility] HEMATOLOGY Hgb 12.2 12.0 - 16.0 01/24/2016 [facility] HEMATOLOGY RBC 4.59 4.20 - 5.40 01/24/2016 [facility] HEMATOLOGY Monocytes # 0.8 0.0 - 0.8 01/24/2016 [facility] HEMATOLOGY Basophils 0.7 0.0 - 1.0 01/24/2016 [facility] HEMATOLOGY Eosinophils 6.8 0.0 - 4.0 01/24/2016 [facility] HEMATOLOGY Eosinophils # 0.4 0.0 - 0.5 01/24/2016 [facility] HEMATOLOGY Lymphocytes # 2.6 1.0 - 5.5 01/24/2016 [facility] HEMATOLOGY Lymphocytes 39.4 20.0 - 40.0 01/24/2016 [facility] HEMATOLOGY Segs 40.9 45.0 - 75.0 01/24/2016 [facility] HEMATOLOGY Segs-Bands # 2.7 1.5 - 8.1 01/24/2016 [facility] HEMATOLOGY Monocytes 12.2 2.0 - 12.0 01/24/2016 [facility] CHEM PANEL Globulin 3.6 2.7 - 4.2 01/22/2016 [facility] CHEM PANEL A/G Ratio 1.1 0.7 - 1.6 01/22/2016 [facility] CHEM PANEL Albumin Lvl 3.8 3.5 - 5.0 01/22/2016 [facility] CHEM PANEL Total Protein 7.4 6.4 - 8.4 01/22/2016 [facility] CHEM PANEL Calcium Lvl 7.9 8.5 - 10.5 01/22/2016 [facility] CHEM PANEL AGAP 10.2 10.0 - 20.0 01/22/2016 [facility] CHEM PANEL B/C Ratio 14 6 - 25 01/22/2016 [facility] CHEM PANEL Chloride Lvl 106 95 - 109 01/22/2016 [facility] CHEM PANEL CO2 27 24 - 32 01/22/2016 [facility] CHEM PANEL Potassium Lvl 4.2 3.5 - 5.1 01/22/2016 [facility] CHEM PANEL Sodium Lvl 139 135 - 145 01/22/2016 [facility] CHEM PANEL Glucose Lvl 167 70 - 99 01/22/2016 [facility] CHEM PANEL Creatinine Lvl 1.23 0.50 - 1.40 01/22/2016 [facility] CHEM PANEL BUN 17 7 - 22 01/22/2016 [facility] CHEM PANEL eGFR 40 01/22/2016 Result [...] should be multiplied by the estimated BMI. [facility] CHEM PANEL Bili Total 0.4 0.2 - 1.3 01/22/2016 [facility] CHEM PANEL Alk Phos 31 39 - 136 01/22/2016 [facility] CHEM PANEL AST 23 0 - 37 01/22/2016 [facility] CHEM PANEL ALT 28 0 - 65 01/22/2016 [facility] HEMATOLOGY Monocytes # 0.1 0.0 - 0.8 01/22/[address] [facility] Lymphocytes # 0.6 1.0 - 5.5 01/22/2016 [facility] HEMATOLOGY Monocytes 1.0 2.0 - 12.0 01/22/2016 [facility] HEMATOLOGY Basophils 0.3 0.0 - 1.0 01/22/2016 [facility] HEMATOLOGY Segs-Bands # 7.6 1.5 - 8.1 01/22/2016 [facility] HEMATOLOGY Eosinophils 0.2 0.0 - 4.0 01/22/2016 [facility] HEMATOLOGY Segs 91.3 45.0 - 75.0 01/22/2016 [facility] HEMATOLOGY Lymphocytes 7.2 20.0 - 40.0 01/22/2016 [facility] HEMATOLOGY RBC 4.77 4.20 - 5.40 01/22/2016 [facility] HEMATOLOGY Hgb 12.7 12.0 - 16.0 01/22/2016 [facility] HEMATOLOGY Hct 39.2 36.0 - 48.0 01/22/2016 [facility] HEMATOLOGY MCV 82.1 80.0 - 98.0 01/22/[address] [facility] MPV 8.0 7.4 - 10.4 01/22/[address] [facility] MCH 26.6 27.0 - 31.0 01/22/[address] [facility] MCHC 32.5 32.0 - 36.0 01/22/2016 [facility] HEMATOLOGY RDW 15.4 11.5 - 14.5 01/22/[address] [facility] Platelet 218 133 - 450 01/22/[address] [facility] WBC 8.3 3.7 - 10.4 01/22/2016 [facility] CHEM PANEL eGFR 36 01/21/2016 Result [...] should be multiplied by the estimated BMI. [facility] CHEM PANEL A/G Ratio 1.1 0.7 - 1.6 01/21/2016 [facility] CHEM PANEL Alk Phos 26 39 - 136 01/21/2016 [facility] CHEM PANEL AGAP 9.9 10.0 - 20.0 01/21/2016 [facility] CHEM PANEL Bili Total 0.2 0.2 - 1.3 01/21/2016 [facility] CHEM PANEL Globulin 3.5 2.7 - 4.2 01/21/2016 [facility] CHEM PANEL B/C Ratio 11 6 - 25 01/21/2016 [facility] CHEM PANEL Calcium Lvl 7.8 8.5 [...] Creatinine Lvl 1.34 0.50 - 1.40 01/21/2016 [facility] CHEM PANEL BUN 15 7 - 22 01/21/2016 [facility] CHEM PANEL Procalcitonin Lvl <0.05 0.00 - 0.10 01/21/2016 [facility] CHEM PANEL Lactic Acid Lvl 1.3 0.5 - 2.2 01/21/2016 [facility] HEMATOLOGY MPV 8.2 7.4 - 10.4 01/21/2016 [facility] HEMATOLOGY WBC 5.7 3.7 - 10.4 01/21/2016 [facility] HEMATOLOGY Hct 38.8 36.0 - 48.0 01/21/2016 [facility] HEMATOLOGY Hgb 12.7 12.0 - 16.0 01/21/2016 [facility] HEMATOLOGY RBC 4.75 4.20 - 5.40 01/21/2016 [facility] HEMATOLOGY MCHC 32.7 32.0 - 36.0 01/21/2016 [facility] HEMATOLOGY Platelet 227 133 - 450 01/21/2016 [facility] HEMATOLOGY RDW 15.4 11.5 - 14.5 01/21/2016 [facility] HEMATOLOGY MCV 81.7 80.0 - 98.0 01/21/2016 [facility] HEMATOLOGY MCH 26.7 27.0 - 31.0 01/21/2016 [facility] HEMATOLOGY Basophils 0.7 0.0 - 1.0 01/21/2016 [facility] HEMATOLOGY Lymphocytes 37.4 20.0 - 40.0 01/21/2016 [facility] HEMATOLOGY Eosinophils 7.5 0.0 - 4.0 01/21/2016 [facility] HEMATOLOGY Segs 40.9 45.0 - 75.0 01/21/2016 [facility] HEMATOLOGY Monocytes 13.5 2.0 - 12.0 01/21/2016 [facility] HEMATOLOGY Lymphocytes # 2.1 1.0 - 5.5 01/21/2016 [facility] HEMATOLOGY Segs-Bands # 2.3 1.5 - 8.1 01/21/2016 [facility] HEMATOLOGY Eosinophils # 0.4 0.0 - 0.5 01/21/2016 [facility] HEMATOLOGY Monocytes # 0.8 0.0 - 0.8 01/21/2016 [facility] IMMUNOLOGY C-REACTIVE PROTEIN <2.9 <=2.9 mg/L 01/21/2016 [facility] Pathology Reports No Data Provided for [...] Chaidez MD On 01/08/2020 09:27:19; [id number] 01/07/2020 [facility] Barium Swallow w Esophagus Function DX [...] aspiration. Edwardo Gottlieb MD On 04/10/2019 09:38:17; [id number] 04/09/2019 [facility] Sinus [place] wo contr CT Clinical Indication: post nasal [...] superior and middle turbinates. SL: [id number] 01/24/2019 [facility] Chest 1view DX Chest radiograp h 1 view INDICATION: Dyspnea COMPARISON: 12/15/2017 FINDINGS: Heart size is normal. Pulmonary vasculature is not congested. Lungs are clear with no pneumonic consolidation. No large pleural effusion or pneumothorax. IMPRESSION: No acute abnormality. 12/28/2018 [facility] Ankle 3 views DX Right Ankle [...] the right distal fibula. SL: KPATEL-M 12/28/2018 [facility] Foot series DX Right Foot Clinical [...] acute fracture or dislocation. SL: KPATEL-M 12/28/2018 [facility] Tibia fibula series DX Right T [...] the right distal fibula. SL: KPATEL-M 12/28/2018 [facility] Abdomen RUQ US EXAM: Ultrasoun d [...] IMPRESSION: Small gallbladder polyp. SL: HMUSPARE-PC 12/18/2017 [facility] Abdomen w/wo contrast MRA EXAM : [...] axis, SMA, and JEANCARLOS. Atherosclerosis aorta. SL: [id number] 12/15/2017 [facility] Chest wo contrast CT Exam: Ro [...] 3. See above for additional findings. SL: [id number] 12/15/2017 [facility] Abdomen/Pelvis wo IV contrast CT Clinical [...] to patient size -Use of iterative reconstruction [employer] ue CT Radiation Dose DLP 913.44 mGy-cm [...] upper pole left kidney. SL: TORSTEN 12/15/2017 [facility] Brain wo contrast CT STUDY: [facility] wo contrast CT 12/15/2017 2:48 AM CDT Ordering Physician: Sanjana Cobb DO Patient Name: KATHE CUMMINGS MR: [id number] : 1930; Age: 87 years y/o Female [...] fluid collection. 4. Mild calcification within the general internist al carotid artery siphons. 5. Partially empty [...] 4. Mild chronic sinusitis. SL: ERICA-PC 12/15/2017 [facility] 1view DX Study: Chest 1v iew DX 12/15/2017 2:23 AM CDT Patient Name: KATHE CUMMINGS MR: [id number] : 1930; Age: 87 years y/o Female [...] limits of no rmal. SL: PHIL 12/15/2017 [facility] Cardiac SPECT multi studies NM LOCATION: [facility] This is a dobutamine myocardial perfusion study. [...] motion. IMPRESSION: Normal myocardial perfusion study. 12/05/2017 [facility] 1view DX Clinical Indica tion: - chest [...] radiographic evidence of acute cardiopulmonary disease. SL: [id number] 12/04/2017 [facility] Brain wo contrast MRI Brain wo [...] cervical spine degenerati ve changes. 12/21/2016 [facility] Hand 2 views Bilateral DX Bila teral [...] t he pelvis or lower extremities. SL: [id number] 04/09/2016 [facility] Chest 1view DX Clinical Indica tion:85 [...] catheter tip overlying the low SVC 01/26/2016 [facility] Esophagus BA swallow function video DX Patient Name: KATHE CUMMINGS : 1930; Age: 85 years y/o Female MR: [id number] Study: Esophagus BA swallow function video DX [...] noted findings: Thin: Flash penetration without aspiration. [place]: No penetration and aspiration. Pudding: No penetration and aspiration. Cracker: No penetration and aspiration. No significant residual contrast is seen in the vallecula or piriform sinuses. Visualized upper esophageal motility and emptying was normal. Fluoroscopy time: 0.8 IMPRESSION: Flash penetration with thin. No aspiration identified. For complete details please refer to speech pathologist report. SL: [id number] 01/26/2016 [facility] Barium Swallow w Esophagus Function DX [...] swallowing mechanism. Fluoroscopy Time: 2.6 minutes SL: [id number] 01/25/2016 [facility] Abdomen/Pelvis wo IV contrast CT Clinical [...] abdomen and pelvis CT from 11/13/2013. SL: [id number] 01/24/2016 [facility] Spine lumbar 2 or 3 views [...] with severe foraminal encroachment. SL: JNGUYEN-PC 12/06/2015 [facility] Ext Lower Venous Doppler Unilat US [...] Probable Garg's cyst, left popliteal fossa. SL: [id number] 11/11/2015 [facility] Ankle 3 views DX Ankle 3 views DX CLINICAL HISTORY: Pain and swelling FINDINGS/IMPRESSION: 3 views of the left ankle are submitted for review. There is no evidence for fracture or subluxation. The visualized bones demonstrate normal radiodensity. No radiopaque foreign body or other significant soft tissue abnormality is noted. SL: [id number] 11/11/2015 [facility] Foot series DX Foot series DX CLINICAL HISTORY: Pain and swelling FINDINGS/IMPRESSION: 3 views of the left foot are submitted f or review. There is no evidence for acute fracture or subluxation. Old fracture deformity of the 3rd and 5th metatarsal bones. Advanced degenerative changes within the 2nd and 3rd tarsometatarsal joints. No acute fracture subluxation or lesion is otherwise evident. 11/11/2015 [facility] Knee 3 views DX Patient Name: KATHE CUMMINGS : 1930; Age: 85 years y/o Female MR: [id number] Study: Knee 3 views DX 10/20/2015 6:23 [...] compartment spaces. Tiny joint fluid collection. SL: [id number] 10/20/2015 [facility] Tibia fibula series DX Patient Name: KATHE CUMMINGS : 1930; Age: 85 years y/o Female MR: [id number] Study: Tibia fibula series DX 10/20/2015 6:23 PM CDT Ordering Physician: Ebony Naranjo Comparison: None Clinical Indication: Left lower leg pain; Degenerative changes are noted at the left knee as described separately. There is no acute fracture or dislocation noted at the left tibia and fibula. Plantar calcaneal spurring. Degenerative changes are noted at the intertarsal articulations of the hindfoot. SL: [id number] 10/20/2015 [facility] Knee series 3 views DX Left [...] abnormalities of the left knee. 13 07/28/2015 [facility] Pelvis AP DX Pelvis one view: There is no fracture or dislocation. There is facet arthropathy at L5-S1.There are no other significant osseous or soft tissue abnormalities. IMPRESSION: No acute radiographic abnormalities of the pelvis. 13 07/28/2015 [facility] Femur series DX Left femur 2 v iews: There is no fracture or dislocation. Degenerative changes in the knee are noted which are further discussed in the left knee report on the same day. There are no other significant osseous, articular or soft tissue abnormalities. IMPRESSION: No acute radiographic abnormalities of the left femur. [id number] 07/28/2015 [facility] Consultation Notes No Data Provided for This Section Discharge Summaries No Data Provided for This Section History and Physicals No Data Provided for This Section Vital Signs Vital Sign Value Date Comments Source Systolic (mm Hg) 160 03/15/2019 [facility] Diastolic (mm Hg) 78 03/15/2019 [facility] Respitory Rate 16 03/15/2019 [facility] Heart Rate 80 03/15/2019 [facility] Systolic (mm Hg) 160 03/15/2019 [facility] Diastolic (mm Hg) 100 03/15/2019 [facility] Heart Rate 78 03/15/2019 [facility] Respitory Rate 18 03/15/2019 [facility] Systolic (mm Hg) 180 03/15/2019 [facility] Diastolic (mm Hg) 76 03/15/2019 [facility] Heart Rate 85 03/15/2019 [facility] Respitory Rate 15 03/15/2019 [facility] Temperature Oral (F) 98.1 F 03/15/2019 [facility] Height 157.48 cm 03/15/2019 [facility] BMI Calculated 24.74 03/15/2019 [facility] Weight 61.364 03/15/2019 [facility] Respitory Rate 20 12/29/2018 [facility] Weight 61.364 12/29/2018 [facility] Height 157.48 cm 12/29/2018 [facility] BMI Calculated 24.74 12/29/2018 [facility] Temperature Oral (F) 98.1 F 12/29/2018 [facility] Systolic (mm Hg) 170 12/29/2018 [facility] Diastolic (mm Hg) 103 12/29/2018 [facility] Respitory Rate 24 12/29/2018 [facility] Heart Rate 74 12/29/2018 [facility] Temperature Oral (F) 98.8 F 12/19/2017 [facility] Systolic (mm Hg) 170 12/19/2017 [facility] Diastolic (mm Hg) 67 12/19/2017 [facility] Respitory Rate 18 12/19/2017 [facility] Heart Rate 80 12/19/2017 [facility] Heart Rate 76 12/19/2017 [facility] Systolic (mm Hg) 160 12/19/2017 [facility] Diastolic (mm Hg) 70 12/19/2017 [facility] Respitory Rate 18 12/19/2017 [facility] Temperature Oral (F) 98 F 12/19/2017 [facility] Respitory Rate 18 12/19/2017 [facility] Heart Rate 77 12/19/2017 [facility] Systolic (mm Hg) 151 12/19/2017 [facility] Diastolic (mm Hg) 67 12/19/2017 [facility] Temperature Oral (F) 98.7 F 12/19/2017 [facility] Height 157.48 cm 12/15/2017 [facility] Weight 56.903 12/15/2017 [facility] BMI Calculated 22.94 12/15/2017 [facility] Weight 59.091 12/15/2017 [facility] Systolic (mm Hg) 151 12/05/2017 [facility] Diastolic (mm Hg) 76 12/05/2017 [facility] Temperature Oral (F) 97.8 F 12/05/2017 [facility] Heart Rate 112 12/05/2017 [facility] Respitory Rate 17 12/05/2017 [facility] Systolic (mm Hg) 129 12/05/2017 [facility] Diastolic (mm Hg) 61 12/05/2017 [facility] Respitory Rate 17 12/05/2017 [facility] Temperature Oral (F) 98.0 F 12/05/2017 [facility] Heart Rate 82 12/05/2017 [facility] Weight 60.909 12/05/2017 [facility] Respitory Rate 17 12/05/2017 [facility] Systolic (mm Hg) 174 12/05/2017 [facility] Diastolic (mm Hg) 72 12/05/2017 [facility] Heart Rate 77 12/05/2017 [facility] Temperature Oral (F) 98.3 F 12/05/2017 [...] 81 01/26/2016 [facility] Respitory Rate 18 01/26/2016 [facility] Temperature Oral (F) 97.6 F 01/26/2016 [facility] Weight 59.001 01/22/2016 [facility] BMI Calculated 23.79 01/22/2016 [facility] Height 157.48 cm 01/22/2016 [facility] Height 157.48 cm 01/21/2016 [facility] Weight 59.091 01/21/2016 [facility] BMI Calculated 23.83 01/21/2016 [facility] Temperature Oral (F) 98.9 F 11/11/2015 [facility] Systolic (mm Hg) 112 11/11/2015 [facility] Diastolic (mm Hg) 66 11/11/2015 [facility] Respitory Rate 18 11/11/2015 [facility] Heart Rate 72 11/11/2015 [facility] Respitory Rate 20 11/11/2015 [facility] Temperature Oral (F) 99.0 F 11/11/2015 [facility] Systolic (mm Hg) 144 11/11/2015 [facility] Heart Rate 78 11/11/2015 [facility] Diastolic (mm Hg) 50 11/11/2015 [facility] Heart Rate 76 11/11/2015 [facility] Respitory Rate 18 11/11/2015 [facility] Systolic (mm Hg) 110 11/11/2015 [facility] Diastolic (mm Hg) 68 11/11/2015 [facility] Weight 60 0 11/11/2015 [facility] Temperature Oral (F) 99.0 F 11/11/2015 [facility] BMI Calculated 24.19 11/11/2015 [facility] Height 157.48 cm 11/11/2015 [facility] Respitory Rate 18 10/21/2015 [facility] Systolic (mm Hg) 159 10/21/2015 [facility] Diastolic (mm Hg) 73 10/21/2015 [facility] Heart Rate 69 10/21/2015 [facility] Temperature Oral (F) 97.6 F 10/20/2015 [facility] Height 157.48 cm 10/20/2015 [facility] Systolic (mm Hg) 163 10/20/2015 [facility] Diastolic (mm Hg) 70 10/20/2015 [facility] Heart Rate 74 10/20/2015 [facility] Respitory Rate 18 10/20/2015 [facility] BMI Calculated 24.19 10/20/2015 [facility] Weight 60 0 10/20/2015 [facility] Weight 59.091 07/28/2015 [facility] BMI Calculated 23.83 07/28/2015 [facility] Height 157.48 cm 07/28/2015 [facility] Temperature Oral (F) 98.2 F 07/28/2015 [facility] Heart Rate 84 07/28/2015 [facility] Respitory Rate 20 07/28/2015 [facility] Systolic (mm Hg) 160 07/28/2015 [facility] Diastolic (mm Hg) 84 07/28/2015 [facility] Hospital Encounters Location Location Details Encounter Type Encounter Number Reason For Visit Attending Provider ADM Date DC Date Status Source [facility] [place] [facility] [id number] Subhadra Bandhakavi 4 01/21/2014 [facility] [place] [facility] [place] [facility] [id number] Subhadra Bandhakavi 4 02/20/2014 [facility] [place] [facility] [place] [facility] [id number] Subhadra Bandhakavi 02/09/2014 02/10/2014 [facility] [id number] Grecia Gnosticist 07/28/2015 07/28/2015 [facility] [id number] Sanjana Cobb 10/20/2015 10/21/2015 [facility] [place] [facility] [id number] Subhadra Bandhakavi 6 12/11/2015 [facility] Emergency Center [id number] Kannan Price 11/11/2015 11/11/2015 [facility] Outpatient [id number] Abigailgonzalo Soriaan 12/06/2015 12/07/2015 [facility] Inpatient [id number] Subhadra Bandhakavi 6 01/26/2016 [facility] Outpatient [id number] Sloane Herzog 201504/10/2016 [facility] Outpatient [id number] Abigail Theresa 06/14/2016 06/15/2016 [facility] [place] [facility] [id number] Subhadra Bandhakavi 12/21/2016 12/22/2016 [facility] Observation [id number] Subhadra Bandhakavi 8 12/06/2017 [facility] Inpatient [id number] Subhadra Bandhakavi 8 12/19/2017 [facility] Outpatient [id number] KILO KNOTT 12/15/2017 [facility] General Surgery [facility] Outpatient [id number] Kilo [place] 12/15/2017 12/16/2017 [facility] [place] [facility] [id number] Subhadra Bandhakavi 8 02/05/2018 [facility] [place] [facility] [place] [facility] [id number] Subhadra Bandhakavi 8 03/09/2018 [facility] [place] [facility] [place] [facility] [id number] Subhadra Bandhakavi 8 [facility]17[facility]2018 [facility] [id number] Baldo Nolasco 12/29/2018 12/29/2018 [facility] Outpatient [id number] Rosemary Jung 01/24/2019 01/25/2019 [facility] [place] [facility] [id number] Feng David 02/24/2019 03/26/2019 [facility] Emergency [id number] Lenny Modi 03/15/2019 03/15/2019 [facility] OP Therapy Patients [id number] Feng David 04/02/2019 05/02/2019 [facility] Outpatient [id number] Jackson Victor 04/09/2019 04/10/2019 [facility] Outpatient [id number] Abigail Cardenas 01/07/2020 01/08/2020 [facility] Procedures Procedure Code Date Perfomer Comments Source Ankle closure [id number] [facility] Extraction of cataracts from both eyes [id number] [facility] Hand implantation [id number] [facility] ID - Incision and drainage of abscess [id number] [facility] Operation on meniscus of the knee [id number] [facility] Total hysterectomy [id number] [facility] Assessment and Plan Assessment and Plan Date Source Extracted from:Title: Clinical Document Author: Fallon Gramajo MD Date: 12/19/17 [id number] Extracted from:Title: Clinical Document Author: January Gabriel [...] CK 73 (DEC 15) Addendum by Wali oClon MD on 12/20/2017 11:55 The patient was seen and examined with the physician social human services assistants. I agree and concur woth her findings and recommendations. 12/19/2017 [facility] Extracted from:Title: Clinical Document Author: Fallon Gramajo MD Date: 12/06/17 [id number] Extracted from:Title: Clinical Document Author: Sloane Herzog MD Date: 12/05/17 Progress Note [facility] Sloane Herzog M.D. [facility] SUBJECTIVE Had no more chest pain had [...] Document Author: Fallon Gramajo MD Date: 12/04/17 [id number] 12/06/2017 [facility] Extracted from:Title: Clinical Document Author: Jackson [...] Document Author: Fallon Gramajo MD Date: 01/21/16 [id number] 01/26/2016 [facility] Plan of Care No Data Provided [...] Cessation Counseling No entered on: 03/14/19 12/15/2017 [facility] Social History TypeResponse Alcohol Never, Previous [...] Cessation Counseling No entered on: 03/14/19 12/15/2017 [facility] Social History TypeResponse Alcohol Never, Previous [...]
--- OUTSIDE RECORDS SUMMARY | 2020-01-30 21:20 | XMS REPORT | Continuity of Care Document ---
Author Author [facility] t Organization [facility] Address [address] [place] [address] Phone Unavailable Care Team Providers Care Molded Frames Assembler Name Role Phone Alise ZAVALA Attphys Unavailable David Cardenas Attphys Jose C David Attphys Unavailable Liza Victor Attphys Brendan Modi Attphys Noemi Jung Attphys Kavon Nolasco Attphys Bandhakavi, Subhadra Attphys Aiden Sims Attphys Sloane Herzog Attphys Francis Price Attphys Jessica Cobb Attphys Cortez Rogel Attphys David Cardenas Admphys Bandhakavi, Subhadra Admphys Payers Payer Name Policy Type Policy Number Effective Date Expiration Date S ource Problems Condition Name Condition Details Condition Category Status Onset Date Resolution Date Last Treatment Date Treating Clinician Comments Source M79.641 M79. 641 Active 01/07/2020 [facility] Diagnosis Active 2020-01-07 15:44:00 2020-01-07 15:47:[address] [facility] DX: K21.9=GASTRO-ESOPHAGEAL REFLUX DISEA DX: K21.9=GASTRO-ESOPHAGEAL REFLUX DISEA Active 03/27/2019 [facility] Active 2019-03-27 00:00:00 2019-04-09 13:03:[address] [facility] LEFT LEG SWOLLEN LEFT LEG SWOLLEN Active 03/14/2019 [facility] Diagnosis Active 2019-03-14 00:00:00 2019-03-14 21:13:[address] [facility] RT ANKLE RT A NKLE Active 02/20/2019 [facility] [place] Diagnosis Active 2019-02-20 11:29:00 2019-05-21 07:46:[address] [facility] R09.82/J31.0 LANDMARK PROTOCOL R09.82/J31.0 LANDMARK PROTOCOL Active 01/22/2019 [facility] Diagnosis Ac tive 2019-01-22 00:00:00 2019-01-24 13:05:00 [facility] LEG PAIN LEG PAIN Active 12/28/2018 [facility] Diagnosis Active 2018-12-28 00:00:00 2019-01-22 12:15:[address] [facility] RT SIDE LBP W/RT SIDE SCIATICA RT SIDE LBP W/RT SIDE SCIATICA Active 01/01/2018 [facility] [place] Diagnosis Active 01-01 14:58:00 2018-01-08 15:55:00 [facility] morales RIGHT SIDE LOWER BACK PAIN AND SCIATICA RIGHT SIDE LOWER BACK PAIN AND SCIATICA Active 12/25/2017 [facility] [place] Diagnosis Active 2017-12-25 08:00:00 2018-03-13 15:43:00 [facility] RIGHT SIDE LOWER BACK PAIN RIG HT SIDE LOWER BACK PAIN Active 12/25/2017 [facility] [place] Diagnosis Active 2017-12-25 08:00:00 2018-04-05 20:24:[address] [facility] ABD PAIN ABD PAIN Active 12/15/2017 [facility] Active 2017-12-15 00:00:00 2017-12-15 02:57:[address] [facility] ABDOMINAL PAIN, PNEUMONIA ABDO BISI PAIN, PNEUMONIA Active 12/15/2017 [facility] Active 2017-12-15 00:00:00 2017-12-17 02:58:00 [facility] CHEST PAIN CHES T PAIN Active 12/04/2017 [facility] Diagnosis Active 2017-12-04 00:00:00 2017-12-04 16:54:00 [facility] ACUTE CHEST PAIN ACUT E CHEST PAIN Active 12/04/2017 [facility] Active 2017-12-04 00:00:00 2017-12-05 10:41:00 [facility] M05.741, M05.742 M05. 741, M05.742 Active 06/14/2016 [facility] Diagnosis Active 2016-06-14 00:00:00 2016-06-14 16:01:00 [facility] DX: PAD /CLAUDICATION/ABNORMAL DOPPLER I DX: PAD /CLAUDICATION/ABNORMAL DOPPLER I Active 03/30/2016 [facility] Diagnosis Active 2016-03-30 00:00:00 2016-04-09 13:23:00 M mumtaz Vega INSECT BITE INSE CT BITE Active 01/21/2016 [facility] Diagnosis Active 2016-01-21 00:00:00 2016-01-21 17:17:00 [facility] LUE CELLULITIS W/IMMUNE SYSTEM SUPPRESSI LUE CELLULITIS W/IMMUNE SYSTEM SUPPRESSI Active 01/21/2016 [facility] Diagnosis Ac tive 2016-01-21 00:00:00 2016-01-24 14:48:00 M mumtaz Vega DX; K21.9=GASTRO-ESOPHAGEAL REFLUX DISEA DX; K21.9=GASTRO-ESOPHAGEAL REFLUX DISEA Active 01/19/2016 [facility] Diagnosis Active 2016-01-19 00:00:00 2016-02-25 15:48:00 [facility] LEG PAIN OR INJURY LEG PAIN OR INJURY Active 10/19/2015 [facility] Diagnosis Active 2015-10-19 08:00:00 2015-10-20 18:52:00 [facility] HIP PAIN HIP PAIN Active 07/28/2015 [facility] Diagnosis Active 2015-07-28 00:00:00 2015-07-28 13:24:00 Vinh Vega Other lack of coordination Oth er lack of coordination 11/04/2018 [facility] Problem 2018-11-04 11:33:16 [facility] Difficulty in walking, not elsewhere classified Difficulty in walking, not elsewhere classified 11/04/2018 [facility] [place] Problem 2018-11-04 11:33:16 Vinh Vega Muscle weakness (generalized) Muscle weakness (generalized) 11/04/2018 [facility] [place] Problem 2018-10 11:33:16 Vinh Vega Unsteadiness on feet Unst eadiness on feet 11/04/2018 [facility] [place] Problem 2018-11-04 11:33:16 Vinh Vega Pneumonia, unspecified organism Pneumonia, unspecified organism 07/08/2018 [facility] 2018-07-08 13:5 7:28 [facility] Dehydration Dehy dration 07/08/2018 [facility] 2018-07-08 13:57:28 Memor wan Vega Fibromyalgia Fibr omyalgia 07/08/2018 [facility] 2018-07-08 13:57:28 [facility] Unspecified osteoarthritis, unspecified site Unspecified osteoarthritis, unspecified site 07/08/2018 [facility] 2018-07-08 13:57:28 [facility] Rheumatoid arthritis, unspecified Rheumatoid arthritis, unspecified 07/08/2018 [facility] 2018-07-08 1 3:57:28 [facility] Restless legs syndrome Rest less legs syndrome 07/08/2018 [facility] 2018-07-08 13:57:28 [facility] Essential (primary) hypertension Essential (primary) hypertension 07/08/2018 [facility] 2018-07-08 13:57:28 [facility] Polyp of stomach and duodenum Polyp of stomach and duodenum 07/08/2018 [facility] 2018-07-08 13:5 7:28 [facility] 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 07/08/2018 [facility] 2018-07-08 1 3:57:28 [facility] Pure hypercholesterolemia, unspecified Pure hypercholesterolemia, unspecified 07/08/2018 [facility] 2018-07-08 13:57:28 [facility] Hyperlipidemia, unspecified Hy perlipidemia, unspecified 07/08/2018 [facility] 2018-07-08 13:57:2 8 [facility] Chronic pain syndrome [employer] nandini pain syndrome 07/08/2018 [facility] 2018-07-08 13:57:28 mumtaz Vega Atherosclerosis of aorta Athe rosclerosis of aorta 07/08/2018 [facility] 2018-07-08 13:57:28 [facility] Gastro-esophageal reflux disease without esophagitis Gastro-esophageal reflux disease without esophagitis 07/08/2018 [facility] 2018-07-08 13:57:28 Vinh Vega Diaphragmatic hernia without obstruction or gangrene Diaphragmatic hernia without obstruction or gangrene 07/08/2018 [facility] Problem 2018-07-08 13:57:28 Vinh Vega Other constipation Othe r constipation 07/08/2018 [facility] Problem 2018-07-08 13:57:28 Wa nancy Gary 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 07/08/2018 [facility] Problem 2018-07-08 13:57:28 Vinh Vega Diarrhea, unspecified Diar alison, unspecified 07/08/2018 [facility] Problem 2018-07-08 13:57:28 M mumtaz Vega Adverse effect of unspecified narcotics, initial encou nter Adverse effect of unspecified narcotics, initial encounter 07/08/2018 [facility] Problem 2018-07-08 13:57:28 Wa n[facility] Restlessness and agitation Res tlessness and agitation 07/08/2018 [facility] Problem 2018-07-08 13:57:2 8 Vihn Vega Personal history of colonic polyps Personal history of colonic polyps 07/08/2018 [facility] Problem 2018-06-27 2 13:57:28 Vinh Vega Migraine, unspecified, not intractable, without status migrainosus Migraine, unspecified, not intractable, without status migrainosus 07/08/2018 [facility] Problem 2018-07-08 13:57:28 Vinh Vega Hypokalemia Hypo kalemia 07/08/2018 [facility] Problem 2018-07-08 13:57:28 Jorge Vega Pain in right knee Pain in right knee 01/09/2020 [facility] Problem 2020-01-09 22:45:35 Wa nancy Vega Fibromyositis (disorder) Fibr omyositis (disorder) Resolved Problem 01/09/2020 [facility] [place],[facility], [facility] [place] Problem Resolved 2020-01-09 22:45:35 [facility] Hyperlipidemia (disorder) Hype rlipidemia (disorder) Resolved Problem 01/09/2020 [facility] GLEN [place],[facility], [facility] [place] Problem Resolved 2020-01-09 22:45:35 martharixu Vega Hypertensive disorder, systemic arterial (disorder) Hypertensive disorder, systemic arterial (disorder) Resolved Problem 01/09/2020 [facility] [place],[facility], [facility] [place] Problem Resolved 2020-01-09 22:45:35 [facility] Rheumatoid arthritis (disorder) Rheumatoid arthritis (disorder) Resolved Problem 01/09/2020 [facility] [place], [facility], [facility] [place] Problem Resolved 2020-01-09 22:45:35 [facility] NECK/BACK NECK /BACK Active [facility] [place] Diagnosis Active 2014-01-28 16:25:00 Memor ial Ava TRAUMATIC ECCHYMOSIS OF LT LOWER LEG TRAUMATIC ECCHYMOSIS OF LT LOWER LEG Active [facility] [place] Diagnosis Active 2015-11-11 14:20:00 [facility] BACK PAIN BACK PAIN Active [facility] Active 2015-12-06 17:20:00 [facility] LOW BACK PAIN LOW BACK PAIN Active [facility] Active 2015-12-06 17:20:[address] [facility] GASTRO-ESOPHAGEAL REFLUX DISEASE WITHOUT GASTRO- ESOPHAGEAL REFLUX DISEASE WITHOUT Active [facility] Active 2019-04-09 13:03:[address] [facility] DYSPHAGIA, UNSPECIFIED DYSP HAGIA, UNSPECIFIED Active [facility] Active 2016-02-25 15:48:00 mumtaz Vega PERSONAL HISTORY OF COLONIC POLYPS PERSONAL HISTORY OF COLONIC POLYPS Active [facility] Active 2016-02-25 15:48:[address] [facility] CELLULITIS AND ABSCESS OF MOUTH CELLULITIS AND ABSCESS OF MOUTH Active [facility] Active 2016-01-24 14:48 :[address] [facility] PERIPHERAL VASCULAR DISEASE, UNSPECIFIED PERIPHERAL VASCULAR DISEASE, UNSPECIFIED Active [facility] Active 2016-04-09 13:23:[address] [facility] RHEU ARTHRITIS W RHEU FACTOR OF R HAND W RHEU ARTHRITIS W RHEU FACTOR OF R HAND W Active [facility] Active 2016-06-14 16:01:[address] [facility] RHEU ARTHRITIS W RHEU FACTOR OF LEFT SPANGLER RHEU ARTHRITIS W RHEU FACTOR OF LEFT SPANGLER Active [facility] Active 2016-06-14 16:01:[address] [facility] UNSPECIFIED ABDOMINAL PAIN UNS PECIFIED ABDOMINAL PAIN Active [facility] Active 2017-12-17 02:58:[address] [facility] PNEUMONIA, UNSPECIFIED ORGANISM PNEUMONIA, UNSPECIFIED ORGANISM Active [facility] Active 2017-12-17 02:58 :[address] [facility] LUMBAGO WITH SCIATICA, RIGHT SIDE LUMBAGO WITH SCIATICA, RIGHT SIDE Active [facility] [place] [facility] Active 2017 20:24:00 Vinh Vega DIFFICULTY IN WALKING, NOT ELSEWHERE CLA DIFFICULTY IN WALKING, NOT ELSEWHERE CLA Active [facility] [place] [facility] Active 2018-04-05 20:24:00 Vinh Vega UNSTEADINESS ON FEET UNST EADINESS ON FEET Active [facility] [place] [facility] Active 2018-04-05 20:24:00 Me nancy Vega OTHER LACK OF COORDINATION OTH ER LACK OF COORDINATION Active [facility] [place] [facility] Active 2018-04-05 20:24:00 Vinh Vega MUSCLE WEAKNESS (GENERALIZED) MUSCLE WEAKNESS (GENERALIZED) Active [facility] [place] [facility] Active 201 01-04-10 20:24:00 Vinh Vega POSTNASAL DRIP POST NASAL DRIP Active [facility] Active 2019-01-24 13:05:00 Vinh Vega 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 Active [facility] Active 2019-01-24 13:05:00 Vinh Vega PAIN IN RIGHT HAND PAIN IN RIGHT HAND Active [facility] Active 2020-01-07 15:47:00 Me morial Ava PAIN IN LEFT HAND PAIN IN LEFT HAND Active [facility] Active 2020-01-07 15:47:00 [facility] PAIN IN LEFT KNEE PAIN IN LEFT KNEE Active [facility] Active 2020-01-07 15:47:00 [facility] PAIN IN RIGHT KNEE PAIN IN RIGHT KNEE Active [facility] Active 2020-01-07 15:47:00 Me nancy Vega Unspecified open wound, unspecified lower leg, initial [...] encounter Unspecified fall, initial encounter 12/29/2018 12/31/2018 [facility] Problem 2018-12-29 17:00:00 2018-12-31 21:09:18 2018-12-31 21:09:18 Linda thomasrial [facility] Lumbago with sciatica, right side Lumbago with sciatica, right side 04/23/2018 11/04/2018 [facility] [place] Problem 2018-04-23 05:38:45 2018-11-04 11:33:16 2018-11-04 11:33:[address] [facility] Unspecified abdominal pain Uns pecified abdominal pain 12/27/2017 07/08/2018 [facility] Problem 2017-12-27 03:1 8:12 2018-07-08 13:57:28 2018-07-08 13:57:28 [facility] Discharge Diagnosis: Left foot pain Discharge Diagnosis: Left foot pain 11/11/2015 11/14/2015 [facility] Problem 2015-11-11 05:00:00 2015-11-14 04:34:43 2015-11-14 04:34:[address] [facility] Discharge Diagnosis: Musculoskeletal limb pain Discharge Diagnosis: Musculoskeletal limb pain 11/11/2015 11/14/2015 [facility] Problem 2015-11-11 05:00:00 2015-11-14 04:34:43 2015-11-14 04:34:[address] [facility] Discharge Diagnosis: Contusion of left leg Discharge Diagnosis: Contusion of left leg 10/20/2015 10/23/2015 [facility] Problem 2015-10-20 05:00:00 2015-10-23 03:40:39 2015-10-23 03:40:[address] [facility] Discharge Diagnosis: Contusion of left knee, initial e ncounter Discharge Diagnosis: Contusion of left knee, initial encounter 07/28/2015 07/31/2015 [facility] Problem 2015-07-28 06:00:00 2015 06:30:39 2015-07-31 06:30:[address] [facility] Allergies, Adverse Reactions, Alerts Allergy Name Allergy Type Status Severity Reaction(s) Onset Date Inacti ve Date Treating Clinician Comments Source misoprostol DA Active U 2019-02-05 00:00:00 [facility] diclofenac DA Active U 2019-02-05 00:00:00 [facility] pantoprazole DA Active U 2019-02-05 00:00:00 [facility] Pentazocine Lactate DA Active U 2019-02-04 00:00:00 [facility] Penicillins DA Active CO 2019-02-04 00:00:00 [facility] iodine DA Active SV 2019-02-04 00:00:00 [facility] niacin DA Active U 2019-02-04 00:00:00 [facility] diazepam DA Active U 2019-02-04 00:00:00 [facility] codeine DA Active U 2019-02-04 00:00:00 [facility] diphenhydramine DA Active CO 2019-02-04 00:00:00 [facility] Pentazocine Lactate DA Active U 2018-12-08 00:00:00 [facility] Penicillins DA Active CO 2018-12-08 00:00:00 [facility] iodine DA Active SV 2018-12-08 00:00:00 [facility] niacin DA Active U 2018-12-08 00:00:00 [facility] diazepam DA Active U 2018-12-08 00:00:00 [facility] codeine DA Active U 2018-12-08 00:00:00 [facility] Pentazocine Lactate DA Active U 2016-12-25 00:00:00 [facility] Penicillins DA Active CO 2016-12-25 00:00:00 [facility] iodine DA Active SV 2016-12-25 00:00:00 [facility] niacin DA Active U 2016-12-25 00:00:00 [facility] diazepam DA Active U 2016-12-25 00:00:00 [facility] codeine DA Active U 2016-12-25 00:00:00 [facility] Arthrotec Arthrotec Active [facility] codeine codeine Active [facility] iodine iodine Active [facility] niacin niacin Active [facility] penicillins penicillins Active [facility] Protonix Protonix Active [facility] Talwin NX Talwin NX [facility] Active [facility] contrast media (iodine-based) contrast media (iodine-based) Active [facility] Food Iodine Food Iodine Active [facility] Social History Social Habit Start Date Stop Date Quantity Comments Source Social History 2017-12-15 13:16:13 2017-12-15 13:16:[address] [facility] Smoking Status Start Date Stop Date Source Social History [facility] Medications Ordered Medication Name Filled Medication Name Start Date Stop Da te Current Medication? Ordering Clinician Indication Dosage Frequency Signature (SIG) Comments Components Source Sulfamethoxazole 800 MG / Trimethoprim 160 MG Oral Tablet [B actrim] 2019-03-15 04:53:00 Yes 1 tab, PO, BID, X 10 day, # 20 tab, 0 Refill(s) [facility] Sulfamethoxazole 800 MG / Trimethoprim 160 MG Oral Tablet [B actrim] 2019-03-15 03:20:00 No Notes: One DS tablet = trimethoprim 160mg + sulfamethoxazole 800 mg Dose based on trimethoprim component On empty stomach with a glass of water. (Same As: Bactrim DS, Septra DS) [facility] Wheel[employer] 2018-12-29 10:55:00 Yes 1 ea, MISC, ONCALL, # 1 ea, 0 Refill(s) [facility] Albuterol 0.833 MG/ML / Ipratropium Brom zhang 0.167 MG/ML Inhalant Solution [DuoNeb] 2018-12-29 03:52:00 No Notes: (S jovanna as: Duoneb) [facility] rOPINIRole 0.25 mg oral tablet 2017-12-19 16:07:00 Yes 0.25 mg = 1 tab, PO, TID-Before Meals, # 90 tab, 0 Refill(s), [facility] [employer] [id number] [facility] Lidocaine 0.05 MG/MG Topical Ointment 2017-12-19 16:07:00 Y es 1 appl, TOP, TID, # 50 gm, 0 Refill(s), Pharmacy: [facility] [employer] [id number] [facility] DULoxetine 30 mg oral delayed release capsule 2017-12-19 16:07:0 0 Yes 30 mg = 1 cap, PO, Daily, # 30 cap, 0 Re fill(s), Pharmacy: [facility] [employer] [id number] [facility] predniSONE 10 mg oral tablet 2017-12-19 16:07:00 [...] 2017-12-18 02:00:00 No Notes: Same a s [place] [facility] Potassium Chloride 2017-12-17 17:00:00 No Notes: (Same as: K-Dur 20) "Do Not Crush" For patients unable to swallow tablet, dissolve in one half glass of water. Allow about 2 minutes for the tablets to disintegrate. Stir before giving to prepare slurry and administer. Please exclude Patient s with feeding tube less than 14 Japanese (Dobhoff, J-tube etc) and pediatric and patients. With food and full glass of water Vinh Vega Requip 2017-12-17 16:30:00 No Notes: (Same as: Requip) [facility] Lidocaine 0.05 MG/MG Topical Ointment 2017-12-17 14:00:00 N o Notes: (Same as: Xylocaine) [facility] Prednisone 2017-12-17 14:00:00 No Notes: (Same as: PredniSONE) Take with food. Vinh Vega morphine 15 mg oral tablet, extended release 2017-12-17 12:59:00 No Notes: Do not crush (Same as:Oramorph SR, MS Contin) [facility] Potassium Chloride 2017-12-17 11:27:00 No Notes: (Same as: K-Dur 20) "Do Not Crush" For patients unable to swallow tablet, dissolve in one half glass of water. Allow about 2 minutes for the tablets to disintegrate. Stir before giving to prepare slurry and administer. Please exclude Patient s with feeding tube less than 14 Japanese (Dobhoff, J-tube etc) and pediatric and patients. [...] 22:46:00 No Notes: (Same as: Ativan) Vinh Odonnellann Lyrica 2017-12-15 22:00:00 No Notes: (Same as: [...] date: 01/14/18 9:59:00 CDT, 1.59, m2 Vinh Vega Flagyl 2017-12-15 15:00:00 No Notes: (Same as: Mayte) Avoid alcohol. Vinh Vega Restasis 2017-12-15 14:30:00 No Notes: (Jeronimo e as: Restasis) Vinh Vega mometasone furoate 0.05 MG/ACTUAT Metered Dose Nasal [place] 2017-12-15 14:00:00 No 100 microg yanet, 2 [...] 2017-12-15 14:00:00 No Notes: (Same as: Anuradha lonase) Vinh Vega Hydralazine Hydrochloride 25 MG Oral Tablet 2017-12-15 14:00:00 No Notes: (Same as: Apresoline) May interfere w/enteral feedings Take With Food. M emorixu Vega Restasis 0.05% ophthalmic emulsion 2017-12-15 14:00:00 No Restasis 0.05% ophthalmic emulsion, 1 drp, Route: BOTH EYES, BID, 12/15/17 9:00:00 CDT, Duration: 30 day, Stop date: 01/13/18 17:00:00 CDT [facility] Azelastine hydrochloride 0.137 MG/ACTUAT Metered Dose Nasal [place] [Astelin] 2017-12-15 14:00:00 No 274 microgram, 2 spray, Route: NASAL, Drug Form: SPRY, Dosing Weight 59.091, kg, BID, Start date: 12/15/17 9:00:00 CDT, Duration: 30 day, Stop date: 01/13/18 17:00:00 CDT Vinh Vega Aspirin 2017-12-15 14:00:00 No Notes: Do not crush or chew. (Same As: Ecotrin) [facility] naloxegol 25 MG Oral Tablet [Movantik] 2017-12-15 14:00:00 No Notes: (Same as: Movantik) Swallow tablets whole, do not crush or chew. Avoid consumption of grapefruit or grapefruit juice during treatment. Administer naloxegol on an empty stomach at least 1 hour prior to or 2 hours after the first meal of the day. [facility] Lyrica 100 mg oral capsule 2017-12-15 14:00:00 No Lyrica 100 mg oral capsule, 150 mg, Drug form: CAP, Route: PO, TID, 12/15/17 9:00:00 CDT, Duration: 30 day, Stop date: 01/13/18 17:00:00 CDT [facility] Metanx oral capsule 2017-12-15 14:00:00 No Metanx oral capsule, 1 cap, Route: PO, Daily, 12/15/17 9:00:00 CDT, Duration: 30 day, Stop date: 01/13/18 9:00:[address] [facility] Pls update height,weight,allergies 2017-12-15 13:00:00 No Pls update height,weight,allergies, Attn RN, Drug form: MISC, Route: MISC, Continuous, 12/15/17 8:00:00 CDT, Duration: 1 day, Stop date: 12/16/17 7:59:00 CDT [facility] Azithromycin 2017-12-15 13:00:00 No 500 mg, Route: IV, Q24H, Dosing Weight 59.091, kg, Start date: 12/15/17 8:00:00 CDT, Duration: 30 day, Stop date: 01/13/18 8:00:00 CDT, ABX Indication: Pneumonia [facility] morphine 15 mg oral tablet, extended release 2017-12-15 12:21:00 No Notes: Do not crush (Same as:Oramorph SR, MS Contin) [facility] Symbicort 80/4.5 inhalation aerosol with adapter 2017-12-15 12:2 1:00 No Notes: (Same as: Symbicort) WASTE: Aerosol - Return t o Pharmacy [facility] Ceftriaxone 2017-12-15 12:10:00 No Notes: (Same As: Rocephin). MEDICATION WASTE Product Size: 1000 mg Product Wasted: ___ mg Vinh Vega Albuterol 0.83 MG/ML Inhalant Solution 2017-12-15 12:09:00 No Notes: SEE RT DOCUMENTATION (Same as: Proventil) Vinh Vega Dextromethorphan Hydrobromide 2 MG/ML / Guaifenesin 20 MG/ML Oral Solution 2017-12-15 12:09:00 No Notes: (dextromethorphan-guaifenesin 10-100/5 ml LIQ) (Same as: Robitussin-DM) Adina hutton Ava Acetaminophen 2017-12-15 12:09:00 No Notes: Do not exceed 4 gm/day. (Same as: Tylenol) Vinh Vega Ondansetron 2017-12-15 12:09:00 No Notes: (Same as: Zofran) MEDICATION WASTE Product Size: 4 mg Product Wasted: ___ mg [facility] Azithromycin 2017-12-15 10:31:00 No Notes: (Same As: Zithromax IV) [facility] Ceftriaxone 2017-12-15 10:31:00 No Notes: (Same As: Rocephin). Use with 100 mL NS and infuse over 30 min MEDICATION WASTE Product Size: 1000 mg Product Wasted: ___ mg [facility] GI cocktail 2017-12-15 10:14:00 No Notes: G.I. Cocktail = antacid with simethicone 22.5 mL - lidocaine viscous 7.[address] [facility] Morphine 2017-12-15 10:14:00 No 2 mg, Route: IVP, ONCE, Dosing Weight 59.091, kg, Priority: STAT, Start date: 12/15/17 5:14:00 CDT, Stop date: 12/15/17 5:14:[address] [facility] Morphine 2017-12-15 07:49:00 No 2 mg, Route: IVP, ONCE, Dosing Weight 59.091, kg, Priority: STAT, Start date: 12/15/17 2:49:00 CDT, Stop date: 12/15/17 2:49:[address] [facility] Metoclopramide 2017-12-15 07:49:00 No 10 mg, Route: [...] CDT, Stop date: 12/15/17 2:49:00 CDT Vinh Gary Miralax 2017-12-05 14:00:00 No Notes: Dissolve in [...] mometasone furoate 0.05 MG/ACTUAT Metered Dose Nasal [place] 2017-12-05 14:00:00 No 100 microg yanet, 2 [...] w/enteral feedings Take With Food. Linda emorixu Vega Nexium 2017-12-05 14:00:00 No 40 mg, Route: PO, Drug form: ECCAP, Daily, Dosing Weight 60.909, kg, Start date: 12/05/17 9:00:00 CDT, Duration: 30 day, Stop date: 01/03/18 9:00:00 CDT [facility] V[facility] Cyclosporine 0.5 MG/ML Ophthalmic Suspension [Restasis] 2017-12-05 14:00:00 No Notes: (Same as: Restasis) [facility] Aspirin 2017-12-05 14:00:00 No Notes: Do not crush or chew. (Same As: Ecotrin) [facility] Prednisone 2017-12-05 14:00:00 No Notes: Ta ke with food. [facility] Fluticasone propionate 0.05 MG/ACTUAT Metered Dose Nasal Spr ay [Flonase] 2017-12-05 13:00:00 No Notes: (Same as: F lonase) [facility] Nexium 2017-12-05 12:30:00 No 40 mg, Route: PO, Before Breakfast, Dosing Weight 60.909, kg, Start date: 12/05/17 7:30:00 CDT, Duration: 30 day, Stop date: 01/03/18 7:30:00 CDT [facility] *ATTN RN please bring pt home med to pharmacy to be labeled* 2017-12-05 05:00:00 No *ATTN RN p lease bring pt home med to pharmacy to be labeled*, ATTN RN, Drug form: MISC, Route: MISC, QSHIFT, 12/05/17 0:00:00 CDT, Duration: 30 day, Stop date: 01/03/18 16:00:00 CDT [facility] Azelastine hydrochloride 0.137 MG/ACTUAT Metered Dose Nasal [place] [Astelin] 2017-12-05 03:30:00 No Notes: (azelastine 137 microgram/inh 30 ml nasal SPR) Non-formulary drug. Same As: Astelin) [facility] pregabalin 2017-12-05 03:00:00 No Notes: (S jovanna as: Lyrica) [facility] cefdinir 2017-12-05 02:00:00 No Notes: (Jeronimo e As: Omnicef) Vinh Vega atorvastatin 2017-12-05 02:00:00 No Notes: (Same as: Lipitor) Vinh Vega Protonix 2017-12-05 01:00:00 No Notes: Tablet should not be chewed or crushed. (Same as: Protonix) Vinh Vega Vantin 2017-12-05 00:00:00 No 200 mg, Route: PO, Drug form: TAB, [id number], Dosing Weight 60.909, kg, Start date: 12/04/17 19:00:00 CDT, Duration: 10 day, Stop date: 12/14/17 7:00:00 CDT, ABX Indication: Other (specify in Comments) Vinh Odonnellann predniSONE 20 mg oral tablet 2017-12-04 23:49:00 Yes 20 mg = 1 tab, PO, Daily, 0 Refill(s) Vinh Odonnellann morphine 15 mg oral tablet, extended release 2017-12-04 23:46:00 No Notes: Do not crush (Same as:Oramorph SR, MS Contin) [facility] Estrogens, Conjugated (PENITENTIARY) 0.625 MG/ML Vaginal Cream [Pham rin] 2017-12-04 23:46:00 No Notes: (Same As: Premarin Vag inal) [facility] Symbicort 80/4.5 inhalation aerosol with adapter 2017-12-04 23:4 6:00 No Notes: (Same as: Symbicort) WASTE: Aerosol - Return t o Pharmacy Vinh Odonnellann Acetaminophen 325 MG / butalbital 50 MG / Caffeine 40 MG Ora l Tablet 2017-12-04 23:46:00 No Notes: (jwxnddiaqavsz-dxvvxglive-bdqynwoz 325-50-40mg) Do not exceed 4 gm/day of acetaminophen. (Same as: Esgic, Fioricet) Vinh Ava 200 ACTUAT Albuterol 0.09 MG/ACTUAT Metered Dose Inhaler [Pr oAir HFA] 2017-12-04 23:46:00 No Notes: Albuterol 90 microgram/inh 8gm HFA WASTE: Aerosol - Return to Pharmacy Same as: Ventolin, Proventil [facility] Aspirin 2017-12-04 23:13:00 Yes 81 mg, PO, D aily, 0 Refill(s) Vinh Vega Fluticasone propionate 0.05 MG/ACTUAT Metered Dose Nasal Spr ay [Flonase] 2017-12-04 23:13:00 Yes 50 microgram =, NA GIA, Daily, 0 Refill(s) Vinh Vega Azelastine hydrochloride 0.137 MG/ACTUAT Metered Dose Nasal [place] [Astelin] 2017-12-04 23:13:00 Yes 2 spray, NASAL, [...] mometasone furoate 0.05 MG/ACTUAT Metered Dose Nasal [place] 2017-12-04 23:13:00 Yes 2 spray, NASAL, Daily, [...] 7:30:00 CDT, Stop date: 01/26/16 7:30:[address] [facility] Milk of Magnesia 2016-01-25 16:36:00 No Notes: (Same as: Milk of Fidencio, MOM) [facility] vancomycin + sodium chloride 0.9% INJ 250 mL 2016-01-25 14:00:00 No 2001 mg: infuse over 2.5 hours MEDICATION WASTE Product Size: 1000 mg Product Wasted: ___ mg [facility] Methotrexate 2016-01-25 14:00:00 No Notes: (Same as:Methotrexate Sodium) Chemotherapy agent/Handle with caution WASTE: F/P - Black; E - Yellow [facility] Movantik 25mg 2016-01-23 14:00:00 No Movantik 25mg, 1 tab, Drug form: MISC, Route: PO, QAM, 01/23/16 9:00:00 CDT, Duration: 30 day, Stop date: 02/21/16 6:00:[address] [facility] Nexium 2016-01-23 12:30:00 No 40 mg, Route: PO, Before Breakfast, Dosing Weight 59.001, kg, Start date: 01/23/16 7:30:00 CDT, Duration: 30 day, Stop date: 02/21/16 7:30:[address] [facility] esomeprazole (Nexium) 40mg cap 2016-01-23 12:00:00 No esomeprazole (Nexium) 40mg cap, 40 mg, 1 cap, Drug form: MISC, Route: PO, Daily, 01/23/16 7:00:00 CDT, Duration: 30 day, Stop date: 02/21/16 7:00:[address] [facility] cefepime 2016-01-22 23:00:00 No Notes: (Same As: Maxipime) MEDICATION WASTE Product Size: 1000 mg Product Wasted: ___ mg [facility] Metanx 2016-01-22 22:00:00 No Metanx, 1 tab, Drug form: MISC, Route: PO, BID, 01/22/16 17:00:00 CDT, Duration: 30 day, Stop date: 02/21/16 9:00:00 CDT Vinh Vega Protonix 2016-01-22 21:30:00 No Notes: Tablet should not be chewed or crushed. (Same as: Protonix) Vinh Vega Hydrocortisone butyrate 0.001 MG/MG Topical Ointment 01-21 14:00:00 No Notes: (Same as: Hytone) Vinh Vega Aspirin 81 MG Chewable Tablet 2016-01-22 14:00:00 No Notes: Take with food. Vinh Vega Vitamin E 2016-01-22 14:00:00 No 400 IntlUnit, 2 cap, Route: PO, Drug form: CAP, Daily, Dosing Weight 59.091, kg, Start date: 01/22/16 9:00:00 CDT, Stop date: 02/20/16 9:00:00 CDT [facility] sindhu Vega Lyrica 2016-01-22 14:00:00 No Notes: Same a s Lyrica [facility] Prednisone 2016-01-22 14:00:00 No Notes: (Same as: PredniSONE) Take with food. [facility] Miralax 2016-01-22 14:00:00 No Notes: Dissolve in 8 oz of water or juice. (Same as: Miralax) [facility] Tiki nn MS Contin 2016-01-22 14:00:00 No Notes: Do not crush (Same as:Oramorph SR, MS Contin) [facility] Blas blas metoprolol tartrate 2016-01-22 14:00:00 No Notes: (Same as: Lopressor) [facility] Hydralazine Hydrochloride 25 MG Oral Tablet 2016-01-22 14:00:00 No Notes: (Same as: Apresoline) May interfere w/enteral feedings Take With Food. Linda emorixu Gary Nexium 2016-01-22 14:00:00 No 40 mg, Route: PO, Drug form: ECCAP, Daily, Dosing Weight 59.091, kg, Start date: 01/22/16 9:00:00 CDT, Duration: 30 day, Stop date: 02/20/16 9:00:00 CDT [facility] sindhu Vega Calcium Carbonate 1250 MG / Cholecalciferol 400 UNT Chewable Tablet 2016-01-22 14:00:00 No Notes: (Same As: Maria Dolores-D, Os Reg-D, Oyster Calcium) Vinh Vega Vancomycin 2016-01-22 13:00:00 No 2001 mg: infuse over 2.5 hours MEDICATION WASTE Product Size: 1000 mg Product Wasted: ___ mg Vinh Vega atorvastatin 2016-01-22 02:00:00 No Notes: (Same as: Lipitor) Vinh Vega Restasis 2016-01-22 02:00:00 No Notes: (Jeronimo e as: Restasis) Vinh Vega Benadryl 2016-01-22 01:56:00 No 25 mg, 1 tab, Route: PO, Drug form: TAB, ABXQ8H, Dosing Weight 59.091, kg, PRN Allergic reaction, Start date: 01/21/16 20:56:00 CDT, Duration: 30 day, Stop date: 02/20/16 20:55:00 CDT Vinh Vega morphine 15 mg oral tablet, extended release 2016-01-22 01:38:00 No Notes: Do not crush (Same as:Oramorph SR, MS Contin) [facility] Estrogens, Conjugated (PENITENTIARY) 0.625 MG/ML Vaginal Cream [Pham rin] 2016-01-22 01:38:00 No Notes: (Same As: Premarin Vag inal) [facility] Symbicort 80/4.5 inhalation aerosol with adapter 2016-01-22 01:3 5:00 No Notes: (Same as: Symbicort) WASTE: Aerosol - Return t o Pharmacy [facility] Acetaminophen 325 MG / butalbital 50 MG / Caffeine 40 MG Ora l Tablet 2016-01-22 01:34:00 No Notes: (hpwwvwfmstrnz-wruysmkuob-fyxcokdk 325-50-40mg) Do not exceed 4 gm/day of acetaminophen. (Same as: Esgic, Fioricet) [facility] 200 ACTUAT Albuterol 0.09 MG/ACTUAT Metered Dose Inhaler [Pr oAir HFA] 2016-01-22 01:34:00 No Notes: Albuterol 90 microgram/inh 8gm HFA WASTE: Aerosol - Return to Pharmacy Same as: Ventolin, Proventil [facility] Estrogens, Conjugated (PENITENTIARY) 0.625 MG/ML Vaginal Cream [Pham rin] 2016-01-21 23:16:00 Yes 1 appl, VAG, Bedtime, PRN dry ness [facility] POLYETHYLENE GLYCOL 3350 142 MG/ML Oral Solution [Miralax] 2016-01-21 23:15:00 Yes 17 gm, PO, BID [facility] Cal[facility] Citrate 1190 MG / Vitamin D 200 UNT Oral Table t [Citracal Regular + D] 2016-01-21 23:15:00 Yes 1 tab, PO, BID [facility] Vitamin D3 5000 intl units oral tablet 2016-01-21 23:15:00 Yes 5,000 IntlUnit = 1 tab, PO, Daily [facility] Her morales vitamin E 400 intl units oral capsule 2016-01-21 23:15:00 Y es 400 IntlUnit = 1 cap, PO, Daily [facility] morales morphine 15 mg oral tablet, extended release 2016-01-21 23:14:00 Yes 15 mg = 1 tab, PO, TID, PRN Pain Score 1-5 [facility] Morphine Sulfate 30 MG Extended Release Tablet [MS Contin] 2016-01-21 23:14:00 Yes 30 mg = 1 tab, PO, TID, at 0600 , 1400, 2200 [facility] Hydralazine Hydrochloride 25 MG Oral Tablet 2016-01-21 23:11:00 Yes 25 mg = 1 tab, PO, BID [facility] predniSONE 5 mg oral tablet 2016-01-21 23:11:00 Yes 10 mg = 2 tab, PO, Every Other Day, with food [facility] Acetaminophen 325 MG / butalbital 50 MG / Caffeine 40 MG Ora l Tablet 2016-01-21 23:10:00 Yes 2 tab, PO, Q4H, PRN Headache, Not to exceed more than 6 tablets in 24 hours [facility] atorvastatin 20 mg oral tablet 2016-01-21 23:09:00 Yes 20 mg = 1 tab, PO, Bedtime [facility] metoprolol 50 mg oral tablet, extended release 2016-01-21 23:09: 00 Yes 25 mg = 0.5 tab, PO, [facility] MG Oral Tablet [Movantik] 2016-01-21 23:06:00 Yes 25 mg = 1 tab, PO, QAM [facility] Zofran 2016-01-21 22:52:00 No Notes: (Same as: Danilo) MEDICATION WASTE Product Size: 4 mg Product Wasted: ___ mg [facility] Morphine 2016-01-21 22:51:00 No Not es: (Same as:MORPhine Sulfate) [facility] Acetaminophen 2016-01-21 22:51:00 No Notes: Do not exceed 4 gm/day. (Same as: Tylenol) [facility] Diphenhydramine 2016-01-21 22:32:00 No 25 mg, Route: IVP, ONCE, Dosing Weight 59.091, kg, Priority: STAT, Start date: 01/21/16 17:32:00 CDT, Stop date: 01/21/16 17:32:00 [facility] 2016-01-21 22:32:00 No Notes: (Same As: Maxipime) MEDICATION WASTE Product Size: 1000 mg Product Wasted: ___ mg [facility] Vancomycin 2016-01-21 22:32:00 No 2001 mg: infuse over 2.[address] [facility] Saline Flush 0.9% 2016-01-21 22:32:00 No Notes: (Same as: BD Posiflush) [facility] Benadryl 2016-01-21 21:53:00 No Notes: (Jeronimo e as: Benadryl) [facility] Dexamethasone 2016-01-21 21:53:00 No Notes: Concentration: 4mg/ml [facility] Acetaminophen 325 MG / Hydrocodone Bitartrate 10 MG Or al Tablet [Munday 10/325] 2015-11-11 22:42:00 No 1 ta b, Route: PO, Drug Form: TAB, Dosing Weight 60, kg, ONCE, STAT, Start date: 11/11/15 17:42:00 CDT, Stop date: 11/11/15 17:42:[address] [facility] Dilaudid-5 2015-11-11 20:39:00 No 1 mg, Route: PO, ONCE, Dosing Weight 60, kg, Priority: STAT, Start date: 11/11/15 15:39:00 CDT, Stop date: 11/11/15 15:39:[address] [facility] Morphine 2015-10-21 00:48:00 Yes 0 Refill(s) [facility] ProAir HFA 2015-10-21 00:47:00 Yes 1 - 2 puffs, PO, Q4H, PRN Wheezing / cough / shortness of breath, # 1 ea, 0 Refill(s) Vinh Vega Symbicort 80/4.5 inhalation aerosol with adapter 2015-10-21 00:47:00 Yes 2 puff, INHALATION, BID, # 6.9 gm, 0 Refill(s) Vinh Vega Aspirin 81 MG Chewable Tablet 2015-10-21 00:47:00 Yes 81 mg = 1 tab, PO, Daily, tab, 0 Refill(s) Vinh Her morales atorvastatin 20 MG Oral Tablet [Lipitor] 2015-10-21 00:46:00 Yes 20 mg = 1 tab, PO, Bedtime, # 30 tab, 0 Refill(s) Vinh Vega Restasis 2015-10-21 00:46:00 Yes 1 drp, BOTH [...] Systolic (mm Hg) 2019-03-15 03:35:00 Nigel rial Ava Diastolic (mm Hg) 2019-03-15 03:35:00 Mem [facility] A[facility] Heart Rate 2019-03-15 03:35:00 [facility] Respitory Rate 2019-03-15 03:35:00 [facility] A[facility] Systolic (mm Hg) 2019-03-15 00:42:00 Nigel rial Gary Diastolic (mm Hg) 2019-03-15 00:42:00 [facility] Heart Rate 2019-03-15 00:42:00 [facility] Respitory Rate 2019-03-15 00:42:00 [facility] Temperature Oral (F) 2019-03-15 00:42:00 98.1 F [facility] Height 2019-03-15 00:42:00 157.48 cm [facility] BMI Calculated 2019-03-15 00:42:00 [facility] Weight 2019-03-15 00:42:00 [facility] Respitory Rate 2018-12-29 09:50:00 [facility] Weight 2018-12-29 03:53:00 [facility] Height 2018-12-29 03:53:00 157.48 cm [facility] BMI Calculated 2018-12-29 03:53:00 [facility] Temperature Oral (F) 2018-12-29 03:53:00 98.1 F [facility] Systolic (mm Hg) 2018-12-29 03:53:00 Nigel rial Ava Diastolic (mm Hg) 2018-12-29 03:53:00 [facility] Respitory Rate 2018-12-29 03:53:00 [facility] Heart Rate 2018-12-29 03:53:00 [facility] Temperature Oral (F) 2017-12-19 13:00:00 98.8 F [facility] Systolic (mm Hg) 2017-12-19 13:00:00 Nigel rial Ava Diastolic (mm Hg) 2017-12-19 13:00:00 [facility] Respitory Rate 2017-12-19 13:00:00 [facility] Heart Rate 2017-12-19 13:00:00 [facility] Heart Rate 2017-12-19 09:00:00 [facility] Systolic (mm Hg) 2017-12-19 09:00:00 Nigel rial Gary Diastolic (mm Hg) 2017-12-19 09:00:00 [facility] Respitory Rate 2017-12-19 09:00:00 [facility] Temperature Oral (F) 2017-12-19 09:00:00 98 F [facility] Respitory Rate 2017-12-19 05:00:00 [facility] Heart Rate 2017-12-19 05:00:00 [facility] Systolic (mm Hg) 2017-12-19 05:00:00 Nigel rial Gary Diastolic (mm Hg) 2017-12-19 05:00:00 [facility] Temperature Oral (F) 2017-12-19 05:00:00 98.7 F [facility] Height 2017-12-15 13:23:00 157.48 cm [facility] Weight 2017-12-15 13:23:00 [facility] BMI Calculated 2017-12-15 13:23:00 [facility] Weight 2017-12-15 07:16:00 [facility] Systolic (mm Hg) 2017-12-05 20:29:00 Nigel rial Gary Diastolic (mm Hg) 2017-12-05 20:29:00 [facility] Temperature Oral (F) 2017-12-05 20:29:00 97.8 F [facility] Heart Rate 2017-12-05 20:29:00 [facility] Respitory Rate 2017-12-05 20:29:00 [facility] Systolic (mm Hg) 2017-12-05 16:21:00 Nigel rial Ava Diastolic (mm Hg) 2017-12-05 16:21:00 [facility] Respitory Rate 2017-12-05 16:21:00 [facility] Temperature Oral (F) 2017-12-05 16:21:00 98.0 F [facility] Heart Rate 2017-12-05 16:21:00 [facility] Weight 2017-12-05 14:00:00 [facility] Respitory Rate 2017-12-05 12:50:00 [facility] Systolic (mm Hg) 2017-12-05 12:50:00 Nigel rial Gary Diastolic (mm Hg) 2017-12-05 12:50:00 [facility] A[facility] Heart Rate 2017-12-05 12:50:00 [facility] Temperature Oral (F) 2017-12-05 12:50:00 98.3 F [facility] Weight 2017-12-04 22:55:00 [facility] Height 2017-12-04 22:55:00 157.48 cm [facility] BMI Calculated 2017-12-04 22:55:00 [facility] Height 2017-12-04 19:35:00 157.48 cm [facility] BMI Calculated 2017-12-04 19:35:00 [facility] Weight 2017-12-04 19:35:00 [facility] Respitory Rate 2016-01-26 21:00:00 [facility] Temperature Oral (F) 2016-01-26 21:00:00 97.4 F [facility] Heart Rate 2016-01-26 21:00:00 [facility] Systolic (mm Hg) 2016-01-26 21:00:00 Nigel rial Ava Diastolic (mm Hg) 2016-01-26 21:00:00 [facility] Respitory Rate 2016-01-26 17:00:00 [facility] Systolic (mm Hg) 2016-01-26 17:00:00 Nigel rial Gary Diastolic (mm Hg) 2016-01-26 17:00:00 [facility] Temperature Oral (F) 2016-01-26 17:00:00 98.2 F [facility] Heart Rate 2016-01-26 17:00:00 [facility] Systolic (mm Hg) 2016-01-26 13:00:00 Nigel rial Gary Diastolic (mm Hg) 2016-01-26 13:00:00 [facility] Heart Rate 2016-01-26 13:00:00 [facility] Respitory Rate 2016-01-26 13:00:00 [facility] Temperature Oral (F) 2016-01-26 13:00:00 97.6 F [facility] Weight 2016-01-22 04:03:00 [facility] BMI Calculated 2016-01-22 04:03:00 [facility] Height 2016-01-22 04:03:00 157.48 cm [facility] Height 2016-01-21 21:51:00 157.48 cm [facility] Weight 2016-01-21 21:51:00 [facility] BMI Calculated 2016-01-21 21:51:00 [facility] Temperature Oral (F) 2015-11-11 23:04:00 98.9 F [facility] Systolic (mm Hg) 2015-11-11 23:04:00 Nigel rial Ava Diastolic (mm Hg) 2015-11-11 23:04:00 [facility] Respitory Rate 2015-11-11 23:04:00 [facility] Heart Rate 2015-11-11 23:04:00 [facility] Respitory Rate 2015-11-11 21:49:00 [facility] Temperature Oral (F) 2015-11-11 21:49:00 99.0 F [facility] Systolic (mm Hg) 2015-11-11 21:49:00 Nigel rial Gary Heart Rate 2015-11-11 21:49:00 [facility] Diastolic (mm Hg) 2015-11-11 21:49:00 [facility] Heart Rate 2015-11-11 20:54:00 [facility] Respitory Rate 2015-11-11 20:54:00 [facility] Systolic (mm Hg) 2015-11-11 20:54:00 Nigel rial Gary Diastolic (mm Hg) 2015-11-11 20:54:00 [facility] Weight 2015-11-11 19:55:00 [facility] Temperature Oral (F) 2015-11-11 19:55:00 99.0 F [facility] BMI Calculated 2015-11-11 19:55:00 [facility] Height 2015-11-11 19:55:00 157.48 cm [facility] Respitory Rate 2015-10-21 01:22:00 [facility] Systolic (mm Hg) 2015-10-21 01:22:00 Nigel rial Gary Diastolic (mm Hg) 2015-10-21 01:22:00 [facility] Heart Rate 2015-10-21 01:22:00 [facility] Temperature Oral (F) 2015-10-20 23:20:00 97.6 F [facility] Height 2015-10-20 23:20:00 157.48 cm [facility] Systolic (mm Hg) 2015-10-20 23:20:00 Nigel rial Gary Diastolic (mm Hg) 2015-10-20 23:20:00 [facility] Heart Rate 2015-10-20 23:20:00 [facility] Respitory Rate 2015-10-20 23:20:00 [facility] BMI Calculated 2015-10-20 23:20:00 [facility] Weight 2015-10-20 23:20:00 [facility] Weight 2015-07-28 18:47:00 [facility] BMI Calculated 2015-07-28 18:47:00 [facility] Height 2015-07-28 18:47:00 157.48 cm [facility] Temperature Oral (F) 2015-07-28 18:47:00 98.2 F [facility] Heart Rate 2015-07-28 18:47:00 [facility] Respitory Rate 2015-07-28 18:47:00 [facility] Systolic (mm Hg) 2015-07-28 18:47:00 Nigel rial Ava Diastolic (mm Hg) 2015-07-28 18:47:00 [facility] A[facility] Procedures Procedure Date / Time Performed Performing Clinician Sour e Ankle closure [facility] Extraction of cataracts from both eyes [facility] Hand implantation [facility] Tiki nn ID - Incision and drainage of abscess [facility] Operation on meniscus of the knee [facility] Total hysterectomy [facility] Encounters Start Date/Time End Date/Time Encounter Type Admission Type [facility] Care Department Encounter ID Source 2020-01-07 15:43:00 2020-01-07 23:59:00 [id number] 2020-01-07 15:43:00 2020-01-07 15:43:00 Outpatient [id number] 2019-04-02 14:00:00 2019-05-01 23:59:00 Outpatient Feng David [id number] 2019-04-09 12:53:00 2019-04-09 23:59:00 Outpatient Jackson Victor [facility] [id number] 2019-04-09 12:53:00 2019-04-09 12:53:[address] [id number] [facility] 2019-02-24 17:00:00 2019-03-25 23:59:00 Outpatient Feng David [id number] 2019-03-14 19:32:59 2019-03-15 01:14:00 Outpatient Parth Modi R [facility] [id number] 2019-03-14 19:32:00 2019-03-14 19:32:00 Emergency E [id number] [facility] 2019-01-24 13:02:00 2019-01-24 23:59:00 Outpatient Gerber mcgarry Rosemary Rose [facility] [id number] 2019-01-24 13:02:00 2019-01-24 13:02:00 Outpatient [id number] [facility] 2018-12-28 22:11:37 2018-12-29 06:30:00 Outpatient Jai jamesBaldo hutton [facility] [id number] 2018-12-28 22:11:00 2018-12-28 22:11:00 Emergency E [id number] 2018-03-18 15:06:00 2018-04-16 23:59:00 Outpatient Chanellk carlyn, Subhadra [id number] 2018-02-07 14:00:00 2018-03-08 23:59:00 Outpatient Bandhak carlyn, Subhadra [id number] 2018-01-06 14:45:00 2018-02-04 23:59:00 Outpatient Bandhak carlyn, Subhadra [id number] 2018-01-06 14:45:00 2018-02-04 23:59:00 Outpatient Meggan alcocer Subwilbertdra [id number] 2017-12-15 02:03:00 2017-12-19 13:05:00 Outpatient Aurelio hobbs Subwilbertdrdavid [facility] [id number] 2017-12-15 08:00:00 2017-12-15 23:59:59 Outpatient Kilo Collier MG [facility] [id number] 2017-12-04 14:32:00 2017-12-05 19:14:00 Outpatient Aurelio hobbs Bindudrdavid MHSE MHSE [id number] 2016-12-21 14:44:00 2016-12-21 23:59:00 [facility] [id number] 2016-06-14 16:01:00 2016-06-14 23:59:00 Outpatient Abigail Cardenas MHSE MHSE [id number] 2016-04-09 12:40:00 2016-04-09 23:59:00 Outpatient Sloane Gonzalez [facility] [id number] 2016-01-21 16:50:00 2016-01-26 17:30:00 Outpatient Aurelio hobbs Bindudra MHSE [facility]SE [id number] 2015-11-11 13:20:00 2015-12-10 23:59:00 Outpatient Bindu Burnettdra [id number] 2015-12-06 17:17:00 2015-12-06 23:59:00 Outpatient Abigail Cardenas MHSE MHSE [id number] 2015-11-11 14:54:00 2015-11-11 18:08:00 Outpatient Kannan Price MHSE [facility] [id number] 2015-10-20 18:11:00 2015-10-20 20:23:00 Outpatient Sanjana Cobb [place] [id number] 2015-07-28 12:46:00 2015-07-28 14:18:00 Outpatient Grecia Rogel [place] SE [id number] 2014-01-21 08:00:00 2014-02-19 23:59:00 Outpatient BrittniFallon vuong i IE [id number] 2014-02-09 08:02:00 2014-02-09 23:59:00 Outpatient ChanellFallon salomon i IE [id number] 2013-12-22 15:37:00 2014-01-20 23:59:00 Outpatient ChanellFallon salomon i IE [id number] Results Test Description Test Time Test Comments Results Result Comments Source CT ABDOMEN/PELVIS WO 2020-01-30 19:13:00 [place] [id number] Patient Name: KATHE RUTHERFORD MR #: [id number] : 1930 Age/Sex: 89/F Req #: [id number] [facility] Physician: Ordered by: CRISTELA ZAVALA DO Report #: [id number] Location: ER Room/Bed: Procedure: [id number] CT/CT ABDOMEN/PELVIS WO Exam Date: 01/30/20 Exam Time: 1854 REPORT STATUS: Signed EXAM: CT Abdomen and Pelvis WITHOUT contrast INDICATION: Y ruq pain [id number] COMPARISON: None. TECHNIQUE: Abdomen and pelvis were scanned utilizing a multidetector helical scanner from the lung base to the pubic symphysis witho ut administration of IV contrast. Absence of intravenous contrast decreases sensitivity for detection of focal lesions and vascular pathology. Coronal and sagittal reformations were obtained. Routine protocol was performed. IV CONTRAST: None ORAL CONTRAST: Water COMPLICATIONS: None RADIATION DOSE: Total DLP: 688.83 mGy*cm Estimated effective dose: (DLP x 0.015 x size factor) mSv CTDIvol has been reviewed. It is below the limits set by the Radiation Protocol Committee (RPC). FINDINGS: LINES and TUBES: None. LOWER THORAX: Small right pleural effusion. Right lower and medial lobe airspace opacities. Partially seen atherosclerotic calcification of aorta and coronary arteries. HEPATOBILIARY: Unenhanced liver is unremarkable. No biliary ductal dilation. GALLBLADDER: Distended No radio-opaque stones. Layering sludge. No wall thickening. SPLEEN: No splenomegaly. PANCREAS: No focal masses or d uctal dilatation. ADRENALS: No adrenal nodules KIDNEYS/URETERS: No hydronephrosis. Limited for evaluation of renal parenchyma without intravenous contrast. 5.4 cm left renal superior pole complex partially exophytic cyst with septation. No stones. GI TRACT: No abnormal distention, wall thickening, or evidence of bowel obstruction. Appendix is not visualized. Small hiatal hernia. PELVIC ORGANS/BLADDER: Hysterectomy. Bladder is collapsed. LYMPH NODES: No lymphadenopathy. VESSELS: There is moderate atherosclerotic disease in the aorta and major arterial branches. PERITONEUM / RETROPERITONEUM: No free air or fluid. BONES: Generalized demineralization. Old fracture deformity of posterior right 10th rib. Mild levoscoliosis of lumbar spine. Multilevel advanced degenerative changes. Grade 1 anterolisthesis of L5 in relation to S1. SOFT TISSUES: Unremarkable. IMPRESSION: 1. No definite evidence of acute inflammatory process in the abdomen/pelvis, considering limitations of unenhanced study. 2. Distended gallbladder, containing layering sludge. No wall thickening or surrounding inflammation. 3. Small right pleural effusion. There is also right lower and middle lobe airspace opacities, representing atelectasis and/or pneumonia in the appropriate clinical context. Signed by: Dr. Josh Mullins MD on 01/30/2020 7:21 PM Dictated By: JOSH MULLINS MD 20 Transcribed By: MATTHEW on 01/30/201920 COPY TO: CRISTELA ZAVALA DO CHEST SINGLE (PORTABLE) 2020-01-30 18:59:00 [place] [address] Patient Name: KATHE RUTHERFORD MR #: [id number] : 1930 Age/Sex: 89/F Req #: [id number] Adm Physician: Ordered by: SVETA HARRIS MD Report #: [id number] Location: ER Room/Bed: Procedure: [id number] DX/CHEST SINGLE (PORTABLE) Exam Date: 01/30/20 Exam Time: 180 REPORT STATUS: Signed EXAMINATION: CHEST SINGLE (PORTABLE) INDICATION: sob, right sided cp COMPARISON: None FINDINGS: AP view TUBES and LINES: None. . LUNGS/PLEURA: There is a large right-sided pleural effusion with associated atelectasis. There is also mild hazy opacities in both lung which could be due to edema. Underlying infection could be considered in appropriate clinical setting. HEART AND MEDIASTINUM: The cardiomediastinal silhouette is unremarkable. BONES AND SOFT TISSUES: No acute osseous lesion. Soft tissues are unremarkable. UPPER ABDOMEN: No free air under the diaphragm. IMPRESSION: 1. Large right-sided pleural effusion with associated atelectasis. 2. Mild hazy opacities in both lung could be due to edema. Underlying infection could be considered in appropriate clinical setting. Signed by: Stephen Godinez MD on 01/30/2020 7:00 PM Dictated By: STEPHEN GODINEZ MD 99 Transcribed By: MATTHEW on 01/30/201899 COPY TO: SVETA HARRIS MD - CT HEART W CN ART/GRAFTS 2019-02-06 16:30:00 Name: MONICA RUTHERFORDTIM ABDI [facility] : 1930 Age/S: 88 / F [place] Unit #: [id number] Loc: [place] [address] Phys: Mina Gilliland MD Acct: [id number] Dis Date: Status: ADM IN PHONE #: [phone] Exam Date: 02/06/2019 1416 FAX #: [phone] Reason: to know coronary antomy EXAMS: CPT CODE: [id number] CT HEART W CN ART/GRAFTS 38525 REASON FOR EXAM: to know coronary antomy [...] RT(R),(MR),(CT); CTDI: DLP: Trnscb Date/Time: 02/06/2019 (1630) Bella Orig Print D/T: S: 02/06/2019 (5566) PAGE 1 Signed Report - CTA CHEST FOR PE 2019-02-06 16:09:00 Name: [facility]: 1930 Age/S: 88 / F [address] [facility] Unit #: [id number] Loc: [place] [address] Phys: Mina Gilliland MD Acct: [id number] Dis Date: Status: ADM IN PHONE #: [phone] Exam Date: 02/06/2019 1416 FAX #: [phone] Reason: to detect pulmonary embolism EXAMS: CPT CODE: [id number] [place] [address] REASON FOR EXAM: to detect pulmonary embolism EXAM ORDER DATE: 02/06/2019 9:41 AM Ordering M.Monica: Mina Gilliland MD PROCEDURE: - CTA CHEST [...] RT(R),(MR),(CT); CTDI: DLP: Trnscb Date/Time: 02/06/2019 (1609) Bella Orig Print D/T: S: 02/06/2019 (4420) PAGE 1 Signed Report TROPONIN-I 2019-02-05 05:22:00 Test Item TROPONIN-I (test code = TROPI) <0.015 ng/mL 0-0.045 N COMMENTS TO VETERINARY NURSE: COLLECT 3 HOURS AFTER PREVIOUS XYRNJRENWSVJHA-[id number] 01:43:00* Test Item Value Reference Range Interpretation Comments TROPONIN-I (test code = TROPI) <0.015 ng/mL 0-0.045 N COMMENTS TO VETERINARY NURSE: COLLECT 3 HOURS AFTER PREVIOUS SAMPLEURINALYSIS [id number] 18:03:00* Test Item Value Reference Range Interpretation [...] Urine Source? Clean Catch- XR CHEST 1 [id number] 17:34:00 FAX: Minerva Jaramillo [phone] [place]: [address]: REG Name: KATHE ROSS [facility] : [birth year] Age/S: 88/F [place] Unit #: [id number] Loc: [place] [address] Phys: Minerva Young Acct: [id number] Dis Date: Status: REG ER PHONE #: [phone] Exam Date: 02/04/2019 1650 FAX #: [phone] Reason: Shortness of Breath EXAMS: CPT CODE: [id number] XR CHEST 1 V 06412 REASON FOR EXAM: Shortness of Breath Exam Order Date: 02/04/2019 2:47 PM Orderi louis Gray.: Minerva Young MD PROCEDURE: - XR CHEST [...] Technologist: CELINA MURPHY, RT(R) Trnscrd Date/Time/By: 9 (4396) : By: [email or web address] [facility] Print D/T: S: 02/04/2019 (2130) PAGE 1 Signed Report BASIC METABOLIC [id number] 16:05:00* Test Item Value Reference Range Interpretation [...] CA) 9.1 mg/dL 8.5-10.1 N HEPATIC FUNCTION [id number] 16:05:00* Test Item Value Reference Range Interpretation [...] reference range due to change in reagent. [id number] 16:05:00* Test Item Value Reference Range Interpretation Comments LIPASE (test code = LIP) 953 U/L 73.0-393.0 H [id number] 16:05:00* Test Item Value Reference Range Interpretation Comments MAGNESIUM (test code = MAG) 2.1 mg/dL 1.8-2.4 N [id number] 16:05:00* Test Item Value Reference Range Interpretation Comments TROPONIN-I (test code = TROPI) <0.015 ng/mL 0-0.045 N [id number] 15:59:00* Test Item Value Reference Range Interpretation Comments D-DIMER (test code = DDIMER) 373.00 ng/mLFEU 0-500 N Clinical Cut-off value for D-Dimer is 500 ng/mL FEU. Comment: The [employer] D-Dimer assay is intended for use asan [...] skin infections -Liver cirrhosis - B-TYPE NATRIURETIC [id number] 15:59:00* Test Item Value Reference Range Interpretation Comments B-TYPE NATRIURETIC PEPTIDE (test code = BNP) 203.07 pgram/mL 0-100 H PROTHROMBIN [id number] 15:52:00* Test Item Value Reference Range Interpretation [...] (2.5-3.5) IS PATIENT ON ANTICOAGULANTS? NTHROMBOPLASTIN TIME [id number] 15:52:00* Test Item Value Reference Range Interpretation Comments THROMBOPLASTIN TIME PARTIAL (test code = PTT) 37.9 seconds 25.0-36. 5 H IS PATIENT ON ANTICOAGULANTS? NBASIC METABOLIC [id number] 15:47:00* Test Item Value Reference Range Interpretation [...] code = CA) mg/dL 8.5-10.1 HEPATIC FUNCTION [id number] 15:47:00* Test Item Value Reference Range Interpretation [...] TOTAL (test code = ALKP) IUnit/L 45-117 [id number] 15:47:00* Test Item Value Reference Range Interpretation Comments LIPASE (test code = LIP) U/L 73.0-393.0 GBNQFJJJX6597-64-73 15:47:00* Test Item Value Reference Range Interpretation Comments MAGNESIUM (test code = MAG) mg/dL 1.8-2.4 [id number] 15:47:00* Test Item Value Reference Range Interpretation Comments TROPONIN-I (test code = TROPI) ng/mL 0-0.045 CBC W/O [id number] 15:43:00* Test Item Value Reference Range Interpretation [...] MPV) 9.6 fL 6.7-11.0 N CBC W/O [id number] 15:40:00* Test Item Value Reference Range Interpretation [...] (test code = MPV) fL 6.7-11.0 CARDIAC OJXTMDL9297-63-11 05:42:00<0.02[facility]annCARDIAC SUYHWWG6638-23-67 05:42:55524Xxezwedo HermannCHEM VIWZF3261-94-77 05:42:0067[facility] HermannCHEM JHPBI3320-85-85 05:42:78011Fpomteyu HermannCHEM PUVTG6665-74-62 05:42:009.4 [facility]annCHEM ZBEWV7067-36-15 05:42:0031[facility] HermannCHEM PANEL 2018-12-29 05:42:0033[facility] HermannCHEM YQULE5018-10-48 05:42:000.6[facility] HermannCHEM BFXJY7628-56-53 05:42:0023[facility] HermannCHEM RFAJC7489-08-57 05:42:0025[facility] HermannCHEM IDNDM0775-86-94 05:42:70000Ypyvtpoh HermannCHEM SDJHK1338-14-52 05:42:003.9[facility] HermannCHEM QCUAD3514-73-88 05:42:35796 [facility]annCHEM MPQDI9866-70-29 05:42:0010[facility] HermannCHEM PANEL 2018-12-29 05:42:000.80[facility] HermannCHEM CFGOQ6716-20-93 05:42:008.1[facility] HermannCHEM KBQMU9244-16-72 05:42:004.0[facility] HermannCHEM GXVJJ8755-03-76 05:42:00* Test Item Value Reference Range Interpretation Comments B/C Ratio (test code = B/C Ratio) 12 1 6-25 [facility]annCHEM [id number] 05:42:007.9[facility] HermannCHEM PANEL 2018-12-29 05:42:00* Test Item Value Reference Range Interpretation Comments A/G Ratio (test code = A/G Ratio) 1.0 1 0.7-1.6 [facility]annCHEM LVXRM3635-59-48 05:42:004.1[facility] HermannHEMATOLOGY 2018-12-29 05:42:009.4[facility] WioaenuBAIOGVJUUJ6838-06-47 05:42:000.1[facility] AysdhoqNYXOLRMDGL7903-14-20 05:42:0020.6[facility] PccqwzzHOFUARCNXF3887-74-27 05:42:000.3[facility] NhxfubgBTYPODVCFG9323-73-19 05:42:006.1[facility] Ava SKRLAVLSHX5684-35-94 05:42:0069.6[facility] DirvexaTHZOAQIYSM3689-11-26 05:42:00 1.8[facility] CkevfhwFPOTXXPOJY0497-68-60 05:42:000.8[facility] HermannHEMATOLOGY 2018-12-29 05:42:004.30[facility] UmeqepwIPRRYDRFLC5983-09-58 05:42:0087.6[facility] JzmcebkVSTAYUJJCQ8906-68-79 05:42:00* Test Item Value Reference Range Interpretation Comments MCH (test code = MCH) 28.9 pg 27.0-31.0 [facility] PvzkhotVDLYIKORZQ2641-23-29 05:42:08415Kpnzqaxz HermannHEMATOLOGY 2018-12-29 05:42:008.3[facility] GfzfoteDUXEWTXIKM4189-41-60 05:42:008.8[facility] VvjinzmLAZCFUYNLK5299-02-06 05:42:0012.4[facility] ButvmckOKPQPFVLAC2146-67-66 05:42:0037.7[facility] PqjcdbeXPCOTDYTCN6955-04-71 05:42:0017.5[facility] Gary BYIZFIGWHA0957-59-94 05:42:0033.0[facility] HermannPROTHROMBIN ULDV2019-70-74 04:48:00* Test Item Value Reference Range Interpretation [...] BEFORE 09 00 AM MDICINE TIMETHROMBOPLASTIN TIME [id number] 09:16:00* Test Item Value Reference Range Interpretation Comments THROMBOPLASTIN TIME PARTIAL (test code = PTT) 31.7 seconds 25.0-36. 5 N IS PATIENT ON ANTICOAGULANTS? YLIST ANTICOAGULANTS LOVENOX COUMADINSPECI MEN COMMENTS: DRAW BEFOER 0900 AM MEDICINE TIMESPECIMEN COMMENTS: DRAW BEFORE 09 00 AM MARTY TIMETHROMBOPLASTIN TIME [id number] 02:58:00* Test Item Value Reference Range Interpretation Comments THROMBOPLASTIN TIME PARTIAL (test code = PTT) > 400.0 seconds 25.0- 36.5 HH Results called to [id number] by DANETTE 12/10/18 0257Critical results verified and read back [...] ANTICOAGULANTS? YLIST ANTICOAGULANTS LOVENOX HEPARIN THROMBOPLASTIN TIME [id number] 18:20:00* Test Item Value Reference Range Interpretation Comments THROMBOPLASTIN TIME PARTIAL (test code = PTT) 36.8 seconds 25.0-36. 5 H IS PATIENT ON ANTICOAGULANTS? YLIST ANTICOAGULANTS HEPARINTHROMBOPLASTIN TIME [id number] 09:55:00* Test Item Value Reference Range Interpretation Comments THROMBOPLASTIN TIME PARTIAL (test code = PTT) 89.8 seconds 25.0-36. 5 HH Results called to by V.[email or web address] 12/09/18 0955Critical results verified and read back by Nurse? Y IS PATIENT ON ANTICOAGULANTS? YLIST ANTICOAGULANTS HEPARINTROPONIN-I 2018-12-09 05:52:00* Test Item Value Reference Range Interpretation Comments TROPONIN-I (test code = TROPI) 0.047 ng/mL 0-0.045 HH Results called to [id number] by V.[email or web address] 12/09/18 0551Critical results verified and read back by Nurse? Y COMMENTS TO VETERINARY NURSE: COLLECT 3 HOURS AFTER PREVIOUS SAMPLETHROMBOPLASTIN TIME [id number] 02:36:00* Test Item Value Reference Range Interpretation Comments THROMBOPLASTIN TIME PARTIAL (test code = PTT) > 400.0 seconds 25.0- 36.5 HH Results called to [id number] by [email or web address] 12/09/18 0233Critical results verified and read back by Nurse? Y IS PATIENT ON ANTICOAGULANTS? YLIST ANTICOAGULANTS HEPARINTROPONIN-I 2018-12-08 22:16:00* Test Item Value Reference Range Interpretation Comments TROPONIN-I (test code = TROPI) 0.045 ng/mL 0-0.045 N COMMENTS TO VETERINARY NURSE: COLLECT 3 HOURS AFTER PREVIOUS SAMPLETSH REFLEX TO [id number] 14:14:00* Test Item Value Reference Range Interpretation Comments TSH REFLEX TO FT4 (test code = TSHREFLEX) 0.5 0.4-5.5 N BASIC METABOLIC [id number] 14:14:00* Test Item Value Reference Range Interpretation [...] code = CA) 9.6 mg/dL 8.5-10.1 N JNELQGJJN0007-90-61 14:14:00* Test Item Value Reference Range Interpretation Comments MAGNESIUM (test code = MAG) 1.8 mg/dL 1.8-2.4 N [id number] 14:14:00* Test Item Value Reference Range Interpretation Comments TROPONIN-I (test code = TROPI) <0.015 ng/mL 0-0.045 N - XR CHEST 1 [id number] 14:12:00 FAX: Boston Oneal MD [place]: [address]: REG Name: KATHE ROSS [facility] : [birth year] Age/S: 88/F [address] [facility] Unit #: [id number] Loc: [place] [address] Phys: Boston Oneal MD Acct: [id number] Dis Date: Status: REG ER PHONE #: [phone] Exam Date: 12/08/2018 9728 FAX #: [phone] Reason: CHEST PAIN EXAMS: CPT CODE: [id number] XR CHEST 1 V 84252 REASON FOR EXAM: CHEST PAIN Exam Order Date: 12/08/2018 1:08 PM Ordering M.DAlna: Bostno Oneal MD PROCEDURE: - XR CHEST 1 [...] CC: Boston Oneal MD Technolog ist: CINTHIA JAMESON RT(R) Trnscrd Date/Time/By : 12/08/2018 (1412) : By: [email or web address] Orig Print D/T: S: 12/08/2018 (768 5) PAGE 1 Signed Report BASIC METABOLIC [id number] 14:02:00* Test Item Value Reference Range Interpretation [...] CALCIUM (test code = CA) mg/dL 8.5-10.1 FZBPPWUPX2924-22-08 14:02:00* Test Item Value Reference Range Interpretation Comments MAGNESIUM (test code = MAG) mg/dL 1.8-2.4 DLPYNAYI-[id number] 14:02:00* Test Item Value Reference Range Interpretation Comments TROPONIN-I (test code = TROPI) ng/mL 0-0.045 PROTHROMBIN [id number] 13:55:00* Test Item Value Reference Range Interpretation [...] (2.5-3.5) IS PATIENT ON ANTICOAGULANTS? NTHROMBOPLASTIN TIME [id number] 13:55:00* Test Item Value Reference Range Interpretation Comments THROMBOPLASTIN TIME PARTIAL (test code = PTT) 31.8 seconds 25.0-36. 5 N IS PATIENT ON ANTICOAGULANTS? NCBC W/O [id number] 13:46:00* Test Item Value Reference Range Interpretation [...] MPV) 9.6 fL 6.7-11.0 N CBC W/O [id number] 13:43:00* Test Item Value Reference Range Interpretation [...] code = MPV) fL 6.7-11.0 TROPONIN I [id number] 13:42:00* Test Item Value Reference Range Interpretation [...] only if similarmethodology is used. BREAST ULTRASOUND ZYVASZUDF7154-74-75 10:05:20 - DIAG MAMM BILATERAL JUAQUIN CAD DIGITALBILATERAL DIGITAL DIAGNOSTIC MAMMOGRAM 3D/2D WITH CAD: 08/05/2018CLINICAL: Dense breasts. Digital breast tomosynthesis was performed in addition to routine CC and MLO views. Current mammographic images were evaluated by either a [facility] M-Vu or a [facility] ImageWave Systemscker CAD (computer aided detection system). Comparison is made to exams dated 03/19/2017 mammogram, 11/18/2015 mammogram, and [facility] The tissue of both breasts is heterogeneously [...] mammogram, and 07/31/2013 mammogram - [facility] Real-time ultrasound of both breasts and both [...] dm/:08/06/2018 10:05:20 copy to: Fallon Gramajo MD, [facility], ph: , fax: [phone] Technologist: Monalisa Rodriguez , [facility]-letter sent: BIRADS 1-2 Combo FU Letter Mammogram BI-RADS: 0 Indeterminate Ultrasound BI-RADS: 2 BenignDIAG MAMM BILATERAL JUAQUIN CAD DIGITAL 2018-08-06 10:05:20 - DIAG MAMM BILATERAL JUAQUIN CAD DIGITALBILATERAL DIGITAL DIAGNOSTIC MAMMOGRAM 3D/2D WITH CAD: 08/05/2018CLINICAL: Dense breasts. Digital breast tomosynthesis was performed in addition to routine CC and MLO views. Current mammographic images were evaluated by either a [employer] M-Vu or a [facility] ImageChecker CAD (computer aided detection system). Comparison is made to exams dated 03/19/2017 mammogram, 11/18/2015 mammogram, and 07/31/2013 mammogram - [facility]-. The tissue of both breasts [...] 11/18/2015 mammogram, and 07/31/2013 mammogram - [facility]-. Real-time ultrasound of both breasts and both [...] dm/:08/06/2018 10:05:20 copy to: Fallon Gramajo MD, [facility], ph: , fax: [phone] Technologist: Monalisa Rodriguez , [facility]-letter sent: BIRADS 1-2 Combo FU Letter Mammogram BI-RADS: 0 Indeterminate Ultrasound BI-RADS: 2 BenignCHEM [id number] 20:39:2553 [facility] HermannCHEM YAHDK2797-95-16 20:39:14207Jkmtvlee HermannELECTROLYTES 2017-12-17 19:44:003.8[facility] HermannCHEM JKTFW0487-53-11 10:33:002.2[facility] HermannCHEM FFTIV6971-19-44 10:33:0084[facility] HermannCHEM MGKEZ0287-99-58 10:33:00* Test Item Value Reference Range Interpretation Comments A/G Ratio (test code = A/G Ratio) 1.2 1 0.7-1.6 [facility] HermannCHEM [id number] 10:33:0023[facility] HermannCHEM PANEL 2017-12-17 10:33:0020[facility] HermannCHEM IDJAQ1753-69-17 10:33:0027[facility] HermannCHEM PCSIR3580-49-58 10:33:000.5[facility] HermannCHEM MDQXM6187-27-73 10:33:00* Test Item Value Reference Range Interpretation Comments B/C Ratio (test code = B/C Ratio) 9 1 11-18 [facility] HermannCHEM COYKM3436-67-47 10:33:006.3[facility] HermannCHEM PANEL 2017-12-17 10:33:002.9[facility] HermannCHEM PFNXC3843-90-26 10:33:003.4[facility] HermannCHEM YIYZN5262-79-58 10:33:0011.0[facility] HermannCHEM VHBPM5541-53-97 10:33:007.5[facility] HermannCHEM MSCXG0879-06-75 10:33:003.0[facility] HermannCHEM PHSGZ2615-43-34 10:33:0027[facility] HermannCHEM DVYWR4663-44-17 10:33:83445 [facility] HermannCHEM FWHYX8650-94-69 10:33:000.57[facility] HermannCHEM PANEL 2017-12-17 10:33:79857Nzjvbmgb HermannCHEM SJFOV0971-84-66 10:33:75713Hqntqadq HermannCHEM UIUWG9812-07-83 10:33:005[facility] HermannCHEM DYABO4134-70-08 22:47:26007Kpfrxieg HermannCHEM KNCIH6105-42-77 22:47:3083[facility] HermannCHEM QVHRR2633-21-72 22:31:001.5[facility] HermannCHEM UNQDU3863-68-66 22:31:50398 [facility] HermannCHEM IWHAE8461-16-01 22:31:0081[facility] HermannCHEM PANEL 2017-12-15 22:31:0081[facility] HermannCHEM WOXFK4880-31-42 22:31:000.3[facility] HermannCHEM PFKAY9179-79-77 22:31:0023[facility] HermannCHEM AOKRZ0481-87-81 22:31:0024[facility] HermannCHEM LCTCY3456-38-28 22:31:34884Bkfdrgid HermannCHEM ZBETC8897-80-48 22:31:000.65[facility] HermannCHEM JGBYJ9652-67-68 22:31:0099 [facility] HermannCHEM UFHPF0971-10-27 22:31:003.1[facility] HermannCHEM PANEL 2017-12-15 22:31:006[facility] HermannCHEM EGTVX1769-64-57 22:31:19121Eqnjkseu HermannCHEM VUFDX1080-25-64 22:31:0024[facility] HermannCHEM OJUGK1010-90-27 22:31:00* Test Item Value Reference Range Interpretation Comments A/G Ratio (test code = A/G Ratio) 1.0 1 0.7-1.6 [facility] HermannCHEM IPSYT1447-77-67 22:31:004.1[facility] HermannCHEM PANEL 2017-12-15 22:31:008.0[facility] HermannCHEM JQMYP7845-97-72 22:31:0013.1[facility] HermannCHEM SLUMW3065-81-04 22:31:008.2[facility] HermannCHEM LWWMK9576-66-93 22:31:003.9[facility] HermannCHEM BYPHS1362-19-83 22:31:0024[facility] HermannCHEM UEDYO3049-84-86 22:31:00* Test Item Value Reference Range Interpretation Comments B/C Ratio (test code = B/C Ratio) 9 1 6-25 Memorial EatgmbfVSGMZLTYKV5536-14-05 22:31:0016.9[facility] HermannHEMATOLOGY 2017-12-15 22:31:0084.7[facility] QkwoswjUQKFMEAGRY0073-82-19 22:31:0033.7[facility]orial OqscfdsZHYTRHLUMD5999-52-22 22:31:0040.1[facility] UwzjcaeNUVNWZTMEB8570-86-32 22:31:00* Test Item Value Reference Range Interpretation Comments MCH (test code = MCH) 28.5 pg 27.0-31.0 Memorial MsvsfsoGJREOSZIJS2713-82-18 22:31:007.8[facility] HermannHEMATOLOGY 2017-12-15 22:31:14778Yrpknqon FvjkrbcOMYVXNPQIN6678-75-58 22:31:0013.5[facility] CyksuhxSPFKOBXPWN8015-54-08 22:31:004.74[facility] ZdcbwiuSTFOYIWPZT9643-96-98 22:31:009.7[facility] FqsztbdQWPQIWEFGP8993-07-09 22:31:008.6[facility] Gary QXWSACFWON3166-49-20 22:31:000.4[facility] JjjkbdwPACEDEBLZO5431-62-31 22:31:00 12.9Memorial MaxpdnhXMNZXAJNFW8992-11-32 22:31:0078.1[facility] HermannHEMATOLOGY 2017-12-15 22:31:007.6[facility] TbcbrmyXKAWFCDXWD5200-37-14 22:31:001.3[facility] YpgfweqQVUOHMFUPU9218-60-73 22:31:000.8[facility] HermannMOLECULAR DIAGNOSTIC 2017-12-15 17:13:00Negative (12/15/17 12:13 PM)[facility] HermannBACTERIAL - LVOJYWRC2057-99-92 16:05:00Urine *NA*(12/15/17 11:05 AM)[facility] HermannBACTERIAL - AOAXSJPW8925-30-68 16:05:00Negative (12/15/17 11:05 AM)[facility] HermannCHEM OPKTD7988-46-84 10:17:001.2[facility] HermannURINE AND ILZRO8062-98-80 09:13:53 Negative (12/15/17 4:13 AM)[facility] HermannURINE AND BCFFE0143-09-17 09:13:53 Large *ABN*(12/15/17 4:13 AM)[facility] HermannURINE AND WHECW6661-13-93 09:13:53 Negative *NA*(12/15/17 4:13 AM)[facility] HermannURINE AND DIKMV4216-54-33 09:13:53 1[facility] HermannURINE AND YIIKU4185-88-31 09:13:532[facility] HermannURINE AND CNRQZ3001-94-71 09:13:533[facility] HermannURINE AND VLPKM2418-50-09 09:13:53 Negative (12/15/17 4:13 AM)[facility] HermannURINE AND DELGL5225-01-79 09:13:53* Test Item Value Reference Range Interpretation Comments UA pH (test code = UA pH) 8.0 1 5.0-8.0 [facility] [id number] 09:13:53* Test Item Value Reference Range Interpretation Comments UA Spec Grav (test code = UA Spec Grav) 1.010 1 [facility] [id number] 09:13:53Clear (12/15/17 4:13 AM) [facility] [id number] 08:25:00* Test Item Value Reference Range Interpretation Comments CK MB Index (test code = CK MB Index) 1.8 1 <=2.5 [facility] [id number] 08:25:0073[facility] [id number] 08:25:001.3[facility] [id number] 08:25:00< 0.02[facility]CHE[facility] [id number] 08:25:002.7[facility] PANEL 2017-12-15 08:25:002.4[facility] [id number] 08:25:0075[facility] [id number] 08:25:00* Test Item Value Reference Range Interpretation Comments B/C Ratio (test code = B/C Ratio) 10 1 6-25 [facility] [id number] 08:25:003.7[facility] PANEL 2017-12-15 08:25:007[facility] [id number] 08:25:63817Xfvexyxt HermannCHEM [id number] 08:25:000.72[facility] [id number] 08:25:77676Eomxdboa HermannCHEM [id number] 08:25:0025[facility] [id number] 08:25:0030[facility] [id number] 08:25:004.1 [facility] [id number] 08:25:008.6[facility] PANEL 2017-12-15 08:25:007.8[facility] [id number] 08:25:000.4[facility] [id number] 08:25:0010.5[facility] [id number] 08:25:0025[facility] [id number] 08:25:00* Test Item Value Reference Range Interpretation Comments A/G Ratio (test code = A/G Ratio) 1.1 1 0.7-1.6 [facility] [id number] 08:25:0096[facility] PANEL 2017-12-15 08:25:0032[facility] JfswcrnQLGJJNKCYD3603-64-44 08:25:0064.9[facility] FomhjxrYPKBGEAQDZ8513-11-73 08:25:0023.0[facility] QtorvomQPPVPPYUAE2228-29-85 08:25:000.7[facility] AnkadufMLYSVLSEXC7945-36-10 08:25:000.7[facility] OGPSAEQRIX5732-92-20 08:25:000.4[facility] NqblmtkHBRMLQMRHE7215-44-34 08:25:001.5 [facility] RdgevgdTOZHASNRAR0518-38-69 08:25:004.3[facility]annHEMATOLOGY 2017-12-15 08:25:0011.0[facility] PatwwgrOYWUWVEKKB7420-23-45 08:25:007.8[facility] TisomfdIOMTLGFADN5437-62-81 08:25:0033.3[facility] HyopzacPCZGAJJZOA0767-15-10 08:25:00* Test Item Value Reference Range Interpretation Comments MCH (test code = MCH) 28.4 pg 27.0-31.0 [facility] WoypgeuOOKTUMRMAV2420-22-44 08:25:0016.5[facility]annHEMATOLOGY 2017-12-15 08:25:03618Yqqshqgi JpijmelUAFXADBOZO0425-93-99 08:25:0085.4[facility] VypzaftKEICLBSGST1250-63-89 08:25:006.6[facility] BpvzhtlJLYHZPMTQH6504-66-26 08:25:004.68[facility] AwimwqmGVVMCNSUPJ4660-61-65 08:25:0013.3[facility] BHVBGEKPJM5234-66-28 08:25:0040.0[facility] ZqilqdxGVWUJRTGRT1369-68-62 08:25:00* Test Item Value Reference Range Interpretation Comments INR (test code = INR) 1.19 1 0.85-1.17 [facility] JaqedcxHKUHZQRWXF4324-09-48 08:25:00* Test Item Value Reference Range Interpretation Comments PT (test code = PT) 15.2 s 12.0-14.7 [facility] WnyjpgtDRETPEUSTG7830-39-02 08:25:00* Test Item Value Reference Range Interpretation Comments PTT (test code = PTT) 30.1 s 22.9-35.8 [facility]annCARDIAC YAYISCK3233-37-83 16:20:000[facility]annCARDIAC BLOMJTI6896-67-59 16:20:000[facility]annCARDIAC VBFODIU3885-06-42 16:20:95515 [facility] ANKPQDX0781-54-74 16:20:000[facility]annC[facility]AC QGWKANG2777-86-01 16:20:000[facility]annCARDIAC YIBIGVK6762-13-31 16:20:0045 [facility]annC[facility]AC GGRIQJW6629-54-94 20:44:00<0.02[facility]annCARDIAC GCYLVKP3017-48-53 20:44:40090Wywxeicc HermannCARDIAC EUBKMQR7070-97-61 20:44:00 1.1[facility]annCARDIAC OLAGEEE1694-93-46 20:44:0051[facility]annCARDIAC YUAZUEY5187-21-89 20:44:00* Test Item Value Reference Range Interpretation Comments CK MB Index (test code = CK MB Index) 2.2 1 <=2.5 [facility]annCHEM ZDBBX5084-73-60 20:44:0076[facility]annCHEM PANEL 2017-12-04 20:44:00* Test Item Value Reference Range Interpretation Comments B/C Ratio (test code = B/C Ratio) 18 1 6-25 [facility]annCHEM CJHKV9980-28-46 20:44:003.4[facility]annCHEM PANEL 2017-12-04 20:44:0034[facility]annCHEM PDQAG9386-09-69 20:44:000.4[facility]annCHEM TBBLX2298-55-93 20:44:007.6[facility]annCHEM VAQHA2001-32-27 20:44:004.0[facility]annCHEM NVBJI9390-10-33 20:44:0023[facility]annCHEM TXPPI6876-63-66 20:44:0022[facility]annCHEM BRDGE8603-34-09 20:44:50001 [facility]annCHE[facility] BBRTD5489-73-49 20:44:0034[facility]annCHEM PANEL 2017-12-04 20:44:009.0[facility]annCHEM FJDDC2562-06-20 20:44:007.4[facility]annCHEM GLNYF1059-04-75 20:44:00* Test Item Value Reference Range Interpretation Comments A/G Ratio (test code = A/G Ratio) 1.2 1 0.7-1.6 [facility]annCHEM QGVKT5616-82-48 20:44:004.6[facility]annCHEM PANEL 2017-12-04 20:44:86993Iffitgdb HermannCHEM LWXMO2163-29-37 20:44:000.72[facility]annCHEM ZLFEP6044-33-38 20:44:0013[facility]annCHEM DRWRE7351-09-49 20:44:0090[facility] SqlldyqFXMWIFWPLM0077-06-35 20:44:004.16[facility] KXHCEYVGOH0340-56-80 20:44:0010.4[facility] BnsdwxrMMZTVSRDHF0215-63-47 20:44:00 35.9[facility] JbrudasDOWXXTTVUT3939-35-55 20:44:0012.0[facility]annHEMATOLOGY 2017-12-04 20:44:00* Test Item Value Reference Range Interpretation Comments MCH (test code = MCH) 28.7 pg 27.0-31.0 [facility] EfmhklpAJWVUXPBRU1464-18-70 20:44:0017.7[facility]annHEMATOLOGY 2017-12-04 20:44:0086.3[facility] HoihdtdUAJOOYHWID9078-13-17 20:44:0033.3[facility] OzormgtNGITZPETHC4857-01-08 20:44:008.1[facility] FdswbmjOMFNVBWTSO0629-15-33 20:44:20286Tyfsjwuy EzskrlvWOGBWBQGPO7805-11-04 20:44:00* Test Item Value Reference Range Interpretation Comments PT (test code = PT) 14.0 s 12.0-14.7 [facility] HlikffyNJYUBXLKJE1161-16-46 20:44:00* Test Item Value Reference Range Interpretation Comments INR (test code = INR) 1.08 1 0.85-1.17 [facility] XsahqonNJDNVOEJBR1271-68-47 20:44:00* Test Item Value Reference Range Interpretation Comments PTT (test code = PTT) 32.1 s 22.9-35.8 [facility] NbdgjgwFEDBGQIBOI1498-51-70 20:44:003.6[facility]annHEMATOLOGY 2017-12-04 20:44:0010.2[facility] OafmlixRRSLUNCVSV2907-76-34 20:44:0023.3[facility] EjzbldnMVIUCYFLSY1398-30-79 20:44:002.4[facility] OcplcrhCAECOFGLFM1442-66-57 20:44:0062.3[facility] XdnpnkqFVHQJWFLYC0821-34-14 20:44:006.5[facility] AAONNVPVNY1843-65-66 20:44:000.6[facility] QtorqiqFNLEBHAVGK5852-74-71 20:44:000.1 [facility] XbpwqbqKUZKYSPQOQ0715-63-79 20:44:000.4[facility]annHEMATOLOGY 2017-12-04 20:44:001.1[facility] HermannCHEM JBRIX6971-44-29 20:24:0068[facility]annCHEM VEBYM0782-55-14 20:24:000.8[facility] CcazsyeJZKEUGPULK4933-94-64 13:07:000[facility] RbakoegVQTTIXRJVD9141-17-25 13:07:0011.2[facility] HORGNWMPQVXG9654-12-78 08:58:0013.0[facility] DksenkrFCHWVOYJXTWN7856-24-06 08:58:0015[facility] LnkmufsDORUMKZHAWDU1948-72-32 08:58:0031[facility] FUAEDWFIGOAY1452-60-68 08:58:87983Yuxgsbsj KhsygrlZJSBRZOPDDLI4078-22-87 08:58:008.8[facility] OtkjuptNEWGUQNGVUKQ0882-73-43 08:58:005.0[facility] ULTLEFVBIAZB5620-39-75 08:58:59385Plyoiufz MoilbfnGVASYAHVESQX2378-09-60 08:58:0088[facility] KblvjrfJQHWXTTBBRIH0878-15-34 08:58:000.92[facility] GSUHRSMUZARX2330-71-56 08:58:0057[facility] JmsgdrhOMOSSYABLQ4635-20-75 08:58:00 32.4[facility] GhucmdkAIMWOIPGWV4969-80-40 08:58:0015.9[facility]annHEMATOLOGY 2016-01-24 08:58:00* Test Item Value Reference Range Interpretation Comments MCH (test code = MCH) 26.7 pg 27.0-31.0 [facility] OeljfvjZNYOKEQYFJ7180-43-66 08:58:006.5[facility]annHEMATOLOGY 2016-01-24 08:58:008.2[facility] EtssjhdSAXMGKMBHQ3045-57-11 08:58:58258Cbxckblm CfmengbANQHYXKRRD7766-25-63 08:58:0037.8[facility] YnfltlmOYIEPABEDT7748-27-28 08:58:0082.3[facility] YabuauyUYUGKRRZTT7791-10-46 08:58:0012.2[facility] DZZCDAHVIO9495-71-29 08:58:004.59[facility] NfygorwESFTKXHHNK5410-82-58 08:58:00 0.8[facility] AdedqaxEMXKSHRMCX9335-43-77 08:58:000.7[facility] HermannHEMATOLOGY 2016-01-24 08:58:006.8[facility] UamugmlITKLVKDRPJ9339-37-11 08:58:000.4[facility] MofymwcZHZKNZRBAX1685-49-50 08:58:002.6[facility] RtexpbbSSKXEVNMKT0838-44-67 08:58:0039.4[facility] WendcpmCOOJSHGTTF1377-33-65 08:58:0040.9[facility] RHDDAQBRMI0215-17-12 08:58:002.7[facility] EcxolrlGPSBRRVVDX5829-42-62 08:58:00 12.2[facility] HermannCHEM CHQZA5741-33-49 02:26:483.6[facility] HermannCHEM PANEL 2016-01-22 02:26:481.1[facility] HermannCHEM HVGCT9659-87-68 02:26:483.8[facility]annCHEM LXFWA4186-54-18 02:26:487.4[facility]annCHEM WCPSW6243-78-06 02:26:487.9[facility]annCHEM FBTHB8077-37-40 02:26:4810.2[facility]annCHEM GQXSE6139-75-16 02:26:4814[facility]annCHEM IAZDA3406-39-58 02:26:25536 [facility]annCHEM XNQLS6517-22-05 02:26:4827[facility]annCHEM PANEL 2016-01-22 02:26:484.2[facility] HermannCHEM HKFGY3334-28-82 02:26:35627Jvkjmbdm HermannCHEM ZACGO7503-38-60 02:26:85976Iftxidco HermannCHEM ZUSSA3350-28-53 02:26:481.23[facility]annCHEM XCEGD4757-85-75 02:26:4817[facility]annCHEM LBSMW3583-80-81 02:26:4840[facility]annCHEM AADPY7919-27-70 02:26:480.4 [facility]annCHEM WTZJU8100-18-19 02:26:4831[facility]annCHEM PANEL 2016-01-22 02:26:4823[facility] HermannCHEM OVYCQ0039-27-95 02:26:4828[facility] BchlgtuUZHMFXJCYF9741-71-03 02:26:480.1[facility] EusojvlNBPIAHRKXE1509-88-92 02:26:480.6[facility] SjfqfwaNWOCZRINNM3363-32-78 02:26:481.0[facility] OSFNMOZXID3248-48-45 02:26:480.3[facility] NaqndzlHRWHYEGQCY8212-94-27 02:26:487.6 [facility] FhvlftuHQFWAWUZBF0446-73-68 02:26:480.2[facility]annHEMATOLOGY 2016-01-22 02:26:4891.3[facility] LewvpqyAWIQZVXZXD2103-58-28 02:26:487.2[facility] KguwysnJNKFMMYEAH9804-83-56 02:26:484.77[facility] LajagplZULKVQGHTH8736-02-66 02:26:4812.7[facility] MstbfxzXVJNACCVLY3578-79-36 02:26:4839.2[facility] HKSMKOZIQQ1687-76-89 02:26:4882.1[facility] LjcicrjPZURRTDAAJ3344-25-69 02:26:48 8.0[facility] ZldwoozPGZDPHEECT1746-43-51 02:26:48* Test Item Value Reference Range Interpretation Comments MCH (test code = MCH) 26.6 pg 27.0-31.0 [facility] IzwshfuELTKCOXUOP0981-78-19 02:26:4832.5[facility] HermannHEMATOLOGY 2016-01-22 02:26:4815.4[facility] RirueiaDGDZLUWNOD8386-46-51 02:26:28854Hlytwpzx BsbvvjlHMXSYYTOLZ7442-31-20 02:26:488.3[facility] HermannCHEM MKROO2774-63-68 22:55:0036[facility]annCHEM EOZQV5264-28-63 22:55:001.1[facility] HermannCHEM NUIEM8403-80-37 22:55:0026[facility]annCHEM HXKMT3014-42-57 22:55:009.9 [facility]annCHEM XZPCZ4959-72-25 22:55:000.2[facility]annCHEM PANEL 2016-01-21 22:55:003.5[facility] HermannCHEM TQNYG8357-53-08 22:55:0011[facility]annCHEM HGJHK5601-22-28 22:55:007.8[facility]annCHEM NTAMV2392-55-54 22:55:003.8[facility]annCHEM IHLHR4071-95-10 22:55:007.3[facility] HermannCHEM SEGKY0107-66-02 22:55:0030[facility]annCHEM VCBAS2511-30-27 22:55:0028 [facility]annCHEM BRWBX9565-13-08 22:55:53323Dwwwfexb HermannCHEM PANEL 2016-01-21 22:55:98664Cneqalor HermannCHEM OJODJ3494-62-40 22:55:003.9[facility] HermannCHEM TBWXO3199-46-66 22:55:0029[facility]annCHEM TYKCV2480-55-99 22:55:72640Epwejxyg HermannCHEM ZBSIH5814-34-42 22:55:001.34[facility]annCHEM JXMPN6153-77-10 22:55:0015[facility] HermannCHEM QMOGI1519-60-65 22:55:00<0.05 [facility]annCHEM NFMVE3340-75-15 22:55:001.3[facility]annHEMATOLOGY 2016-01-21 22:55:008.2[facility] WoxghvkFMZRWGGSXA8617-21-76 22:55:005.7[facility] DlmyfflFXKAPDCGWG7155-73-21 22:55:0038.8[facility] PhveioiSTDHBRATNB9810-97-65 22:55:0012.7[facility] LsuslttIQNMXWDWSW6667-69-40 22:55:004.75[facility] WPELFCRWHG1267-68-11 22:55:0032.7[facility] JilbblyPQLKZLZIZV9250-68-24 22:55:00 227[facility] OvpjqtcGHGSLDWKMJ4957-78-40 22:55:0015.4[facility]annHEMATOLOGY 2016-01-21 22:55:0081.7[facility] StysaugBXOTKDMVYY0014-26-40 22:55:00* Test Item Value Reference Range Interpretation Comments MCH (test code = MCH) 26.7 pg 27.0-31.0 [facility] OshuvkiNDBJZLRSFO7981-64-19 22:55:000.7[facility]annHEMATOLOGY 2016-01-21 22:55:0037.4[facility] NefcrnuTZTDSIMDOX9393-03-43 22:55:007.5[facility] LobzdooEJGNKFDTFQ7430-63-07 22:55:0040.9[facility] HoigowmJGDJYLWALH1511-66-93 22:55:0013.5[facility] CkmqeefPBXNSBLWMT4233-61-93 22:55:002.1[facility] TLYETKLUAA8865-79-89 22:55:002.3[facility] GphcpenYCUBOZWCME6472-21-84 22:55:000.4 [facility] IxajchgRRGWAHIALE0782-78-42 22:55:000.8[facility] HermannIMMUNOLOGY 2016-01-21 22:55:00<2.9[facility]
[2020-01-30] MEDS ORDERED: DOCUSATE SODIUM 100 MG CAP PO PRN (21:45)
[2020-01-30] MEDS ORDERED: ACETAMIN/BUTALBITAL/CAFFEINE TAB PO PRN (21:45)
[2020-01-30] MEDS ORDERED: TRAMADOL HCL 50 MG TAB PO PRN (21:45)
--- NOTE | 2020-01-30 21:50 | NUR ---
H&P cc: sob HPI: 89yoF, PCP , developed SOB, found to have Right PNA/pleural effusion. Also findings of distended gallbladder. Pt does have discomfort in right mid back radiating around to the right front mid chest. Pt's symptoms for 1 day. PMH: Rheumatoid arthritis, PAF, ambulatory dysfunction using walker PSHx: hysterectomy Allergies: see emr Fh/SH; ; no cigs meds; see MAR ROS; no f/c/s/N/V/D/MORRIS/dizziness, confusion,vision changes, chest pain v/s revd PE tired appearing; Anxious appearing anicteric ns1s2 reduced BS right lung Pt indicating discomfort form right mid back radiating to right lower rib region; No flank tenderness; No abdominal tenderness soft abdomen no leg edema skin dry flat affect; anxious labs/meds revd A/P: 89yoF Parapneumonic effusion/Right pleural effusion- monitor; O2 support; may need diuresis. Multifocal PNA- IV aztreonam/azithromycin; O2; pulm consult KISHA vs CKD- pt not aware of renal discomfort UTI- IV aztreonam; cultures Distended gallbladder- U/S consideration RA- home meds Abnormal gait- uses walker; PT consult PAF- AV blockade Anxiety- prn BZD Prop: scd; lovenox Dispo; monitor; control anxiety; discomfort can be due to the PNA/parapneumonic effusion vs gallbladder disease. ILA HAWTHORNE MD, PHD.
[2020-01-30] MEDS: MORPHINE SULFATE INJ 4 MG/ML INJ 1ML IV PRN (22:40)
[2020-01-30] MEDS: ONDANSETRON HCL INJ 2MG/ML 2ML 2 MG/ML VIAL IV PRN (22:40)
[2020-01-30 22:45] VITALS: BP 119/56
[2020-01-30] MEDS ORDERED: SODIUM CHLORIDE 0.9% 250ML 250 ML ONE (23:08)
[2020-01-30] MEDS: AZTREONAM 1 GM/NS 50 ML 50 ML IV SCH (23:13)
--- NOTE | 2020-01-30 23:30 | NUR ---
RECEIVED PATIENT FROM ER IN STABLE CONDITION, SHORTNESS OF BREATH AND PAIN UPON BREATHING NOTED. NASAL CANNULA IS INTACT AND FLOWING AT 3 LITERS. IV ANTIBIOTICS ARE RUNNING AT ORDERED RATE AND PATIENT VOICES PAIN AT A LEVEL OF 9, WAS PREVIOUSLY MEDICATED ORDERED. BED IS IN LOWEST POSITION, BOTH SIDE RAILS ARE UP, CALL LIGHT IS WITHIN EASY REACH, WILL CONTINUE TO MONITOR.
[2020-01-30 23:45] VITALS: BP 119/56
[2020-01-31] VITALS (10 sets, daily range): BP systolic 98–142; BP diastolic 55–106
[2020-01-31] MEDS: PREGABALIN 50 MG CAP PO SCH ×3 (00:28→17:36)
[2020-01-31] MEDS: MORPHINE SULFATE INJ 4 MG/ML INJ 1ML IV PRN ×3 (02:41→17:40)
[2020-01-31] MEDS: ONDANSETRON HCL INJ 2MG/ML 2ML 2 MG/ML VIAL IV PRN ×3 (02:41→17:40)
[2020-01-31] MEDS: LORAZEPAM 0.5 MG TAB PO PRN (06:25)
[2020-01-31] MEDS: AZTREONAM 1 GM/NS 50 ML 50 ML IV SCH (06:25)
[2020-01-31 07:03] LABS: BASOPHILS # (AUTO) 0.1 (0.0-0.1); BASOPHILS % 0.4 % (0.0-1.0); EOSINOPHILS # (AUTO) 0.1 (0.0-0.4); EOSINOPHILS % 0.2 % (0.0-6.0); HEMATOCRIT 44.8 % (34.2-44.1); HEMOGLOBIN 14.3 g/dL (12.0-16.0); LYMPHOCYTES # (AUTO) 1.6 (1.0-3.2); LYMPHOCYTES % 4.7 % (18.0-39.1); MEAN CORPUSCULAR HEMOGLOBIN 29.1 pg (28-32); MEAN CORPUSCULAR HGB CONC 31.9 g/dL (31-35); MEAN CORPUSCULAR VOLUME 91.1 fL (81-99); MONOCYTES # (AUTO) 1.5 (0.2-0.8); MONOCYTES % 4.5 % (4.4-11.3); NEUTROPHILS # (AUTO) 29.6 (2.1-6.9); NEUTROPHILS % 89.3 % (38.7-80.0); PLATELET COUNT 197 x10e3/uL (140-360); RED BLOOD COUNT 4.92 x10e6/uL (3.6-5.1); RED CELL DISTRIBUTION WIDTH 23.8 % (11.7-14.4)
[2020-01-31] MEDS ORDERED: XARELTO20 MG PO (07:23)
[2020-01-31] MEDS: PANTOPRAZOLE SOD 40 MG TABEC PO SCH (07:30)
[2020-01-31 07:37] LABS: ALBUMIN 3.7 g/dL (3.5-5.0); ALBUMIN/GLOBULIN RATIO 1.4 (0.8-2.0); ANION GAP 18.5 mmol/L (8-16); CALCIUM 8.2 mg/dL (8.4-10.2); CREATININE, SERUM 0.97 mg/dL (0.57-1.11); POTASSIUM 4.5 mmol/L (3.5-5.1)
--- NOTE | 2020-01-31 07:45 | NUR ---
ASSUMED CARE. AAOX3. ACYANOTIC. O2 AT 3L NC. RESTING IN BED. CALL LIGHT IN REACH. SIDE RAILS UP X2. BED LOW AND LOCKED.
--- NOTE | 2020-01-31 08:18 | NUR ---
AAOX3. PATIENT'S O2 SAT DECLINED TO [address] Cookie TELLES NOTIFIED. PATIENT THEN PLACED ON NON-REBREATHER WITH O2 AT 15L. 95 PERCENT SAT NOTED. ORDERS RECEIVED TO TRANSFER PATIENT TO ICU. CAR ESCORT AND CHARGE NURSE NOTIFIED.
[2020-01-31] MEDS ORDERED: VANCOMYCIN 1GM/NS 250 ML 250 ML IV ONE (08:30)
[2020-01-31] MEDS ORDERED: SODIUM CHLORIDE 0.9% 1000ML 1,000 ML IV ONE (08:30)
[2020-01-31 08:34] LABS: ABG HCO3 28 mmol/L (22-26); ABG PCO2 56 mmHg (35-45); ABG PO2 64 mmHg (80-105)
[2020-01-31 08:35] LABS: ABG TCO2 29
[2020-01-31] MEDS ORDERED: PROPRANOLOL HCL 80 MG CAPCR PO SCH ×2 (09:00)
[2020-01-31 09:11] LABS: BAND NEUTROPHILS % (MANUAL) 7 %; LYMPHOCYTES % (MANUAL) 4 % (19-48); MONOCYTES % (MANUAL) 3 % (3.4-9.0); NEUTROPHILS % (MANUAL) 86 % (40-74)
[2020-01-31 09:13] LABS: PLATELET ESTIMATE ADEQUATE; PLATELET MORPHOLOGY COMMENT MODERATE LARGE
[2020-01-31 09:15] LABS: ANISOCYTOSIS MODERATE; RBC MORPHOLOGY COMMENT ABNORMAL
[2020-01-31 09:16] LABS: HYPOCHROMASIA MODERATE
[2020-01-31] MEDS: CEFEPIME 1GM/NS 0.9% 50 ML 50 ML IV SCH ×2 (09:20→20:56)
--- NOTE | 2020-01-31 09:20 | Consultation ---
DATE OF CONSULTATION: Pulmonary Critical Care Consultation CHIEF COMPLAINT: Dyspnea, leukocytosis, and abnormal chest x-ray. HISTORY OF PRESENT ILLNESS: The patient is an 89-year-old woman. She has a history of rheumatoid arthritis. She takes methotrexate at home as well as Actemra and low-dose prednisone. She also has a history of atrial fibrillation and is using propranolol and Xarelto. She came to the emergency department last night complaining of pain in her right upper quadrant and cough. She noted a band-like sensation across her chest. She also had some fevers. Her chest x-ray showed a right lower lobe infiltrate and possibly some loculated pleural effusion. The patient was placed on the floor overnight on a nasal cannula, but her saturations have deteriorated. She is less responsive. She had to have her oxygen increased to 100%, was subsequently switched to BiPAP. PAST MEDICAL HISTORY: 1. Rheumatoid arthritis. 2. Fibromyalgia. 3. Atrial fibrillation. 4. Gastroesophageal reflux. PAST SURGICAL HISTORY: 1. Prior right hand surgery. 2. History of surgery on the feet. SOCIAL HISTORY: The patient never smoked. She is not a drinker. FAMILY HISTORY: Family history is noncontributory. ALLERGIES: THE PATIENT IS ALLERGIC TO PENICILLINS, IODINE, NIACIN AND CODEINE. REVIEW OF SYSTEMS: There was a history of some fevers. She has a history of chronic headaches intermittently. She has some difficulty breathing and some cough. She has no chest pain. She has a right upper quadrant pain, but no nausea or vomiting. PHYSICAL EXAMINATION: VITAL SIGNS: The blood pressure is 132/60 and the saturation is now in the mid 90s on a non-rebreather. Her pulse is 88. HEENT: Shows no facial swelling or erythema. LYMPHATIC: Shows no submandibular, cervical, or supraclavicular adenopathy. CARDIAC: Reveals a regular rate and rhythm with normal S1 and S2. LUNGS: Auscultation of lungs reveals decreased breath sounds at the right base. ABDOMEN: Soft and nontender. There is no rebound or guarding. EXTREMITIES: Show no leg edema or calf tenderness. There is no cyanosis or clubbing. SKIN: Shows no rashes. NEUROLOGICAL: Shows no focal abnormalities. LABORATORY DATA: The BUN to creatinine ratio is 18 to 0.97. Carbon dioxide is 21. White blood cell count is 33.1 and the hemoglobin is 14.3. The platelet count is 197. RADIOGRAPHIC DATA: Chest x-ray shows a right lower lobe infiltrate as well as a moderate right pleural effusion that appears loculated. CT scan of the abdomen and pelvis shows a distended gallbladder with no surrounding inflammation. There is some atelectasis at the right lung base along with a small pleural effusion. IMPRESSION: 1. Community-acquired pneumonia with severe sepsis, present on admission. 2. Possible empyema secondary to pneumonia. 3. Rheumatoid arthritis. 4. Distending gallbladder. 5. Atrial fibrillation. PLAN: 1. The patient will receive IV fluids at 30 mL/kg. 2. Escalate antibiotics to cefepime, Zithromax, and vancomycin to cover for community-acquired and aspiration pneumonia as well as pneumonia secondary to her immunosuppression for rheumatoid arthritis. 3. The patient to use BiPAP for now. Repeat ABG in 90 minutes. 4. Case discussed with . He seemed unsure about her code status, but believes he has an advanced directive. He is currently looking for this at home. 5. Echocardiogram. 6. Right upper quadrant ultrasound. 7. Case discussed with Dr. Blanco, Respiratory, and nursing staff. Luis Bray MD LM/VIVIENNE /[id number]
--- NOTE | 2020-01-31 09:20 | Diagnostic Imaging Report ---
EXAMINATION: CHEST SINGLE (PORTABLE) INDICATION: resp failure COMPARISON: Chest x-ray dated 01/30/2020. FINDINGS: AP view TUBES and LINES: None. LUNGS/PLEURA: There is increased large right-sided pleural effusion with associated atelectasis. There is also mild hazy opacities in both lung which could be due to edema. Underlying infection could be considered in appropriate clinical setting. HEART AND MEDIASTINUM: The cardiomediastinal silhouette is unremarkable. BONES AND SOFT TISSUES: No acute osseous lesion. Soft tissues are unremarkable. UPPER ABDOMEN: No free air under the diaphragm. IMPRESSION: 1. Increased enlarged right-sided pleural effusion with associated atelectasis. 2. Otherwise unchanged. Signed by: Stephen Galeana MD on 01/31/2020 9:16 AM
--- NOTE | 2020-01-31 09:51 | NUR ---
IM- progress note O/N see below ROS; no f/c/s/N/V/D/MORRIS/dizziness, confusion,vision changes, chest pain v/s revd PE tired appearing; Anxious appearing anicteric ns1s2 reduced BS right lung Pt indicating discomfort form right mid back radiating to right lower rib region; No flank tenderness; No abdominal tenderness soft abdomen no leg edema skin dry flat affect; anxious labs/meds revd A/P: 89yoF Parapneumonic effusion/Right pleural effusion- monitor; O2 support; may need diuresis. Multifocal PNA- IV aztreonam/azithromycin; O2; pulm consult KISHA vs CKD- pt not aware of renal discomfort UTI- IV aztreonam; cultures Distended gallbladder- U/S consideration RA- home meds Abnormal gait- uses walker; PT consult PAF- AV blockade Anxiety- prn BZD Chronic pain syndrome- use prn morphine. Prop: scd; lovenox Dispo; monitor; control anxiety; discomfort can be due to the PNA/parapneumonic effusion vs gallbladder disease. 9-6 worsened leukocytosis; IV cefepime/azithromycin/vanco; U/S abdomen = sludge only; move to ICU if needed. d/w . IV morphine for continued chronic pain management. ILA HAWTHORNE MD, PHD.
[2020-01-31] MEDS: ASPIRIN 81 MG CHEW TAB PO SCH (10:34)
[2020-01-31] MEDS: FOLIC ACID 1 MG TAB PO SCH (10:34)
[2020-01-31] MEDS: ATORVASTATIN 10 MG TAB PO SCH (10:35)
[2020-01-31] MEDS: PROPRANOLOL HCL 40 MG TAB PO SCH ×2 (10:51→17:36)
[2020-01-31 12:19] LABS: ABG HCO3 26 mmol/L (22-26); ABG PCO2 51 mmHg (35-45); ABG PH 7.31 (7.35-7.45); ABG PO2 71 mmHg (80-105); ABG TCO2 28
--- NOTE | 2020-01-31 13:30 | Diagnostic Imaging Report ---
EXAM: Gallbladder Ultrasound INDICATION: distended GB with severe Right upper back radiation to side COMPARISON: None. TECHNIQUE: Transverse and longitudinal images of the gallbladder were obtained. FINDINGS: Liver: Limited Gallbladder: Stones/Sludge: There is gallbladder sludge. Wall: 0.3 cm Appearance: No pericholecystic fluid or hydrops. Sonographic Hamilton's Sign: Negative Bile Ducts: Intrahepatic Ducts: No dilatation Extrahepatic Ducts: No dilatation Free Fluid: No ascites or pleural effusion IMPRESSION: Gallbladder sludge with no findings of cholecystitis. Signed by: Stephen Galeana MD on 01/31/2020 1:27 PM
[2020-01-31] MEDS: AZITHROMYCIN 500MG/NS 250 ML 250 ML IV SCH (17:37)
--- NOTE | 2020-01-31 17:40 | NUR ---
patient agitated and restless, c/o pain to lower back, 02 sats dropped to 80 and patient placed back on bipap, notified Dr. Blanco patient c/o pain and is to restless for CT at this time, orders received for pain medication, radiology informed about new orders, oncoming nurse to follow up with Radiology when patient is ready.
--- NOTE | 2020-01-31 19:57 | NUR ---
Pt transported to CT with Bipap; No difficulties; SpO2 97-99%; pt returned to room at 2011 Addendum: 01/31/20 at 2046 by Trish Ayala RT Amended: Links added.
--- NOTE | 2020-01-31 20:30 | NUR ---
Patient back from CT, vitals stable, drowsy but obeying commands
--- NOTE | 2020-01-31 20:44 | NUR ---
Called in a consult for Dr Holliday, from Dr Bray
--- NOTE | 2020-01-31 21:15 | Diagnostic Imaging Report ---
EXAM: CT Chest WITHOUT contrast INDICATION: ^empiema ^[id number] ^[id number] COMPARISON: Chest x-ray dated 01/31/[address] abdomen/pelvis on 01/30/2020 TECHNIQUE: Chest was scanned utilizing a multidetector helical scanner from the lung apex through the level of the adrenal glands without administration of IV contrast. Absence of intravenous contrast decreases sensitivity for detection of lymphadenopathy and vascular pathology. Coronal and sagittal reformations were obtained. Routine protocol was performed. IV CONTRAST: None COMPLICATIONS: None RADIATION DOSE: Total DLP: 510.48 mGy*cm Estimated effective dose: (DLP x 0.014 x size factor) mSv CTDIvol has been reviewed. It is below the limits set by the Radiation Protocol Committee (RPC). FINDINGS: LINES/ TUBES: None. LUNGS AND AIRWAYS: Evaluation of the lungs are limited by respiratory motion. Interlobular septal thickening and scattered areas of mild groundglass haziness. Airways are normal. PLEURA: Large right pleural effusion with adjacent compressive atelectasis of the most of the right lower and middle lobes. There is also new left basilar consolidation with air bronchograms. HEART AND MEDIASTINUM: The thyroid gland is normal. No mediastinal or axillary lymphadenopathy. The heart is normal in size.. There is no pericardial effusion. There are moderate to severe atherosclerotic calcifications in the aorta and coronary arteries. Bilateral aneurysmal dilatation of subclavian arteries, measuring 1.9 cm on right and 1.8 cm on the left side (series 401, image 43). UPPER ABDOMEN: The seen gallbladder sludge. Left renal superior pole cyst. Small hiatal hernia. BONES: Old fracture deformity of posterior right 10th rib. Age indeterminate nondisplaced fractures of the lateral right third rib and anterior left fourth ribs. Degenerative changes of thoracic spine. SOFT TISSUES: Unremarkable. IMPRESSION: 1. Intervally increased now large right pleural effusion with compressive atelectasis of most of the right lower and middle lobes. Evaluation for empyema is limited without intravenous contrast. 2. New left lung base consolidation with air bronchograms, representing atelectasis versus aspiration/pneumonia in the appropriate clinical context. 3. Mild interstitial edema. 4. Bilateral aneurysmal dilatation of subclavian arteries. Signed by: Dr. Ok Teresa MD on 01/31/2020 9:12 PM
[2020-02-01] VITALS (16 sets, daily range): BP systolic 101–152; BP diastolic 47–108
[2020-02-01] MEDS: MORPHINE SULFATE INJ 4 MG/ML INJ 1ML IV PRN (04:00)
[2020-02-01 05:50] LABS: ALANINE AMINOTRANSFERASE 16 IU/L (0-55); ALBUMIN 3.3 g/dL (3.5-5.0); ALBUMIN/GLOBULIN RATIO 1.3 (0.8-2.0); ALKALINE PHOSPHATASE 39 IU/L (40-150); ANION GAP 17.7 mmol/L (8-16); BLOOD UREA NITROGEN 22 mg/dL (7-26); BUN/CREATININE RATIO 26 (6-25); CALCIUM 7.8 mg/dL (8.4-10.2); CARBON DIOXIDE 21 mmol/L (22-29); CHLORIDE 103 mmol/L (98-107); CREATININE, SERUM 0.84 mg/dL (0.57-1.11); EST GLOMERULAR FILTRATION RATE > 60 ML/MIN (60-); GLUCOSE 119 mg/dL (74-118); POTASSIUM 4.7 mmol/L (3.5-5.1); SODIUM 137 mmol/L (136-145)
[2020-02-01 06:28] LABS: BASOPHILS # (AUTO) 0.2 (0.0-0.1); BASOPHILS % 0.5 % (0.0-1.0); EOSINOPHILS % 0.1 % (0.0-6.0); HEMATOCRIT 40.9 % (34.2-44.1); HEMOGLOBIN 13.4 g/dL (12.0-16.0); LYMPHOCYTES # (AUTO) 1.9 (1.0-3.2); LYMPHOCYTES % 4.8 % (18.0-39.1); MEAN CORPUSCULAR HEMOGLOBIN 30.1 pg (28-32); MEAN CORPUSCULAR HGB CONC 32.8 g/dL (31-35); MEAN CORPUSCULAR VOLUME 91.9 fL (81-99); MONOCYTES # (AUTO) 1.8 (0.2-0.8); MONOCYTES % 4.6 % (4.4-11.3); NEUTROPHILS # (AUTO) 34.8 (2.1-6.9); NEUTROPHILS % 89.1 % (38.7-80.0); PLATELET COUNT 204 x10e3/uL (140-360); RED BLOOD COUNT 4.45 x10e6/uL (3.6-5.1)
[2020-02-01] MEDS: PANTOPRAZOLE SOD 40 MG TABEC PO SCH (07:30)
[2020-02-01] MEDS: CEFEPIME 1GM/NS 0.9% 50 ML 50 ML IV SCH ×2 (08:59→21:04)
[2020-02-01] MEDS: ASPIRIN 81 MG CHEW TAB PO SCH (09:00)
[2020-02-01] MEDS: ATORVASTATIN 10 MG TAB PO SCH (09:00)
[2020-02-01] MEDS: PROPRANOLOL HCL 40 MG TAB PO SCH ×2 (09:00→17:00)
[2020-02-01] MEDS: PREGABALIN 50 MG CAP PO SCH (09:00)
[2020-02-01] MEDS: FOLIC ACID 1 MG TAB PO SCH (09:00)
[2020-02-01] MEDS ORDERED: SODIUM CHLORIDE 0.9% 250ML 250 ML ONE (09:16)
--- NOTE | 2020-02-01 09:34 | Progress Note ---
DATE: SUBJECTIVE: The patient has remained on BiPAP overnight, setting of 16/8. Her FiO2 was 80%, but was increased to 100% this morning. Her saturations are in the low 90s. She does have some confusion. The patient's CT scan showed a large right pleural effusion with some probable loculation. PHYSICAL EXAMINATION: VITAL SIGNS: Blood pressure is now 104/95, saturation is 95% on BiPAP. She is on the above-mentioned settings, her pulse is 60 to 70, and respiratory rate is in the mid 20s. HEENT: Shows no facial swelling or erythema. LYMPHATIC: Shows no submandibular, cervical, or supraclavicular adenopathy. CARDIAC: Reveals regular rate and rhythm with normal S1, S2. LUNGS: Auscultation of lungs shows decreased breath sounds on the right side. ABDOMEN: Soft and nontender. There is no rebound or guarding. EXTREMITIES: Shows no leg edema or calf tenderness. There is no cyanosis or clubbing. SKIN: Shows no rashes. NEUROLOGICAL: The patient does have some confusion, but no focal abnormalities. LABORATORY DATA: White blood cell count is 39.02, hemoglobin is 13.4, and platelet count is 204. BUN to creatinine ratio is 22 to 0.89. The carbon dioxide is 21, chloride is 103, blood sugar is 119. Albumin is 3.3. RADIOGRAPHIC DATA: CT scan of the chest shows a large right pleural effusion with some compressive atelectasis, there is possible loculation. IMPRESSION: 1. Community-acquired pneumonia with complicated parapneumonic effusion and severe sepsis, present on admission. 2. Rheumatoid arthritis and immunosuppression. 3. Distended gallbladder. 4. Atrial fibrillation. 5. Metabolic encephalopathy. PLAN: 1. Continue current antibiotics of Zithromax, cefepime and vancomycin. 2. Continue BiPAP. 3. Case discussed with thoracic surgery. We will proceed with chest tube placement and drainage of the pleural space earlier this morning. 4. Her will come to the hospital for visitation. 5. is still looking for advanced directive to determine code status. Greater than 35 minutes in direct critical care time apart from any procedures performed. Luis Bray MD [facility] /[id number]
--- NOTE | 2020-02-01 10:23 | NUR ---
ST Note: Order for bedside swallow eval noted. Called and spoke with RADHIKA Dorado, who reported pt currently getting intubated and will be moved to ICU. Will f/u as indicated.
[2020-02-01] MEDS: VANCOMYCIN 1GM/NS 250 ML 250 ML IV SCH (10:52)
[2020-02-01 10:56] LABS: ABG HCO3 27 mmol/L (22-26); ABG PCO2 48 mmHg (35-45); ABG PH 7.35 (7.35-7.45); ABG PO2 51 mmHg (80-105); ABG TCO2 28
--- NOTE | 2020-02-01 11:26 | NUR ---
IM- progress note O/N see below ROS; no f/c/s/N/V/D/MORRIS/dizziness, confusion,vision changes, chest pain v/s revd PE tired appearing; Anxious appearing anicteric ns1s2 reduced BS right lung Pt indicating discomfort form right mid back radiating to right lower rib region; No flank tenderness; No abdominal tenderness soft abdomen no leg edema skin dry flat affect; anxious labs/meds revd A/P: 89yoF Parapneumonic effusion/Right pleural effusion- monitor; O2 support; may need diuresis. Multifocal PNA- IV aztreonam/azithromycin; O2; pulm consult KISHA vs CKD- pt not aware of renal discomfort UTI- IV aztreonam; cultures Distended gallbladder- U/S consideration RA- home meds Abnormal gait- uses walker; PT consult PAF- AV blockade Anxiety- prn BZD Chronic pain syndrome- use prn morphine. Prop: scd; lovenox Dispo; monitor; control anxiety; discomfort can be due to the PNA/parapneumonic effusion vs gallbladder disease. 9-6 Acute resp failure- BIPAP; worsened leukocytosis; IV cefepime/azithromycin/vanco; U/S abdomen = sludge only; move to ICU if needed. d/w . IV morphine for continued chronic pain management. 9-7 Possible empyema; worsened WBC; consult ID; CVSx to evaluate patient; d/w Eugene; check c.diff and empiric flagyl. Chest tube placement today; ILA HAWTHORNE MD, PHD.
[2020-02-01] MEDS ORDERED: MORPHINE SULFATE 2 MG/ML SYR 1ML IV ONE (11:35)
[2020-02-01] MEDS ORDERED: MORPHINE SULFATE 2 MG/ML SYR 1ML ONE (11:35)
--- NOTE | 2020-02-01 11:41 | NUR ---
ATTEMPTED DP, DOCTOR AND 2 NURSES IN ROOM DOING A PROCEDURE, WILL FOLLOW UP Addendum: 02/01/20 at 1141 by Yesica De Los Santos CM DPA
--- NOTE | 2020-02-01 13:05 | Diagnostic Imaging Report ---
EXAMINATION: CHEST XRAY POST PROCEDURE INDICATION: CHEST TUBE PLACEMENT COMPARISON: Multiple prior chest radiographs including most recent on 01/31/2020. CT of the chest on 01/31/2020. FINDINGS: TUBES and LINES: There has been interval placement of right chest tube. LUNGS/PLEURA: No interval change in large right pleural effusion with associated atelectasis and mild hazy opacities of both lungs which could be due to pulmonary edema and/or developing infection. HEART AND MEDIASTINUM: The cardiomediastinal silhouette is unchanged. BONES AND SOFT TISSUES: No acute osseous lesion. Soft tissues are unchanged. UPPER ABDOMEN: No free air under the diaphragm. IMPRESSION: 1. Interval placement of right chest tube. 2. No interval change in large right pleural effusion with associated atelectasis and mild hazy opacities of both lungs which could be due to pulmonary edema and/or developing infection. Signed by: Jadon White MD on 02/01/2020 1:01 PM
--- NOTE | 2020-02-01 13:09 | Operative Report ---
DATE OF PROCEDURE: 02/01/2020 SURGEON: Reggie Holliday MD PREOPERATIVE DIAGNOSIS: Loculated right pleural effusion, dyspnea. POSTOPERATIVE DIAGNOSIS: Loculated right pleural effusion, dyspnea. OPERATIVE PROCEDURE: Insertion of right chest tube. INDICATIONS: This is an 89-year-old lady, who developed a large right pleural effusion. Chest tube drainage was recommended. Prior to the procedure, I described it to the patient's who was at the bedside. I told them both that the risks of the procedure would include , bleeding, infection, intrathoracic bleeding of infection, possible need for another chest tube, progression of the dyspnea and intubation, etc. The patient andher each stated that they understood, no further question, wanted to proceed. FINDINGS: Uneventful placement of right chest tube. Post procedure chest x-ray showed that much of the effusion has been drained. The lung was fully expanded. The chest tube was in good position. DESCRIPTION OF PROCEDURE: The procedure was performed at the bedside. The patient was given 2 mg of morphine intravenously. Local anesthesia was infiltrated after the right chest had been sterilely prepped and draped. A small incision was made in the mid axillary line above the nipple on the right. Using blunt dissection, the pleural cavity was entered. Digital exploration did not show marked adhesions and a substantial serous fluid collection. A 32 [place] chest tube eas inserted uneventfully and secured in place. Approximately 800 mL of a serosanguineous fluid was drained. Chest x-ray was as above. Sterile dressing was applied. Reggie Holliday MD [facility]/MODL /[id number] MTDD
--- NOTE | 2020-02-01 13:15 | Consultation ---
DATE OF CONSULTATION: 02/01/2020 REASON FOR CONSULT: Right pleural effusion; requested by Dr. Krunal Bray. WOODWORKING BELT SANDER: Dr. Junaid Blanco. HISTORY OF PRESENT ILLNESS: I saw and evaluated this patient on February 01, 2020. She is an 89-year-old lady with a history of rheumatoid arthritis. She takes methotrexate at home and presented to the ER with pain in the right upper abdomen and chest, cough and a bandlike sense of constriction across the chest. She had low-grade fevers at home. Chest x-ray showed a large right lower lobe effusion. She was admitted and placed on supplemental O2. However, O2 saturations deteriorated. She was placed on BiPAP. CT scan showed a large right pleural effusion with nearly complete opacification of the right chest. No pulmonary parenchymal abnormalities were noted. The patient is not a smoker. There is no history of previous pleural effusion. There is a history of atrial fibrillation. She has been on Xarelto in the past. PAST MEDICAL HISTORY: Positive for rheumatoid arthritis, fibromyalgia, atrial fibrillation, and gastroesophageal reflux. PAST SURGICAL HISTORY: Right hand surgery. Positive for history of surgery on the feet. SOCIAL HISTORY: Negative for smoking, alcohol, or IV drugs. She is . is at the bedside. FAMILY HISTORY: Negative for tuberculosis or pneumonia. No travel. ALLERGIES: PENICILLIN, IODINE, NIACIN, AND CODEINE. MEDICATIONS AT HOME: See MAR. REVIEW OF SYSTEMS: GENERAL: Positive for fatigue and malaise. NEUROLOGIC: Negative for focal weakness in extremities or dysarthria. HEENT: Positive for decreased vision and some decreased hearing. CARDIAC: Negative for chest pain. Positive for palpitations. PULMONARY: Positive for coughing. GI: Positive for right upper quadrant pain. No nausea, vomiting, diarrhea, or constipation. : Negative for hematuria or dysuria. ENDOCRINE: Negative for polyuria or polydipsia. VASCULAR: Negative for claudication, rashes or itching. HEMATOLOGIC: Negative for clotting or bleeding. INFECTIOUS: Positive for low-grade fevers. PSYCHIATRIC: Negative for depression or anxiety. PHYSICAL EXAMINATION: GENERAL: A well-developed, well-nourished lady, appearing her stated age. is at the bedside. VITAL SIGNS: Blood pressure 130/70. Pulse 85 and irregular. NECK: Supple and nontender. No JVD. CARDIAC: Irregular rate. Normal S1, S2. No rub or murmur. LUNGS: Markedly decreased breath sounds on the right. The left side is clear. ABDOMEN: Globally benign. Good bowel sounds. No hepatosplenomegaly. BACK: No CVA tenderness. No muscular spasm. No cyanosis, clubbing, or edema. VASCULAR: Carotids, radials, and femorals 2+/2+ bilaterally. SKIN: No rashes. MUSCULOSKELETAL: Full range of motion at all joints. No joint swelling. NEUROLOGIC: Cranial nerves II through XII intavct. Sensation intact to light touch and pinprick bilaterally. Strength 4/4 all extremities. LYMPHATIC: Negative for cervical, clavicular, or femoral adenopathy. LABORATORIES AND IMAGING: Chest x-ray and CT scan are reviewed. There is a large right pleural effusion. There is no evidence of a pulmonary parenchymal lesion. CT scan of the abdomen and pelvis shows a distended gallbladder, but no clear inflammation. White count 39.2. Hemoglobin 13.4, hematocrit 40.9, and platelet count 204,000. INR is 1.24 with PT 17.3 and PTT 37.2 this is on January 29. Xarelto has been discontinued. Sodium 137, potassium 4.7, BUN 22, and creatinine 0.4. Liver function test within normal limits. IMPRESSION: Large right pleural effusion. Chest tube drainage is recommended given her shortness of breath. Plan will be to proceed with this today. I described the procedure to the patient and her . They each stated that they understood, had no further questions and wanted to proceed. MD DOLORES Mejia/VIVIENNE /[id number] HOA
--- NOTE | 2020-02-01 13:30 | NUR ---
HANDOFF REPORT TO ICU NURSE, PATIENT S/P CHEST TUBE PLACEMENT
[2020-02-01] MEDS ORDERED: DEXMEDETOMIDINE 200MCG/NS 50ML 50 ML IV ONE (13:34)
[2020-02-01] MEDS ORDERED: DEXMEDETOMIDINE HCL 200 MCG in SODIUM CHLORIDE 0.9% 50ML 48 ML IV PRN (14:00)
[2020-02-01] MEDS: METRONIDAZOLE 500MG/NS 100ML 100 ML IV SCH ×2 (14:04→21:04)
[2020-02-01] MEDS: MORPHINE SULFATE 2 MG/ML SYR 1ML IV PRN ×3 (14:04→23:19)
--- NOTE | 2020-02-01 14:15 | NUR ---
Holding physical therapy services since patient is moved to higher level of care ( IMCU to ICU). please write new PT orders when appropriate. Thank you Addendum: 02/01/20 at 1416 by Edwardo baeza PT Amended: Links added.
[2020-02-01] MEDS: DEXMEDETOMIDINE 200MCG/NS 50ML 50 ML IV PRN (15:00)
--- NOTE | 2020-02-01 15:15 | Consultation ---
DATE OF CONSULTATION: 02/01/2020 Infectious Disease Consultation I would like to thank Dr. Francis Chapman for this interesting consult. HISTORY OF PRESENT ILLNESS: This is a very pleasant female with extensive past medical history, rheumatoid arthritis, fibromyalgia, atrial fibrillation, gastroesophageal reflux disease, she is currently at methotrexate and Actemra at home and low dose of steroid. The patient is accompanied by at the bedside and according to him, the patient has been feeling sick for about past 4 days and she is still complaining of cough and shortness of breath and pain in the sides of the chest. The patient was very reluctant to come to the hospital because she was concerned about COVID, but the patient came in with shortness of breath and initial evaluation shows chest x-ray with right lower lobe infiltrate and loculated pleural effusion. The patient was initially admitted on the regular nursing floor and now patient has been transferred to ICU and our service has been asked to evaluate and give further recommendations. PAST MEDICAL HISTORY: Rheumatoid arthritis, fibromyalgia, atrial fibrillation, and GERD. PAST SURGICAL HISTORY: Right hand surgery. SOCIAL HISTORY: The patient never smoked and she lives at home with her . No history of sexually transmitted disease. FAMILY HISTORY: Noncontributory. ALLERGIES: TO IODINE, NIACIN, CODEINE AND PENICILLIN. REVIEW OF SYSTEMS: The patient is on BiPAP. Review of systems cannot be obtained. PHYSICAL EXAMINATION: VITAL SIGNS: Temperature is 97.9, respiratory rate is 18, heart rate 72, blood pressure 132/58. GENERAL: Awake with BiPAP. CHEST: Has decreased breath sounds right lower lobe. No breath sounds. HEART: S1 and S2 normal. ABDOMEN: Soft, nontender. EXTREMITIES: No edema. NEUROLOGICALLY: She is awake and oriented and nodding at her 's conversation. MUSCULOSKELETAL: No focal weakness. LABORATORY DATA: Reviewed. Urinalysis shows pyuria and bacteruria. Cultures negative. Chest x-ray shows large right pleural effusion with atelectasis and mild hazy opacities of both the lungs. ASSESSMENT AND PLAN: An 89-year-old female with past medical history of rheumatoid arthritis, fibromyalgia and hypertension, presents with community-acquired pneumonia and pleural effusion with concerns of empyema due to underlying rheumatological illness and on immunosuppressants with methotrexate and Actemra. Check sputum culture. Right side chest tube placement planned. I agree with broad-spectrum antibiotics for the IV vancomycin, cefepime and azithromycin. We will follow intraoperative cultures and pleural effusion cultures for further recommendations. Thank you for letting me to participate in the care of your patient. MD BEBE Sanderson/MODL /[id number]
[2020-02-01] MEDS ORDERED: ENOXAPARIN SOD INJ 40 MG/0.4 ML SYR SC SCH (17:00)
[2020-02-01] MEDS: FAMOTIDINE 20 MG/2 ML VIAL IV SCH (17:30)
[2020-02-01] MEDS: AZITHROMYCIN 500MG/NS 250 ML 250 ML IV SCH (17:30)
[2020-02-01] MEDS ORDERED: HYDROMORPHONE 20MG/ NS 100ML IV PRN (18:30)
[2020-02-01] MEDS: HYDROMORPHONE 1MG/1ML INJ IV PRN (19:07)
[2020-02-01] MEDS: LIDOCAINE 4% PATCH TP SCH (19:07)
[2020-02-01 22:42] LABS: ABG HCO3 27 mmol/L (22-26); ABG PCO2 50 mmHg (35-45); ABG PH 7.35 (7.35-7.45); ABG PO2 316 mmHg (80-105)
--- NOTE | 2020-02-01 23:00 | NUR ---
Pt becomes very agitated. Pt states that she is in pain. VS 101/60 RR 21 So2 90% HR 125.
--- NOTE | 2020-02-01 23:19 | NUR ---
MORPHINE 2mg IV given see JUL.
[2020-02-02] VITALS (25 sets, daily range): BP systolic 93–130; BP diastolic 49–102
[2020-02-02] MEDS: HYDROMORPHONE 1MG/1ML INJ IV PRN ×4 (03:34→22:35)
[2020-02-02] MEDS: LORAZEPAM 0.5 MG TAB PO PRN (04:01)
[2020-02-02] MEDS: METRONIDAZOLE 500MG/NS 100ML 100 ML IV SCH ×3 (05:07→22:38)
[2020-02-02 05:53] LABS: BASOPHILS # (AUTO) 0.1 (0.0-0.1); BASOPHILS % 0.4 % (0.0-1.0); HEMATOCRIT 39.7 % (34.2-44.1); LYMPHOCYTES # (AUTO) 1.6 (1.0-3.2); LYMPHOCYTES % 4.9 % (18.0-39.1); MEAN CORPUSCULAR HEMOGLOBIN 29.6 pg (28-32); MEAN CORPUSCULAR HGB CONC 32.7 g/dL (31-35); MEAN CORPUSCULAR VOLUME 90.4 fL (81-99); MONOCYTES # (AUTO) 1.6 (0.2-0.8); NEUTROPHILS # (AUTO) 28.8 (2.1-6.9); NEUTROPHILS % 88.2 % (38.7-80.0); PLATELET COUNT 177 x10e3/uL (140-360); RED BLOOD COUNT 4.39 x10e6/uL (3.6-5.1)
[2020-02-02 06:27] LABS: ALANINE AMINOTRANSFERASE 16 IU/L (0-55); ALBUMIN 3.4 g/dL (3.5-5.0); ALBUMIN/GLOBULIN RATIO 1.4 (0.8-2.0); ALKALINE PHOSPHATASE 51 IU/L (40-150); BLOOD UREA NITROGEN 24 mg/dL (7-26); BUN/CREATININE RATIO 34 (6-25); CALCIUM 7.9 mg/dL (8.4-10.2); CARBON DIOXIDE 21 mmol/L (22-29); CHLORIDE 105 mmol/L (98-107); EST GLOMERULAR FILTRATION RATE > 60 ML/MIN (60-); GLUCOSE 123 mg/dL (74-118); SODIUM 140 mmol/L (136-145)
[2020-02-02] MEDS: MORPHINE SULFATE 2 MG/ML SYR 1ML IV PRN ×3 (06:43→16:09)
[2020-02-02] MEDS: LIDOCAINE 4% PATCH TP SCH ×2 (07:37→19:58)
[2020-02-02] MEDS: ACETAMINOPHEN 325 MG TAB PO PRN ×2 (07:45→14:08)
[2020-02-02] MEDS ORDERED: LYRICA150 MG (07:59)
[2020-02-02] MEDS ORDERED: LIDOCAINE1 EACH (07:59)
[2020-02-02] MEDS ORDERED: MORPHINE SULFAT30 M2 (07:59)
[2020-02-02] MEDS ORDERED: FAMOTIDINE20 MG (07:59)
[2020-02-02] MEDS ORDERED: HYDRALAZINE HCL25 MG (08:19)
[2020-02-02] MEDS ORDERED: AZELASTINE137 MCG/0. (08:19)
[2020-02-02] MEDS ORDERED: SYMBICORT 16010.2 GM (08:19)
[2020-02-02] MEDS ORDERED: AMLODIPINE BESY10 MG (08:19)
[2020-02-02] MEDS ORDERED: ATENOLOL25 MG (08:19)
[2020-02-02] MEDS ORDERED: MOVANTIK25 MG (08:19)
[2020-02-02] MEDS ORDERED: DULOXETINE HCL30 MG (08:19)
[2020-02-02] MEDS ORDERED: AMIODARONE HCL200 MG (08:19)
[2020-02-02] MEDS ORDERED: PREDNISOLONE (08:19)
[2020-02-02] MEDS: CEFEPIME 1GM/NS 0.9% 50 ML 50 ML IV SCH ×2 (08:39→19:59)
[2020-02-02] MEDS: FAMOTIDINE 20 MG/2 ML VIAL IV SCH ×2 (08:39→17:04)
[2020-02-02] MEDS: FOLIC ACID 1 MG TAB PO SCH (08:39)
[2020-02-02] MEDS: PROPRANOLOL HCL 40 MG TAB PO SCH ×2 (08:40→17:12)
[2020-02-02] MEDS: VANCOMYCIN 1GM/NS 250 ML 250 ML IV SCH (10:30)
[2020-02-02] MEDS ORDERED: LACTATED RINGER'S 1,000 ML INJ ONE (11:15)
--- NOTE | 2020-02-02 11:59 | Progress Note ---
DATE: SUBJECTIVE: The patient is having pain in her hips and legs from rheumatoid arthritis. Apparently, she was on MS Contin as well as Lyrica and Lidoderm patches at home. The patient has a chest tube in place on the right side. There is a small amount of drainage. PHYSICAL EXAMINATION: VITAL SIGNS: The patient is afebrile. The blood pressure is 113/88 and saturation is 94%. She is on Airvo at 30 L with 80% FiO2. HEENT: Shows no facial swelling or erythema. LYMPHATIC: Shows no submandibular, cervical, or supraclavicular adenopathy. CARDIAC: Reveals a regular rate and rhythm with normal S1 and S2. LUNGS: Auscultation of lungs reveals rhonchorous breath sounds bilaterally. There is no wheezing. ABDOMEN: Soft and nontender. There is no rebound or guarding. EXTREMITIES: Shows no leg edema or calf tenderness. There is no cyanosis or clubbing. There is a right-sided chest tube in place. There is some serosanguineous drainage. LABORATORY DATA: White blood cell count is 32.6 and hemoglobin is 13. The platelet count is 177. The BUN to creatinine ratio is 24 to 0.7 and the other electrolytes are within normal limits. The carbon dioxide is 21. Albumin is 3.4. RADIOGRAPHIC DATA: There is right-sided chest tube. IMPRESSION: 1. Community-acquired pneumonia with complicated parapneumonic effusion. 2. Severe rheumatoid arthritis being treated with immunosuppressive therapy. 3. Atrial fibrillation. 4. Distended gallbladder on CT scan. PLAN: 1. Continue current antibiotics. 2. Obtain culture of pleural fluid along with pleural fluid analysis. 3. Continue Airvo. 4. Continue thoracostomy tube drainage. 5. Monitor white blood cell count. If white blood cell count and clinical status does not improve, a video-assisted thoracoscopy and decortication may be required. MD DOMINGO Hunter/VIVIENNE /[id number]
[2020-02-02] MEDS: DEXMEDETOMIDINE 200MCG/NS 50ML 50 ML IV PRN ×3 (13:23→23:56)
--- NOTE | 2020-02-02 13:25 | Diagnostic Imaging Report ---
EXAMINATION: CHEST SINGLE (PORTABLE) INDICATION: Pleural effusion COMPARISON: Chest radiograph 02/01/2020 FINDINGS: LINES/TUBES:Right chest tube unchanged. EKG leads overlie the chest. LUNGS:The lung volumes remain low. Interval increase in multifocal left lung airspace opacities. Unchanged right lower lung opacities. PLEURA:Unchanged right pleural effusion. No pneumothorax. MEDIASTINUM:The cardiomediastinal silhouette appears unchanged in size and shape. BONES/SOFT TISSUES:No acute osseous injury. ABDOMEN:No free air under the diaphragm. IMPRESSION: Interval increase in left lung airspace opacities which may represent aspiration and/or pneumonia in the proper clinical setting. Unchanged right pleural effusion. Right chest tube in unchanged position. No pneumothorax. Signed by: Ab Newsome MD on 02/02/2020 1:22 PM
[2020-02-02 14:25] LABS: BODY FLUID APPEARANCE TURBID; BODY FLUID COLOR RED; BODY FLUID TYPE PLEURAL
[2020-02-02 15:07] LABS: RBC,BODY FLUID 7173 cells/uL; WBC,BODY FLUID 436 cells/uL
[2020-02-02 15:55] LABS: LYMPHOCYTES,BODY FLUID 2 %; MONO/MACROPHG,BODY FLUID 2 %; NEUTROPHILS,BODY FLUID 96 %
--- NOTE | 2020-02-02 15:55 | Progress Note ---
DATE: 02/02/2020 REASON FOR PROGRESS NOTE: Right pleural effusion; requested by Dr. Krunal Bray. Hand Straightener is Dr. Ari Blanco. SUBJECTIVE: Sitting up in bed. Still dyspneic, but O2 saturation now in the low 90s. Chest tube has drained about 200 mL sterile serous fluid since yesterday. REVIEW OF SYSTEMS: Negative for angina. Positive for chest associated with tube, positive for dyspnea which is improved, negative for abdominal pain, neurologic signs, fever, or chills. PHYSICAL EXAMINATION: VITAL SIGNS: Blood pressure 125/75. Pulse is 90 and regular. Respirations 16 and unlabored. NECK: Supple. Nontender. No JVD. CARDIAC: Regular rate and rhythm. Normal S1, S2. No rub or murmur. LUNGS: Full breath sounds on the left hand, full breath sounds on the upper 2/3 of the right lung. Chest tube is in place and draining serous fluid. No air leak. ABDOMEN: Scaphoid, benign. Good bowel sounds. EXTREMITIES: No cyanosis, clubbing, or edema. IMAGING: Chest x-ray as above, showing a fully expanded lung and chest tube well positioned. There is a persistent pleural effusion at the right base. LABORATORIES: White count 4.3, hemoglobin 13.0, hematocrit 39.7, and platelet count 177,000. Sodium 140, potassium 4.0, BUN 24, and creatinine 0.7. IMPRESSION: Doing well. We will follow. MD DOLORES Mejia/VIVIENNE /[id number]
[2020-02-02] MEDS: PREGABALIN 75 MG CAP PO SCH (17:12)
[2020-02-02] MEDS: MORPHINE SULFATE 30 MG TAB ER PO SCH (17:30)
[2020-02-02] MEDS: RIVAROXABAN 20 MG TABLET PO SCH (17:30)
--- NOTE | 2020-02-02 18:45 | NUR ---
Report received. Assumed care. Assessment done. See interventions. Currently on Bipap.
[2020-02-02 20:26] LABS: ABG HCO3 21 mmol/L (22-26); ABG PCO2 37 mmHg (35-45); ABG PH 7.38 (7.35-7.45); ABG PO2 75 mmHg (80-105)
--- NOTE | 2020-02-02 22:35 | NUR ---
Medicated for c/o pain.
[2020-02-03] VITALS (24 sets, daily range): BP systolic 82–162; BP diastolic 47–111
--- NOTE | 2020-02-03 | NUR ---
Resting quietly intermittently. Remains on bipap.
[2020-02-03] MEDS: MORPHINE SULFATE 2 MG/ML SYR 1ML IV PRN ×3 (02:08→20:45)
--- NOTE | 2020-02-03 02:09 | NUR ---
Medicated for c/o pain.
--- NOTE | 2020-02-03 03:30 | NUR ---
Sponge bath given. Bed linens chaned.
[2020-02-03] MEDS ORDERED: LACTATED RINGER'S 1,000 ML ONE (04:08)
[2020-02-03] MEDS: HYDROMORPHONE 1MG/1ML INJ IV PRN ×2 (04:38→14:26)
[2020-02-03] MEDS: DEXMEDETOMIDINE 200MCG/NS 50ML 50 ML IV PRN ×3 (04:46→21:35)
[2020-02-03 04:51] LABS: BASOPHILS # (AUTO) 0.1 (0.0-0.1); BASOPHILS % 0.3 % (0.0-1.0); EOSINOPHILS % 0.1 % (0.0-6.0); HEMATOCRIT 32.1 % (34.2-44.1); HEMOGLOBIN 10.4 g/dL (12.0-16.0); LYMPHOCYTES % 4.4 % (18.0-39.1); MEAN CORPUSCULAR HGB CONC 32.4 g/dL (31-35); MEAN CORPUSCULAR VOLUME 92.5 fL (81-99); MONOCYTES % 4.3 % (4.4-11.3); NEUTROPHILS # (AUTO) 20.4 (2.1-6.9); NEUTROPHILS % 90.5 % (38.7-80.0); PLATELET COUNT 153 x10e3/uL (140-360); RED BLOOD COUNT 3.47 x10e6/uL (3.6-5.1)
[2020-02-03 05:14] LABS: ALANINE AMINOTRANSFERASE 15 IU/L (0-55); ALBUMIN 2.9 g/dL (3.5-5.0); ALBUMIN/GLOBULIN RATIO 1.3 (0.8-2.0); ALKALINE PHOSPHATASE 36 IU/L (40-150); ANION GAP 21.2 mmol/L (8-16); BLOOD UREA NITROGEN 21 mg/dL (7-26); BUN/CREATININE RATIO 31 (6-25); CALCIUM 7.4 mg/dL (8.4-10.2); CARBON DIOXIDE 17 mmol/L (22-29); CHLORIDE 106 mmol/L (98-107); CREATININE, SERUM 0.67 mg/dL (0.57-1.11); EST GLOMERULAR FILTRATION RATE > 60 ML/MIN (60-); GLUCOSE 95 mg/dL (74-118); POTASSIUM 4.2 mmol/L (3.5-5.1); SODIUM 140 mmol/L (136-145)
[2020-02-03] MEDS: METRONIDAZOLE 500MG/NS 100ML 100 ML IV SCH ×2 (05:35→13:57)
--- NOTE | 2020-02-03 06:36 | NUR ---
IM- progress note O/N see below ROS; no f/c/s/N/V/D/MORRIS/dizziness, confusion,vision changes, chest pain v/s revd PE tired appearing; Anxious appearing anicteric ns1s2 reduced BS right lung Pt indicating discomfort form right mid back radiating to right lower rib region; No flank tenderness; No abdominal tenderness soft abdomen no leg edema skin dry flat affect; anxious labs/meds revd A/P: 89yoF Parapneumonic effusion/Right pleural effusion- monitor; O2 support; may need diuresis. Multifocal PNA- IV aztreonam/azithromycin; O2; pulm consult KISHA vs CKD- pt not aware of renal discomfort UTI- IV aztreonam; cultures Distended gallbladder- U/S consideration RA- home meds Abnormal gait- uses walker; PT consult PAF- AV blockade Anxiety- prn BZD Chronic pain syndrome- use prn morphine. Prop: scd; lovenox Dispo; monitor; control anxiety; discomfort can be due to the PNA/parapneumonic effusion vs gallbladder disease. 9-6 Acute resp failure- BIPAP; worsened leukocytosis; IV cefepime/azithromycin/vanco; U/S abdomen = sludge only; move to ICU if needed. d/w . IV morphine for continued chronic pain management. 9-7 Possible empyema; worsened WBC; consult ID; CVSx to evaluate patient; d/w [place]; check c.diff and empiric flagyl. Chest tube placement today; 9-8 s/p right chest tube; remains on O2 support; f/u fluid studies; cct>35mins 9-9 leukocytosis improving; ILA HAWTHORNE MD, PHD.
[2020-02-03 06:51] LABS: EOSINOPHILS % (MANUAL) 1 % (0-7); LYMPHOCYTES % (MANUAL) 4 % (19-48); MONOCYTES % (MANUAL) 2 % (3.4-9.0); NEUTROPHILS % (MANUAL) 93 % (40-74)
[2020-02-03 06:52] LABS: ANISOCYTOSIS SLIGHT; PLATELET ESTIMATE ADEQUATE
[2020-02-03 06:53] LABS: ELLIPTOCYTE, RBC SLIGHT; OVALOCYTES FEW; PLATELET MORPHOLOGY COMMENT NORMAL; POIKILOCYTOSIS SLIGHT; RBC MORPHOLOGY COMMENT ABNORMAL
[2020-02-03] MEDS: LIDOCAINE 4% PATCH TP SCH ×2 (08:13→20:48)
[2020-02-03] MEDS: FOLIC ACID 1 MG TAB PO SCH (08:13)
[2020-02-03] MEDS: FAMOTIDINE 20 MG/2 ML VIAL IV SCH ×2 (08:13→16:55)
[2020-02-03] MEDS: CEFEPIME 1GM/NS 0.9% 50 ML 50 ML IV SCH (08:13)
[2020-02-03] MEDS: MORPHINE SULFATE 30 MG TAB ER PO SCH ×2 (08:14→20:48)
[2020-02-03] MEDS: PROPRANOLOL HCL 40 MG TAB PO SCH ×2 (08:14→16:53)
[2020-02-03] MEDS: PREGABALIN 75 MG CAP PO SCH (08:14)
[2020-02-03] MEDS ORDERED: AMIODARONE HCL 200 MG TAB PO SCH (09:00)
[2020-02-03] MEDS: VANCOMYCIN 1GM/NS 250 ML 250 ML IV SCH ×2 (09:45→20:48)
[2020-02-03] MEDS ORDERED: DULOXETINE HCL 30 MG DELAYED RELEASE PO SCH (11:30)
--- NOTE | 2020-02-03 11:34 | NUR ---
ST note: EMR reviewed. Discussed case with RADHIKA Shultz. Pt currently requires bi-pap. Pt without consistent nutrition since Saturday and, per Lexii, not able to take oral meds well. Consider alternative means of nutrition until pt appropriate for swallow eval. Will complete bedside swallow eval when able.
[2020-02-03 12:14] LABS: ABG PCO2 33 mmHg (35-45); ABG PH 7.36 (7.35-7.45)
[2020-02-03 12:15] LABS: ABG HCO3 19 mmol/L (22-26); ABG PO2 64 mmHg (80-105); ABG TCO2 20
--- NOTE | 2020-02-03 12:25 | Progress Note ---
DATE: Pulmonary Critical Care Progress Note SUBJECTIVE: The patient is having difficulty swallowing pills. She remains on BiPAP. She has a new infiltrate on the left side on her x-ray. PHYSICAL EXAMINATION: VITAL SIGNS: The blood pressure is 83/47 and saturation is 92% on BiPAP. The pulse is 100. HEENT: Shows no facial swelling or erythema. LYMPHATIC: Shows no submandibular, cervical, or supraclavicular adenopathy. CARDIAC: Reveals regular rate and rhythm with normal S1 and S2. LUNGS: Auscultation of lungs reveals crackles and rhonchi bilaterally. There is no wheezing. ABDOMEN: Soft and nontender. There is no rebound or guarding. EXTREMITIES: Show no leg edema or calf tenderness. There is no cyanosis or clubbing. SKIN: Shows no rashes. NEUROLOGICAL: Shows the patient to be fatigued, but arousable. LABORATORY DATA: White blood cell count is 22.6, hemoglobin 10.4, and the platelet count is 153. The BUN to creatinine ratio is 21 to 0.67. The carbon dioxide is 17. Chloride is 106. Albumin is 2.9. IMPRESSION: 1. Aspiration pneumonia with complicated parapneumonic effusion on the right side. 2. Acute respiratory failure. 3. Severe rheumatoid arthritis with immunosuppressive treatment. 4. Atrial fibrillation. 5. Distended gallbladder. 6. Anemia. 7. Metabolic acidosis. 8. Moderate protein-calorie malnutrition. PLAN: 1. Continue current antibiotics. 2. Repeat ABG. 3. Continue BiPAP for now. 4. Additional IV fluids. 5. Avoid p.o. intake or pills because of possible aspiration. 6. Case discussed with . His main concern right now is visitation. He wants us to continue with full treatment for now. 7. Case also discussed with Infectious Disease, Internal Medicine, Thoracic Surgery, nursing, and Respiratory. Greater than 35 minutes in direct critical care time apart from any procedures performed. Luis Bray MD [facility]/MODL /[id number]
[2020-02-03] MEDS: RIVAROXABAN 20 MG TABLET PO SCH (16:54)
[2020-02-03] MEDS: CEFEPIME 2 GM/NS 0.9% 100 ML 100 ML IV SCH (16:55)
--- NOTE | 2020-02-03 17:24 | Diagnostic Imaging Report ---
EXAMINATION: CHEST SINGLE (PORTABLE) INDICATION: increased sob, pneumonia COMPARISON: Multiple prior chest radiographs including most recent on 02/02/2020. CT of the chest on 01/31/2020. FINDINGS: TUBES and LINES: Right chest tube is unchanged. LUNGS/PLEURA: There is interval worsening of multifocal interstitial and airspace opacities throughout both lungs. Right pleural effusion improved. HEART AND MEDIASTINUM: The cardiomediastinal silhouette is unchanged. BONES AND SOFT TISSUES: No acute osseous lesion. Soft tissues are unchanged. UPPER ABDOMEN: No free air under the diaphragm. IMPRESSION: 1. Interval increase in patchy airspace and interstitial opacities throughout both lungs which most likely represents worsening multifocal pneumonia. 2. Slightly improved right pleural effusion. Signed by: Jadon White MD on 02/03/2020 5:20 PM
[2020-02-03] MEDS: ZIPRASIDONE 20 MG VIAL IM PRN (18:12)
[2020-02-04] VITALS (14 sets, daily range): BP systolic 91–131; BP diastolic 47–82
[2020-02-04] MEDS: ZIPRASIDONE 20 MG VIAL IM PRN (00:02)
[2020-02-04] MEDS: HYDROMORPHONE 1MG/1ML INJ IV PRN (01:00)
[2020-02-04] MEDS: CEFEPIME 2 GM/NS 0.9% 100 ML 100 ML IV SCH ×2 (02:06→10:09)
[2020-02-04 04:49] LABS: EOSINOPHILS # (AUTO) 0.1 (0.0-0.4); EOSINOPHILS % 0.2 % (0.0-6.0); HEMATOCRIT 37.5 % (34.2-44.1); HEMOGLOBIN 11.8 g/dL (12.0-16.0); LYMPHOCYTES # (AUTO) 1.1 (1.0-3.2); LYMPHOCYTES % 3.5 % (18.0-39.1); MEAN CORPUSCULAR HEMOGLOBIN 29.2 pg (28-32); MEAN CORPUSCULAR HGB CONC 31.5 g/dL (31-35); MEAN CORPUSCULAR VOLUME 92.8 fL (81-99); MONOCYTES # (AUTO) 1.3 (0.2-0.8); MONOCYTES % 4.1 % (4.4-11.3); NEUTROPHILS # (AUTO) 29.8 (2.1-6.9); NEUTROPHILS % 91.2 % (38.7-80.0); PLATELET COUNT 207 x10e3/uL (140-360); RED BLOOD COUNT 4.04 x10e6/uL (3.6-5.1); RED CELL DISTRIBUTION WIDTH 24.7 % (11.7-14.4)
[2020-02-04] MEDS: DEXMEDETOMIDINE 200MCG/NS 50ML 50 ML IV PRN (05:10)
[2020-02-04 05:26] LABS: ALANINE AMINOTRANSFERASE 18 IU/L (0-55); ALBUMIN 3.2 g/dL (3.5-5.0); ALBUMIN/GLOBULIN RATIO 1.2 (0.8-2.0); ALKALINE PHOSPHATASE 39 IU/L (40-150); ANION GAP 26.2 mmol/L (8-16); BLOOD UREA NITROGEN 25 mg/dL (7-26); BUN/CREATININE RATIO 31 (6-25); CALCIUM 7.9 mg/dL (8.4-10.2); CARBON DIOXIDE 14 mmol/L (22-29); CHLORIDE 110 mmol/L (98-107); CREATININE, SERUM 0.81 mg/dL (0.57-1.11); EST GLOMERULAR FILTRATION RATE > 60 ML/MIN (60-); GLUCOSE 123 mg/dL (74-118); POTASSIUM 4.2 mmol/L (3.5-5.1); SODIUM 146 mmol/L (136-145)
[2020-02-04] MEDS ORDERED: AMIODARONE 900MG 500 ML IV ONE (05:41)
[2020-02-04] MEDS ORDERED: AMIODARONE HCL 100 ML IV ONE (05:41)
[2020-02-04] MEDS ORDERED: AMIODARONE HCL 900 MG in DEXTROSE 5% 500ML 500 ML IV SCH ×2 (06:15→12:15)
[2020-02-04] MEDS ORDERED: AMIODARONE HCL 150 MG/100 ML BAG IV ONE (06:15)
--- NOTE | 2020-02-04 06:48 | NUR ---
IM- progress note O/N see below ROS; no f/c/s/N/V/D/MORRIS/dizziness, confusion,vision changes, chest pain v/s revd PE tired appearing; Anxious appearing anicteric ns1s2 reduced BS right lung Pt indicating discomfort form right mid back radiating to right lower rib region; No flank tenderness; No abdominal tenderness soft abdomen no leg edema skin dry flat affect; anxious labs/meds revd A/P: 89yoF Parapneumonic effusion/Right pleural effusion- monitor; O2 support; may need diuresis. Multifocal PNA- IV aztreonam/azithromycin; O2; pulm consult KISHA vs CKD- pt not aware of renal discomfort UTI- IV aztreonam; cultures Distended gallbladder- U/S consideration RA- home meds Abnormal gait- uses walker; PT consult PAF- AV blockade Anxiety- prn BZD Chronic pain syndrome- use prn morphine. Prop: scd; lovenox Dispo; monitor; control anxiety; discomfort can be due to the PNA/parapneumonic effusion vs gallbladder disease. 9-6 Acute resp failure- BIPAP; worsened leukocytosis; IV cefepime/azithromycin/vanco; U/S abdomen = sludge only; move to ICU if needed. d/w . IV morphine for continued chronic pain management. 9-7 Possible empyema; worsened WBC; consult ID; CVSx to evaluate patient; d/w [place]; check c.diff and empiric flagyl. Chest tube placement today; 9-8 s/p right chest tube; remains on O2 support; f/u fluid studies; cct>35mins 9-9 leukocytosis improving; 9-10 Complicated parapneumonic effusion on right s/p chest tube; Multifocal PNA- continue antimicrobials; d/w by telephone; Remains on cefepime/vanco; amio for A.fib; monitor closely for oxygen status; GRZEGORZ/AMS- present on admission; due to infection. ILA HAWTHORNE MD, PHD.
[2020-02-04 07:45] LABS: ANISOCYTOSIS MODERATE; LYMPHOCYTES % (MANUAL) 5 % (19-48); MONOCYTES % (MANUAL) 3 % (3.4-9.0); NEUTROPHILS % (MANUAL) 92 % (40-74); NUCLEATED RED BLOOD CELLS 1; PLATELET ESTIMATE ADEQUATE; PLATELET MORPHOLOGY COMMENT NORMAL; POIKILOCYTOSIS SLIGHT
[2020-02-04 07:46] LABS: OVALOCYTES FEW; POLYCHROMASIA FEW; RBC MORPHOLOGY COMMENT ABNORMAL
[2020-02-04] MEDS ORDERED: LACTATED RINGER'S 1,000 ML ONE (08:15)
[2020-02-04] MEDS ORDERED: MIDAZOLAM HCL 5MG/ML 10ML VIAL 100 ML IV ONE (08:24)
[2020-02-04] MEDS ORDERED: FENTANYL 2000MCG/NS 250 250 ML ONE (08:25)
--- NOTE | 2020-02-04 09:01 | Diagnostic Imaging Report ---
EXAMINATION: CHEST SINGLE (PORTABLE) INDICATION: Pneumonia COMPARISON: Chest radiograph 02/03/2020 FINDINGS: LINES/TUBES:Right chest tube unchanged. EKG leads overlie the chest. LUNGS:The lung volumes remain low. Unchanged bilateral multifocal interstitial and airspace opacities. PLEURA:Unchanged small right pleural effusion. No pneumothorax. MEDIASTINUM:The cardiomediastinal silhouette appears unchanged in size and shape. BONES/SOFT TISSUES:No acute osseous injury. ABDOMEN:No free air under the diaphragm. IMPRESSION: Low lung volumes and unchanged bilateral multifocal interstitial and airspace opacities. No pneumothorax with unchanged positioning of right chest tube. Signed by: Ab Newsome MD on 02/04/2020 8:57 AM
--- NOTE | 2020-02-04 09:09 | Operative Report ---
DATE OF PROCEDURE: SURGEON: Luis Bray MD PROCEDURE: Endotracheal intubation with GlideScope. PREOPERATIVE DIAGNOSIS: Respiratory failure. POSTOPERATIVE DIAGNOSIS: Respiratory failure. CONSENT: Consent was deemed emergent due to tachypnea into the mid 30s and low oxygen saturations on BiPAP. MEDICATIONS: Versed 2 mg, etomidate 20 mg. DESCRIPTION OF PROCEDURE: The patient was placed in a supine position. She was preoxygenated with a BiPAP and Ambu bag. She then received Versed followed by etomidate. A 3.0 Mac blade was used to visualize the glottis. A 7.5 endotracheal tube was passed through the glottis on the first attempt. There was good CO2 return and equal breath sounds bilaterally. COMPLICATIONS: None. ESTIMATED BLOOD LOSS: None. Luis Bray MD [facility]/MODL /[id number]
--- NOTE | 2020-02-04 09:13 | Diagnostic Imaging Report ---
EXAMINATION: CHEST SINGLE (PORTABLE) INDICATION: Intubation COMPARISON: Chest radiograph of earlier the same day FINDINGS: LINES/TUBES:Interval intubation. Endotracheal tube terminates at the level of the matthew. Interval placement of right IJ central venous catheter which terminates at the superior cavoatrial junction. Right chest tube unchanged. EKG leads overlie the chest. LUNGS:Lung volumes remain low. Unchanged multifocal bilateral airspace and interstitial opacities. PLEURA:Unchanged small bilateral pleural effusions. No pneumothorax. MEDIASTINUM:The cardiomediastinal silhouette appears unchanged in size and shape. BONES/SOFT TISSUES:No acute osseous injury. ABDOMEN:No free air under the diaphragm. IMPRESSION: Interval intubation. The endotracheal tube terminates at the level of the matthew and should be withdrawn approximately 3 cm for ideal positioning. Right IJ central venous catheter terminates at the superior cavoatrial junction. Unchanged bilateral multifocal airspace and interstitial opacities. The above findings were discussed with Dr. Bray on 02/04/2020 9:06 AM, who responded indicating that the communication was understood. Signed by: Ab Newsome MD on 02/04/2020 9:10 AM
--- NOTE | 2020-02-04 09:14 | Operative Report ---
DATE OF PROCEDURE: SURGEON: Luis Bray MD PROCEDURE: Central line placement under ultrasound guidance. PREOPERATIVE DIAGNOSES: Rheumatoid arthritis, immunosuppression, pneumonia, and sepsis. POSTOPERATIVE DIAGNOSES: Rheumatoid arthritis, immunosuppression, pneumonia, and sepsis. CONSENT: Consent was deemed emergent due to hemodynamic instability and respiratory failure. ANESTHESIA: 1% lidocaine for local anesthesia. DESCRIPTION OF PROCEDURE: The patient was placed in the supine position. The right neck was prepped sterilely with chlorhexidine. A full length sterile drape, gown, sterile gloves, and sterile mask were used. 1% lidocaine was used to anesthetize the area between the heads of the sternocleidomastoid. An ultrasound machine was used to locate the right internal jugular vein. The vein was cannulated under direct visualization with a 16-gauge needle. A wire was passed through the needle. The skin was opened with a dilator and the triple-lumen catheter was passed over the wire by the Seldinger technique. All the ports were flushed. COMPLICATIONS: None. ESTIMATED BLOOD LOSS: None. Luis Bray MD [facility]/MODL /[id number]
--- NOTE | 2020-02-04 09:16 | Diagnostic Imaging Report ---
EXAMINATION: CHEST SINGLE (PORTABLE) INDICATION: Intubation COMPARISON: Chest radiograph of earlier the same day FINDINGS: LINES/TUBES: Following adjustment, endotracheal tube now terminates 2cm above the matthew. Right IJ central venous catheter terminates at the superior cavoatrial junction. Right chest tube unchanged. EKG leads overlie the chest. LUNGS:Lung volumes remain low. Unchanged multifocal bilateral airspace and interstitial opacities. PLEURA:Unchanged small bilateral pleural effusions. No pneumothorax. MEDIASTINUM:The cardiomediastinal silhouette appears unchanged in size and shape. BONES/SOFT TISSUES:No acute osseous injury. ABDOMEN:No free air under the diaphragm. IMPRESSION: Endotracheal tube now terminates 2cm above the matthew. Right IJ central venous catheter terminates at the superior cavoatrial junction. Unchanged bilateral multifocal airspace and interstitial opacities. Signed by: Ab Newsome MD on 02/04/2020 9:13 AM
--- NOTE | 2020-02-04 09:37 | Progress Note ---
DATE: Pulmonary Critical Care Progress Note SUBJECTIVE: The patient has had increased confusion. She had worsening atrial fibrillation with increased ventricular rate. She required initiation of IV amiodarone this morning. She had worsening respiratory problems and required endotracheal intubation. She is now on a mechanical ventilator. She required additional fluid bolus as well. PHYSICAL EXAMINATION: VITAL SIGNS: The blood pressure is now 111/70, pulse is 130 to 140 with a rapid atrial fibrillation. Saturation is now in the low 90s. She is on a PRVC mode of ventilation at a rate of 24 with a tidal volume of 390 and FiO2 of 100%. Her PEEP is set at 10. HEENT: Shows no facial swelling or erythema. There is an oral endotracheal tube. The patient has a right IJ line. The site looks clean. There is no drainage. CARDIAC: Reveals tachycardia with irregularly irregular rhythm. The patient has normal S1 and S2. LUNGS: Auscultation of lungs shows decreased breath sounds at the bases. There is no wheezing. ABDOMEN: Soft and nontender. There is no rebound or guarding. EXTREMITIES: Shows no leg edema or calf tenderness. There is no cyanosis or clubbing. SKIN: Shows no rashes. NEUROLOGICAL: Shows the patient to be sedated. LABORATORY DATA: Blood gas is 7.33, CO2 of 30, O2 of 59 and a bicarb of 16.1. The sodium is 146 and the chloride is 110. The carbon dioxide is 14. The BUN to creatinine ratio is 25 to 0.81. AST is 44 and the albumin is 3.2. White blood cell count is 32.7, hemoglobin is 11.8. The platelet count is 207. IMPRESSION: 1. Bilateral aspiration pneumonia with a complicated parapneumonic effusion on the right side. 2. Severe sepsis secondary to pneumonia. 3. Severe rheumatoid arthritis with immunosuppressive therapy. 4. Atrial fibrillation with rapid ventricular response. 5. Metabolic acidosis. 6. Moderate protein-calorie malnutrition. 7. Metabolic encephalopathy. PLAN: 1. Continue current ventilator settings and adjust as tolerated. 2. Continue current antibiotics. 3. Continue amiodarone drip. 4. Xarelto. 5. Case discussed with . He understands the prognosis is poor. 6. Continue chest tube to negative suction. 7. Case discussed with Internal Medicine, Respiratory, nursing and Thoracic Surgery. Greater than 35 minutes in direct critical care time apart from any procedures performed. MD DOMINGO Hunter/VIVIENNE /[id number]
[2020-02-04] MEDS: FAMOTIDINE 20 MG/2 ML VIAL IV SCH ×2 (10:09→17:32)
[2020-02-04] MEDS: LIDOCAINE 4% PATCH TP SCH ×2 (10:09→20:00)
[2020-02-04] MEDS: VANCOMYCIN 1GM/NS 250 ML 250 ML IV SCH ×2 (10:09→21:24)
--- NOTE | 2020-02-04 10:15 | NUR ---
ST NOTE: Pt now on ventilator, ST to follow pt progress and readiness for intervention when clinically stable
--- NOTE | 2020-02-04 10:50 | Diagnostic Imaging Report ---
Exam: KUB - 2 views Indication: NG tube placement Comparison: Chest radiograph of earlier the same day Findings: Interval placement of enteric tube with tip and side-port in the stomach. Nonobstructive bowel gas pattern. No free air. Degenerative changes of the visualized spine without acute osseous injury. Multifocal bilateral lung opacities, better evaluated on chest radiograph of the same day. Impression: NG tube with tip and side-port in the stomach. Signed by: Ab Newsome MD on 02/04/2020 10:47 AM
[2020-02-04 11:30] LABS: ABG HCO3 16 mmol/L (22-26); ABG PCO2 31 mmHg (35-45); ABG PH 7.33 (7.35-7.45); ABG PO2 59 mmHg (80-105); ABG TCO2 17
[2020-02-04] MEDS ORDERED: NOREPINEPHRINE 8 MG/D5W 250 ML 250 ML ONE ×2 (11:57→20:35)
--- NOTE | 2020-02-04 16:57 | NUR ---
Nutrition Intervention Note RD Recommendation(s) for Physician: -If pt is to remain intubated, recommend initiating enteral nutrition - Recommend Vital AF 1.2 @ goal rate of 50 mL/hr (provides 1440 kcal, 90 g protein) - Water/fluid management per MD Plan of Care: RD following, monitoring for tolerance and adequacy Nutrition reason for involvement: length of stay RD Assessment (02/04/20) Pt is an 89 year old female admitted with pneumonia. Pt was intubated this morning and has been without consistent nutrition for 5 days per chart. Unable to obtain nutrition history from pt at this time. There are no previous weights in chart. Recommend initiating eneteral nutrition if pt is to remain intubated. Will continue to monitor. Principal Problems/Diagnoses: pneumonia PMH: Rheumatoid arthritis, Fibromyalgia, Atrial fibrillation, Gastroesophageal reflux. GI: soft/non-tender abdomen, no BM recorded Skin: no pressure ulcers Labs: (02/03) Na 146, K 4.2, BUN 25, Cr 0.81, Glu 123, Ca 7.9, AST 44 Meds: vancomycin, pepcid, zofran, antibiotic, fentayl, amiodarone, colace Ht: 62 inches Wt: 134 lbs BMI: 24.5 kg/m2 IBW:110 lbs Malnutrition Evaluation (02/04/20) The patient does not meet criteria for a specified degree of malnutrition at this time. Will re-evaluate at follow-up as appropriate. Energy intake: <50% of estimated energy requirements for 5 days Weight loss: Unable to assess Fat loss: unable to evaluate Muscle loss: unable to evaluate Supporting Evidence: Fluid accumulation: no edema per chart Functional Status: unable to assess Nutrition Prescription (Diet Order): NPO Estimated Nutritional Needs: 8878-2589 calories/day (20-25 kcal/kg CBW) 79-120 g protein/day (1.3-2 g pro/kg CBW) Diet Adequacy: Not meeting calorie needs, Not meeting protein needs Tolerance: N/A Diet Education Needs Assessment:. Diet education is not indicated, pt is intubated Nutrition Care Level: moderate Nutrition Diagnosis: Inadequate oral intake related to decreased ability to consume sufficient energy as evidenced by insufficient energy intake from diet compared to needs. Goal: Patient will meet 75-100% of estimated needs by follow up Progress: N/A Interventions: -Composition, Rate, Route Monitoring/Evaluation: -Total energy intake, Total protein intake, Formula/Solution, Weight change Signed: Becky Fernandez RD, LD
[2020-02-04] MEDS: RIVAROXABAN 20 MG TABLET PO SCH (17:32)
[2020-02-04] MEDS: MEROPENEM 1GM 100 ML IV SCH ×2 (17:32→21:17)
[2020-02-04] MEDS: FENTANYL 2000MCG/NS 250 250 ML IV PRN (21:27)
[2020-02-04] MEDS: NOREPINEPHRINE INJ 4MG/4ML 8 MG in DEXTROSE 5% 250ML 250 ML IV PRN (21:28)
--- NOTE | 2020-02-04 21:48 | Progress Note ---
DATE: 02/04/2020 REASON FOR PROGRESS NOTE: Right pleural effusion; requested by Dr. Luis Bray. Rn Circulating is Ari Blanco MD SUBJECTIVE: Intubated and in the ICU. Pulmonary function has deteriorated and she has severe bilateral infiltrates on chest x-ray. She has FiO2 of 95%. Chest tube drainage approximately 100 to 200 mL/h of serous fluid. No pneumothorax apparent on chest x-ray. REVIEW OF SYSTEMS: Unobtainable because the patient is intubated and sedated. PHYSICAL EXAMINATION: VITAL SIGNS: Blood pressure 115/65. Pulse 90 and irregularly irregular. Respirations 18 and intubated. NECK: Supple, nontender. No JVD. CARDIAC: Irregular rate and irregular rhythm. Normal S1 and S2. No rub or murmur. LUNGS: Coarse ventilator sounds bilaterally. ABDOMEN: Hypoactive bowel sounds. Nontender. EXTREMITIES: No cyanosis, clubbing, or edema. IMAGING: Chest x-ray as above. LABORATORIES: White count 32.7, hemoglobin 11.8, hematocrit 37.5, platelet count 207,000. Sodium 146, potassium 4.2, BUN 24, creatinine 0.81. IMPRESSION: Pulmonary deterioration over the last 24 to 48 hours. Right lung is inflated, but there are bilateral pulmonary infiltrates. IMPRESSION: Critically ill. Chest tube drainage continues. No air leak. We will follow. MD LIVIA MejiaL/MODL /[id number]
[2020-02-05] VITALS (16 sets, daily range): BP systolic 91–118; BP diastolic 52–86
[2020-02-05] MEDS: MIDAZOLAM HCL 5MG/ML 10ML VIAL 100 ML IV PRN ×4 (00:19→22:11)
[2020-02-05] MEDS: ACETAMINOPHEN 325 MG TAB PO PRN (00:27)
[2020-02-05] MEDS ORDERED: AMIODARONE 900MG 500 ML IV ONE (04:32)
[2020-02-05] MEDS ORDERED: NOREPINEPHRINE 8 MG/D5W 250 ML 250 ML ONE (04:59)
--- NOTE | 2020-02-05 05:25 | NUR ---
IM- progress note O/N see below ROS; no f/c/s/N/V/D/MORRIS/dizziness, confusion,vision changes, chest pain v/s revd PE Restrained; Intubated; NGT; Right chest tube; Bustamante; anicteric ns1s2 reduced BS right lung Pt indicating discomfort form right mid back radiating to right lower rib region; No flank tenderness; No abdominal tenderness soft abdomen no leg edema skin dry flat affect; anxious labs/meds revd A/P: 89yoF Parapneumonic effusion/Right pleural effusion- monitor; O2 support; may need diuresis. Multifocal PNA- IV aztreonam/azithromycin; O2; pulm consult KISHA vs CKD- pt not aware of renal discomfort UTI- IV aztreonam; cultures Distended gallbladder- U/S consideration RA- home meds Abnormal gait- uses walker; PT consult PAF- AV blockade Anxiety- prn BZD Chronic pain syndrome- use prn morphine. Prop: scd; lovenox Dispo; monitor; control anxiety; discomfort can be due to the PNA/parapneumonic effusion vs gallbladder disease. 9-6 Acute resp failure- BIPAP; worsened leukocytosis; IV cefepime/azithromycin/vanco; U/S abdomen = sludge only; move to ICU if needed. d/w . IV morphine for continued chronic pain management. 9-7 Possible empyema; worsened WBC; consult ID; CVSx to evaluate patient; d/w Eugene; check c.diff and empiric flagyl. Chest tube placement today; 9-8 s/p right chest tube; remains on O2 support; f/u fluid studies; cct>35mins 9-9 leukocytosis improving; 9-10 Complicated parapneumonic effusion on right s/p chest tube; Multifocal PNA- continue antimicrobials; d/w by telephone; Remains on cefepime/vanco; amio for A.fib; monitor closely for oxygen status; GRZEGORZ/AMS- present on admission; due to infection. 9-11 Intubated yesterday; continue support. f/u labs ILA HAWTHORNE MD, PHD.
[2020-02-05] MEDS: NOREPINEPHRINE INJ 4MG/4ML 8 MG in DEXTROSE 5% 250ML 250 ML IV PRN (05:36)
[2020-02-05] MEDS: MEROPENEM 1GM 100 ML IV SCH ×3 (05:36→22:11)
[2020-02-05] MEDS: FENTANYL 2000MCG/NS 250 250 ML IV PRN ×2 (05:36→13:26)
[2020-02-05 05:47] LABS: BASOPHILS # (AUTO) 0.1 (0.0-0.1); BASOPHILS % 0.5 % (0.0-1.0); EOSINOPHILS # (AUTO) 0.6 (0.0-0.4); EOSINOPHILS % 2.9 % (0.0-6.0); HEMATOCRIT 36.8 % (34.2-44.1); HEMOGLOBIN 12.1 g/dL (12.0-16.0); LYMPHOCYTES # (AUTO) 1.5 (1.0-3.2); LYMPHOCYTES % 7.1 % (18.0-39.1); MEAN CORPUSCULAR HEMOGLOBIN 29.5 pg (28-32); MEAN CORPUSCULAR HGB CONC 32.9 g/dL (31-35); MEAN CORPUSCULAR VOLUME 89.8 fL (81-99); MONOCYTES # (AUTO) 1.1 (0.2-0.8); MONOCYTES % 5.4 % (4.4-11.3); NEUTROPHILS # (AUTO) 17.4 (2.1-6.9); NEUTROPHILS % 83.1 % (38.7-80.0); PLATELET COUNT 248 x10e3/uL (140-360)
[2020-02-05 06:03] LABS: ALBUMIN 2.7 g/dL (3.5-5.0); ALBUMIN/GLOBULIN RATIO 1.1 (0.8-2.0); ANION GAP 16.3 mmol/L (8-16); CALCIUM 7.3 mg/dL (8.4-10.2); CREATININE, SERUM 0.95 mg/dL (0.57-1.11); POTASSIUM 3.3 mmol/L (3.5-5.1)
[2020-02-05 07:08] LABS: PLATELET ESTIMATE ADEQUATE; PLATELET MORPHOLOGY COMMENT NORMAL; RBC MORPHOLOGY COMMENT ABNORMAL
[2020-02-05 07:09] LABS: ANISOCYTOSIS SLIGHT; POLYCHROMASIA FEW
[2020-02-05] MEDS: LIDOCAINE 4% PATCH TP SCH ×2 (08:00→20:00)
[2020-02-05] MEDS: VANCOMYCIN HCL 1.25 GM in SODIUM CHLORIDE 0.9% 250ML 250 ML IV SCH ×2 (09:00→20:23)
--- NOTE | 2020-02-05 09:31 | Diagnostic Imaging Report ---
EXAMINATION: CHEST SINGLE (PORTABLE) INDICATION: Respiratory failure COMPARISON: Chest radiograph 02/04/2020 FINDINGS: LINES/TUBES:Endotracheal tube terminates 2.5 cm above the matthew. Enteric tube terminates in the stomach. Right IJ central venous catheter terminates at the superior cavoatrial junction. Right chest tube unchanged. EKG leads overlie the chest. LUNGS:The lungs are moderately inflated. Bilateral multifocal airspace and interstitial opacities show some improvement compared to radiographs from the prior day. PLEURA:Small bilateral pleural effusions. No pneumothorax. MEDIASTINUM:The cardiomediastinal silhouette appears normal in size and shape. BONES/SOFT TISSUES:No acute osseous injury. ABDOMEN:No free air under the diaphragm. IMPRESSION: Slight interval improvement in bilateral multifocal airspace and interstitial opacities. Signed by: Ab Newsome MD on 02/05/2020 9:27 AM
[2020-02-05] MEDS: FAMOTIDINE 20 MG/2 ML VIAL IV SCH ×2 (11:03→17:30)
[2020-02-05 11:57] LABS: ABG HCO3 22 mmol/L (22-26); ABG PCO2 37 mmHg (35-45); ABG PH 7.37 (7.35-7.45); ABG PO2 99 mmHg (80-105); ABG TCO2 23
--- NOTE | 2020-02-05 14:09 | NUR ---
RECEIVED MOT FOR PT. COPY TO THE CHART. Addendum: 02/05/20 at 1621 by Conchita Heller CM ABOVE NOTE ENTERED IN ERROR
--- NOTE | 2020-02-05 14:51 | Progress Note ---
DATE: SUBJECTIVE: The patient remains on a PRVC mode of ventilation. The patient is currently on a PRVC at a rate of 22 with a tidal volume of 410 and a PEEP of 10. The FiO2 is set at 80%. The patient is on 13 mcg of Levophed. PHYSICAL EXAMINATION: VITAL SIGNS: The blood pressure is 112/80 on Levophed. The heart rate is 130 to 140. Appears to be atrial fibrillation. The patient is also on fentanyl 200 mcg and Versed at 5. HEENT: There is no facial swelling. There is an oral endotracheal tube. LYMPHATIC: Shows no submandibular, cervical, or supraclavicular adenopathy. CARDIAC: Reveals regular rate and rhythm with normal S1 and S2. LUNGS: Auscultation of lungs reveals rhonchorous breath sounds bilaterally. There is no wheezing. ABDOMEN: Soft and nontender. There is no rebound or guarding. EXTREMITIES: Shows no leg or calf tenderness. There is no cyanosis or clubbing. SKIN: Shows no rashes. NEUROLOGICAL: Shows no focal abnormalities. LABORATORY DATA: White blood cell count is 20.8 and the hemoglobin is 12.1. The platelet count is 248. The BUN to creatinine ratio is 28 to 0.95. Carbon dioxide is 19 and the potassium is 3.3. Other electrolytes are within normal limits. Albumin is 2.7. White blood cell count is greater than 50. IMPRESSION: 1. Severe sepsis secondary to bilateral lower lobe pneumonia. 2. Parapneumonic effusion on right side with probable empyema. 3. Atrial fibrillation. 4. Severe rheumatoid arthritis with immunosuppressive therapy. 5. Moderate protein-calorie malnutrition. 6. Metabolic encephalopathy. PLAN: 1. Continue vancomycin and meropenem. 2. Continue amiodarone and Xarelto. 3. Decrease Versed to 5 mg. 4. Decrease fentanyl as tolerated. 5. The patient's minute ventilation is decreased. We will repeat ABG. 6. Continue to wean Levophed. 7. Begin enteral feedings. Greater than 35 minutes in direct critical care time. Luis Bray MD [facility]/MODL /[id number]
--- NOTE | 2020-02-05 16:18 | NUR ---
SPOKE WITH CNO, GOT PERMISSION FOR AND 3 KIDS TO COME SEE THE PT. ONLY 2 PEOPLE IN ROOM AT 1 TIME. CNO WILL NOTIFY HOUSE SUPER OF PERMISSION TO COME SEE PT
[2020-02-05] MEDS: RIVAROXABAN 20 MG TABLET PO SCH (18:27)
[2020-02-05] MEDS: AMIODARONE HCL 900 MG in DEXTROSE 5% 500ML 500 ML IV SCH (21:00)
[2020-02-06] VITALS (19 sets, daily range): BP systolic 57–138; BP diastolic 35–88
--- NOTE | 2020-02-06 01:39 | Progress Note ---
DATE: 02/05/2020 REASON FOR PROGRESS NOTE: Right pleural effusion, pneumonia; requested by Dr. Luis Bray. Leveler is Dr. Ari Blanco. SUBJECTIVE: Continues to be intubated and critically ill in the ICU. On PRVC at a rate of 22 with tidal volume of 410, FiO2 at 80%. Continues on Levophed. REVIEW OF SYSTEMS: Unobtainable because the patient is intubated and sedated. PHYSICAL EXAMINATION: VITAL SIGNS: Blood pressure 120/75, pulse 95 and irregularly irregular. RESPIRATIONS: Intubated. NECK: Supple, nontender. No JVD. CARDIAC: Irregular rate and irregular rhythm. Normal S1 and S2. No rub or murmur. LUNGS: Coarse ventilator sounds bilaterally. ABDOMEN: Hypoactive bowel sounds. Nontender. EXTREMITIES: No cyanosis, clubbing, or edema. IMAGING STUDIES: Chest x-ray shows continued bilateral pulmonary infiltrates. No pneumothorax. LABORATORY DATA: White count 20.8, hemoglobin 12.1, hematocrit 36.8, and platelet count 248,000. Sodium 143, potassium 3.3, BUN 28, creatinine 0.95. IMPRESSION: Critically ill. Chest tube drainage low. No air leak. Lungs expanded. Reggie Holliday MD [facility]/MODL /[id number]
[2020-02-06] MEDS: FENTANYL 2000MCG/NS 250 250 ML IV PRN ×2 (04:37→16:29)
[2020-02-06 05:08] LABS: BASOPHILS # (AUTO) 0.1 (0.0-0.1); BASOPHILS % 0.4 % (0.0-1.0); EOSINOPHILS # (AUTO) 0.7 (0.0-0.4); EOSINOPHILS % 3.9 % (0.0-6.0); HEMATOCRIT 38.8 % (34.2-44.1); HEMOGLOBIN 12.7 g/dL (12.0-16.0); LYMPHOCYTES # (AUTO) 1.4 (1.0-3.2); LYMPHOCYTES % 7.6 % (18.0-39.1); MEAN CORPUSCULAR HEMOGLOBIN 30.2 pg (28-32); MEAN CORPUSCULAR HGB CONC 32.7 g/dL (31-35); MEAN CORPUSCULAR VOLUME 92.2 fL (81-99); MONOCYTES # (AUTO) 1.1 (0.2-0.8); MONOCYTES % 5.7 % (4.4-11.3); NEUTROPHILS # (AUTO) 15.2 (2.1-6.9); NEUTROPHILS % 81.7 % (38.7-80.0); PLATELET COUNT 215 x10e3/uL (140-360); RED BLOOD COUNT 4.21 x10e6/uL (3.6-5.1)
[2020-02-06 05:26] LABS: ALANINE AMINOTRANSFERASE 13 IU/L (0-55); ALBUMIN 2.6 g/dL (3.5-5.0); ALKALINE PHOSPHATASE 33 IU/L (40-150); ANION GAP 17.6 mmol/L (8-16); BLOOD UREA NITROGEN 29 mg/dL (7-26); BUN/CREATININE RATIO 35 (6-25); CALCIUM 7.2 mg/dL (8.4-10.2); CARBON DIOXIDE 18 mmol/L (22-29); CHLORIDE 109 mmol/L (98-107); CREATININE, SERUM 0.83 mg/dL (0.57-1.11); EST GLOMERULAR FILTRATION RATE > 60 ML/MIN (60-); GLUCOSE 173 mg/dL (74-118); POTASSIUM 3.6 mmol/L (3.5-5.1); SODIUM 141 mmol/L (136-145)
--- NOTE | 2020-02-06 06:03 | NUR ---
IM- progress note O/N see below ROS; no f/c/s/N/V/D/MORRIS/dizziness, confusion,vision changes, chest pain v/s revd PE Restrained; Intubated; NGT; Right chest tube; Bustamante; anicteric ns1s2 reduced BS right lung Pt indicating discomfort form right mid back radiating to right lower rib region; No flank tenderness; No abdominal tenderness soft abdomen no leg edema skin dry flat affect; anxious labs/meds revd A/P: 89yoF Parapneumonic effusion/Right pleural effusion- monitor; O2 support; may need diuresis. Multifocal PNA- IV aztreonam/azithromycin; O2; pulm consult KISHA vs CKD- pt not aware of renal discomfort UTI- IV aztreonam; cultures Distended gallbladder- U/S consideration RA- home meds Abnormal gait- uses walker; PT consult PAF- AV blockade Anxiety- prn BZD Chronic pain syndrome- use prn morphine. Prop: scd; lovenox Dispo; monitor; control anxiety; discomfort can be due to the PNA/parapneumonic effusion vs gallbladder disease. 9-6 Acute resp failure- BIPAP; worsened leukocytosis; IV cefepime/azithromycin/vanco; U/S abdomen = sludge only; move to ICU if needed. d/w . IV morphine for continued chronic pain management. 9-7 Possible empyema; worsened WBC; consult ID; CVSx to evaluate patient; d/w [place]; check c.diff and empiric flagyl. Chest tube placement today; 9-8 s/p right chest tube; remains on O2 support; f/u fluid studies; cct>35mins 9-9 leukocytosis improving; 9-10 Complicated parapneumonic effusion on right s/p chest tube; Multifocal PNA- continue antimicrobials; d/w by telephone; Remains on cefepime/vanco; amio for A.fib; monitor closely for oxygen status; GRZEGORZ/AMS- present on admission; due to infection. 9-11 Intubated yesterday; continue support. f/u labs 9-12 Septic; Resp failure; Prognosis poor; family plans on seeing pt today, then withdrawing care.I have discussed case with and son via telephone overnight. ILA HAWTHORNE MD, PHD.
[2020-02-06] MEDS: MEROPENEM 1GM 100 ML IV SCH ×2 (06:07→13:42)
--- NOTE | 2020-02-06 07:39 | Diagnostic Imaging Report ---
EXAMINATION: CHEST SINGLE (PORTABLE) INDICATION: Respiratory failure. COMPARISON: Multiple prior chest radiographs including most recent on 02/05/2020. FINDINGS: Patient is rotated towards the right. TUBES and LINES: Endotracheal tube which terminates approximately 4 cm above the matthew, enteric tube which terminates in the expected location of the gastric body, right chest tube and right PICC which terminates the cavoatrial junction are unchanged. LUNGS: No significant interval change in multifocal airspace and interstitial opacities. PLEURA: Small bilateral pleural effusion. No pneumothorax. HEART AND MEDIASTINUM: The cardiomediastinal silhouette is unchanged. BONES AND SOFT TISSUES: No acute osseous lesion. Soft tissues are unchanged. UPPER ABDOMEN: No free air under the diaphragm. IMPRESSION: 1. No significant interval change in multifocal airspace and interstitial opacities. 2. Stable support lines and tubes as above. Signed by: Jadon White MD on 02/06/2020 7:36 AM
[2020-02-06] MEDS: LIDOCAINE 4% PATCH TP SCH (08:00)
[2020-02-06] MEDS: FAMOTIDINE 20 MG/2 ML VIAL IV SCH ×2 (08:52→16:12)
[2020-02-06] MEDS: VANCOMYCIN HCL 1.25 GM in SODIUM CHLORIDE 0.9% 250ML 250 ML IV SCH (08:52)
[2020-02-06 08:54] LABS: ABG HCO3 23 mmol/L (22-26); ABG PCO2 42 mmHg (35-45); ABG PH 7.36 (7.35-7.45); ABG PO2 90 mmHg (80-105); ABG TCO2 24
[2020-02-06 09:27] LABS: POLYCHROMASIA FEW
[2020-02-06 09:28] LABS: ANISOCYTOSIS SLIGHT
[2020-02-06] MEDS: AMIODARONE HCL 900 MG in DEXTROSE 5% 500ML 500 ML IV SCH (10:00)
[2020-02-06] MEDS ORDERED: LORAZEPAM INJ 2 MG/ML VIAL IV PRN (10:15)
[2020-02-06] MEDS ORDERED: MORPHINE SULFATE INJ 4 MG/ML INJ 1ML IV PRN (10:45)
--- NOTE | 2020-02-06 11:30 | NUR ---
Patient's wedding ring given to at this time, family in the room as witness. Questions answered regarding terminal extubation answered to family satisfaction.
--- NOTE | 2020-02-06 11:31 | Progress Note ---
DATE: SUBJECTIVE: The patient is still requiring Levophed at 10 mcg. Temperature is 100.4. The patient remains on PRVC mode of ventilation with a FiO2 of 80%. PHYSICAL EXAMINATION: VITAL SIGNS: The blood pressure is 106/78, saturation is 99%. Pulse is 120-130. Has atrial fibrillation. HEENT: There is an oral endotracheal tube. There is a right IJ line. The site looks clean. CARDIAC: Reveals regular rate and rhythm with normal S1, S2. LUNGS: Auscultation of lungs reveals crackles at the bases. There is no wheezing. ABDOMEN: Soft, nontender. There is no rebound or guarding. EXTREMITIES: Shows no leg edema or calf tenderness. There is no cyanosis or clubbing. SKIN: Shows no rashes. NEUROLOGICAL: Shows no focal abnormalities. LABORATORY DATA: White blood cell count is 18.6 and hemoglobin 12.7. The platelet count is 215. The BUN to creatinine ratio is 29 to 0.83. The carbon dioxide is 18. Other electrolytes are within normal limits. Albumin is 2.6. RADIOGRAPHIC DATA: Chest x-ray shows bilateral opacities. IMPRESSION: 1. Severe sepsis secondary to bilateral pneumonia. 2. Parapneumonic effusion on the right side with probable empyema. 3. Severe rheumatoid arthritis with immunosuppressive therapy. 4. Moderate protein-calorie malnutrition. 5. Metabolic encephalopathy. 6. Atrial fibrillation. PLAN: 1. Continue current antibiotics. 2. Continue amiodarone and Xarelto. 3. The patient is on low-dose Versed and fentanyl. 4. Family has opted for withdrawal of support. We are awaiting arrival of family for terminal extubation. Luis Bray MD [facility]/MODL /[id number]
--- NOTE | 2020-02-06 11:45 | NUR ---
Per family, ready to terminally extubate and withdraw care. , RT made aware.
[2020-02-06] MEDS: MIDAZOLAM HCL 5MG/ML 10ML VIAL 100 ML IV PRN (12:10)
--- NOTE | 2020-02-06 12:25 | NUR ---
Patient extubated at this time and drips discontinued. Patient resting quietly at this time.
[2020-02-06] MEDS: RIVAROXABAN 20 MG TABLET PO SCH (16:12)
--- NOTE | 2020-02-06 19:00 | NUR ---
19:00 Patient upon arrival to unit. Surrounded by and son. Patient pronounced @ 18:55 and home chosen. Paperwork signed. Dr. Cookie Bray & Dr. Blanco notified. 19:15 Family left with patient's belongings (wedding ring) 19:30 [facility] notified. 20:00 Post mortem care provided. home called.
[2020-02-08] MEDS ORDERED: SUCCINYLCHOLINE CHLORIDE 20 MG/ML 10ML VIAL ONE (17:05)
[2020-02-08] MEDS ORDERED: MIDAZOLAM HCL 2 MG/2 ML VIAL ONE (17:05)
[2020-02-08] MEDS ORDERED: WATER STERILE 10 ML VIAL ONE (17:05)
[2020-02-08] MEDS ORDERED: VECURONIUM BROMIDE FOR INJ 20 MG VIAL ONE (17:05)
[2020-02-08] MEDS ORDERED: ETOMIDATE 2 MG/ML 10 ML INJ IV ONE (17:05)
--- NOTE | 2020-02-10 09:13 | NUR ---
Brief SUmmary Family withdrew care; Pt Details of care below: Parapneumonic effusion/Right pleural effusion- monitor; O2 support; may need diuresis. Multifocal PNA- IV aztreonam/azithromycin; O2; pulm consult KISHA vs CKD- pt not aware of renal discomfort UTI- IV aztreonam; cultures Distended gallbladder- U/S consideration RA- home meds Abnormal gait- uses walker; PT consult PAF- AV blockade Anxiety- prn BZD Chronic pain syndrome- use prn morphine. Prop: scd; lovenox Dispo; monitor; control anxiety; discomfort can be due to the PNA/parapneumonic effusion vs gallbladder disease. 9-6 Acute resp failure- BIPAP; worsened leukocytosis; IV cefepime/azithromycin/vanco; U/S abdomen = sludge only; move to ICU if needed. d/w . IV morphine for continued chronic pain management. 9-7 Possible empyema; worsened WBC; consult ID; CVSx to evaluate patient; d/w [place]; check c.diff and empiric flagyl. Chest tube placement today; 9-8 s/p right chest tube; remains on O2 support; f/u fluid studies; cct>35mins 9-9 leukocytosis improving; 9-10 Complicated parapneumonic effusion on right s/p chest tube; Multifocal PNA- continue antimicrobials; d/w by telephone; Remains on cefepime/vanco; amio for A.fib; monitor closely for oxygen status; GRZEGORZ/AMS- present on admission; due to infection. 9-11 Intubated yesterday; continue support. f/u labs 9-12 Septic; Resp failure; Prognosis poor; family plans on seeing pt today, then withdrawing care.I have discussed case with and son via telephone overnight. ILA HAWTHORNE MD, PHD.
== END 2020-02-06 22:31 | disposition expired | DRG 871 ==
LOC: ER 17:28 → ERHOLD 21:16 → MED/SURG2 22:06 → IMCU 01-31 10:10 → ICU 02-01 13:47
PROVIDERS: ADMIT Internal Medicine; ATTEND Internal Medicine
PROC: 0W9900Z Drainage of Right Pleural Cavity with Drainage Device, Open Approach (ICD-10-PCS; 2020-02-01)
PROC: 5A09357 Assistance with Respiratory Ventilation, Less than 24 Consecutive Hours, Continuous Positive Airway Pressure (ICD-10-PCS; principal; 2020-02-02)
PROC: 5A1945Z Respiratory Ventilation, 24-96 Consecutive Hours (ICD-10-PCS; 2020-02-04)
PROC: 0BH17EZ Insertion of Endotracheal Airway into Trachea, Via Natural or Artificial Opening (ICD-10-PCS; 2020-02-04)
PROC: 02HV33Z Insertion of Infusion Device into Superior Vena Cava, Percutaneous Approach (ICD-10-PCS; 2020-02-04)
PROC: B548ZZA Ultrasonography of Superior Vena Cava, Guidance (ICD-10-PCS; 2020-02-04)
PROC: 3E043XZ Introduction of Vasopressor into Central Vein, Percutaneous Approach (ICD-10-PCS; 2020-02-04)
DX: A41.9 Sepsis, unspecified organism (principal); J15.9 Unspecified bacterial pneumonia; G93.41 Metabolic encephalopathy; J86.9 Pyothorax without fistula; J96.00 Acute respiratory failure, unspecified whether with hypoxia or hypercapnia; J69.0 Pneumonitis due to inhalation of food and vomit; N17.9 Acute kidney failure, unspecified; E44.0 Moderate protein-calorie malnutrition; E87.2 Acidosis; M79.7 Fibromyalgia; I48.0 Paroxysmal atrial fibrillation; M06.9 Rheumatoid arthritis, unspecified; R65.20 Severe sepsis without septic shock; K82.8 Other specified diseases of gallbladder; Z88.5 Allergy status to narcotic agent; Z88.0 Allergy status to penicillin; Z88.8 Allergy status to other drugs, medicaments and biological substances; Z91.041 Radiographic dye allergy status; Z79.52 Long term (current) use of systemic steroids; N18.9 Chronic kidney disease, unspecified; F41.9 Anxiety disorder, unspecified; G89.4 Chronic pain syndrome; D64.9 Anemia, unspecified; Z66 Do not resuscitate
CPT/HCPCS: 31500; 36415; 36600; 71045; 71250; 74018; 74176; 76705; 80053; 80202; 81001; 82150; 82550; 82553; 82805; 83605; 83615; 83690; 83735; 83880; 84157; 84484; 85025; 85610; 85730; 87040; 87070; 87086; 87205; 89051; 93005; 94002; 94003; 94660; 99285; J0330; J0456; J0692; J0696; J1170; J1650; J2250; J2270; J2405; J3370; J3486; J7030; J7050; J7060; J7121; U0002